=== PATIENT | female | born 1965 ===

== ENCOUNTER 2024-08-04 16:10 | Inpatient (IN) | payer OTHER, SELFPAY ==
[2024-08-04] VITALS (45 sets, daily range): BP systolic 79–205; BP diastolic 55–135
[2024-08-04] MEDS: ATIVAN 2 MG IV (13:48)
--- NOTE | 2024-08-04 13:56 | ED.GENMED ---
History of Present Illness
General
Chief Complaint: Change in Mental Status
Source: ambulance crew
Time Seen by Provider: 08/04/24 13:53
History of Present Illness
History of Present Illness:
59-year-old female presents to the emergency room for evaluation of altered mental status. Patient evidently works at [employer]. Coworkers noted she began speaking in a confused manner. 911 was called. Patient had a tonic-clonic seizure. When
medics arrived the patient was confused and combative. While the patient was en route to the hospital in the ambulance she had another tonic-clonic seizure. Prior to the seizure she was persistently confused. After the seizure which lasted about
a minute or so the patient was combative. We have no further history available at this time. Medics report a blood pressure 220 systolic en route as well.
Phy Exam
Physical Exam
Physical Exam:
General: Eyes open, confused, combative, high BMI
Vitals: Hypertensive
Head: Atraumatic
Eyes: Pupils equal, EOMI
Throat: Airway intact, no exudates
Neck: Trachea midline
Lungs: Clear and equal b/l
Heart: Tachycardic regular rate, no murmurs
Abd: Soft, Nontender, No pulsatile mass
Neuro: Moving all extremities equally. Patient is confused and combative and has great strength in all extremities
Skin: Warm, dry, no rash
Extremities: pulses equal b/l, no edema
Course
Orders/Labs/Results
Orders:
Orders
08/04/24 13:19
Etomidate [Amidate] 40 mg .ROUTE .STK-MED ONE
Etomidate [Amidate] 40 mg .ROUTE .STK-MED ONE
Rocuronium [place] [Rocuronium] 50 mg .ROUTE .STK-MED ONE
Rocuronium [place] [Rocuronium] 50 mg .ROUTE .STK-MED ONE
08/04/24 13:20
Lorazepam [Ativan] 2 mg IV NOW STA
08/04/24 13:44
Fentanyl Citrate/Pf [Sublimaze] 100 mcg .ROUTE .STK-MED ONE
Propofol 1,000,000 Mcg/100 ml [Diprivan] 1,000,000 mcg in 100 ml .ROUTE .STK-MED
08/04/24 13:46
Electrocardiogram (*1) Urgent
Reason for Study: Other
Other Reason for Exam: Possible Stroke
Head wo Contrast CT [CT Head W/o Iv Contrast] Stat
Comment:
Reason For Exam: change mental status seizure
Cardiac Monitoring- Treatment ONCE
EKG- Treatment ONCE
IV Insert/Care/Rem.- Treatment PRN
Vital Signs As Directed
Frequency: Other
Weight As Directed
Frequency: Once
Comment: ZERO STRETCHER SCALE FOR ACCURATE WEIGHT
O2 Therapy [RESP] Urgent
Titrate/Wean O2 to maintain O2 sat greater than (%): 93
Special Instructions: MAINTAIN CONTINUOUS O2 SATS > OR = 93%
08/04/24 13:48
Alcohol Urgent
B-Hydroxybutyrate Urgent
Comment: ADD ON
Complete Blood Count/With Diff Urgent
Comprehensive Metabolic Panel Urgent
Magnesium Urgent
Comment: ADD ON
PTT Urgent
Prothrombin Time Urgent
Triglycerides Urgent
Comment: ADD ON
Troponin I Urgent
08/04/24 13:59
Fentanyl Citrate/Pf [Sublimaze] 100 mcg IV NOW STA
08/04/24 14:10
CR Chest Portable - 1 View Urgent
Comment:
Reason For Exam: post intubation
Reason Study Needs to be Portable: Patient Unstable
08/04/24 14:11
Levetiracetam Injectable [Keppra] 4,000 mg IV NOW STA
Propofol 1,000,000 Mcg/100 ml [Diprivan] 1,000,000 mcg in 100 ml IV NOW
Indication:: Light Sedation
Begin Infusion:: Now
Goal:: RASS 0 to -2
Maximum dose in mcg/kg/min:: 50
Initial dose based on RASS:: Yes
If RASS is:: +1 or pt hemodynamically unstable (SBP < 90mmHg), initiate at 10 mcg/kg/min
If RASS is:: +2, initiate at 20 mcg/kg/min
If RASS is:: greater than or equal to +3, initiate at 30 mcg/kg/min
Titration Instructions:: Titrate by 5-10 mcg/kg/min every 5 minutes until RASS 0 to -2 achieved.
Taper Instructions:: If RASS is at or below goal for 4 consecutive hours decrease infusion by
Taper Instructions:: 5-10 mcg/kg/min every 2 hours to off.
Over-sedation Instructions:: If CPOT 0-2 (at goal) AND RASS -3 to -5 (below goal) decrease sedative by
Over-sedation Instructions:: 50% first. If pain score remains at goal and RASS remains below goal in
Over-sedation Instructions:: 1 hour, decrease opioid infusion by 50%.
Notify provider:: immediately if patient exhibits signs/symptoms of propofol-related
Notify provider:: infusion syndrome.
Additional Instructions:: Patient MUST be mechanically ventilated and MUST receive analgesia.
08/04/24 14:19
Add On- LAB Urgent
Tests Added?: beta-hydroxybuterate
ABG [Arterial Blood Gas] Urgent
%Oxygen/Room Air: 50
08/04/24 Dinner
NPO
Allow oral meds: Yes
Allow clear liquids: No
08/04/24 15:03
Urine Drug Abuse Screen Urgent
Date Specimen was Collected: 08/04/24
Time Specimen was Collected: 14:55
08/04/24 15:32
Urinalysis Reflex To Culture Urgent
08/04/24 15:39
Venous Blood Gas Urgent
%Oxygen/Room Air: 60
08/04/24 16:03
Admit/Transfer Patient As Directed
Co-Sign Provider:
Level of Care: Inpatient admission
Assign to:: ICU
Physician / Group: chuy
Diagnosis: seizure
Reason for Hospitalization: seizure
Expected length of stay greater than two midnights?: Yes
ELOS- Estimated Length of Stay in days: 2
I certify the patient meets the requirements for IP care: Yes
PRN Pain Medication Management As Directed
May give lesser potent ordered pain med per pt: Yes
preference::
Protocol:: Medication orders for pain may be administered in a
manner that supports deferring to patient preference
when the pt is:
- Requesting an ordered lesser potent pain medication.
Least to most potent pain medications are defined
as: acetaminophen < NSAID < tramadol < opioids
(morphine, oxycodone, hydromorphone).
- Requesting a lesser dose of the same medication IF
ORDERED.
- Requesting a less intrusive route of administration
if both routes are prescribed by the provider (PO <
IV).
08/04/24 16:04
Add On- LAB Urgent
Tests Added?: alcohol
Code Status As Directed
Resuscitation Status: Full Code
08/04/24 16:08
Potassium Chloride [KCl] 40 meq 0.9% Sodium Chloride 250 ml [Nss] 250 ml IV NOW
08/04/24 16:24
Activity As Directed
Activity Level: As Tolerated
Vital Signs As Directed
Frequency: Per unit guidelines
DX Deep Vein Thrombosis Video Routine
08/04/24 20:00
Heparin 5,000 units SC Q12
Levetiracetam Injectable [Keppra] 1,000 mg IV Q12
08/05/24 06:00
Complete Blood Count/With Diff IN AM
Comprehensive Metabolic Panel IN AM
Abnormal Lab Results
08/04/24 08/04/24
13:48 15:39
Plt Count 85 L 10^3/uL
(130-400)
MPV 10.9 H fL
(7.4-10.4)
Absolute Monos (auto) 1.2 H 10^3/uL
(0.1-0.6)
Monocytes % 14.4 H %
(1.7-9.3)
PT 17.3 H Sec
(11.4-14.6)
VBG pO2 80 H mmHg
(30-50)
Potassium 3.4 L mmol/L
(3.5-5.1)
Chloride 97 L mmol/L
(98-107)
Carbon Dioxide 21 L mmol/L
(22-30)
BUN 21 H mg/dl
(7-17)
Glucose 431 H mg/dl
(70-99)
Magnesium 1.4 L mg/dl
(1.6-2.3)
Total Bilirubin 3.2 H mg/dl
(0.2-1.3)
AST 48 H U/L
(14-36)
Total Protein 8.9 H g/dl
(6.3-8.2)
Albumin 5.2 H g/dl
(3.5-5.0)
Triglycerides 262 H mg/dl
(10-149)
B-Hydroxybutyrate 0.48 H mmol/L
(0.02-0.27)
08/04/24 13:48
08/04/24 13:48
Vital Signs
Initial and Last Documented VS:
Initial Vital Signs
Pulse Pulse Ox
154 96
08/04/24 13:25 08/04/24 13:25
Last Documented Vital Signs
Temp Pulse Resp BP Pulse Ox
98.3 F 98 17 118/74 100
08/04/24 16:52 08/04/24 16:45 08/04/24 16:45 08/04/24 16:45 08/04/24 16:56
MDM/Problems Addressed
Differential Diagnosis Includes:
Status epilepticus, alcohol withdrawal seizure, hypertensive emergency, intracranial hemorrhage, CVA, adverse reaction to medication or drug.
MDM/Problems Addressed:
59-year-old female who collapsed at work after becoming confused and then having generalized tonic-clonic seizure activity. Patient arrived to the emergency room combative. Initially treated 2 mg of lorazepam. This was used in case the patient
was having continued partial complex seizure activity. Her altered mental status did not improve and she did not become more calm. She was noted to be moving all extremities with good strength. Patient required emergent imaging of her brain to
exclude a bleed or other acute abnormality and the decision was made to perform rapid sequence intubation to facilitate an adequate workup. Patient was intubated with some difficulty. However were able to place a 7-1/[address] did not show
any acute bleed or infarct. Patient was loaded with 60 mg/kg of Keppra up to a maximum of 4000 mg. Propofol drip was initiated. In the immediate post intubation phase the patient remained quite hypertensive and tachycardic however as the propofol
was titrated up her heart rate and blood pressure did improve and essentially normalized. Patient's family arrived and was able to tell us that the patient has a history of cirrhosis and alcohol abuse. They believe she has been free of alcohol for
about 10 months. She also has a history of diabetes and hypertension. Neurology consultation was obtained. Dr. Anton came to the emergency room and evaluated the patient. Patient be admitted to the hospitalist service and I discussed the
patient's admission with Dr. Bonilla
Chronic conditions affecting care: HTN and Other (Alcohol use disorder)
*Radiology
Radiology exam reviewed: preliminary read by ED provider (Chest x-ray shows ET tube in good position and no acute infiltrates on my review) and radiology read reviewed
*Pulse Oximetry
Patient hypoxic: no
*EKG
Interpreted by ED Provider?: Yes
Rate: tachycardiac
Rhythm: sinus tachycardia
[place]: normal axis
QRS Pattern: left vent hypertrophy
Ischemia: non-specific ST changes
*Javascript Front End Developer Interpretation
Rate: tachycardiac
Interpretation: abnormal
Heart Rate: 145
Rhythm: sinus tachycardia
*Critical Care Note
Total Time (30-74mins, 75-104mins- exclusive of procedures): 40 min
comment:
Critical care statement: A total of 40 minutes of critical care time was provided for this patient. This includes management of unstable vital signs, evaluation of the patient at bedside, reviewing the patient's pertinent medical records, discussion
with consultants, review of old EKGs and review of pertinent medical records. This time with separate from time utilized to perform the aforementioned documented procedures
Patient Management
Social determinants of health affecting care: Living situation and Substance abuse
Discussion with other providers: Hospitalist
ED Attending Note
-
Portions of this chart may have been created with voice recognition software.� Occasional wrong word or��sound alike� substitutions may have occurred due to the inherent limitations of voice recognition software.
Discharge Plan
Departure
Patient Disposition: Admit
Date of Disposition: 08/04/24
Time of Disposition: 15:22
Admit to: ICU
Presentation/result/management discussed w/ accepting MD/DO: Hospitalist
Condition: Critical
Discharge Problem:
Status epilepticus
Interventions
Interventions:
*Risk Screen - Suicide Last Done: 08/04/24 13:56
*General Assessment Last Done: 08/04/24 13:56
*Neglect/Abuse Screening Last Done: 08/04/24 13:56
*ED COVID-19 Vaccine History Last Done: 08/04/24 13:56
*Nursing Disposition Last Done: 08/04/24 16:49
ED- Pulmonary Assessment Last Done: 08/04/24 14:54
ED-Psychological Assessment Last Done: 08/04/24 16:49
ED- Neurological Assessment Last Done: 08/04/24 13:56
ED- Cardiac Assessment Last Done: 08/04/24 13:56
ED Swallowing Screen Last Done: 08/04/24 14:53
Discharge Date and Time
Discharge Date/Time: 08/04/24 16:52
[2024-08-04] MEDS: SUBLIMAZE 100 MCG IV (14:00)
[2024-08-04 14:06] LABS: % Basophils 0.7 % (0-2); % Eosinophils 2.4 % (0-6); % Immature Granulocytes 0.4 % (0-0.5); % Lymphocytes 23.6 % (20.5-51.1); % Monocytes 14.4 % (1.7-9.3); % Neutrophils 58.5 % (42.2-75.2); Absolute Basophils 0.1 10^3/uL (0-0.2); Absolute Eosinophils 0.2 10^3/uL (0-0.7); Absolute Lymphocytes 1.9 10^3/uL (1.2-3.4); Absolute Monocytes 1.2 10^3/uL (0.1-0.6); Absolute Neutrophils 4.7 10^3/uL (1.4-6.5); Hematocrit 38.3 % (37.0-47.0); Hemoglobin 13.3 g/dL (12.0-16.0); Mean Corp Hgb Conc. 34.7 g/dL (33.0-37.0); Mean Corpuscular Hgb 30.9 pg (27.0-31.0); Mean Corpuscular Volume 89.1 fL (81.0-99.0); Nucleated Red Blood Cells % 0 %; Red Cell Dist. Width 14.1 % (11.5-14.5); White Blood Cell Count 8.1 10^3/uL (4.8-10.8)
[2024-08-04 14:07] LABS: ALT (SGPT) 30 U/L (0-35); AST (SGOT) 48 U/L (14-36); Albumin 5.2 g/dl (3.5-5.0); Alkaline Phosphatase 121 U/L (38-126); Blood Urea Nitrogen 21 mg/dl (7-17); Carbon Dioxide 21 mmol/L (22-30); Chloride 97 mmol/L (98-107); Glucose 431 mg/dl (70-99); Potassium 3.4 mmol/L (3.5-5.1); Sodium 140 mmol/L (135-145); Total Bilirubin 3.2 mg/dl (0.2-1.3); Total Protein 8.9 g/dl (6.3-8.2); eGFR > 60.00
[2024-08-04 14:11] LABS: APTT 29.1 Sec (23.4-35.0); INR 1.43; PT 17.3 Sec (11.4-14.6)
[2024-08-04 14:15] LABS: Mean Platelet Volume 10.9 fL (7.4-10.4); Platelet Count 85 10^3/uL (130-400)
[2024-08-04 14:18] LABS: Troponin I < 0.012 ng/ml
--- NOTE | 2024-08-04 14:29 | CON.INTV ---
Consultation
Consultation Request
Date/Time Consultation Requested: 08/04/2024-3:30 PM
Date/Time Consultation Performed: 08/04/2024-4 PM
Requesting Provider: Hospitalist
Performing Provider: Dr. Carrillo
Reason for Consultation: Ventilator/critical care management
Medical History
-
Chief Complaint: Mental status changes/shortness of breath
History of Present Illness:
59-year-old female with unknown past medical history who works at [employer] became confused, and had a tonic-clonic seizure subsequently confused and combative requiring intubation with another tonic-clonic seizure-supervisor real estate office consulted for
hypertension/ventilator/seizures/critical care management 08/04/2024. Patient is on a ventilator and review of systems was unobtainable. There is literally no history on her and sister recently arrived to the emergency room and reportedly she had
hypertension, diabetes, alcoholic reportedly not drinking for many months, however additional history was unavailable.
Past Medical History
Past Medical History: None ( Unknown. Obesity. According to sister who just arrived to the emergency room-has Hypertension. Diabetes. Cirrhosis/alcoholic-not drinking for months.)
Social History
Tobacco: Other (Unknown)
Alcohol: Former (Reportedly not drinking for some months)
Drug: Other (Unknown)
Occupational Exposures: Unknown if she had tuberculosis exposure
Environmental Exposures: Unknown if she has asbestos exposure
Family History
Family History: Unable to Obtain
Allergies / Home Medications
Allergies
Allergy/AdvReac Type Severity Reaction Status Date / Time
No Known Allergies Allergy Unverified 08/04/24 13:40
Home Medications
�Medication �Instructions �Recorded �Confirmed �Last Taken �Type
Unobtainable 08/04/24 08/04/24 Unknown History
Review of Systems
-
Unable to Obtain full review of systems at this time due to: Patient Intubation
Vitals / Labs / Diagnostic Testing
Vital Signs
Pulse Resp BP Pulse Ox
177 14 180/135 92
08/04/24 14:00 08/04/24 14:00 08/04/24 14:00 08/04/24 14:00
Lab Data
08/04/24 13:48
08/04/24 13:48
Laboratory Results
08/04/24
13:48
PT 17.3 H
INR 1.43
APTT 29.1
Diagnostic Testing:
Physical Exam
-
Exam:
Well-nourished and well-developed in no apparent distress
HEENT-atraumatic, normocephalic, oral tracheal intubation
Neck-supple, no JVD, no bruit
Heart-regular rate and rhythm-no murmurs, rubs or gallops
Chest-clear to auscultation, no wheezes, crackles
Abdomen-soft, nontender, nondistended, no hepatosplenomegaly
Extremities-no cyanosis, clubbing, edema and good peripheral pulses
Integument-intact, no rashes, lesions or ecchymosis
Neurology-not alert, not oriented not moving extremities sedated on the ventilator
Assessment
-
59-year-old female with unknown past medical history who works at [employer] became confused, and had a tonic-clonic seizure subsequently confused and combative requiring intubation with another tonic-clonic seizure-supervisor real estate office consulted for
hypertension/ventilator/seizures/critical care management 08/04/2024.
Tonic-clonic seizures
Respiratory failure requiring intubation
Intubated 08/04/2024
Extubated
Hypertensive urgency
Obesity
Mild thrombocytopenia-platelet 85
Hypokalemia
Metabolic acidosis
Hyperglycemia-blood sugar 431
Mildly elevated LFTs-total bilirubin 3.2, AST 48
Left sphenoid sinusitis
Conditions present prior to admission:
Unknown-sister showed up to ED-reportedly hypertension, diabetes, and recovering alcoholic-reportedly has not drank in months
Obesity
Plan
Patient critically ill status post tonic-clonic seizures now intubated
Admit to medical intensive care unit
Ventilator settings reviewed
Follow ABG
Wean FiO2
Adjust ventilator
Spontaneous breathing trial once neurologic and hemodynamic status improved
VAP prevention protocol
Nebulizers if needed-currently not bronchospastic
Neurology evaluation
CT head
Antiepileptics per neurology-Keppra loaded, also on propofol
Antihypertensives
Nicardipine if needed
Monitor blood sugar
Insulin supplementation as needed
Follow-up LFTs
History unclear-reportedly alcoholic with cirrhosis though has not been drinking for months
MSAS
Alcohol withdrawal treatment protocol may need to be initiated
Check alcohol level
Check ammonia
If ammonia elevated consider lactulose
Follow thrombocytopenia
DVT prophylaxis recommended
GI prophylaxis while on the ventilator
Early nutrition
Early mobilization/bedside range of motion
Reviewed with ED nursing as well as hospitalist
Eventual screen for obstructive sleep apnea-recommend outpatient sleep evaluation
Critical care statement: A total of 55 minutes of critical care time was provided for this patient today. This includes management of unstable vital signs, evaluation of the patient at bedside, reviewing the patient's pertinent medical records
including radiographs, microbiology, laboratory evaluations, ventilator management, seizure management, and discussion with primary team, consultants, pharmacy, nutrition, physical therapy, case management, charge nurse, critical care nursing, and
respiratory therapy.
Diagnostic data:
Chest x-ray 08/04/2024-ET tube 4.5 cm above neo, no airspace disease, pneumothorax, pleural effusion or other abnormalities
CT head 08/04/2024-no acute intracranial abnormalities, left sphenoid sinusitis
Data Reviewed
-
EKG: Report reviewed by me
Radiology: Image personally visualized and interpreted and Report reviewed by me
CT Scan: Image personally visualized and interpreted and Report reviewed by me
Labs: Labs reviewed by me
Old Records: Reviewed
Critical Care Time (in minutes): 55
[2024-08-04] MEDS: KEPPRA 4000 MG IV (14:40)
[2024-08-04] MEDS: DIPRIVAN 100 IV ×3 (14:41→23:00)
--- NOTE | 2024-08-04 15:18 | CON.NEURO4 ---
Consultation - Neurology 4
-
CONSULTING PHYSICIAN: Carlos Anton MD(Neurology)
REFERRING PHYSICIAN: Hospitalist
DICTATED BY: Carlos Anton MD
DATE/TIME OF REQUEST: 08/04/2024
DATE/TIME OF CONSULTATION: 08/04/2024
Reason for Consultation: Seizures
History of Present Illness:
This is a 59 year old right) handed female) who has presented to the hospital with (chief complaint) of prolonged seizure. She gives ah/o HTN, DM, alcohol use, cirrhosis secondary to alcohol who was in her [employer] working at the [employer] who became confused and incoherent. She was easily redirected. EMS arrived to evaluate and she walked into the ambulance and laid down onto the stretcher. During transfer to the ER pat lost consciousness and started seizing. She was given
Ativan IV . She was intubated in the ER as she continued to seize. She was given Fentanyl. She was then placed on Propofol IV. Initial BP was 220/110. She was loaded with IV Keppra 4000mg. Pat stopped seizing on Propofol and BP decreased from 220 to
140
At the time of my exam pat was intubated sedated and medically paralyzed
Past Medical History: HTN
Surgical History: NC
Family History: NC
Social History: H/o alcohol use
Allergies: NKA
Home Medications: NA
Review of Symptom: Per the HPI. I am unable to obtain a complete review of systems�because of patient's inability to provide history.'
Vital Signs:
The patient has
Temp Pulse Resp BP Pulse Ox
37.9 C 116 16 132/89 95
Intubated on ventilator
Physical Exam:
The patient is afebrile, heart sounds S1 and S2 are regular , and chest is clear to auscultation bilaterally.
- If not clear, describe.
Neurologic Examination:
The patient is sedated and intubated. She is unable to follow commands. Speech cannot be assessed due to sedation and intubation.
On cranial nerve assessment, pupils are 3 mm bilateral, round and reactive to light. Visual hurst cannot be assessed.
Extraocular movements are impaired. Facial sensations cannot be assessed. There is no facial asymmetry. Hearing cannot be assessed.
Tongue palate and uvula are midline. Sternocleidomastoid strengths cannot be assessed. Motor strengths cannot be assessed as patient is paralyzed.
There is no drift or involuntary movement noted. Deep tendon reflexes are 2+ bilateral upper and lower extremities and Babinski is absent bilaterally.
Sensations of pain, touch, temperature and vibration cannot be assessed. Coordination Rombergs Gait cannot be assessed
Lab Results: See addendum
Neuro Imaging: CT head: Atrophy small vessel disease. Normal ventricles
Impression:
Ms.JANET GENE ZACARIAS is a 59 year old F who has presented to the hospital with (symptoms/chief complaint) of uncontrolled HTN who suffered a prolonged seizure requiring intubation and ventilator support.
Differentials for the patient's presentation include:
1. Hypertensive-encephalopathy
Recommendations:
1. IV Propofol
2. IV Keppra 1000mg q 12
3. EEG
4. MRI/MRA head
5. ICU management
6. Thiamin
7. B12
8. BP management keep systolic 140-160/ 80-95
9. NPO
Discussed patient care with: Hospitalist
Allergies
-
Allergies
Allergy/AdvReac Type Severity Reaction Status Date / Time
No Known Allergies Allergy Unverified 08/04/24 13:40
Vital Signs and Labs
-
Vital Signs and Labs:
Vital Signs
Temp Pulse Resp BP Pulse Ox
37.9 C 116 16 132/89 95
08/04/24 14:32 08/04/24 15:00 08/04/24 15:00 08/04/24 15:00 08/04/24 15:00
Lab Results
08/04/24 13:48
08/04/24 13:48
PT 17.3 Sec (11.4-14.6) H 08/04/24 13:48
INR 1.43 08/04/24 13:48
APTT 29.1 Sec (23.4-35.0) 08/04/24 13:48
Sodium 140 mmol/L (135-145) 08/04/24 13:48
Potassium 3.4 mmol/L (3.5-5.1) L 08/04/24 13:48
BUN 21 mg/dl (7-17) H 08/04/24 13:48
Glucose 431 mg/dl (70-99) H 08/04/24 13:48
Calcium 10.0 mg/dl (8.4-10.2) 08/04/24 13:48
Medications
-
Home Medications
�Medication �Instructions �Recorded
Unobtainable 08/04/24
[2024-08-04 15:41] LABS: Amphetamines Negative (Negative); Barbiturates Negative (Negative); Benzodiazepines Negative (Negative); Buprenorphine Negative (Negative); Cocaine Negative (Negative); Marijuana Negative (Negative); Methadone Negative (Negative); Methamphetamines Negative (Negative); Opiates Negative (Negative); Phencyclidine Negative (Negative); Tricyclic Antidepressants Negative (Negative)
[2024-08-04 15:45] LABS: Venous Blood Gas B.E. -3.4 mmol/L (-4 to +4); Venous Blood Gas HCO3 22.7 mmol/L (22-27); Venous Blood Gas O2 Sat % 96.3 %; Venous Blood Gas pCO2 44 mmHg (35-48); Venous Blood Gas pH 7.32 (7.32-7.43); Venous Blood Gas pO2 80 mmHg (30-50)
[2024-08-04 15:54] LABS: B-Hydroxybutyrate 0.48 mmol/L (0.02-0.27)
--- NOTE | 2024-08-04 16:13 | HPS.HSE ---
Addendum entered and electronically signed by Jermaine Barajas MD 08/04/24 16:17:
Check ammonia level, If elevated and may need to start lactulose.
Original Note:
Family Physician
-
Family Physician: Bob Kirby
Chief Complaint
-
seizure
History of Present Illness
59-year-old female past medical history of alcoholic cirrhosis, obesity, diabetes, hypertension, presenting with altered mental status. Patient works at [employer] and coworkers noted she began speaking in a confused manner. 911 was called. Patient
had tonic-clonic seizure. Medics arrived she was confused and combative. While the patient was en route to the hospital she had another tonic-clonic seizure lasting a minute. Patient was combative after the seizure. As per medics her blood
pressure was 220 systolic en route. She was intubated due to prolonged confusion and agitation.
As per patient's sister patient was/drinking alcohol in September. To her knowledge she has not been drinking any alcohol within the past month. Denies any smoking or drug use.
ER spoke with [employer] and patiently reportedly lives by herself and does not have family.
Her father had a history of brain cancer with seizures.
Medical History
Past Medical History
Past Medical History: Reports Other (alcoholic cirrhosis, obesity, diabetes, hypertension)
Past Surgical History: Reports None
Social History
Tobacco: Non-smoker
Alcohol: Former
Drug: None
Family History
Family History: Not pertinent
Allergies / Home Medications
Allergies reflects when Allergies were last updated in [facility].
Home Medications with original date entered in [facility]
Allergy/Medication List:
Allergies
Allergy/AdvReac Type Severity Reaction Status Date / Time
No Known Allergies Allergy Unverified 08/04/24 13:40
Home Medications
Unobtainable 08/04/24
Review of Systems
-
History Source: Patient
A 12 point ROS was completed and negative except as noted: Yes
Constitutional: Reports No Symptoms
EENT: Reports No Symptoms
Respiratory: Reports No Symptoms
Cardiac: Reports No Symptoms
Abdomen/GI: Reports No Symptoms
: Reports No Symptoms
Musculoskeletal: Reports No Symptoms
Skin: Reports No Symptoms
Neurological: Reports See HPI
Endocrine: Reports No Symptoms
Hematologic/Lymphatic: Reports No Symptoms
Psych: Reports No Symptoms
Physical Exam
Vital Signs
Vital Signs
Temp Pulse Resp BP Pulse Ox
100.3 F 112 19 140/93 98
08/04/24 14:32 08/04/24 15:45 08/04/24 15:45 08/04/24 15:45 08/04/24 15:45
Physical Exam
General: Well Developed, Well Nourished and No Apparent Distress
HEENT: NormoCephalic, Moist mucous membranes and Atraumatic
Respiratory: Clear
Cardiac: S1/S2 and Regular Rhythm; No Murmur or Rub
GI: Soft, Non Tender, Non Distended and Normal Bowel Sounds; No Organomegaly
Rectal: Deferred by Provider
Musculoskeletal: No Clubbing, No Cyanosis and No Edema
Skin: No Rash
Neuro: Nonfocal/grossly intact
Laboratory Results
-
08/04/24 13:48
08/04/24 13:48
Laboratory Results
PT 17.3 Sec (11.4-14.6) H 08/04/24 13:48
INR 1.43 08/04/24 13:48
APTT 29.1 Sec (23.4-35.0) 08/04/24 13:48
Total Bilirubin 3.2 mg/dl (0.2-1.3) H 08/04/24 13:48
AST 48 U/L (14-36) H 08/04/24 13:48
ALT 30 U/L (0-35) 08/04/24 13:48
Alkaline Phosphatase 121 U/L (38-126) 08/04/24 13:48
Troponin I < 0.012 ng/ml 08/04/24 13:48
Data Reviewed
-
Lab Data: Labs Reviewed by me
Old Records: Reviewed
Impression/Plan
-
IMPRESSION:
PLAN:
# New onset tonic-clonic seizures possibly alcohol withdrawal seizure
-Patient intubated
-On propofol drip
-CT head shows no acute abnormality
-Check alcohol level, UDS
-Keppra loaded 4 g
-Continue 1 g every 12
-Neurology consulted
-Check MRI brain, EEG
# Thrombocytopenia likely secondary to cirrhosis
-Platelets 85, unknown chronicity
# Hypokalemia
-Replete potassium
-Check magnesium
# Hyperglycemia
#Type 2 diabetes
-Blood sugar 400s
-Check A1c
-Start Lantus 10 units daily
-Insulin sliding scale
-reportedly on Wgovy
History of alcoholic cirrhosis
History of alcohol use disorder
-As per sister patient has not had alcohol since September
Essential hypertension
Obesity
Full code
DVT prophylaxis�heparin
N.p.o.
[2024-08-04 16:15] LABS: Triglycerides 262 mg/dl (10-149)
[2024-08-04 16:27] LABS: Alcohol None Detected; Magnesium 1.4 mg/dl (1.6-2.3)
[2024-08-04 16:50] LABS: Glucose - Point of Care 446 mg/dl (70-99)
[2024-08-04] MEDS: KCL 270 MEQ IV (17:10)
[2024-08-04 17:37] LABS: Ammonia 28 umol/L (9-30)
[2024-08-04] MEDS: SUBLIMAZE 25 MCG IV (17:37)
[2024-08-04] MEDS: MAGNESIUM SULFATE 100 IV (17:38)
[2024-08-04 17:46] LABS: Glucose 452 mg/dl (70-99); Triglycerides 264 mg/dl (10-149)
[2024-08-04] MEDS: LANTUS 0.1 UNITS SC (17:50)
[2024-08-04] MEDS: NOVOLOG FLEXPEN-LOW RESISTANCE 6 UNITS SC (17:58)
[2024-08-04 18:06] LABS: Urine Albumin 3+ (Neg - Trace); Urine Bilirubin Negative (Negative); Urine Character Clear (Clear); Urine Color Yellow; Urine Glucose 3+ (Negative); Urine Ketone Trace (Negative); Urine Leukocyte Negative (Negative); Urine Nitrite Negative (Negative); Urine Occult Blood 2+ (Negative); Urine Urobilinogen Negative (Neg - 1+)
--- NOTE | 2024-08-04 18:30 | PTCARENOTE ---
Rec'd patient from ED @ 1630. Patient intubated and sedated on Propofol. Propofol gtt infusing @ 50. Patient trashing and attempting to pull out ett. Attending notified. Order for prn fentanyl pushes and b/l wrist restraints obtained. Pupils +1mm
bilaterally. +Corneal/gag reflexes. Does not follow commands. Unable to score MSAS. NSR on tele monitor. Rate in the 90's. Trace edema in b/l LE. Palpable pulses. #7.5 ett. Positioned @ 23 cm on the left. A/C 16/500/5/60%. Lung sounds diminished
throughout. Oral suctioning provided for a small amount of blood. Tip of tongue appears to have been bitten. +BS. Mcdaniel placed for critical I/O. 380 cc's drained upon insertion. K and Mag repleted. Blood glucose level >400. Lab draw sent. Results
relayed to Attending. 10 Lantus and sliding scale coverage. treasury specialist RN notified to recheck at 1999.
[2024-08-04 18:35] LABS: Urine Squamous Cell 26-30 /LPF (Few)
[2024-08-04 18:36] LABS: Urine Bacteria Few (Negative); Urine Granular Cast 0-2 /LPF (0); Urine Hyaline Cast 0-2 /LPF (0-2); Urine Urothelial Cell 0-2 /LPF (FEW); Urine White Cell 0-2 /HPF (0-5)
[2024-08-04] MEDS: SUBLIMAZE 100 IV (19:45)
--- NOTE | 2024-08-04 20:00 | PTCARENOTE ---
Received pt via handoff. Pt sedated but arouse to verbal, tactile and pain, agitated. Pupils +2 sluggish. NSR w/ trace edema in bilateral lower extremities. Lung sounds are diminished. 7.5 ETT 23@lip, AC 16/500/5/60%. Hypoactive bowel sounds. Temp
sensing Mcdaniel draining minimal amount of clear yellow urine. Right hand has slight rash. Gtts running see flowsheet. Will continue to monitor.
[2024-08-04] MEDS: SUBLIMAZE 50 MCG IV (20:05)
[2024-08-04] MEDS: HEPARIN 5000 UNITS SC (20:18)
[2024-08-04] MEDS: KEPPRA 1000 MG IV (20:19)
[2024-08-04] MEDS: NSS 1000 IV ×2 (20:46→22:01)
[2024-08-04 20:53] LABS: Glucose - Point of Care 373 mg/dl (70-99)
[2024-08-04] MEDS: THIAMINE INJECTION 200 MG IV (21:20)
[2024-08-04] MEDS: NOVOLIN R 0.1 UNITS SC (22:59)
[2024-08-05] VITALS (40 sets, daily range): BP systolic 75–127; BP diastolic 44–78; BMI 35.4
--- NOTE | 2024-08-05 00:03 | PTCARENOTE ---
All systems reassessed. Respiratory lowered FIO2 from 60% to 50%. Fentanyl gtt started. Fluid bolus administered per PHTHALIC ACID PURIFIER Porter due to low urine output. Pt hygiene performed, will continue to monitor.
[2024-08-05] MEDS: ATIVAN 2 MG IV ×5 (00:22→20:42)
[2024-08-05] MEDS: NOVOLOG FLEXPEN-MODERATE RESISTANCE 5 UNITS SC ×2 (00:46→12:55)
[2024-08-05 00:57] LABS: Glucose - Point of Care 291 mg/dl (70-99)
[2024-08-05] MEDS: LEVOPHED 250 IV (02:06)
[2024-08-05] MEDS: NSS 1000 IV ×2 (03:58→05:32)
--- NOTE | 2024-08-05 04:00 | PTCARENOTE ---
All systems reassessed. Pt continues to have low urine output. ELEVATOR CONSTRUCTOR HYDRAULIC Porter made aware, given 2L of fluid bolus's along with continues fluid. Labs drawn and hygiene performed. Levo gtt started see flowsheet. Will continue to monitor.
[2024-08-05 04:26] LABS: % Basophils 0.5 % (0-2); % Eosinophils 2.2 % (0-6); % Immature Granulocytes 0.6 % (0-0.5); % Lymphocytes 8.3 % (20.5-51.1); % Monocytes 11.5 % (1.7-9.3); % Neutrophils 76.9 % (42.2-75.2); Absolute Basophils 0.1 10^3/uL (0-0.2); Absolute Eosinophils 0.2 10^3/uL (0-0.7); Absolute Immature Granulocytes 0.1 10^3/uL (0-0.05); Absolute Lymphocytes 0.8 10^3/uL (1.2-3.4); Absolute Monocytes 1.1 10^3/uL (0.1-0.6); Absolute Neutrophils 7.5 10^3/uL (1.4-6.5); Hematocrit 32.5 % (37.0-47.0); Hemoglobin 11.8 g/dL (12.0-16.0); Mean Corp Hgb Conc. 36.3 g/dL (33.0-37.0); Mean Corpuscular Hgb 32.7 pg (27.0-31.0); Mean Platelet Volume 11.5 fL (7.4-10.4); Nucleated Red Blood Cells % 0 %; Platelet Count 108 10^3/uL (130-400); Red Blood Cell Count 3.61 10^6/uL (4.20-5.40); Red Cell Dist. Width 14.1 % (11.5-14.5); White Blood Cell Count 9.7 10^3/uL (4.8-10.8)
[2024-08-05 04:38] LABS: ALT (SGPT) 25 U/L (0-35); AST (SGOT) 40 U/L (14-36); Albumin 3.9 g/dl (3.5-5.0); Alkaline Phosphatase 88 U/L (38-126); Blood Urea Nitrogen 27 mg/dl (7-17); Calcium 8.8 mg/dl (8.4-10.2); Carbon Dioxide 17 mmol/L (22-30); Chloride 101 mmol/L (98-107); Glucose 220 mg/dl (70-99); Potassium 3.2 mmol/L (3.5-5.1); Sodium 137 mmol/L (135-145); Total Bilirubin 1.8 mg/dl (0.2-1.3); eGFR 57.52
[2024-08-05 05:24] LABS: Vitamin B12 668 pg/ml (239-931)
[2024-08-05] MEDS: NOVOLOG FLEXPEN-MODERATE RESISTANCE 3 UNITS SC (05:32)
[2024-08-05 05:42] LABS: Glucose - Point of Care 211 mg/dl (70-99)
--- NOTE | 2024-08-05 08:12 | W.PN.INTV ---
Today's Communication / Plan
Recommendations
Continue mechanical ventilation with daily SAT/SBT
Wean off all sedation if possible
MSAS and start phenobarbital protocol
Thiamine/folate
Start antibiotics for suspected RLL aspiration pneumonia + suspected UTI
Check sputum culture + blood culture
Trend ammonia level
Check abdominal ultrasound and if ascites present then perform paracentesis to rule out SBP
AEDs as per neurology
Check MRI brain
Assessment
-
59-year-old female with unknown past medical history who works at [employer] became confused, and had a tonic-clonic seizure subsequently confused and combative requiring intubation with another tonic-clonic seizure-ceramics test engineer consulted for
hypertension/ventilator/seizures/critical care management 08/04/2024.
Impression:
Tonic-clonic seizures suspected to be due to acute EtOH withdrawal; less likely primary epilepsy
Acute respiratory failure with hypoxia requiring intubation
- Intubated 08/04/2024
Hypertensive urgency - now resolved
Obesity
Mild thrombocytopenia - could be related to her reported Hx of cirrhosis
Hx of alcohol abuse with reported Hx of cirrhosis
Hypokalemia
ROXANNA
Metabolic acidosis likely related to starvation ketoacidosis
RLL CAP, suspected to be aspiration during seizure event
DM type II c/b hyperglycemia
Mildly elevated LFTs with hyperbilirubinemia likely due to acute alcoholic hepatitis
Left sphenoid sinusitis
Pyuria (purulent urine seen in kay catheter tubing)
Conditions present prior to admission:
Unknown-sister showed up to ED-reportedly hypertension, diabetes, and recovering alcoholic-reportedly has not drank in months
Obesity
Plan
Patient critically ill status post tonic-clonic seizures now intubated on sedation
Continue with mechanical ventilation with daily SAT/SBT if clinically appropriate
Titrate FiO2 + PEEP to keep SpO2 >90-94%
Adjust ventilator daily depending on blood gas
Check CXR daily to assess ETT position
If patient is unable to be extubated today, then insert Dobbhoff tube and start tube feeds
VAP prevention protocol
Nebulizers if needed-currently not bronchospastic
She is a former drinker, quit last September but has relapsed recently. Her home was found to be disheveled by her sister. EEG obtained on 08/05/2021 shows diffuse cortical dysfunction with no seizures recorded.
- Wean off of all sedation if possible with plans for SAT/SBT
- If unable to wean off sedation successfully then use the lowest required dose of propofol + fentanyl drips to keep RASS score -1 to -2 and then we will attempt tomorrow after MRI brain
Neurology consulted with recs appreciated
CT head performed on 08/04/2024 shows no acute intracranial abnormality in addition to left sphenoid sinusitis
Check MRI brain
Antiepileptics per neurology-Keppra loaded, also on propofol --> remains on keppra 1g q12hr
Keep MAP>65
Replete K>4, Mg>2
Monitor blood sugar with goal BG 140-180
Insulin supplementation with basal-bolus dosing
If serum HCO3 continues to drop then she may need insulin gtt +/- bicarb infusion
Despite her urinalysis being negative on 08/04/2024, she has purulent urine in the Kay catheter tubing. I will start her on ceftriaxone and plan for at least 5-7 days assuming she remains afebrile for 48 hours prior and continues to clinically
improve
- She also has a opacification seen in the medial right lower lobe with concern for aspiration pneumonia; start doxycyline as well to cover for CAP
- Check sputum culture + blood Cx
Trend LFTs
Check abd US to assess liver morphology and assess for ascites
- If ascites is present then perform paracentesis to r/o SBP
- Trend ammonia level (28 on 08/04/2024)
History unclear-reportedly alcoholic with cirrhosis though has not been drinking for months
MSAS
Start phenobarbital protocol
Thiamine/folate
Alcohol level is not detected
Beta-hydroxybutyrate was slightly elevated on 08/04/2024 likely due to starvation ketoacidosis vs early DKA
If ammonia increases then consider lactulose
Consider GI consult
Follow thrombocytopenia and transfuse if needed to keep >20k
Transfuse PRBC if needed to keep Hb>7g/dL
DVT prophylaxis: LMWH (monitor bloody subglottic catheter drainage)
GI prophylaxi: N/A
Early nutrition
Early mobilization/bedside range of motion
Eventual screen for obstructive sleep apnea-recommend outpatient sleep evaluation
Critical care statement: A total of 48 minutes of critical care time was provided for this patient today. This includes management of unstable vital signs, evaluation of the patient at bedside, reviewing the patient's pertinent medical records
including radiographs, microbiology, laboratory evaluations, ventilator management, seizure management, and discussion with primary team, consultants, pharmacy, nutrition, physical therapy, case management, charge nurse, critical care nursing, and
respiratory therapy.
Diagnostic data:
Chest x-ray 08/04/2024-ET tube 4.5 cm above neo, no airspace disease, pneumothorax, pleural effusion or other abnormalities
CT head 08/04/2024-no acute intracranial abnormalities, left sphenoid sinusitis
Subjective Dataa
Subjective Data
Date of Service:
Date of Service: August 05, 2024
Chief Complaint: Luster Applicator Follow Up
Subjective:
Patient was seen and evaluated today at bedside. Currently on propofol at 25mcg/kg/min and fentanyl gtt at 50mcg/hr. Off pressors. Has blood seen in the ETT subglottic tubing. No bethany hemoptysis seen or blood seen in the oral cavity even with
oral suctioning. She remains intubated on AC/VC at 16/500/50%/5, with PIP: 30 cmH2O, breathing at 16 breaths per minute and VTe 445 mL. Heart rate 91, saturating 99%, BP 119/69.
Review of Systems
General: Unobtainable - Sedation
Objective Data
Data Reviewed
Vital Signs / I&O / Oxygen:
Vital Signs
Temp Pulse Resp BP Pulse Ox
102.9 F H 110 17 117/65 94
08/05/24 19:56 08/05/24 18:15 08/05/24 18:15 08/05/24 18:00 08/05/24 18:33
Intake and Output
08/04/24 08/05/24 08/06/24
06:59 06:59 06:59
Intake Total 3682.5 / 3802.5 1335.0 / 1335.0
Output Total 477 / 492 385 / 385
Balance 3205.5 / 3310.5 950.0 / 950.0
SaO2 [A/C] 87
SaO2 94
Physical Exam
General: Respiratory Distress (negative), Comfortable, Chills (negative), Sweats and Other (Intubated/sedated)
HEENT: Normocephalic, Anicteric and Other (ETT in place)
Cardiovascular: S1-S2, Murmur (negative) and Peripheral Edema (Trace lower extremity edema bilaterally)
Respiratory: Wheeze (negative), Crackles (negative), Rhonchi (Bilaterally), Non-Labored Respirations and ET Tube (Mechanical breath sounds heard bilaterally)
GI: Soft, Distended, Non Tender and Normal Bowel Sounds
Neurology: Tremors (negative) and Other (Not awakening to verbal/tactile stimuli)
Skin: Warm, Dry, Cyanosis (negative) and Jaundice (negative)
Labs/Micro/Reports
Lab Data
08/05/24 03:57
08/05/24 03:57
Microbiology
08/05/24 13:12 Endotracheal Gram Stain - Preliminary
[2024-08-05] MEDS: KEPPRA 1000 MG IV ×2 (09:26→20:41)
[2024-08-05] MEDS: HEPARIN 5000 UNITS SC (09:26)
[2024-08-05] MEDS: THIAMINE INJECTION 200 MG IV (09:26)
[2024-08-05] MEDS: MIRALAX TUBE (09:27)
--- NOTE | 2024-08-05 09:57 | PTCARENOTE ---
Update with sister in law via phone. Patient family going to her home to update environment, attempting to follow up with AA to update any social issues ongoing. Neurology team at bedside, hemodialysis technician at bedside for ongoing test. Updated assessment,
vital signs ongoing and as documented. Await update in grand rounds with Bottom Saw Operator team. Will continue hourly rounds, skin cares, oral cares and frequent patient safety checks as per unit based protocols.
[2024-08-05 10:06] LABS: Glycohemoglobin (HgbA1c) 8.3 % (4.0-5.6)
--- NOTE | 2024-08-05 10:58 | W.PN.NEURO.1 ---
Today's Communication / Plan
-
Continue Levetiracetam 1000 mg twice a day, loaded with 4000 mg IV at time of admission
Continue Thiamine for now
Eventual MRI of brain
EEG, brief review failed to demonstrate status epilepticus, consider continuous EEG if recurrent events
Neuro Assessment/Plan
Assessment
Neuro Imaging: CT head: Atrophy small vessel disease. Normal ventricles
Impression:
Ms.JANET GENE ZACARIAS is a 59 year old F who has presented to the hospital with a prolonged seizure requiring intubation and ventilator support.
Differentials for the patient's presentation include:
Possible alcohol withdrawal seizure
Differential would include generalized tonic-clonic seizure of idiopathic etiology
Plan
Continue Levetiracetam 1000 mg twice a day, loaded with 4000 mg IV at time of admission
Continue Thiamine for now
Eventual MRI of brain
EEG, brief review failed to demonstrate status epilepticus, consider continuous EEG if recurrent events
We will follow
Subjective/Objective
Subjective Data
Date of Service: August 05, 2024
Patient unable provide her own medical history
Objective Data
Vital Signs
Temp Pulse Resp BP Pulse Ox
37.2 C 90 16 118/70 99
08/05/24 07:56 08/05/24 10:00 08/05/24 10:00 08/05/24 10:00 08/05/24 10:00
Lab Results
08/05/24 03:57
08/05/24 03:57
PT 17.3 Sec (11.4-14.6) H 08/04/24 13:48
INR 1.43 08/04/24 13:48
APTT 29.1 Sec (23.4-35.0) 08/04/24 13:48
Sodium 137 mmol/L (135-145) 08/05/24 03:57
Potassium 3.2 mmol/L (3.5-5.1) L 08/05/24 03:57
BUN 27 mg/dl (7-17) H 08/05/24 03:57
Glucose 220 mg/dl (70-99) H 08/05/24 03:57
Calcium 8.8 mg/dl (8.4-10.2) 08/05/24 03:57
Vitamin B12 668 pg/ml (239-931) 08/05/24 03:57
Ur Buprenorphine Cancelled 08/04/24 17:53
Patient Allergies
No Known Allergies Allergy (Unverified 08/04/24 13:40)
Review of Systems
-
Unable to obtain full review of systems at this time due to: Patient Intubation and Lethargy
History Source: Patient
All other systems: Reviewed and negative
Physical Exam
-
General: No Apparent Distress, Intubated and Appears Stated Age
Eyes: Round OU, [place] Conjunctivae and No Ptosis
HEENT: Anicteric and Moist Mucous Membranes
Neck: Full Range of Motion
Respiratory: No Dyspnea
Cardiac: No JVD
GI: Non-distended
Skin: Unremarkable
Extremities: No Clubbing, No Cyanosis and No Edema
Psych: Unable to Assess
Extended Neurological Exam
Mood & Affect: Unable to Assess
Attention Span & Concentration: Unresponsive to Verbal Stimuli; Negative Unresponsive to Physical Stimuli
Memory: Unable to Assess
Tremor: Hand Tremor Absent and Head Tremor Absent
Involuntary Movement: None
Speech: Unable to Assess
Cranial Nerve II: Left Eye: Pupillary Reactivity Unremarkable, Pupillary Size Unremarkable and Unable to Assess
Cranial Nerve II: Right Eye: Pupillary Reactivity Unremarkable, Pupillary Size Unremarkable and Unable to Assess
Cranial Nerves III, IV, : Extraocular Movement: Absent Doll's Eyes
Cranial Nerve V: Facial Sensation: Unable to Assess
Cranial Nerve VII: Facial Symmetry: Normal Facial Symmetry
Cranial Nerve VIII: Hearing: Unable to Assess
Cranial Nerves IX, X: Palate Movement: Unable to Assess
Cranial Nerve XI: Shoulder Shrug: Unable to Assess
Cranial Nerve XII: Tongue Protusion: Unable to Assess
Muscle Strength, Overall: Other (Patient did have attempted move away from a painful stimulus in lower extremities as well as right upper extremity, minimally)
Muscle Bulk & Tone: Tone Unremarkable
Pronator Drift: Unable to Assess
Cold Sensation: Unable to Assess
Vibration Sensation: Unable to Assess
Coordination: Unable to Assess
Babinski Sign: Absent Bilaterally
Gait & Station: Unable to Assess
Data Reviewed
-
CT Head: Report Reviewed
EEG: Pending
Labs: Report Reviewed
Reviewed with: Physician, Nurse and Nurse Practioner
Old Records: Summarized
[2024-08-05] MEDS: DIPRIVAN 100 IV ×2 (12:17→18:23)
[2024-08-05 12:49] LABS: Glucose - Point of Care 261 mg/dl (70-99)
--- NOTE | 2024-08-05 12:52 | W.PN.HOSP.TC ---
Today's Communication/Plan
-
replete KCL
Keppra
MRI brain when stable
phenobarb regimen
Assessment / Plan
Assessment / Plan
General: Well Developed, Well Nourished and No Apparent Distress
HEENT: NormoCephalic, Moist mucous membranes and Atraumatic
Respiratory: Clear anterior, ETT noted
Cardiac: S1/S2 and Regular Rhythm; No Murmur or Rub
GI: Soft, Non Tender, Non Distended and Normal Bowel Sounds; No Organomegaly
Rectal: Deferred by Provider
Musculoskeletal: No Clubbing, No Cyanosis and No Edema
Skin: No Rash
: kay with dark yellow urine
Neuro: Nonfocal/grossly intact
# Acute respiratory failure status post intubation and mechanical ventilation
-Currently on propofol and fentanyl infusion
-Wean sedation as tolerated.
-FiO2 50% earlier this morning. Vent weaning per marriage and family teacher.
# New onset tonic-clonic seizures possibly alcohol withdrawal seizure
-CT head shows no acute abnormality
-UDS was found to be negative. Alcohol level not detected. Beta hydroxy was mildly elevated.
-Keppra loaded 4 g on admission
-Continue 1 g every 12
-Started on phenobarbital regimen
-Neurology consulted
-Check MRI brain, EEG
# Acute kidney injury
-Creatinine uptrending to 1.1.
-s/p IVF bolus overnight
-Monitor UOP
-Renal/bladder US
# Thrombocytopenia likely secondary to ?cirrhosis
-Platelets improved.
# Hypokalemia
-Replete potassium
-Check magnesium
# Hyperglycemia
#Type 2 diabetes
-Blood sugar 400s on admisison
-Check A1c at 8.3
-Start Lantus 10 units daily
-Insulin sliding scale
-reportedly on Wgovy
History of alcoholic cirrhosis
History of alcohol use disorder
No prior liver imaging.
Check abd US.
Obesity
Full code
DVT prophylaxis�heparin
N.p.o.
Discussed with neurology and marriage and family teacher
Total Critical Care Time_ 40 minutes. I was immediately available to the patient and staff. I personally examined, reviewed labs, diagnostic images/reports, interpretations, treatment plans, discussed patient care with other providers and family
or caregivers (if patient is unable to make decisions), entered orders as appropriate and documented the medical record.
Anticipated Discharge: > 48 hours
Subjective/Interval History
-
Date of Service: August 05, 2024
Remains intubated and sedated
Objective Data
-
Labs:
Laboratory Results
08/05/24
03:57
WBC 9.7
Hgb 11.8 L
Hct 32.5 L
Plt Count 108 L D
Sodium 137
Potassium 3.2 L
Chloride 101
Carbon Dioxide 17 L
BUN 27 H
Creatinine 1.1 H
Glucose 220 H
Calcium 8.8
Total Bilirubin 1.8 H D
AST 40 H
ALT 25
Alkaline Phosphatase 88
Vital Signs:
Vital Signs
Temp Pulse Resp BP Pulse Ox
100.1 F 94 16 122/71 96
08/05/24 11:39 08/05/24 11:39 08/05/24 11:39 08/05/24 11:39 08/05/24 11:47
I&O
08/04/24 08/05/24 08/06/24
06:59 06:59 06:59
Intake Total 3682.5 / 3802.5 600 / 600
Output Total 477 / 492 75 / 75
Balance 3205.5 / 3310.5 525 / 525
[2024-08-05 13:03] LABS: Magnesium 1.7 mg/dl (1.6-2.3); Phosphorus 3.4 mg/dl (2.5-4.5)
[2024-08-05] MEDS: PHENOBARBITAL 97.5 MG IV ×2 (13:28→22:32)
[2024-08-05] MEDS: ROCEPHIN 2000 MG IV (13:29)
--- NOTE | 2024-08-05 13:31 | EEG.RPT ---
Electroencephalogram Report
Recording
Date of EE08/05/24
Type of EEG: Routine
Length of EEG recordin minutes
Done with Video Recording: Yes
Patient Status: Inpatient
Recording Conditions: Drowsy and Asleep
Hyperventilation Performed: No
Photic Stimulation Performed: Yes
Report
LESS THAN 1 HOUR EEG REPORT
LESS THAN 1 HOUR EEG INTERPRETATION:
Moderately abnormal EEG for age due to diffuse bihemispheric slowing
CLINICAL CORRELATION:
This study was suggestive of diffuse cortical dysfunction without focal abnormality. Study may actually represent sleep only as at times regular sleep structures were demonstrated. No seizures were recorded.
Clinical correlation is advised.
METHODS:
A 21 channel digitized electroencephalogram (EEG) was performed at the bedside in the intensive care unit. The 10/20 international system of electrode placement was used with ECG and lateral/vertical eye movements recorded. Persyst QEEG monitoring
was performed.
QUALITY OF STUDY:
Good
ELECTROENCEPHALOGRAPHER IMPRESSION(S):
Background
There was a low to medium amplitude fairly well organized at times anterior-posterior voltage gradient of theta frequency
There were no significant asymmetries of background activity noted.
Sleep
Drowsiness present
Stage I sleep demonstrated
Stage II sleep demonstrated
Photic Stimulation
Failed to activate the record.
ECG
Normal sinus rhythm
[2024-08-05] MEDS: KCL 270 MEQ IV ×2 (14:10→17:24)
[2024-08-05] MEDS: MAGNESIUM SULFATE 50 IV (15:06)
--- NOTE | 2024-08-05 15:16 | PTCARENOTE ---
Update at bedside with Crisis Nurse team. Sedation weaned off, continue to stimulate patient toward weaning. Follow MSAS when awake. Replace lytes as ordered and reviewed with pharmacy. Continue with lab and assessment trends. Dependent on weaning
status, may need Dobhoff tube later today.
--- NOTE | 2024-08-05 15:30 | CM ---
CM following re: discharge planning.
Discussed in Rounds, reviewed pt's chart, met with pt and spoke to pt's sister Parisa over the phone.
Pt is a 59 year old female, admitted with primary dx of Seizure. Per Rounds meeting, pt is intubated and sedated, continue supportive care.
Per sister Parisa, pt lives alone in an apartment 2nd floor, 2 FF of steps to enter, has no children. Pt's sister described the pt as independent in all areas [employer]. Pt's sister stated that per her knowledge pt has not been drinking for the past year but
when she went to her apartment she found half of bottle of vodka. Pt's sister stated that vodka was/is pt's favorite drink. At this point pt's sister stated she cannot support or oppose pt's drinking habit recently.
Pt's sister stated she found on pt's mail information from pt's new insurance: [employer], policy number [id number]. CM updated admissions department.
PCP: Bob Kirby
Pharmacy: [facility].
D/C plan: uncertain at this time and will depend on pt's progress.
CM will follow with discharge plan updates as hospitalization progresses
[2024-08-05] MEDS: SUBLIMAZE 100 IV (16:02)
[2024-08-05] MEDS: SUBLIMAZE 50 MCG IV (16:12)
--- NOTE | 2024-08-05 16:15 | PTCARENOTE ---
attempts made to progress toward sbt and progressive weaning. Patient now severely agitated, restless, bitting et tube, bucking ventilator thrashing about bed. Respiratory cares team at bedside. Automobile Radio Repairer called to bedside. Attempts to work with
patient refocus behaviors, follow commands, calm agitation not working, Patient continues to increase in agitation, increased heart rate, desaturates support o2 continue ongoing comfort measures, return to sedation as per md request. Continued
follow up pulmonary toilet needs. Monitor vital signs critical care nursing at bedside. Follow up medications with pharmacy and via [place]. Supportive cares ongoing.
[2024-08-05 17:50] LABS: Glucose - Point of Care 196 mg/dl (70-99)
[2024-08-05] MEDS: LOVENOX 40 MG SC (18:19)
[2024-08-05] MEDS: NOVOLOG FLEXPEN-MODERATE RESISTANCE 1 UNITS SC (18:20)
--- NOTE | 2024-08-05 20:00 | PTCARENOTE ---
Received pt via handoff. Pt sedated but arouse to verbal, tactile and pain, agitated. Pupils +2 sluggish. NSR w/ trace edema in bilateral lower extremities. Lung sounds are diminished. 7.5 ETT 23@lip on the right, AC 16/500/5/50%. DHT @[address]
Hypoactive bowel sounds. Temp sensing Mcdaniel draining blood tinged urine with sediment. Right hand has slight rash. Gtts running see flowsheet. Will continue to monitor.
[2024-08-05] MEDS: TYLENOL ORAL SOLUTION 650 MG PO (20:41)
[2024-08-05] MEDS: LANTUS 0.1 UNITS SC (22:22)
[2024-08-05] MEDS: VIBRAMYCIN 100 MG TUBE (22:32)
[2024-08-06] VITALS (33 sets, daily range): BP systolic 68–124; BP diastolic 37–67
--- NOTE | 2024-08-06 | PTCARENOTE ---
All systems reassessed. Levo gtt restarted for low MAP see flowsheet. Hygiene performed. Will continue to monitor.
[2024-08-06] MEDS: DIPRIVAN 100 IV ×3 (00:18→12:48)
[2024-08-06] MEDS: NOVOLOG FLEXPEN-MODERATE RESISTANCE 3 UNITS SC ×2 (00:18→05:50)
[2024-08-06 00:28] LABS: Glucose - Point of Care 220 mg/dl (70-99)
[2024-08-06] MEDS: ATIVAN 2 MG IV ×2 (03:54→18:13)
[2024-08-06 04:25] LABS: Venous Blood Gas HCO3 17.7 mmol/L (22-27); Venous Blood Gas O2 Sat % 99.7 %; Venous Blood Gas pCO2 32 mmHg (35-48); Venous Blood Gas pH 7.35 (7.32-7.43); Venous Blood Gas pO2 217 mmHg (30-50)
[2024-08-06] MEDS: TYLENOL ORAL SOLUTION 650 MG PO ×2 (04:27→21:07)
--- NOTE | 2024-08-06 04:30 | PTCARENOTE ---
All systems reassessed, pt hygiene performed. Levo being titrated see flowsheet. Tylenol given for fever. Will continue to monitor.
[2024-08-06 04:35] LABS: Hematocrit 32.1 % (37.0-47.0); Hemoglobin 11.2 g/dL (12.0-16.0); Mean Corp Hgb Conc. 34.9 g/dL (33.0-37.0); Mean Corpuscular Hgb 32.7 pg (27.0-31.0); Mean Corpuscular Volume 93.9 fL (81.0-99.0); Mean Platelet Volume 11.4 fL (7.4-10.4); Platelet Count 94 10^3/uL (130-400); Red Blood Cell Count 3.42 10^6/uL (4.20-5.40); Red Cell Dist. Width 14.7 % (11.5-14.5); White Blood Cell Count 12.7 10^3/uL (4.8-10.8)
[2024-08-06 04:59] LABS: ALT (SGPT) 19 U/L (0-35); AST (SGOT) 32 U/L (14-36); Albumin 3.3 g/dl (3.5-5.0); Alkaline Phosphatase 84 U/L (38-126); Blood Urea Nitrogen 28 mg/dl (7-17); Calcium 8.5 mg/dl (8.4-10.2); Carbon Dioxide 15 mmol/L (22-30); Chloride 108 mmol/L (98-107); Glucose 228 mg/dl (70-99); Magnesium 1.8 mg/dl (1.6-2.3); Phosphorus 3.4 mg/dl (2.5-4.5); Potassium 3.7 mmol/L (3.5-5.1); Sodium 138 mmol/L (135-145); Total Bilirubin 1.6 mg/dl (0.2-1.3); Total Protein 6.3 g/dl (6.3-8.2); eGFR > 60.00
[2024-08-06 05:07] LABS: NT-proBNP 2890 pg/ml
[2024-08-06] MEDS: MAGNESIUM SULFATE 100 IV (05:23)
[2024-08-06] MEDS: KCL 260 MEQ IV (05:24)
[2024-08-06 06:01] LABS: Glucose - Point of Care 214 mg/dl (70-99)
--- NOTE | 2024-08-06 08:00 | PTCARENOTE ---
pt on vent sedated with fentanyl and propofol , she had a 10 minute sedation vacation , she became restless and agitated , non directable , she was placed back on sedation and pain meds as previous, pt seen by Dr Edwards and to have an EEG , she is
also scheduled for MRI and will have that when more stable , NSR on monitor, BP on Levophed gtt to keep map > 65 , she was off of Levophed for 10 minutes and map dropped to 50 , she is currently on 6mcg , pt noted to have positive blood culture and
reported to Dr Fraga , urine from Mcdaniel cath remains blood tinged , pt sister was updated on condition and plan of care via phone
--- NOTE | 2024-08-06 08:18 | W.PN.INTV ---
Addendum entered and electronically signed by Sanjay Justice MD 08/07/24 00:03:
Of note, patient was seen and evaluated on 08/06/2024.
Original Note:
Today's Communication / Plan
Recommendations
Continue mechanical ventilation with daily SAT/SBT
Wean off all sedation if possible
MSAS and start phenobarbital protocol
Thiamine/folate
Continue antibiotics for GPC in chains bacteremia, suspected RLL aspiration pneumonia + suspected UTI
Trend ammonia level
AEDs as per neurology
Check MRI brain (tomorrow - 08/07)
Cardiology consult due to HFmrEF and apical akinesis - may need eventual ischemic eval
Assessment
-
59-year-old female with unknown past medical history who works at [employer] became confused, and had a tonic-clonic seizure subsequently confused and combative requiring intubation with another tonic-clonic seizure-director of enterprise architecture consulted for
hypertension/ventilator/seizures/critical care management 08/04/2024.
Impression:
Tonic-clonic seizures suspected to be due to acute EtOH withdrawal; less likely primary epilepsy
Acute respiratory failure with hypoxia requiring intubation
- Intubated 08/04/2024
Hypertensive urgency - now resolved
Obesity
Apical akinesis with HFmrEF (per TTE from 08/06/2024)
Mild thrombocytopenia - could be related to her reported Hx of cirrhosis
Hx of alcohol abuse with reported Hx of cirrhosis
Hypokalemia - improved
ROXANNA - improving
Metabolic acidosis with increased AG likely related to starvation ketoacidosis
RLL CAP, suspected to be aspiration during seizure event - Staph aureus ordered and sputum culture
DM type II c/b hyperglycemia
Mildly elevated LFTs with hyperbilirubinemia likely due to acute alcoholic hepatitis
Left sphenoid sinusitis
Pyuria (purulent urine seen in kay catheter tubing)
Conditions present prior to admission:
Unknown-sister showed up to ED-reportedly hypertension, diabetes, and recovering alcoholic-reportedly has not drank in months
Obesity
Plan
Patient critically ill status post tonic-clonic seizures now intubated on sedation
EEG performed today shows diffuse cortical dysfunction without focal abnormality, no seizures recorded.
Continue with mechanical ventilation with daily SAT/SBT if clinically appropriate
Titrate FiO2 + PEEP to keep SpO2 >90-94%
Adjust ventilator daily depending on blood gas
Check CXR daily to assess ETT position
Dobbhoff tube inserted on 08/05, and tube feeds to be started
VAP prevention protocol
Nebulizers if needed-currently not bronchospastic
She is a former drinker, quit last September but has relapsed recently. Her home was found to be disheveled by her sister. EEG obtained on 08/05/2021 shows diffuse cortical dysfunction with no seizures recorded.
- Daily SAT/SBT as tolerated -so far she is not able to tolerate sedation vacation due to severe agitation
- If unable to wean off sedation successfully then use the lowest required dose of propofol + fentanyl drips to keep RASS score -1 to -2; awaiting brain MRI (will obtain tomorrow, 08/07)
Neurology consulted with recs appreciated
CT head performed on 08/04/2024 shows no acute intracranial abnormality in addition to left sphenoid sinusitis
Check MRI brain
Antiepileptics per neurology-Keppra loaded, also on propofol --> remains on keppra 1g q12hr
Keep MAP>65
Replete K>4, Mg>2
Monitor blood sugar with goal BG 140-180
Currently on insulin supplementation with basal-bolus dosing
Start insulin gtt given blood glucose levels are now >180 and A1C>8 and she remains critically ill
Despite her urinalysis being negative on 08/04/2024, she has purulent urine in the Kay catheter tubing. I started ceftriaxone and plan for at least 5-7 days assuming she remains afebrile for 48 hours prior and continues to clinically improve
- She also has a opacification seen in the medial right lower lobe with concern for aspiration pneumonia; initially started doxycycline however she has GPC in chains in her blood culture, with differential including strep versus Enterococcus.
Change doxycycline to IV vancomycin until blood culture speciates.
- Sputum culture growing S aureus --> follow up sensitivities and species
- Follow up blood Cx (collected 08/05) species and sensitivities
- Check echo given positive blood Cx with GPC in chains
-Echo does not show evidence of vegetation however there is apical akinesis with a mildly reduced LVEF of 40-45% and mild MR. Cardiology consulted for further recommendations
- Pt has no cuff leak, hence not ready for extubation regardless. Start steroids if cuff leak persists by tomorrow
- Given her subglottic bloody output, I will also consider bronchoscopy prior to extubation to assure that there are no lesions in her airway
Trend LFTs
Abd US performed on 08/06/2024 shows no concern for ascites, and cirrhotic appearing liver
- Trend ammonia level (28 on 08/04/2024)
History unclear-reportedly alcoholic with cirrhosis though has not been drinking for months
MSAS
Continue phenobarbital protocol
Thiamine/folate
Alcohol level is not detected
Beta-hydroxybutyrate was slightly elevated on 08/04/2024 likely due to starvation ketoacidosis vs early DKA --> rechecked again today and it is downtrending
If ammonia increases then consider lactulose
Consider GI consult
Follow thrombocytopenia and transfuse if needed to keep >20k
Transfuse PRBC if needed to keep Hb>7g/dL
DVT prophylaxis: LMWH (monitor bloody subglottic catheter drainage)
GI prophylaxi: N/A
Early nutrition
Early mobilization/bedside range of motion
IV access: Insert PICC line
Eventual screen for obstructive sleep apnea-recommend outpatient sleep evaluation
Critical care statement: A total of 41 minutes of critical care time was provided for this patient today. This includes management of unstable vital signs, evaluation of the patient at bedside, reviewing the patient's pertinent medical records
including radiographs, microbiology, laboratory evaluations, ventilator management, seizure management, and discussion with primary team, consultants, pharmacy, nutrition, physical therapy, case management, charge nurse, critical care nursing, and
respiratory therapy.
Diagnostic data:
Chest x-ray 08/04/2024-ET tube 4.5 cm above neo, no airspace disease, pneumothorax, pleural effusion or other abnormalities
CT head 08/04/2024-no acute intracranial abnormalities, left sphenoid sinusitis
Subjective Dataa
Subjective Data
Date of Service:
Date of Service: August 06, 2024
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
Subjective:
Patient seen and evaluated this morning. Currently intubated on AC/VC on: 16/500/40%/5, with PIP 23 cmH2O, breathing at 16 breaths/minute and VTe 481 cc. Saturating 97%, heart rate 74 and BP 114/51. She is not following commands, becoming very
agitated when sedation is lowered. Currently on levo at 6mcg/min, prop at 25mcg/kg/min and fent gtt at 50mcg/min.
Review of Systems
General: Unobtainable - Pat Unresp
Objective Data
Data Reviewed
Vital Signs / I&O / Oxygen:
Vital Signs
Temp Pulse Resp BP Pulse Ox
100.1 F 89 16 90/47 95
08/06/24 08:27 08/06/24 06:00 08/06/24 06:00 08/06/24 06:00 08/06/24 07:28
Intake and Output
08/05/24 08/06/24 08/07/24
06:59 06:59 06:59
Intake Total 3682.5 / 3802.5 2182.5 / 2182.5
Output Total 477 / 492 905 / 905
Balance 3205.5 / 3310.5 1277.5 / 1277.5
SaO2 [A/C] 97
SaO2 95
Physical Exam
General: Respiratory Distress (negative), Comfortable, Chills (negative), Sweats and Other (Intubated/sedated)
HEENT: Normocephalic and Other (ETT in place)
Cardiovascular: S1-S2, Murmur (negative) and Peripheral Edema (Trace lower extremity edema bilaterally)
Respiratory: Clear, Wheeze (negative), Crackles (negative), Rhonchi (negative), Non-Labored Respirations and ET Tube (Mechanical breath sounds heard bilaterally)
GI: Soft, Distended, Non Tender and Normal Bowel Sounds
Neurology: Tremors (negative) and Other (Not awakening to verbal/tactile stimuli; pupils 2 mm bilaterally and sluggish)
Skin: Warm, Dry, Cyanosis (negative) and Jaundice (Icterus seen bilaterally)
Labs/Micro/Reports
Lab Data
08/06/24 04:09
08/06/24 04:09
Microbiology
08/05/24 13:12 Endotracheal Respiratory Culture - Preliminary
Staphylococcus aureus
08/05/24 13:12 Endotracheal Gram Stain - Preliminary
08/04/24 20:38 Nose MRSA Screen - Final
No Methicillin Resistant Staphylococcus aureus isolated.
08/05/24 13:12 Blood/Venous Blood Culture - Preliminary
Positive culture in progress
08/05/24 13:12 Blood/Venous Gram Stain - Preliminary
[2024-08-06] MEDS: MIRALAX 17 GRAMS TUBE (09:04)
[2024-08-06] MEDS: PHENOBARBITAL 97.5 MG IV ×3 (09:05→21:07)
[2024-08-06] MEDS: KEPPRA 1000 MG IV ×2 (09:05→21:06)
[2024-08-06] MEDS: THIAMINE INJECTION 200 MG IV (09:05)
[2024-08-06] MEDS: VIBRAMYCIN 100 MG TUBE (09:07)
--- NOTE | 2024-08-06 09:24 | W.PN.NEURO.1 ---
Today's Communication / Plan
-
Continue Levetiracetam 1000 mg twice a day
Continue Thiamine for now
Eventual MRI of brain
Repeat EEG as the patient remains intubated and sedated with lack of clarity regarding continuation or discontinuance of seizure activity
Neuro Assessment/Plan
Assessment
Neuro Imaging: CT head: Atrophy small vessel disease. Normal ventricles
Impression:
Ms.JANET GENE ZACARIAS is a 59 year old F who has presented to the hospital with a prolonged seizure requiring intubation and ventilator support.
Differentials for the patient's presentation include:
Possible alcohol withdrawal seizure
Differential would include generalized tonic-clonic seizure of idiopathic etiology
Initial EEG failed to demonstrate status epilepticus on August 05, 2024
Plan
Continue Levetiracetam 1000 mg twice a day
Continue Thiamine for now
Eventual MRI of brain
Repeat EEG as the patient remains intubated and sedated with lack of clarity regarding continuation or discontinuance of seizure activity
We will follow
Subjective/Objective
Subjective Data
Date of Service: August 06, 2024
Patient unable to provide own medical history
Objective Data
Vital Signs
Temp Pulse Resp BP Pulse Ox
37.8 C 89 16 90/47 95
08/06/24 08:27 08/06/24 06:00 08/06/24 06:00 08/06/24 06:00 08/06/24 07:28
Lab Results
08/06/24 04:09
08/06/24 04:09
PT 17.3 Sec (11.4-14.6) H 08/04/24 13:48
INR 1.43 08/04/24 13:48
APTT 29.1 Sec (23.4-35.0) 08/04/24 13:48
Sodium 138 mmol/L (135-145) 08/06/24 04:09
Potassium 3.7 mmol/L (3.5-5.1) 08/06/24 04:09
BUN 28 mg/dl (7-17) H 08/06/24 04:09
Glucose 228 mg/dl (70-99) H 08/06/24 04:09
Calcium 8.5 mg/dl (8.4-10.2) 08/06/24 04:09
Phosphorus 3.4 mg/dl (2.5-4.5) 08/06/24 04:09
Knt-K-Ywejgyubffi Pept 2890 pg/ml 08/06/24 04:09
Vitamin B12 668 pg/ml (239-931) 08/05/24 03:57
Ur Buprenorphine Cancelled 08/04/24 17:53
Patient Allergies
No Known Allergies Allergy (Unverified 08/04/24 13:40)
Review of Systems
-
Unable to obtain full review of systems at this time due to: Patient Intubation and Lethargy
History Source: Patient
All other systems: Reviewed and negative
Physical Exam
-
General: No Apparent Distress, Intubated and Appears Stated Age
Eyes: Round OU, [place] Conjunctivae and No Ptosis
HEENT: Anicteric and Moist Mucous Membranes
Neck: Other (some resistance to movement laterally)
Respiratory: No Dyspnea
Cardiac: No JVD
GI: Non-distended
Skin: Rash (in bilateral hands)
Extremities: No Clubbing, No Cyanosis and No Edema
Psych: Unable to Assess
Extended Neurological Exam
Mood & Affect: Unable to Assess
Attention Span & Concentration: Unresponsive to Verbal Stimuli; Negative Awake, Alert, Interactive or Unresponsive to Physical Stimuli
Memory: Unable to Assess
Tremor: Hand Tremor Absent and Head Tremor Absent
Involuntary Movement: None
Speech: Unable to Assess
Cranial Nerve II: Left Eye: Pupillary Reactivity Unremarkable, Pupillary Size Unremarkable and Unable to Assess
Cranial Nerve II: Right Eye: Pupillary Reactivity Unremarkable, Pupillary Size Unremarkable and Unable to Assess
Cranial Nerves III, IV, : Extraocular Movement: Absent Doll's Eyes
Cranial Nerve V: Facial Sensation: Unable to Assess
Cranial Nerve VII: Facial Symmetry: Normal Facial Symmetry
Cranial Nerve VIII: Hearing: Unable to Assess
Cranial Nerves IX, X: Palate Movement: Unable to Assess
Cranial Nerve XI: Shoulder Shrug: Unable to Assess
Cranial Nerve XII: Tongue Protusion: Unable to Assess
Muscle Strength, Overall: Other (Patient did have attempted move away from a painful stimulus in lower extremities as well as right upper extremity, minimally)
Muscle Bulk & Tone: Tone Unremarkable
Pronator Drift: Unable to Assess
Cold Sensation: Unable to Assess
Vibration Sensation: Unable to Assess
Coordination: Unable to Assess
Babinski Sign: Absent Bilaterally
Gait & Station: Unable to Assess
Data Reviewed
-
CT Head: Report Reviewed
EEG: Ordered and Report Reviewed
Reviewed with: Physician and Patient
Old Records: Summarized
Past History
Past History
ED Past Medical History: Hypothyroidism
Family History
Family History: Other (reviewed and non-contributory)
Medications
-
Medications:
Generic Name Dose Route Start Last Admin
Trade Name Freq PRN Reason Stop Dose Admin
Acetaminophen 650 mg 08/05/24 19:54 08/06/24 04:27
Acetaminophen (Oral Solution) 650 Mg/20.3 Ml Cup PO 09/02/24 19:53 650 mg
Q4HPRN PRN Administration
TEMP > 100.4 and mild pain
Ceftriaxone Sodium 2,000 mg 08/05/24 14:00 08/05/24 13:29
Ceftriaxone 2,000 Mg/20 Ml Vial IV 2,000 mg
Q24H AASHISH Administration
Dextrose 12.5 grams 08/04/24 16:24
Dextrose 50% (0.5 Grams/Ml) 50 Ml Syringe IV 09/01/24 16:23
[id number] PRN
hypoglycemia
Protocol
Doxycycline Monohydrate 100 mg 08/05/24 21:00 08/06/24 09:07
Doxycycline Susp 5 Mg/Ml In Oral Syringe TUBE 08/12/24 08:01 100 mg
Q12 AASHISH Administration
Enoxaparin Sodium 40 mg 08/05/24 18:00 08/05/24 18:19
Enoxaparin Sodium 40 Mg/0.4 Ml Syringe SC 09/02/24 17:59 40 mg
QPM AASHISH Administration
Fentanyl Citrate 50 mcg 08/04/24 19:22 08/05/24 16:12
Fentanyl (50 Mcg/Ml) 100 Mcg/2 Ml Ampul IV 08/18/24 19:21 50 mcg
[id number] PRN Administration
see protocol
Protocol
Glucagon 1 mg 08/04/24 16:24
Glucagon 1 Mg Vial IM 09/01/24 16:23
PRN PRN
hypoglycemia
Protocol
Insulin Glargine 10 units/ 0.1 mls @ 0 mls/hr 08/04/24 16:24 08/05/24 22:22
Device SC 09/01/24 16:23 0.1 mls
HS AASHISH Administration
As Directed
Fentanyl Citrate 1,000 mcg in 100 mls @ 0 mls/hr 08/04/24 19:30 08/05/24 16:02
Sublimaze IV 100 mls
PER PROTOCOL AASHISH Administration
Protocol
Per Protocol
Propofol 1,000,000 mcg in 100 mls @ 0 mls/hr 08/04/24 19:41 08/06/24 07:57
Diprivan IV 100 mls
PER PROTOCOL AASHISH Administration
Protocol
Per Protocol
Norepinephrine Bitartrate 4 mg in 250 mls @ 0 mls/hr 08/04/24 21:15 08/05/24 02:06
Levophed IV 250 mls
PER PROTOCOL AASHISH Administration
Protocol
Per Protocol
Insulin Aspart 0 units 08/05/24 00:00 08/06/24 05:50
Insulin Aspart Moderate Resistance 300 Units/3 Ml Pen.Injctr SC 09/02/24 00:00 3 units
Q6 AASHISH Administration
Protocol
Levetiracetam 1,000 mg 08/04/24 20:00 08/06/24 09:05
Levetiracetam (100 Mg/Ml) 500 Mg/5 Ml Vial IV 09/01/24 19:59 1,000 mg
Q12 AASHISH Administration
Lorazepam 2 mg 08/04/24 19:23 08/06/24 03:54
Lorazepam 2 Mg/Ml Vial IV 09/01/24 19:22 2 mg
Q2HPRN PRN Administration
anxiety/sedation/seizure
Phenobarbital Sodium 97.5 mg 08/05/24 14:00 08/06/24 09:05
Phenobarbital (65 Mg/Ml) 1 Ml Vial IV 08/07/24 08:01 97.5 mg
TID AASHISH Administration
Phenobarbital Sodium 64.8 mg 08/07/24 16:00
Phenobarbital 32.4 Mg Tablet PO 08/09/24 08:01
TID AASHISH
Phenobarbital Sodium 32.4 mg 08/09/24 16:00
Phenobarbital 32.4 Mg Tablet PO 08/11/24 08:01
TID AASHISH
Polyethylene Glycol 17 grams 08/05/24 08:00 08/06/24 09:04
Polyethylene Glycol Powder 17 Grams Packet TUBE 09/02/24 07:59 17 grams
DAILY AASHISH Administration
Sodium Chloride 0 flush 08/04/24 17:00
Sodium Chloride 0.9% (Flush) Syringe IV 09/01/24 16:59
PER PROTOCOL AASHISH
Sodium Chloride 1 ml 08/04/24 19:29
Nss (Pf) 10 Ml Vial For Ativan 2 Mg Dose IV 09/01/24 19:28
Q2HPRN PRN
IV LORAZEPAM DILUTION
Thiamine HCl 200 mg 08/04/24 20:15 08/06/24 09:05
Thiamine (100 Mg/Ml) 2 Ml Vial IV 08/09/24 20:14 200 mg
DAILY AASHISH Administration
[2024-08-06 11:59] LABS: Glucose - Point of Care 278 mg/dl (70-99)
--- NOTE | 2024-08-06 12:08 | EEG.RPT ---
Electroencephalogram Report
Recording
Date of EE08/06/24
Type of EEG: Routine
Length of EEG recordin minutes
Done with Video Recording: Yes
Patient Status: Inpatient
Recording Conditions: Drowsy
Hyperventilation Performed: No
Photic Stimulation Performed: Yes
Report
LESS THAN 1 HOUR EEG REPORT
LESS THAN 1 HOUR EEG INTERPRETATION:
Moderately abnormal EEG for age due to diffuse bihemispheric slowing
CLINICAL CORRELATION:
This study was suggestive of diffuse cortical dysfunction without focal abnormality. No seizures were recorded. In comparison with the prior day's study, there was no change.
Clinical correlation is advised.
METHODS:
A 21 channel digitized electroencephalogram (EEG) was performed at the bedside. The 10/20 international system of electrode placement was used with ECG and lateral/vertical eye movements recorded. Persyst QEEG monitoring was performed.
QUALITY OF STUDY:
Fair�poor
ELECTROENCEPHALOGRAPHER IMPRESSION(S):
Background
There was a low amplitude unorganized anterior-posterior voltage gradient of delta frequency
There were no significant asymmetries of background activity noted.
Sleep
Drowsiness present
Photic Stimulation
Failed to activate the record.
ECG
Normal sinus rhythm
--- NOTE | 2024-08-06 12:28 | PHA.VAN.IN ---
Assessment
- Assessment
Renal Function: Unknown baseline (SCR likely close to baseline; unclear if BUN elevated)
Concomitant Antimicrobials: ceftriaxone, doxycycline
AUC Dosing Plan
- Dosing Variables
Dosing Weight (kg): 102
Dosing CrCl (ml/min): 85
Vd coefficient (L/kg): 0.6-0.7
- Empiric Dosing
Initial / Loading Dose: 2000mg - 08/06 13:46
Maintenance Regimen: Vanc 1250mg Q12H starting 08/06 06
Estimated AUC (mcg*h/mL): 493 - 576
Estimated Peak (mcg*h/mL): 29.5 - 34.4
Estimated Trough (mcg/ml): 13.4 - 15.7
Estimated Half Life (H): 9.2
- Monitoring
No levels ordered at this time: consider levels in next few days
Pharmacokinetics Vancomycin I
- -
Patient Age: 59
Patient Sex: Female
Vancomycin Day #: 1
Indication: Pulmonary/Respiratory
Requesting Provider: Dr. Justice
Pertinent Antimicrobial Allergies:
NKDA
Height / Weight:
Actual Weight 101.9 kg
Pertinent Past Medical History: DM II
- Vital Signs / Lab Results
Temp Pulse Resp BP Pulse Ox
99.7 F 89 16 90/47 95
08/06/24 12:09 08/06/24 06:00 08/06/24 06:00 08/06/24 06:00 08/06/24 07:28
Lab Results - Hematology
08/04/24 08/05/24 08/06/24
13:48 03:57 04:09
WBC 8.1 9.7 12.7 H
Lab Results - Chemistry
08/04/24 08/05/24 08/06/24
13:48 03:57 04:09
BUN 21 H 27 H 28 H
Creatinine 0.8 1.1 H 0.8
Albumin 5.2 H 3.9 3.3 L
Lab Results - Urine
08/04/24 08/04/24
15:03 17:53
Urine Nitrite (Reflex) Cancelled Negative
Leukocyte Esterase Rfl Cancelled Negative
Urine WBC (Reflex) 0-2
Ur Squamous Epith Cells 26-30
Urine Bacteria (Reflex) Few A
Microbiology Results
08/05/24 13:12 Respiratory Culture - Preliminary
Endotracheal Staphylococcus aureus
Gram Stain - Preliminary
08/04/24 20:38 MRSA Screen - Final
Nose No Methicillin Resistant Staphylococcus aureus isolated.
08/05/24 13:12 Blood Culture - Preliminary
Blood/Venous Positive culture in progress
Gram Stain - Preliminary
--- NOTE | 2024-08-06 12:41 | CM ---
CM following re: discharge planning.
Reviewed pt's chart, met with pt. Per Rounds meeting, pt remains intubated, continue supportive care.
D/C plan: uncertain at this time and will depend on pt's progress.
CM will follow with discharge plan updates as hospitalization progresses
[2024-08-06] MEDS: NOVOLOG FLEXPEN-MODERATE RESISTANCE 5 UNITS SC (12:49)
--- NOTE | 2024-08-06 12:49 | W.PN.HOSP.TC ---
Today's Communication/Plan
-
ID eval
SBT/Vent weaning
ECHO pending
IV AEDs
Assessment / Plan
Assessment / Plan
General: Well Developed, Well Nourished and No Apparent Distress
HEENT: NormoCephalic, Moist mucous membranes and Atraumatic
Respiratory: Clear anterior, ETT noted
Cardiac: S1/S2 and Regular Rhythm; No Murmur or Rub
GI: Soft, Non Tender, Non Distended and Normal Bowel Sounds; No Organomegaly
Rectal: Deferred by Provider
Musculoskeletal: No Clubbing, No Cyanosis and No Edema
Skin: No Rash
: kay with dark yellow urine
Neuro: Nonfocal/grossly intact
# Acute respiratory failure status post intubation and mechanical ventilation
-Currently on propofol and fentanyl infusion
-Wean sedation as tolerated.
- Vent weaning per rn navigator. If prolonged intubation will need to consider starting tube feeding.
# New onset tonic-clonic seizures possibly alcohol withdrawal seizure
-CT head shows no acute abnormality
-UDS was found to be negative. Alcohol level not detected. Beta hydroxy was mildly elevated.
-Keppra loaded 4 g on admission
-Continue 1 g every 12
-Started on phenobarbital regimen
-Neurology consulted
-Check MRI brain, EEG
# Acute kidney injury
-Creatinine uptrended to 1.1 and now at 0.8.
-s/p IVF bolus overnight
-Monitor UOP
-Renal/bladder US
#Gram positive bacteremia and pneumonia
-IV rocephin was started 2g daily. Doxy and vancomycin added.
-ECHO ordered
-sputum sample noted
-ID consulted
# Thrombocytopenia likely secondary to ?cirrhosis
-trend platelet. no acute need for transfusion.
# Hypokalemia
-Replete/monitor
# Hyperglycemia
#Type 2 diabetes
-Blood sugar 400s on admisison
-Check A1c at 8.3
-Start Lantus 10 units daily
-Insulin sliding scale
-reportedly on Wgovy
History of alcoholic cirrhosis
History of alcohol use disorder
No prior liver imaging.
Check abd US- pending
Obesity
Full code
DVT prophylaxis�heparin
N.p.o.
Discussed with rn navigator
Total Critical Care Time_ 41 minutes. I was immediately available to the patient and staff. I personally examined, reviewed labs, diagnostic images/reports, interpretations, treatment plans, discussed patient care with other providers and family
or caregivers (if patient is unable to make decisions), entered orders as appropriate and documented the medical record.
Anticipated Discharge: > 48 hours
Subjective/Interval History
-
Date of Service: August 06, 2024
on EEG
remains intubated and sedated
found to have Gram positive bacteremia
Objective Data
-
Labs:
Laboratory Results
08/06/24
04:09
WBC 12.7 H
Hgb 11.2 L
Hct 32.1 L
Plt Count 94 L
Sodium 138
Potassium 3.7
Chloride 108 H
Carbon Dioxide 15 L
BUN 28 H
Creatinine 0.8
Glucose 228 H
Calcium 8.5
Total Bilirubin 1.6 H
AST 32
ALT 19
Alkaline Phosphatase 84
Vital Signs:
Vital Signs
Temp Pulse Resp BP Pulse Ox
99.7 F 89 16 90/47 95
08/06/24 12:09 08/06/24 06:00 08/06/24 06:00 08/06/24 06:00 08/06/24 07:28
I&O
08/05/24 08/06/24 08/07/24
06:59 06:59 06:59
Intake Total 3682.5 / 3802.5 2182.5 / 2182.5
Output Total 477 / 492 905 / 905
Balance 3205.5 / 3310.5 1277.5 / 1277.5
[2024-08-06] MEDS: VANCOCIN 540 MG IV (13:46)
[2024-08-06 14:05] LABS: Lactic Acid 1.2 mmol/L (0.7-2.0)
--- NOTE | 2024-08-06 14:40 | PN.DE.MGMTRT ---
Insulin Management
- -
08/06/2024 Diabetes Management Consult
Patient admitted 08/04 with altered mental status. seizures. PMH Alcoholic cirrhosis, obesity, diabetes, HTN. Unknown if any diabetes medications were taken prior to admission. A1C 8.3%, cr .8, eGFR > 60.
Patient is unable to interview, she is critically ill, on ventilator, sedated.
08/05 Patient glucose range 196 to 261
08/06 fasting glucose 214, 12noon, 278. Patient to start glycemic protocol.
I spoke with patients nurse. Will follow for readiness and appropriateness to transition.
Diabetes History
- -
Type of Diabetes: 2
Pre-Admission Diabetes Regimen
08/06/24
04:09
Creatinine 0.8
Lab Results
Hemoglobin A1c 8.3 % (4.0-5.6) H 08/05/24 03:57
Insulin Pump Settings
IP Diabetes Regimen
08/05/24 08/06/24 08/06/24
17:39 00:17 04:09
Glucose 228 H
POC Glucose 196 H 220 H
08/06/24 08/06/24
05:49 11:48
Glucose
POC Glucose 214 H 278 H
Meal type: Lunch
Patient Education
--- NOTE | 2024-08-06 14:55 | CARDSERVLU ---
Echocardiogram with Lumason completed after protocol screening completed. Allergies verified.
Patent IV site: _Rt FA____
IV site flushed with 0.9% NaCl pre and post administration.
Diluted bolus method utilized to enhance visualization of ventricular wilkins.
Total volume given: _3.0___ mL
Patient tolerated all procedures well without complications.
[2024-08-06 15:21] LABS: B-Hydroxybutyrate 0.31 mmol/L (0.02-0.27)
[2024-08-06] MEDS: ROCEPHIN 2000 MG IV (15:24)
[2024-08-06] MEDS: STERILE WATER FOR INJECTION 20 ML IV (15:25)
--- NOTE | 2024-08-06 15:26 | VATNOTE ---
Right PICC coiled in the subclavian ,retracted 15cm and reinserted using sterile technique. Tip now in the SVC
--- NOTE | 2024-08-06 15:40 | CON.CAR ---
Addendum entered and electronically signed by Vince Newby MD 08/06/24 16:35:
I saw and examined the patient.
The CAFETERIA COUNTER ATTENDANT or PA's note was reviewed and I agree with the note.
Comment: Unresponsive on the ventilator
Neck: Supple, no JVD, HJR, carotids +2 B/L, no bruits bilaterally.
Heart: Non displaced PMI, RRR, no murmurs, No S3, S4, no rubs.
Lungs: Scattered rhonchi
Abdomen: Normal bowel sounds, soft, non-tender, non-distended.
Extremities: No clubbing, cyanosis or edema bilaterally.
Neuro: Unresponsive on ventilator
Myra has history of hypertension, diabetes, ethanol abuse with alcoholic cirrhosis, obesity. She is brought in with seizure activity. She was at work and noted to have altered speech. She was intubated which was traumatic. Echocardiogram
revealed ejection fraction 40 to 45% with apical akinesis and cardiology consulted.
Present time she is on pressors and unable to give beta-inocente for cardiomyopathy. This could be apical ballooning syndrome or Takotsubo's. . Repeat echocardiogram may be warranted during hospitalization. Will track troponins as well. She is
not hypoxic at present but could require diuresis. Discussed with nursing at bedside.
Original Note:
Consultation
Consultation Request
Date/Time Consultation Performed: 08/06/24
Requesting Provider: Dr. Justice
Performing Provider: Tran Lima PA-C for Dr. Newby
Reason for Consultation: abnormal echo
Medical History
-
Chief Complaint: seizure
History of Present Illness:
Patient is a 59 yo F with PMH of HTN, type 2 diabetes, history of ETOH use disorder/alcoholic cirrhosis, obesity who was brought in due to seizure activity. She was working at [employer] and coworkers noted altered speech. 911 was called and she was
then noted to have evidence of tonic-clonic seizure. She was combative and confused upon EMS arrival. She reportedly had another seizure en route to the hospital and was noted to be hypertensive. By report patient has history of alcohol use disorder
and had cut back as of 09/2023 however sister reportedly found receipts at patient's house (she lives alone) suggesting she was going to liquor store ~every other day. She is being treated for bacteremia, sputum grew staph aureus. She remains
intubated, and reportedly intubation was traumatic due to seizure activity. History obtained from chart and nursing as patient intubated and no family present at bedside. Her PCP was previously Dr. Bob Kirby, however upon calling their office
she has not been seen there since 04/2023. Echo completed today showed EF 40-45% and apical akinesis resulting in cardiology consultation. Trop on arrival was negative, however was not trended. EKG was sinus tachycardia with prolonged QT and possible
lateral ST elevation. UDS and ETOH on arrival were negative. No known prior history of seizures.
PMH:
HTN
Type 2 diabetes
Obesity
History of ETOH use disorder
Past Medical History
Past Medical History: Other (in HPI)
Social History
Tobacco: Non-Smoker
Alcohol: Daily (suspected)
Living: Alone
Employment: Employed
Family History
Family History: Unable to Obtain
Allergies / Home Medications
Allergy/AdvReac Type Severity Reaction Status Date / Time
No Known Allergies Allergy Unverified 08/04/24 13:40
�Medication �Instructions �Recorded �Confirmed �Type
apixaban 5 mg tablet (Eliquis) 5 mg PO BID 08/05/24 08/05/24 History
buspirone 10 mg tablet 10 mg PO BID 08/05/24 History
diltiazem HCl 300 mg capsule,24 300 mg PO DAILY 08/05/24 History
hr,extended release
furosemide 20 mg PO DAILY 08/05/24 History
levothyroxine 50 mcg tablet 50 mcg PO DAILY 08/05/24 History
lisinopril 5 mg tablet 5 mg PO DAILY 08/05/24 History
potassium chloride 20 mEq meq PO 08/05/24 History
tablet,extended
release(part/cryst) (Klor-Con M)
Review of Systems
-
Unable to obtain full review of systems at this time due to: Patient Intubation
Physical Exam
Vital Signs
Temp Pulse Resp BP Pulse Ox
99.7 F 89 16 90/47 95
08/06/24 12:09 08/06/24 06:00 08/06/24 06:00 08/06/24 06:00 08/06/24 07:28
Lab Results
08/06/24 04:09
08/06/24 04:09
Troponin I < 0.012 ng/ml 08/04/24 13:48
Vrs-T-Qqtlrpcprsv Pept 2890 pg/ml 08/06/24 04:09
Physical Exam
General: No Apparent Distress, Intubated and Other (obese)
HEENT: Normocephalic and Moist Mucous Membranes
Respiratory: Clear and Non Labored Respirations
Cardiac: S1/S2 and Regular Rhythm
GI: Soft, Non Tender, Non Distended and Normal Bowel Sounds
Genito-urinary: Other (pink output from kay catheter)
Musculoskeletal: No Clubbing, No Cyanosis and No Edema
Skin: Warm and Dry
Neuro: Sedated
Impression / Plan
-
Primary Nursing Instructor: unknown
PCP: previously Dr. Bob Kirby, however not seen there since 04/2023
Assessment:
Presentation with seizure activity, tonic clonic seizures, possibly from ETOH withdrawal
Traumatic intubation
Bacteremia with leukocytosis, concern for PNA
Abnormal urine
Hypotensive, requiring pressor support
Cardiomyopathy, EF 40-45%
Thrombocytopenia
Type 2 diabetes, uncontrolled
HTN
Obesity
History of ETOH use disorder
History of possible ETOH cirrhosis
ECHO 08/06/24: EF 40 to 45%, mild concentric LVH, apical akinesis, MAC, mild MR, mildly dilated aortic root measuring 3.7 cm at sinus of Valsalva, ascending aorta 3.8 cm
Plan:
-Patient presented with tonic-clonic seizures, felt to possibly be from alcohol withdrawal. Head CT was negative for acute abnormality. She had traumatic intubation. Reportedly with weaning sedation she is combative. She was found to have
positive blood culture and positive sputum culture with concern for pneumonia and is being treated with broad-spectrum antibiotics. Of note urine from her Kay is also pink in color. Cardiology consulted due to abnormal echo.
-records requested from prior PCP, Dr. Kirby for review
-consider for eventual ischemic evaluation pending clinical progress
-EKG abnormal, ordered repeat. trop was negative on arrival, will repeat.
-no BB at this time given hypotension requiring pressors
-consider for asa, however given traumatic intubation and concern for blood from kay, may hold off
-check CVE
-hgbA1c 8.3%
-08/06 CXR with evidence of possible small pleural effusion and proBNP was 2890. follow volume status, weight trending up from admission. may require diuresis.
-d/w nursing
Data Reviewed
-
EKG: Tracing Personally Visualized and interpreted
Radiology: Report Reviewed by me
CT Scan: Report Reviewed by me
Medical Tests (Nuc Med, Echo etc): Report Reviewed by me
Labs: Labs Reviewed by me
Old Records: Reviewed
[2024-08-06] MEDS: SUBLIMAZE 100 IV (15:55)
[2024-08-06] MEDS: NOVOLIN R 4 UNITS IV (16:19)
[2024-08-06] MEDS: NOVOLIN R INSULIN INFUSION 100 IV (16:20)
[2024-08-06 16:27] LABS: Glucose - Point of Care 235 mg/dl (70-99)
--- NOTE | 2024-08-06 16:29 | W.PN.UPDATE ---
Update Note
Progress Note Update
obtained and reviewed records from Dr. Kirby's office including EKG 02/20/23, cardiology consult 10/16/22, echo 10/16/22, hematology note 09/21/23, multiple PCP office notes. Also with history of HLD, hypothyroidism, anxiety, heavy menses and STEFFEN s/p
hysterectomy. She was diagnosed with paroxysmal atrial fibrillation 10/2022 and underwent cardioversion. She was on anticoagulation with Eliquis. She does have history of congestive heart failure in the setting of rapid A-fib and reportedly is
maintained on po lasix 20mg daily. Last echocardiogram 10/16/2022 with EF 55 to 60%, moderate to severe left atrial dilation, dilated IVC which does not collapse, mild MR, aortic sclerosis. Noted by chest CTA 10/16/22 to have 2.6 cm thyroid nodule,
enlarged spleen, and evidence of cirrhosis. She reportedly underwent colonoscopy 10/2022 and had large polyp status post excision at [facility] with benign pathology. Between October and February 2023 she had routine labs for cardiology visit and found to
have a hemoglobin of 5.7. She was admitted and underwent 2 units of packed red blood cells with improvement, endoscopy was reportedly normal without varices noted. She was then hospitalized at [facility] 02/2023 with acute anemia
and transfused. Her CBC was monitored weekly and she occasionally required transfusions. Apparently she was on and off eliquis 2.5mg BID for several months in setting of intermittent acute on chronic anemia. MRI of the abdomen 05/11/2023 consistent
with cirrhosis with lesion of right hepatic lobe suspicious for possible HCC.
Jewelry Casting Model Maker Apprentice: Dr. Ellis
GI: Dr. Martinez
will request records from Dr. Ellis in AM for further review of cardiac status.
[2024-08-06] MEDS: LEVOPHED 250 IV (17:11)
[2024-08-06] MEDS: LOVENOX 40 MG SC (17:34)
[2024-08-06 17:48] LABS: Glucose - Point of Care 163 mg/dl (70-99)
[2024-08-06 18:29] LABS: HDL Cholesterol 20 mg/dl; LDL Cholesterol, Calculated 113 mg/dl; Total Cholesterol 171 mg/dl (50-199); Triglyceride 191 mg/dl (10-149); Very Low Density Lipoprotein 38 mg/dl (0-30)
--- NOTE | 2024-08-06 18:30 | PTCARENOTE ---
no change in assessments, pt was placed on a insulin gtt at 1530 , pt had R dual lumen picc line inserted, pt had abdominal ultra sound , tube feedings to be started on patient repeat b-hydroxybutyrate done , oliguric urine output
[2024-08-06 18:43] LABS: Troponin I 0.857 ng/ml
[2024-08-06 18:52] LABS: Glucose - Point of Care 144 mg/dl (70-99)
[2024-08-06 20:24] LABS: Glucose - Point of Care 151 mg/dl (70-99)
[2024-08-06 21:20] LABS: Glucose - Point of Care 177 mg/dl (70-99)
--- NOTE | 2024-08-06 22:21 | PTCARENOTE ---
Received patient intubated and sedated, PEERLA, 2 mm, positive corneals. Normal sinus, 70s-80s. Levo gtt titrating to maintain MAP>65. Core temp 100.6, tylenol given via DHT. ETT 7.5, 23 at the lip, repositioned to the center. Vent settings
16/500/5, 40%. Lung sounds coarse throughout, mouth care done. Left nare DHT at 68 cm. Osmolite 1.2 started at 20 ml/hr with 25 ml/hr flush. Thermistor kay in place draining blood tinged urine, oliguric. Skin rash on b/l hands. Right PICC line
patent, WNL, left hand IV patent, WNL. Insulin gtt ongoing per glycemic protocol. Prop and fent gtt ongoing per order. Repositioned, kay care done. Hourly rounding and patient safety checks ongoing.
[2024-08-06 23:30] LABS: Glucose - Point of Care 214 mg/dl (70-99)
[2024-08-07] VITALS (63 sets, daily range): BP systolic 82–124; BP diastolic 42–104; BMI 40.5
[2024-08-07 00:17] LABS: Glucose - Point of Care 167 mg/dl (70-99)
--- NOTE | 2024-08-07 00:23 | PTCARENOTE ---
Patient assessment unchanged from previous. Mouth care done, repositioned. Hourly rounding and patient safety checks ongoing.
[2024-08-07 00:28] LABS: Glucose - Point of Care 170 mg/dl (70-99)
[2024-08-07] MEDS: DIPRIVAN 100 IV ×4 (00:41→22:18)
[2024-08-07 02:25] LABS: Glucose - Point of Care 142 mg/dl (70-99)
[2024-08-07 03:09] LABS: Glucose - Point of Care 165 mg/dl (70-99)
[2024-08-07 04:12] LABS: Glucose - Point of Care 146 mg/dl (70-99)
--- NOTE | 2024-08-07 04:23 | PTCARENOTE ---
Mouth care done, repositioned, labs sent. Otherwise patient assessment unchanged from previous.
[2024-08-07 04:24] LABS: Venous Blood Gas B.E. -6.9 mmol/L (-4 to +4); Venous Blood Gas HCO3 17.5 mmol/L (22-27); Venous Blood Gas O2 Sat % 99.6 %; Venous Blood Gas pCO2 31 mmHg (35-48); Venous Blood Gas pH 7.36 (7.32-7.43); Venous Blood Gas pO2 127 mmHg (30-50)
[2024-08-07 04:34] LABS: Hematocrit 31.2 % (37.0-47.0); Hemoglobin 10.7 g/dL (12.0-16.0); Mean Corp Hgb Conc. 34.3 g/dL (33.0-37.0); Mean Corpuscular Volume 90.4 fL (81.0-99.0); Platelet Count 118 10^3/uL (130-400); Red Blood Cell Count 3.45 10^6/uL (4.20-5.40); Red Cell Dist. Width 15.1 % (11.5-14.5); White Blood Cell Count 13.6 10^3/uL (4.8-10.8)
[2024-08-07 04:51] LABS: Ammonia 36 umol/L (9-30)
[2024-08-07 04:54] LABS: ALT (SGPT) 18 U/L (0-35); AST (SGOT) 26 U/L (14-36); Albumin 3.3 g/dl (3.5-5.0); Alkaline Phosphatase 84 U/L (38-126); Blood Urea Nitrogen 32 mg/dl (7-17); Calcium 8.8 mg/dl (8.4-10.2); Carbon Dioxide 16 mmol/L (22-30); Chloride 109 mmol/L (98-107); Estimated Creatinine Clearance 76 ml/min; Glucose 144 mg/dl (70-99); Magnesium 1.9 mg/dl (1.6-2.3); Phosphorus 3.7 mg/dl (2.5-4.5); Potassium 3.5 mmol/L (3.5-5.1); Sodium 141 mmol/L (135-145); Total Bilirubin 1.7 mg/dl (0.2-1.3); Total Protein 6.4 g/dl (6.3-8.2); Triglycerides 186 mg/dl (10-149); eGFR > 60.00
--- NOTE | 2024-08-07 05:00 | PTCARENOTE ---
Urine output steadily decreasing, albumin given. Repeat trop sent. CHG bath done.
[2024-08-07 05:11] LABS: Glucose - Point of Care 146 mg/dl (70-99)
[2024-08-07] MEDS: KCL ELIXIR 40 MEQ TUBE (05:42)
[2024-08-07] MEDS: FLEXBUMIN 50 IV (05:42)
[2024-08-07] MEDS: LEVOPHED 250 IV (05:43)
[2024-08-07 06:12] LABS: Glucose - Point of Care 143 mg/dl (70-99)
[2024-08-07] MEDS: VANCOCIN 275 MG IV ×2 (06:38→17:13)
[2024-08-07 06:41] LABS: Troponin I 0.502 ng/ml
[2024-08-07 08:14] LABS: Glucose - Point of Care 234 mg/dl (70-99)
--- NOTE | 2024-08-07 08:19 | W.PN.INTV ---
Today's Communication / Plan
Recommendations
Continue mechanical ventilation with daily SAT/SBT
Wean off all sedation if possible
MSAS and continue phenobarbital protocol
Thiamine/folate
Abx
Trend ammonia level
AEDs as per neurology
Check MRI brain
Cardiology consult due to HFmrEF and apical akinesis - will eventually need ischemic eval
Assessment
-
59-year-old female with unknown past medical history who works at [employer] became confused, and had a tonic-clonic seizure subsequently confused and combative requiring intubation with another tonic-clonic seizure-order builder loader consulted for
hypertension/ventilator/seizures/critical care management 08/04/2024.
Impression:
Tonic-clonic seizures suspected to be due to acute EtOH withdrawal; less likely primary epilepsy
Acute respiratory failure with hypoxia requiring intubation
- Intubated 08/04/2024
Hypertensive urgency - now resolved
Obesity
Apical akinesis with HFmrEF (per TTE from 08/06/2024)
Mild thrombocytopenia - could be related to her reported Hx of cirrhosis
Hx of alcohol abuse with reported Hx of cirrhosis
Hypokalemia - improved
ROXANNA - improving
Metabolic acidosis with increased AG likely related to starvation ketoacidosis
RLL CAP, suspected to be aspiration during seizure event - Staph aureus ordered and sputum culture
DM type II c/b hyperglycemia
Mildly elevated LFTs with hyperbilirubinemia likely due to acute alcoholic hepatitis
Left sphenoid sinusitis
Pyuria (purulent urine seen in kay catheter tubing)
Conditions present prior to admission:
Unknown-sister showed up to ED-reportedly hypertension, diabetes, and recovering alcoholic-reportedly has not drank in months
Obesity
Plan
Patient critically ill status post tonic-clonic seizures now intubated on sedation
EEG performed on 08/06/2024 shows diffuse cortical dysfunction without focal abnormality, no seizures recorded.
Continue with mechanical ventilation with daily SAT/SBT if clinically appropriate
Titrate FiO2 + PEEP to keep SpO2 >90-94%
Adjust ventilator daily depending on blood gas
Check CXR daily to assess ETT position
Dobbhoff tube inserted on 08/05, and tube feeds to be started
VAP prevention protocol
Nebulizers if needed-currently not bronchospastic
She is a former drinker, quit last September but has relapsed recently. Her home was found to be disheveled by her sister. EEG obtained on 08/05/2021 shows diffuse cortical dysfunction with no seizures recorded.
- Continue phenobarbital
- Daily SAT/SBT as tolerated -so far she is not able to tolerate sedation vacation due to severe agitation
- If unable to wean off sedation successfully then use the lowest required dose of propofol + fentanyl drips to keep RASS score -1 to -2; awaiting brain MRI
Neurology consulted with recs appreciated
CT head performed on 08/04/2024 shows no acute intracranial abnormality in addition to left sphenoid sinusitis
Check MRI brain
Antiepileptics per neurology-Keppra loaded, also on propofol --> remains on keppra 1g q12hr
Keep MAP>65
Replete K>4, Mg>2
Monitor blood sugar with goal BG 140-180
Currently on insulin supplementation with basal-bolus dosing
Continue insulin gtt (glycemic protocol) given blood glucose levels were >180 on 08/06 and A1C>8 and she remains critically ill
Despite her urinalysis being negative on 08/04/2024, she had purulent urine in the Kay catheter tubing. I started ceftriaxone on 08/05 and plan for at least 5-7 days assuming she remains afebrile for 48 hours prior and continues to clinically
improve
- She also has a opacification seen in the medial right lower lobe with concern for aspiration pneumonia; initially started doxycycline on 08/05 however she has GPC in chains in her blood culture, with differential including strep versus
Enterococcus. Change doxycycline to IV vancomycin on 08/06 until blood culture speciates.
- Sputum culture growing S aureus --> follow up sensitivities and species
- Follow up blood Cx (collected 08/05) species and sensitivities
- Check echo given positive blood Cx with GPC in chains
-Echo does not show evidence of vegetation however there is apical akinesis with a mildly reduced LVEF of 40-45% and mild MR. Cardiology consulted for further recommendations; eventual LHC
- Pt has no cuff leak, hence not ready for extubation regardless. Start steroids today given her cuff leak is persisting
- Given her subglottic bloody output, I will also consider bronchoscopy prior to extubation to assure that there are no lesions in her airway
Trend LFTs
Abd US performed on 08/06/2024 shows no concern for ascites, and cirrhotic appearing liver
- Trend ammonia level (28 on 08/04/2024)
- Start lactulose
History unclear-reportedly alcoholic with cirrhosis though has not been drinking for months
MSAS
Continue phenobarbital protocol
Thiamine/folate
Alcohol level is not detected
Beta-hydroxybutyrate was slightly elevated on 08/04/2024 likely due to starvation ketoacidosis vs early DKA --> rechecked again on 08/06 and it is downtrending
Consider GI consult
Follow thrombocytopenia and transfuse if needed to keep >20k
Transfuse PRBC if needed to keep Hb>7g/dL
DVT prophylaxis: LMWH (monitor bloody subglottic catheter drainage)
GI prophylaxi: Start PPI
Early nutrition
Early mobilization/bedside range of motion
IV access: PICC line
Eventual screen for obstructive sleep apnea-recommend outpatient sleep evaluation
Critical care statement: A total of 46 minutes of critical care time was provided for this patient today. This includes management of unstable vital signs, evaluation of the patient at bedside, reviewing the patient's pertinent medical records
including radiographs, microbiology, laboratory evaluations, ventilator management, seizure management, and discussion with primary team, consultants, pharmacy, nutrition, physical therapy, case management, charge nurse, critical care nursing, and
respiratory therapy.
Diagnostic data:
Chest x-ray 08/04/2024-ET tube 4.5 cm above neo, no airspace disease, pneumothorax, pleural effusion or other abnormalities
CT head 08/04/2024-no acute intracranial abnormalities, left sphenoid sinusitis
Subjective Dataa
Subjective Data
Date of Service:
Date of Service: August 07, 2024
Chief Complaint: Plant Associate Follow Up
Subjective:
Patient was seen and evaluated today at bedside. Remains sedated on propofol at 15mcg/kg/min + fentanyl drip at 50mcg//hr. Currently on Levophed at 2mcg/min and also on insulin drip at 10 units/hr. When sedation is lowered she is agitated
although following some commands. She has minimal blood seen in the subglottic catheter. Remains intubated on AC/VC at 16/500/40%/5, with PIP: 23 cmH2O, breathing at 14 breaths/min and VTe 504 mL. Heart rate 81, BP 104/57 and saturating 99%.
Review of Systems
General: Unobtainable - Pat Unresp
Objective Data
Data Reviewed
Vital Signs / I&O / Oxygen:
Vital Signs
Temp Pulse Resp BP Pulse Ox
99.5 F 92 25 115/57 100
08/07/24 07:00 08/07/24 06:00 08/07/24 06:00 08/07/24 06:00 08/07/24 08:08
Intake and Output
08/06/24 08/07/24 08/08/24
06:59 06:59 06:59
Intake Total 2182.5 / 2225.0 1876.0 / 1876.0
Output Total 905 / 925 346 / 346
Balance 1277.5 / 1300.0 1530.0 / 1530.0
SaO2 [A/C] 98
SaO2 100
Physical Exam
General: Respiratory Distress (negative), Comfortable, Chills (negative), Sweats and Other (Intubated/sedated)
HEENT: Normocephalic and Other (ETT in place)
Cardiovascular: S1-S2, Murmur (negative) and Peripheral Edema (Trace lower extremity edema bilaterally)
Respiratory: Wheeze (negative), Crackles (negative), Rhonchi (bilateral), Non-Labored Respirations and ET Tube (Mechanical breath sounds heard bilaterally)
GI: Soft, Distended, Non Tender and Normal Bowel Sounds
Neurology: Tremors (negative) and Other (Awakening to verbal/tactile stimuli but becomes agitated; pupils 2 mm bilaterally and sluggish)
Skin: Warm, Dry, Cyanosis (negative) and Jaundice (Icterus seen bilaterally)
Labs/Micro/Reports
Lab Data
08/07/24 04:17
08/07/24 04:17
Microbiology
08/05/24 13:12 Blood/Venous Blood Culture - Preliminary
Positive culture in progress
08/05/24 13:12 Blood/Venous Gram Stain - Preliminary
08/05/24 13:12 Endotracheal Respiratory Culture - Preliminary
Staphylococcus aureus
08/05/24 13:12 Endotracheal Gram Stain - Preliminary
08/04/24 20:38 Nose MRSA Screen - Final
No Methicillin Resistant Staphylococcus aureus isolated.
[2024-08-07] MEDS: PHENOBARBITAL 97.5 MG IV (08:23)
[2024-08-07] MEDS: MIRALAX 17 GRAMS TUBE (08:26)
[2024-08-07] MEDS: THIAMINE INJECTION 200 MG IV (08:26)
[2024-08-07] MEDS: KEPPRA 1000 MG IV ×2 (08:30→19:51)
[2024-08-07] MEDS: NOVOLIN R INSULIN INFUSION 100 IV ×2 (09:14→19:51)
[2024-08-07] MEDS: SUBLIMAZE 100 IV (09:15)
[2024-08-07 09:22] LABS: Glucose - Point of Care 198 mg/dl (70-99)
[2024-08-07 10:15] LABS: Glucose - Point of Care 216 mg/dl (70-99)
--- NOTE | 2024-08-07 10:23 | W.PN.CARDCBS ---
Today's Communication / Plan
-
Intubated and sedated on the ventilator
Cardiac fairly stable
History of atrial fibrillation atrial tachycardia continue to follow.
Continue workup of alcohol and seizure
Continue treatment of infection
Eventual cardiac catheterization given decreased ejection fraction and apical hypokinesis.
Impression / Plan
-
Primary Hypo Dipper: unknown
PCP: previously Dr. Bob Kirby, however not seen there since 04/2023
Assessment:
Presentation with seizure activity, tonic clonic seizures, possibly from ETOH withdrawal
Traumatic intubation
Bacteremia with leukocytosis, concern for PNA
Abnormal urine
Hypotensive, requiring pressor support
Cardiomyopathy, EF 40-45%
Thrombocytopenia
Type 2 diabetes, uncontrolled
HTN
Obesity
History of ETOH use disorder
History of possible ETOH cirrhosis
Atrial tachycardia
ECHO 08/06/24: EF 40 to 45%, mild concentric LVH, apical akinesis, MAC, mild MR, mildly dilated aortic root measuring 3.7 cm at sinus of Valsalva, ascending aorta 3.8 cm
Plan:
-Patient presented with tonic-clonic seizures, felt to possibly be from alcohol withdrawal. Head CT was negative for acute abnormality. She had traumatic intubation. Reportedly with weaning sedation she is combative. She was found to have
positive blood culture and positive sputum culture with concern for pneumonia and is being treated with broad-spectrum antibiotics. Of note urine from her Kay is also pink in color.
Currently undergoing EEG.
-Cardiology consulted due to abnormal echo. Once patient stabilized would consider left heart catheterization but unstable to proceed at this time.
-We did receive prior cardiology records from Dr. Kirby. She has a history of rapid atrial fibrillation (during this hospital stay atrial tachycardia noted) and heart failure related to that. Will continue to follow.
-EKG abnormal troponin 0.857 likely non-WV/ischemia troponin elevation
-no BB at this time given hypotension requiring pressors
-consider for asa, however given traumatic intubation and concern for blood from kay, may hold off
-LDL cholesterol mildly elevated start statin when able.
-hgbA1c 8.3%
-08/06 CXR with evidence of possible small pleural effusion and proBNP was 2890. follow volume status, weight trending up from admission. may require diuresis. Continue to follow.
As per up-to-date prior records obtained she does have history of congestive heart failure in the setting of rapid A-fib and reportedly is maintained on po lasix 20mg daily. Last echocardiogram 10/16/2022 with EF 55 to 60%, moderate to severe left
atrial dilation, dilated IVC which does not collapse, mild MR, aortic sclerosis. Noted by chest CTA 10/16/22 to have 2.6 cm thyroid nodule, enlarged spleen, and evidence of cirrhosis. She reportedly underwent colonoscopy 10/2022 and had large polyp
status post excision at [facility] with benign pathology. Between October and February 2023 she had routine labs for cardiology visit and found to have a hemoglobin of 5.7. She was admitted and underwent 2 units of packed red blood cells with
improvement, endoscopy was reportedly normal without varices noted. She was then hospitalized at [facility] 02/2023 with acute anemia and transfused. Her CBC was monitored weekly and she occasionally required transfusions.
Apparently she was on and off eliquis 2.5mg BID for several months in setting of intermittent acute on chronic anemia. MRI of the abdomen 05/11/2023 consistent with cirrhosis with lesion of right hepatic lobe suspicious for possible HCC.
Progress Note - Hypo Dipper
Subjective
Date of Service: August 07, 2024
Intubated and sedated on ventilator
Objective
Labs:
08/07/24 04:17
08/07/24 04:17
Labs
Hgb 10.7 g/dL (12.0-16.0) L 08/07/24 04:17
Hct 31.2 % (37.0-47.0) L 08/07/24 04:17
Plt Count 118 10^3/uL (130-400) L D 08/07/24 04:17
PT 17.3 Sec (11.4-14.6) H 08/04/24 13:48
INR 1.43 08/04/24 13:48
APTT 29.1 Sec (23.4-35.0) 08/04/24 13:48
Sodium 141 mmol/L (135-145) 08/07/24 04:17
Potassium 3.5 mmol/L (3.5-5.1) 08/07/24 04:17
BUN 32 mg/dl (7-17) H 08/07/24 04:17
Creatinine 0.9 mg/dL (0.6-1.0) 08/07/24 04:17
Glucose 144 mg/dl (70-99) H 08/07/24 04:17
Troponins
08/04/24 08/06/24 08/07/24
13:48 17:44 06:01
Troponin I < 0.012 0.857 H* 0.502 H*
Vital Signs and I&O:
Vital Signs
Temp Pulse Resp BP Pulse Ox
99.5 F 92 25 115/57 100
08/07/24 07:00 08/07/24 06:00 08/07/24 06:00 08/07/24 06:00 08/07/24 08:08
Vital Signs
Temp Pulse Resp BP Pulse Ox
99.5 F 92 25 115/57 100
08/07/24 07:00 08/07/24 06:00 08/07/24 06:00 08/07/24 06:00 08/07/24 08:08
Intake & Output
08/05/24 08/06/24 08/07/24 08/08/24
06:59 06:59 06:59 06:59
Intake Total 3682.5 / 3802.5 2182.5 / 2225.0 1876.0 / 1876.0
Output Total 477 / 492 905 / 925 346 / 346
Balance 3205.5 / 3310.5 1277.5 / 1300.0 1530.0 / 1530.0
Physical Exam
Physical Exam
General: Intubated and sedated on the ventilator
Heart: Distant heart sounds
Lungs: Intubated and coarse breath sounds
Abdomen: Distended
Extremities: +1 edema
Neuro: Sedated
--- NOTE | 2024-08-07 10:37 | CON.ID ---
Consultation
-
Date/Time Consultation Requested: 08/06/2024 1248
Date/Time Consultation Performed: 08/07/2024 0945
Requesting Provider: Dr. Puentes
Performing Provider: Dr. May
Reason for Consultation: Bacteremia, suspected aspiration pneumonia
Chief Complaint / Past History
History of Present Illness
Myra Malik is a 59-year-old female being evaluated at the request of Dr. Puentes in regards to bacteremia. History is obtained from chart review alone as the patient is currently intubated and sedated.
The patient presented to [facility] ER on 08/06 secondary to seizure activity and change in mental status. According to ER notes, the patient was working at a local [employer] when she became confused and developed a seizure. EMS arrived on
scene and she had a another seizure en route to the ER. Once in the ER she was started on antiseizure medication. She was intubated for airway protection, and remains so through the present. Blood cultures obtained on 08/05 are now positive for
gram-positive cocci in chains. I respiratory culture is revealed the presence of Staph aureus. Infectious Diseases is asked to comment on further antimicrobial management.
Past History
Additional Past Medical History:
HTN
DM
Hx EtOH cirrhosis
Obesity
Additional Past Surgical History:
- Unavailable
Allergy History:
No Known Allergies Allergy (Unverified 08/04/24 13:40)
Medications Reviewed: Yes
Current Antibiotics:
Vancomycin
Ceftriaxone 2 g IV every 24 hours
Social History
Tobacco: Other (Unknown)
Alcohol: Former (reported)
Drug: Other (unknown)
Personal: Other
Employment: Employed
Family History
Family History: Unable to Obtain
Review of Systems
Vital Signs
Temp Pulse Resp BP Pulse Ox
99.5 F 92 25 115/57 100
08/07/24 07:00 08/07/24 06:00 08/07/24 06:00 08/07/24 06:00 08/07/24 08:08
Physical Exam
Physical Exam
Constitutional: Acutely Ill, Non-toxic and Obese
Head: Normocephalic
Eyes: Pupils Equal, Pupils Round, No Conjunctival Hemorrhage and Sclera Anicteric
Oral: Other (ET tube in place)
Cardiovascular: Regular Rate and S1/S2; Negative S3/S4
Pulmonary: Clear; Negative Wheezes, Rales or Rhonchi
Gastrointestinal: Soft, Non Distended, Normal Bowel Sounds, No Rebound and No Guarding
Extremities: Edema; Negative Cyanosis, Erythema, Splinter Hemorrhage, Venous Insufficiency or Janeway Lesions
Musculoskeletal: Negative Joint Swelling
Skin: Warm and Dry; Negative Rash or Jaundice
Neurological: Meningeal Signs (Neck supple. No nuchal rigidity) and Other (Sedated on vent)
Psychological: Calm
.
Lab / Diagnostic Study Results
08/07/24 04:17
08/07/24 04:17
Abs Immat Gran (auto) 0.1 10^3/uL (0-0.05) H 08/05/24 03:57
Absolute Neuts (auto) 7.5 10^3/uL (1.4-6.5) H 08/05/24 03:57
Absolute Lymphs (auto) 0.8 10^3/uL (1.2-3.4) L 08/05/24 03:57
Absolute Monos (auto) 1.1 10^3/uL (0.1-0.6) H 08/05/24 03:57
Absolute Basos (auto) 0.1 10^3/uL (0-0.2) 08/05/24 03:57
Immature Gran % 0.6 % (0-0.5) H 08/05/24 03:57
Neutrophils % 76.9 % (42.2-75.2) H 08/05/24 03:57
Lymphocytes % 8.3 % (20.5-51.1) L 08/05/24 03:57
Monocytes % 11.5 % (1.7-9.3) H 08/05/24 03:57
Eosinophils % 2.2 % (0-6) 08/05/24 03:57
Basophils % 0.5 % (0-2) 08/05/24 03:57
PT 17.3 Sec (11.4-14.6) H 08/04/24 13:48
INR 1.43 08/04/24 13:48
Lactic Acid 1.2 mmol/L (0.7-2.0) 08/06/24 13:38
Ur Squamous Epith Cells 26-30 /LPF (Few) 08/04/24 17:53
Microbiology Results
Micro:
08/05/24 13:12 Respiratory Culture - Preliminary
Endotracheal Staphylococcus aureus
Gram Stain - Preliminary
08/05/24 13:12 Blood Culture - Preliminary
Blood/Venous Positive culture in progress
Gram Stain - Preliminary
08/06/24 13:38 Blood Culture - Pending
Blood/Venous
08/04/24 20:38 MRSA Screen - Final
Nose No Methicillin Resistant Staphylococcus aureus isolated.
Imaging:
08/07/2024 CXR (portable): No active cardiopulmonary disease noted. ET tube is 5 cm above the neo. Tip of nasogastric tube is below the esophageal gastric junction. Right-sided PICC is at the cavoatrial junction. The cardiac silhouette and
pulmonary vasculature are radiographically within normal limits. Please see full dictation for additional detail.
08/04/2024 CT head without contrast: No acute intracranial hemorrhage. No extra-axial collection noted. No significant abnormal parenchymal attenuation appreciated. No evidence of mass effect or midline shift seen.
Assessment / Plan
New onset seizures
VDRF
Leukocytosis
Fever
Bacteremia with gram-positive cocci in chains; source unclear
Suspected aspiration pneumonia/pneumonitis secondary to seizure
HTN
DM
Hx EtOH cirrhosis
Obesity
Recommendations:
Continue current empiric antibiotics (ceftriaxone; vancomycin). Follow vancomycin levels closely.
Await identification and susceptibilities of blood culture isolate.
Await susceptibilities of recovered Staph aureus.
Monitor white count and temperature curve. Rising leukocytosis noted
Continue with supportive measures. Await brain MRI.
Patient currently critically ill in intensive care unit
[2024-08-07] MEDS: SUBLIMAZE 50 MCG IV ×2 (10:44→13:55)
--- NOTE | 2024-08-07 10:56 | W.PN.NEURO.1 ---
Today's Communication / Plan
-
continue Keppra
cEEG
LP
MRI brain when able
Neuro Assessment/Plan
Assessment
Neuro Imaging: CT head: Atrophy small vessel disease. Normal ventricles
Impression:
Ms.JANET GENE ZACARIAS is a 59 year old F who has presented to the hospital with a prolonged seizure requiring intubation and ventilator support. She has been agitated and combative with attempt to wean sedation; she is currently sedated with fentanyl
and propofol. She now has bacteremia with leukocytosis and concern for possible aspiration PNA; aspiration likely occurred with seizure activity.
Differentials for the patient's presentation include:
Possible alcohol withdrawal seizure
Differential would include generalized tonic-clonic seizure of idiopathic etiology
Results:
Initial EEG failed to demonstrate status epilepticus on August 05, 2024
HCT 08/04: No acute intracranial abnormality noted. Left sphenoid sinusitis.
Plan
Continue Levetiracetam 1000 mg twice a day
She has also been started on phenobarbital.
Continuous EEG monitoring given lack of improvement in mental status
ok with LP per ID
Continue thiamine
MRI of brain when able
ETOH w/d protocol
Critical care time 40 mins
We will follow
Subjective/Objective
Subjective Data
Date of Service: August 07, 2024
remains confused, sedated, no overt clinical seizure activity
became agitated yesterday when wean of sedation attempted
Objective Data
Vital Signs
Temp Pulse Resp BP Pulse Ox
99.5 F 87 16 123/58 100
08/07/24 07:00 08/07/24 10:30 08/07/24 10:30 08/07/24 10:30 08/07/24 10:30
Lab Results
08/07/24 04:17
08/07/24 04:17
PT 17.3 Sec (11.4-14.6) H 08/04/24 13:48
INR 1.43 08/04/24 13:48
APTT 29.1 Sec (23.4-35.0) 08/04/24 13:48
Sodium 141 mmol/L (135-145) 08/07/24 04:17
Potassium 3.5 mmol/L (3.5-5.1) 08/07/24 04:17
BUN 32 mg/dl (7-17) H 08/07/24 04:17
Glucose 144 mg/dl (70-99) H 08/07/24 04:17
Calcium 8.8 mg/dl (8.4-10.2) 08/07/24 04:17
Phosphorus 3.7 mg/dl (2.5-4.5) 08/07/24 04:17
Stq-R-Tlhgsobeald Pept 2890 pg/ml 08/06/24 04:09
LDL Cholesterol, Calc 113 mg/dl 08/06/24 17:44
Vitamin B12 668 pg/ml (239-931) 08/05/24 03:57
Ur Buprenorphine Cancelled 08/04/24 17:53
Patient Allergies
No Known Allergies Allergy (Unverified 08/04/24 13:40)
Physical Exam
-
HEENT: Other (ETT in place)
Extended Neurological Exam
Mood & Affect: Other (sedated on vent)
Attention Span & Concentration: Other (unresponsive)
Memory: Unable to Assess
Involuntary Movement: None
Speech: Mute (intubated)
Cranial Nerve II: Left Eye: Unable to Assess Visual Green and Other
Cranial Nerve II: Right Eye: Unable to Assess Visual Green and Other
Cranial Nerves III, IV, : Extraocular Movement: Unable to Assess
Cranial Nerve V: Facial Sensation: Unable to Assess
Cranial Nerve VII: Facial Symmetry: Unable to Assess
Cranial Nerve VIII: Hearing: Unable to Assess
Deep Tendon Reflexes: Trace Throughout
Touch Sensation: Negative Withdrawal to Pain
Coordination: Unable to Assess
Babinski Sign: Other (mute bilaterally)
[2024-08-07 11:08] LABS: Glucose - Point of Care 190 mg/dl (70-99)
--- NOTE | 2024-08-07 11:24 | PN.DE.MGMTRT ---
Insulin Management
- -
08/07/2024 Diabetes Management Consult Follow up
Patient admitted 08/04 with altered mental status. seizures. PMH Alcoholic cirrhosis, obesity, diabetes, HTN, HLD, hypothyroid, anxiety, CAD afib. Unknown if any diabetes medications were taken prior to admission. A1C 8.3%, cr .8, eGFR > 60.
Patient is unable to interview, she is critically ill, on ventilator, sedated.
08/05 Patient glucose range 196 to 261
08/06 fasting glucose 214, 12noon, 278. Patient to start glycemic protocol.
08/07 Patient remains on glycemic protocol insulin infusion requiring up to 14 units of insulin per hour. Tube feeds are at goal, 45 per hour.
I spoke with patients nurse, will continue glycemic protocol and add 6 units novolog Q 6 hours. Will follow for readiness and appropriateness to transition.
Diabetes History
- -
Type of Diabetes: 2
Pre-Admission Diabetes Regimen
08/07/24
04:17
Creatinine 0.9
Lab Results
Hemoglobin A1c 8.3 % (4.0-5.6) H 08/05/24 03:57
Insulin Pump Settings
IP Diabetes Regimen
08/06/24 08/06/24 08/06/24
11:48 16:16 17:37
Glucose
POC Glucose 278 H 235 H 163 H
08/06/24 08/06/24 08/06/24
18:41 20:14 21:09
Glucose
POC Glucose 144 H 151 H 177 H
08/06/24 08/07/24 08/07/24
23:19 00:06 00:17
Glucose
POC Glucose 214 H 167 H 170 H
08/07/24 08/07/24 08/07/24
02:13 02:57 04:01
Glucose
POC Glucose 142 H 165 H 146 H
08/07/24 08/07/24 08/07/24
04:17 05:00 06:00
Glucose 144 H
POC Glucose 146 H 143 H
08/07/24 08/07/24 08/07/24
08:03 09:11 10:03
Glucose
POC Glucose 234 H 198 H 216 H
08/07/24
10:57
Glucose
POC Glucose 190 H
Patient Education
--- NOTE | 2024-08-07 11:30 | W.PN.UPDATE ---
Addendum entered and electronically signed by Maricel Johnson, DO 08/07/24 21:12:
cEEG unchanged through 9pm; no seizures noted.
Addendum entered and electronically signed by Maricel Johnson, DO 08/07/24 15:34:
cEEG unchanged through 3:30pm. Will c/t follow.
Original Note:
Update Note
Progress Note Update
Continuous EEG Update Note:
Reviewed study through 11:30am, showed low amp diffuse slowing, muscle artifact, no clear seizure; will c/t follow.
--- NOTE | 2024-08-07 11:32 | PTCARENOTE ---
Pt was off propofol from 910 until about 1045 when she became agitated restless and was bucking vent. Pt was cassidy, did follow to squeeze both hands, but continued to be agitated. Propofol resumed at lower dose and pt given fentanyl bolus as
charted. Pt was hooked to eeg at time of episode and tech reported no seizures noted prior to resuming sedation as charted.
[2024-08-07 12:07] LABS: Glucose - Point of Care 138 mg/dl (70-99)
[2024-08-07] MEDS: NOVOLOG FLEXPEN 6 UNITS SC ×3 (12:20→23:32)
[2024-08-07 13:16] LABS: Glucose - Point of Care 129 mg/dl (70-99)
[2024-08-07] MEDS: LASIX 40 MG IV (13:23)
[2024-08-07] MEDS: SOLU-MEDROL PF 20 MG IV (13:25)
[2024-08-07] MEDS: DUPHALAC/CHRONULAC 20 GRAMS PO ×2 (13:25→19:51)
[2024-08-07] MEDS: ROCEPHIN 2000 MG IV (13:25)
[2024-08-07] MEDS: STERILE WATER FOR INJECTION 20 ML IV (13:26)
--- NOTE | 2024-08-07 13:41 | W.PN.HOSP.TC ---
Today's Communication/Plan
-
[facility]Rad for lumbar puncture
Continue with antibiotic
Vent weaning
Continue with Keppra
Continue with phenobarbital
Monitor urinary output
Assessment / Plan
Assessment / Plan
General: Well Developed, Well Nourished and morbidly obese
HEENT: NormoCephalic, Moist mucous membranes and Atraumatic
Respiratory: Clear anterior, ETT noted
Cardiac: S1/S2 and Regular Rhythm; No Murmur or Rub
GI: Soft, Non Tender, Non Distended and Normal Bowel Sounds; No Organomegaly
Rectal: Deferred by Provider
Musculoskeletal: No Clubbing, No Cyanosis and No Edema
Skin: No Rash
: kay with dark yellow urine
Neuro: Nonfocal/grossly intact
# Acute respiratory failure status post intubation and mechanical ventilation
-Currently on propofol and fentanyl infusion
-Wean sedation as tolerated.
-Vent weaning per bevel gear generator operator.
-Continue with tube feeding
# New onset tonic-clonic seizures
#Suspected alcohol withdrawal seizure
-CT head shows no acute abnormality
-UDS was found to be negative. Alcohol level not detected. Beta hydroxy was mildly elevated.
-Keppra loaded 4 g on admission
-Continue Keppra 1 g every 12
-Started on phenobarbital regimen
-CT head on admission with no acute intercranial abnormality noted
-Check MRI brain
-Continue thiamine folic acid
-Plan for lumbar puncture. [facility] consulted. Infectious panel ordered (gram stain /culture, Lyme PCR, VDRL, Meningitis panel. cryptococcus, cell count, glucose and protein)
-cEEG ongoing as lack of improvement in mental status.
# Acute kidney injury
-Creatinine uptrended to 1.1 and slowly improving
-Monitor UOP
-Renal/bladder US -negative for hydronephrosis
# Streptococcus bacteremia and Staph aureus pneumonia
-IV rocephin was started 2g daily. vancomycin added.
-ECHO ordered
-sputum sample noted
-ID consulted
# Atrial fibrillation unknown chronicity
# Atrial tachycardia
-Unclear if patient was compliant with Eliquis as outpatient
-Start beta-inocente once blood pressure stabilizes
# Cardiomyopathy
-Echo with EF of 40 to 45% normal diastolic function. Mild concentric LVH. There is apical akinesis.
-Cardiology consulted
#Thrombocytopenia likely secondary to liver cirrhosis
#Acute on chronic decompensated Liver cirrhosis likely 2/2 alcohol abuse
#History of alcoholic cirrhosis
#History of alcohol use disorder
#Abdominal ultrasound noted with liver cirrhosis
-trend platelet. no acute need for transfusion.
-Ammonia level elevated. Continue with lactulose.
-can stop trending ammonia level
-Plt slowly improving.
# Hypokalemia
-Replete/monitor
# Hyperglycemia
#Type 2 diabetes
-Blood sugar 400s on admission
-Check A1c at 8.3
-Start Lantus 10 units daily
-Insulin sliding scale
-reportedly on Wgovy
History of alcoholic cirrhosis
History of alcohol use disorder
Abdominal ultrasound noted with liver cirrhosis
Obesity
Full code
DVT prophylaxis�Lovenox
Discussed with bevel gear generator operator
update sister over the phone in details
Total Critical Care Time_ 49 minutes. I was immediately available to the patient and staff. I personally examined, reviewed labs, diagnostic images/reports, interpretations, treatment plans, discussed patient care with other providers and
family or caregivers (if patient is unable to make decisions), entered orders as appropriate and documented the medical record.
Anticipated Discharge: > 48 hours
Subjective/Interval History
-
Date of Service: August 07, 2024
Remains intubated and sedated
strain technician at bedside placed leads for cEEG
was agitated earlier
Objective Data
-
Labs:
Laboratory Results
08/07/24
04:17
WBC 13.6 H
Hgb 10.7 L
Hct 31.2 L
Plt Count 118 L D
Sodium 141
Potassium 3.5
Chloride 109 H
Carbon Dioxide 16 L
BUN 32 H
Creatinine 0.9
Glucose 144 H
Calcium 8.8
Total Bilirubin 1.7 H
AST 26
ALT 18
Alkaline Phosphatase 84
Vital Signs:
Vital Signs
Temp Pulse Resp BP Pulse Ox
98.8 F 87 16 123/58 99
08/07/24 11:00 08/07/24 10:30 08/07/24 10:30 08/07/24 10:30 08/07/24 11:29
I&O
08/06/24 08/07/24 08/08/24
06:59 06:59 06:59
Intake Total 2182.5 / 2225.0 1876.0 / 1992.3 662.9 / 662.9
Output Total 905 / 925 346 / 366 110 / 110
Balance 1277.5 / 1300.0 1530.0 / 1626.3 552.9 / 552.9
[2024-08-07 14:14] LABS: Glucose - Point of Care 109 mg/dl (70-99)
--- NOTE | 2024-08-07 14:30 | PTCARENOTE ---
pt switched to sport bed after premedicating with fentanyl, tolerated tx well and percussion also tolerated. pt with intermittent periods of mild restlessness, but has settled on her own. no other changes in assessment.
[2024-08-07 15:14] LABS: Glucose - Point of Care 119 mg/dl (70-99)
--- NOTE | 2024-08-07 15:16 | PN.CDI ---
CDI
- -
CDI:
Physician Documentation Request
Admit Date: 08/04/24 16:10
Dear Doctor Deloris,
Please review the following and provide your response in the progress notes.
Clinical Indicators:
Pt admitted with seizures possibly alcohol withdrawal seizure.
Laboratory Tests
08/04/24 08/06/24 08/07/24
13:48 17:44 06:01
Troponin I < 0.012 0.857 H* 0.502 H*
08/07 cardiology Note: '-EKG abnormal troponin 0.857 likely non-WV/ischemia troponin elevation.'
Based on the above abnormal lab results, could you clarify in the progress notes, the appropriate diagnosis, if significant, that supports the above abnormalities and additional evaluation, monitoring and/or treatment rendered:
Non-ischemic myocardial injury
Insignificant abnormal lab result
Other
Use of terms such as suspected, likely, concern for, or probable (associated with a specific diagnosis that is being evaluated, monitored, or treated as if it exists) are acceptable and can be coded in the inpatient setting, when documented at the
time of discharge.
Thank you,
Lisha Hartman RN, BSN
CDI Specialist
Available via [employer] [employer]
Please use your independent medical judgment in providing your response.
--- NOTE | 2024-08-07 15:22 | PHA.VAN.FU ---
Vancomycin Assessment / Plan
- Assessment
Renal Function: Stable (SCR stable, BUN slightly increased)
WBC's are: Trending Up
Concomitant Antimicrobials: ceftriaxone
- Dosing Plan
Continue: Vanc 1250mg Q12H
- Monitoring Plan
Trough Level: 08/08 05:30 (pre-steady state to ensure appr clearing with increased BUN)
- Follow Up
Pharmacy will continue to follow.
Vancomycin Follow UP
- -
Patient Age: 59
Patient Sex: Female
Vancomycin Day #: 2
Indication: Pulmonary/Respiratory
Requesting Provider: Dr. Justice / Yadira
Pertinent Antimicrobial Allergies:
NKDA
Height / Weight:
Height 5 ft 3 in
Actual Weight 103.7 kg
Pertinent Past Medical History: DM II
- Vital Signs / Lab Results
Temp Pulse Resp BP Pulse Ox
98.8 F 87 16 123/58 92
08/07/24 11:00 08/07/24 10:30 08/07/24 10:30 08/07/24 10:30 08/07/24 14:59
Lab Results - Hematology
08/05/24 08/06/24 08/07/24
03:57 04:09 04:17
WBC 9.7 12.7 H 13.6 H
Lab Results - Chemistry
08/05/24 08/06/24 08/07/24
03:57 04:09 04:17
BUN 27 H 28 H 32 H
Creatinine 1.1 H 0.8 0.9
Estimated Creat Clear 76
Albumin 3.9 3.3 L 3.3 L
08/06/24
13:38
Lactic Acid 1.2
Microbiology Results
08/06/24 13:38 Blood Culture - Preliminary
Blood/Venous No Growth in 24 hours- Final report to follow
08/05/24 13:12 Blood Culture - Preliminary
Blood/Venous Streptococcus species
Gram Stain - Preliminary
08/05/24 13:12 Respiratory Culture - Preliminary
Endotracheal Staphylococcus aureus
Gram Stain - Preliminary
08/04/24 20:38 MRSA Screen - Final
Nose No Methicillin Resistant Staphylococcus aureus isolated.
[2024-08-07] MEDS: LUMINAL 64.8 MG PO ×2 (16:35→21:09)
[2024-08-07 17:10] LABS: Glucose - Point of Care 152 mg/dl (70-99)
--- NOTE | 2024-08-07 17:10 | PTCARENOTE ---
systems reviewed. pt has diuresed nicely after lasix. continues on drips as charted. still without bm, but +flatus. Otherwise no changes.
[2024-08-07] MEDS: LOVENOX 40 MG SC (17:12)
[2024-08-07 18:55] LABS: Glucose - Point of Care 187 mg/dl (70-99)
--- NOTE | 2024-08-07 20:00 | PTCARENOTE ---
Received patient intubated, sedated, and restrained. Continuous EEG ongoing. Normal sinus, 60s-70s, levo gtt ongoing to maintain MAP>65, normothermic. +2 generalized anasarca. Palpable radial and pedal pulses b/l. 7.5 ETT, 23 at the lip, moved to
the center. Vent settings 16/500/5/40%. Lung sounds coarse throughout, saturating 95-99%. Percussion via sport bed TID. Left nare DHT at 65 cm, TF at goal. No BM yet, lactulose given. Thermistor kay in place, draining yellow urine. Insulin gtt
ongoing per glycemic protocol, prop and fent gtt ongoing. Mouth care done, repositioned.
[2024-08-07 20:10] LABS: Glucose - Point of Care 199 mg/dl (70-99)
[2024-08-07] MEDS: VIBRAMYCIN 100 MG TUBE (21:10)
[2024-08-07 21:37] LABS: Glucose - Point of Care 176 mg/dl (70-99)
[2024-08-07 22:07] LABS: Glucose - Point of Care 184 mg/dl (70-99)
[2024-08-07 23:02] LABS: Glucose - Point of Care 163 mg/dl (70-99)
[2024-08-08] VITALS (45 sets, daily range): BP systolic 94–156; BP diastolic 50–88; BMI 40.7
[2024-08-08 00:07] LABS: Glucose - Point of Care 157 mg/dl (70-99)
[2024-08-08 01:19] LABS: Glucose - Point of Care 195 mg/dl (70-99)
[2024-08-08] MEDS: SUBLIMAZE 50 MCG IV ×5 (01:35→22:23)
--- NOTE | 2024-08-08 01:42 | PTCARENOTE ---
Patient had a small liquid brown BM, cleaned, fent bolus given for agitation. CHG bath done, repositioned. Otherwise patient assessment unchanged from previous.
[2024-08-08 02:20] LABS: Glucose - Point of Care 159 mg/dl (70-99)
--- NOTE | 2024-08-08 04:10 | PTCARENOTE ---
Patient assessment unchanged from previous, labs sent.
[2024-08-08 04:12] LABS: Glucose - Point of Care 134 mg/dl (70-99)
[2024-08-08 04:26] LABS: % Basophils 0.4 % (0-2); % Eosinophils 1.9 % (0-6); % Immature Granulocytes 0.6 % (0-0.5); % Lymphocytes 10.8 % (20.5-51.1); % Monocytes 13.9 % (1.7-9.3); % Neutrophils 72.4 % (42.2-75.2); Absolute Eosinophils 0.1 10^3/uL (0-0.7); Absolute Lymphocytes 0.6 10^3/uL (1.2-3.4); Absolute Monocytes 0.7 10^3/uL (0.1-0.6); Absolute Neutrophils 3.7 10^3/uL (1.4-6.5); Hematocrit 27.3 % (37.0-47.0); Hemoglobin 9.4 g/dL (12.0-16.0); Mean Corp Hgb Conc. 34.4 g/dL (33.0-37.0); Mean Corpuscular Hgb 32.6 pg (27.0-31.0); Mean Corpuscular Volume 94.8 fL (81.0-99.0); Mean Platelet Volume 11.1 fL (7.4-10.4); Nucleated Red Blood Cells % 0 %; Platelet Count 73 10^3/uL (130-400); Red Blood Cell Count 2.88 10^6/uL (4.20-5.40); Red Cell Dist. Width 14.1 % (11.5-14.5); White Blood Cell Count 5.2 10^3/uL (4.8-10.8)
[2024-08-08 04:30] LABS: INR 1.42; PT 17.4 Sec (11.4-14.6)
[2024-08-08 04:44] LABS: Ammonia 35 umol/L (9-30)
[2024-08-08 04:48] LABS: ALT (SGPT) 22 U/L (0-35); AST (SGOT) 35 U/L (14-36); Albumin 3.1 g/dl (3.5-5.0); Alkaline Phosphatase 86 U/L (38-126); Blood Urea Nitrogen 32 mg/dl (7-17); Calcium 8.6 mg/dl (8.4-10.2); Carbon Dioxide 14 mmol/L (22-30); Chloride 109 mmol/L (98-107); Estimated Creatinine Clearance 99 ml/min; Glucose 138 mg/dl (70-99); Magnesium 1.5 mg/dl (1.6-2.3); Phosphorus 4.6 mg/dl (2.5-4.5); Potassium 4.1 mmol/L (3.5-5.1); Sodium 139 mmol/L (135-145); Total Bilirubin 1.3 mg/dl (0.2-1.3); Total Protein 6.1 g/dl (6.3-8.2); eGFR > 60.00
[2024-08-08 04:49] LABS: NT-proBNP 923 pg/ml
[2024-08-08] MEDS: NOVOLOG FLEXPEN 6 UNITS SC (05:31)
[2024-08-08] MEDS: MAGNESIUM SULFATE 50 IV (05:31)
[2024-08-08] MEDS: SODIUM BICARBONATE 50 MEQ IV (05:31)
[2024-08-08] MEDS: SYNTHROID 50 MCG TUBE (05:32)
[2024-08-08 05:41] LABS: Glucose - Point of Care 146 mg/dl (70-99)
[2024-08-08] MEDS: SUBLIMAZE 100 IV (06:06)
[2024-08-08] MEDS: MIRALAX 17 GRAMS TUBE (07:51)
[2024-08-08] MEDS: LUMINAL 64.8 MG PO ×3 (07:51→22:00)
[2024-08-08] MEDS: VIBRAMYCIN 100 MG TUBE (07:51)
[2024-08-08] MEDS: DUPHALAC/CHRONULAC 20 GRAMS PO ×2 (07:51→20:43)
[2024-08-08 08:17] LABS: Glucose - Point of Care 156 mg/dl (70-99)
--- NOTE | 2024-08-08 08:17 | W.PN.INTV ---
Today's Communication / Plan
Recommendations
Continue mechanical ventilation with daily SAT/SBT
Wean off all sedation if possible
MSAS and continue phenobarbital protocol
Thiamine/folate
Abx
Trend ammonia level
Check CT neck
LP today
AEDs as per neurology
Check MRI brain
Cardiology consult due to HFmrEF and apical akinesis - will eventually need ischemic eval
Assessment
-
59-year-old female with unknown past medical history who works at [employer] became confused, and had a tonic-clonic seizure subsequently confused and combative requiring intubation with another tonic-clonic seizure-boiler room operator consulted for
hypertension/ventilator/seizures/critical care management 08/04/2024.
Impression:
Tonic-clonic seizures suspected to be due to acute EtOH withdrawal; less likely primary epilepsy
Acute respiratory failure with hypoxia requiring intubation
- Intubated 08/04/2024
Hypertensive urgency - now resolved
Obesity
Apical akinesis with HFmrEF (per TTE from 08/06/2024)
Mild thrombocytopenia - could be related to her reported Hx of cirrhosis
Hx of alcohol abuse with reported Hx of cirrhosis
Hypokalemia - improved
ROXANNA - improving
Metabolic acidosis with increased AG likely related to starvation ketoacidosis
RUL/RLL CAP, suspected to be aspiration during seizure event - MSSA seen on sputum Cx
Strep pneumonia bacteremia likely due to PNA
DM type II c/b hyperglycemia now on insulin drip
Mildly elevated LFTs with hyperbilirubinemia likely due to acute alcoholic hepatitis - LFTs now normalized
Left sphenoid sinusitis
Pyuria (purulent urine seen in kay catheter tubing)
Conditions present prior to admission:
Unknown-sister showed up to ED-reportedly hypertension, diabetes, and recovering alcoholic-reportedly has not drank in months
Obesity
Plan
Patient critically ill status post tonic-clonic seizures now intubated on sedation
EEG performed on 08/06/2024 shows diffuse cortical dysfunction without focal abnormality, no seizures recorded.
Continue with mechanical ventilation with daily SAT/SBT if clinically appropriate
Titrate FiO2 + PEEP to keep SpO2 >90-94%
Adjust ventilator daily depending on blood gas
Check CXR daily to assess ETT position
Dobbhoff tube inserted on 08/05, and tube feeds to be started
VAP prevention protocol
Nebulizers if needed-currently not bronchospastic
She is a former drinker, quit last September but has relapsed recently. Her home was found to be disheveled by her sister. EEG obtained on 08/05/2021 shows diffuse cortical dysfunction with no seizures recorded.
- Continue phenobarbital
- Daily SAT/SBT as tolerated -so far she is not able to tolerate sedation vacation due to severe agitation
- If unable to wean off sedation successfully then use the lowest required dose of propofol + fentanyl drips to keep RASS score -1 to -2; awaiting brain MRI
Neurology consulted with recs appreciated
CT head performed on 08/04/2024 shows no acute intracranial abnormality in addition to left sphenoid sinusitis
Check MRI brain
Antiepileptics per neurology-Keppra loaded, also on propofol --> remains on keppra 1g q12hr
Keep MAP>65
Replete K>4, Mg>2
Monitor blood sugar with goal BG 140-180
Currently on insulin supplementation with basal-bolus dosing
Continue insulin gtt (glycemic protocol) given blood glucose levels were >180 on 08/06 and A1C>8 and she remains critically ill --> bridge off insulin gtt with lantus and start basal--bolus dosing
Despite her urinalysis being negative on 08/04/2024, she had purulent urine in the Kay catheter tubing. I started ceftriaxone on 08/05 and plan for at least 5-7 days assuming she remains afebrile for 48 hours prior and continues to clinically
improve
- She also has a opacification seen in the medial right lower lobe with concern for aspiration pneumonia; initially started doxycycline on 08/05 however she has strep PNA seen on blood Cx from 08/05/2024 -> ID now changed Abx to rocephin only.
Doxy DC'd s/p IV vancomycin on 08/06 - 08/07
- Sputum culture grew MSSA
- Blood Cx grew Strep PNA (collected 08/05/2024)
- Check echo given positive blood Cx with GPC in chains
- Echo does not show evidence of vegetation however there is apical akinesis with a mildly reduced LVEF of 40-45% and mild MR. Cardiology consulted for further recommendations; eventual LHC
- For LP today --> follow up cultures
- Pt has no cuff leak, hence not ready for extubation regardless. Start steroids on 08/07 given her cuff leak is persisting
- Given her subglottic bloody output, I will also consider bronchoscopy prior to extubation to assure that there are no lesions in her airway
- Check CT neck to eval for pharyngeal abscess
Trend LFTs
Abd US performed on 08/06/2024 shows no concern for ascites, and cirrhotic appearing liver
- Trend ammonia level (28 on 08/04/2024) and 35 today
- Started lactulose on 08/07
History unclear-reportedly alcoholic with cirrhosis though has not been drinking for months
MSAS
Continue phenobarbital protocol
Thiamine/folate
Alcohol level is not detected
Beta-hydroxybutyrate was slightly elevated on 08/04/2024 likely due to starvation ketoacidosis vs early DKA --> rechecked again on 08/06 and it is downtrending
Consider GI consult
Follow thrombocytopenia and transfuse if needed to keep >20k
Transfuse PRBC if needed to keep Hb>7g/dL
DVT prophylaxis: LMWH (monitor bloody subglottic catheter drainage)
GI prophylaxi: PPI
Early nutrition
Early mobilization/bedside range of motion
IV access: PICC line
Eventual screen for obstructive sleep apnea-recommend outpatient sleep evaluation
Critical care statement: A total of 43 minutes of critical care time was provided for this patient today. This includes management of unstable vital signs, evaluation of the patient at bedside, reviewing the patient's pertinent medical records
including radiographs, microbiology, laboratory evaluations, ventilator management, seizure management, and discussion with primary team, consultants, pharmacy, nutrition, physical therapy, case management, charge nurse, critical care nursing, and
respiratory therapy.
Diagnostic data:
Chest x-ray 08/04/2024-ET tube 4.5 cm above neo, no airspace disease, pneumothorax, pleural effusion or other abnormalities
CT head 08/04/2024-no acute intracranial abnormalities, left sphenoid sinusitis
CT Neck with IV contrast 08/08/2024:
No CT evidence of abscess. No subcutaneous emphysema.
No cervical adenopathy. Mild sinusitis.
There are 2 left thyroid lobe nodules, as described. This may be further evaluation with follow-up nonemergent ultrasound.
Small right pleural effusion.
Partially visualized parenchymal opacity in the right infrahilar region. Atelectasis versus pneumonia.
Subjective Dataa
Subjective Data
Date of Service:
Date of Service: August 08, 2024
Chief Complaint: Manager Switch Follow Up
Subjective:
Patient seen and evaluated this morning. She does open eyes and tracks but does not follow commands. Currently heart rate 91, BP 156/85 and saturating 96%. Currently intubated on AC/VC 16/500/40%/5. Currently on insulin, propofol at 15mcg/kg/min
+ fentanyl at 50mcg/hr. She is going down for LP today.
Review of Systems
General: Unobtainable - Pat Unresp
Objective Data
Data Reviewed
Vital Signs / I&O / Oxygen:
Vital Signs
Temp Pulse Resp BP Pulse Ox
99.1 F 102 21 135/68 94
08/08/24 08:29 08/08/24 06:00 08/08/24 06:00 08/08/24 06:00 08/08/24 06:00
Intake and Output
08/07/24 08/08/2424
06:59 06:59 06:59
Intake Total 2306.0 / 2422.3 2943.9 / 3032.4 292.5 / 292.5
Output Total 346 / 366 1560 / 1580 60 / 60
Balance 1960.0 / 2056.3 1383.9 / 1452.4 232.5 / 232.5
SaO2 [A/C] 99
SaO2 94
Physical Exam
General: Respiratory Distress (negative), Comfortable, Chills (negative), Sweats and Other (Intubated/sedated)
HEENT: Normocephalic and Other (ETT in place)
Cardiovascular: S1-S2, Murmur (negative) and Peripheral Edema (Trace lower extremity edema bilaterally)
Respiratory: Wheeze (negative), Crackles (negative), Rhonchi (bilateral), Non-Labored Respirations and ET Tube (Mechanical breath sounds heard bilaterally)
GI: Soft, Distended, Non Tender and Normal Bowel Sounds
Neurology: Tremors (negative) and Other (Awakening to verbal/tactile stimuli but becomes agitated; pupils 2 mm bilaterally and sluggish)
Skin: Warm, Dry, Cyanosis (negative) and Jaundice (Icterus seen bilaterally)
Labs/Micro/Reports
Lab Data
08/08/24 04:04
Laboratory Results
08/08/24
04:04
PT 17.4 H
INR 1.42
Microbiology
08/05/24 13:12 Blood/Venous Blood Culture - Preliminary
Streptococcus pneumoniae
08/05/24 13:12 Blood/Venous Gram Stain - Preliminary
08/05/24 13:12 Endotracheal Respiratory Culture - Final
S aureus-Methicillin Sensitive
08/05/24 13:12 Endotracheal Gram Stain - Final
08/06/24 13:38 Blood/Venous Blood Culture - Preliminary
No Growth in 24 hours- Final report to follow
08/04/24 20:38 Nose MRSA Screen - Final
No Methicillin Resistant Staphylococcus aureus isolated.
[2024-08-08] MEDS: KEPPRA 1000 MG IV ×2 (08:42→20:43)
[2024-08-08] MEDS: THIAMINE INJECTION 200 MG IV (08:43)
[2024-08-08] MEDS: SOLU-MEDROL PF 20 MG IV (08:43)
[2024-08-08] MEDS: PROTONIX IV 40 MG IV (08:43)
[2024-08-08] MEDS: NSS (PRESERVATIVE FREE) 10 ML IV (08:43)
--- NOTE | 2024-08-08 08:56 | W.PN.CARDCBS ---
Today's Communication / Plan
-
Cont supportive care
Currently undergoing EEG. Neuro following.
Cardiology consulted due to abnormal echo, CM.
-EF 40-45%, once improved could consider ischemic eval at that time.
-Received prior cardiology records from Dr. Kirby. She has a history of rapid atrial fibrillation (during this hospital stay atrial tachycardia noted) and heart failure related to that.
-Pt unable to receive beta inocente with hypotension/pressors
Cont medical therapy of peak trop of 0.8, likely nonMI trop elevation.
Consider ASA next 24 hrs if no bleeding
LDL mildly elevated, consider statin when improved.
Monitor Is and Os and daily wts. pBNP 2890. May require eventual diuresis.
Impression / Plan
-
.
Primary Hedge Fund Principal: unknown
PCP: previously Dr. Bob Kirby, however not seen there since 04/2023
Impression:
Presentation with seizure activity, tonic clonic seizures, possibly from ETOH withdrawal
Traumatic intubation
Bacteremia with leukocytosis, concern for PNA
Abnormal urine
Hypotensive, requiring pressor support
Cardiomyopathy, EF 40-45%
Thrombocytopenia
Type 2 diabetes, uncontrolled
HTN
Obesity
History of ETOH use disorder
History of possible ETOH cirrhosis
Atrial tachycardia
ECHO 08/06/24: EF 40 to 45%, mild concentric LVH, apical akinesis, MAC, mild MR, mildly dilated aortic root measuring 3.7 cm at sinus of Valsalva, ascending aorta 3.8 cm
Plan:
-Patient presented with tonic-clonic seizures, felt to possibly be from alcohol withdrawal. Head CT was negative for acute abnormality. She had traumatic intubation. Reportedly with weaning sedation she was combative. She was found to have
positive blood culture and positive sputum culture with concern for pneumonia and is being treated with broad-spectrum antibiotics. Of note urine from her Mcdaniel is also pink in color.
Cont supportive care
Currently undergoing EEG. Neuro following.
Cardiology consulted due to abnormal echo, CM.
-EF 40-45%, once improved could consider ischemic eval at that time.
-Received prior cardiology records from Dr. Kirby. She has a history of rapid atrial fibrillation (during this hospital stay atrial tachycardia noted) and heart failure related to that.
-Pt unable to receive beta inocente with hypotension/pressors
Cont medical therapy of peak trop of 0.8, likely nonMI trop elevation.
Consider ASA next 24 hrs if no bleeding
LDL mildly elevated, consider statin when improved.
Monitor Is and Os and daily wts. pBNP 2890. May require eventual diuresis.
Discussed with nursing.
As per up-to-date prior records obtained she does have history of congestive heart failure in the setting of rapid A-fib and reportedly is maintained on po lasix 20mg daily. Last echocardiogram 10/16/2022 with EF 55 to 60%, moderate to severe left
atrial dilation, dilated IVC which does not collapse, mild MR, aortic sclerosis. Noted by chest CTA 10/16/22 to have 2.6 cm thyroid nodule, enlarged spleen, and evidence of cirrhosis. She reportedly underwent colonoscopy 10/2022 and had large polyp
status post excision at [facility] with benign pathology. Between October and February 2023 she had routine labs for cardiology visit and found to have a hemoglobin of 5.7. She was admitted and underwent 2 units of packed red blood cells with
improvement, endoscopy was reportedly normal without varices noted. She was then hospitalized at [facility] 02/2023 with acute anemia and transfused. Her CBC was monitored weekly and she occasionally required transfusions.
Apparently she was on and off eliquis 2.5mg BID for several months in setting of intermittent acute on chronic anemia. MRI of the abdomen 05/11/2023 consistent with cirrhosis with lesion of right hepatic lobe suspicious for possible HCC.
Progress Note - Hedge Fund Principal
Subjective
Date of Service: August 08, 2024
Pt seen and examined. Sedated on vent
Objective
Labs:
08/08/24 04:04
Labs
Hgb 9.4 g/dL (12.0-16.0) L 08/08/24 04:04
Hct 27.3 % (37.0-47.0) L 08/08/24 04:04
Plt Count 73 10^3/uL (130-400) L D 08/08/24 04:04
PT 17.4 Sec (11.4-14.6) H 08/08/24 04:04
INR 1.42 08/08/24 04:04
APTT 29.1 Sec (23.4-35.0) 08/04/24 13:48
Sodium 139 mmol/L (135-145) 08/08/24 04:04
Potassium 4.1 mmol/L (3.5-5.1) 08/08/24 04:04
BUN 32 mg/dl (7-17) H 08/08/24 04:04
Creatinine 0.7 mg/dL (0.6-1.0) 08/08/24 04:04
Glucose 138 mg/dl (70-99) H 08/08/24 04:04
Troponins
08/06/24 08/07/24
17:44 06:01
Troponin I 0.857 H* 0.502 H*
Vital Signs and I&O:
Vital Signs
Temp Pulse Resp BP Pulse Ox
99.1 F 102 21 135/68 94
08/08/24 08:29 08/08/24 06:00 08/08/24 06:00 08/08/24 06:00 08/08/24 06:00
Vital Signs
Temp Pulse Resp BP Pulse Ox
99.1 F 102 21 135/68 94
08/08/24 08:29 08/08/24 06:00 08/08/24 06:00 08/08/24 06:00 08/08/24 06:00
Intake & Output
08/06/24 08/07/24 08/08/24 08/09/24
06:59 06:59 06:59 06:59
Intake Total 2182.5 / 2225.0 2306.0 / 2422.3 2943.9 / 2943.9
Output Total 905 / 925 346 / 366 1560 / 1560
Balance 1277.5 / 1300.0 1960.0 / 2056.3 1383.9 / 1383.9
Physical Exam
Physical Exam
General: Sedated on vent
Neck: Negative JVD
Heart: Regular, Negative S3 positive S1/S2, Negative S4, No murmur
Lungs: CTA b/l, negative wheezes/rales/rhonchi
Abd: Positive BS, NT/ND, neg rebound/rigidity/guarding
Ext: Negative cyanosis/clubbing/edema
Neuro: nonfocal
[2024-08-08 09:18] LABS: Glucose - Point of Care 149 mg/dl (70-99)
--- NOTE | 2024-08-08 09:18 | PTCARENOTE ---
Pt received in bed @ 0700; intubated and sedated. Propofol @ 15 mcg/kg/min. Fentanyl gtt @ 50 mcg/hr. Pt opens eyes to verbal stimuli and appears to track. Unable to follow commands. PRN Fentanyl 50mcg IV given to help with period of restlessness.
ETT # 7.5 @ 23cm to left lip. AC (15/500/40%/5+). Suctioned for thick green/doe sputum. Lungs coarse with rhonchi. Sinus rhythm/Sinus tach on manager er. Levophed gtt remains off. +1 pitting LE edema and trace anasarca. Abdomen round and
obese. (+) bowel sounds. Incontinent of large liquid brown stool. Left nare dobhoff tube with TF @ goal. Mcdaniel catheter draining alayna urine. Insulin gtt following glycemic protocol. Magnesium 2 gram IV X1 now completed. Gtt's infusing through (R)
DL PICC.
[2024-08-08 10:22] LABS: Glucose - Point of Care 127 mg/dl (70-99)
--- NOTE | 2024-08-08 10:33 | W.PN.HOSP.TC ---
Addendum entered and electronically signed by Arias Puentes MD 08/08/24 14:39:
Updated patient sister and brother over the phone in a conference call for prolonged period of time and all questions answered.
Addendum entered and electronically signed by Arias Puentes MD 08/08/24 14:01:
Non-ischemic myocardial injury
Original Note:
Today's Communication/Plan
-
LP/MRI pending
IV keppra
IV antibiotics
Await repeat labs pending
Assessment / Plan
Assessment / Plan
General: Well Developed, Well Nourished and morbidly obese
HEENT: NormoCephalic, Moist mucous membranes and Atraumatic
Respiratory: Clear anterior, ETT noted
Cardiac: S1/S2 and Regular Rhythm; No Murmur or Rub
GI: Soft, Non Tender, Non Distended and Normal Bowel Sounds; No Organomegaly
Rectal: Deferred by Provider
Musculoskeletal: No Clubbing, No Cyanosis and No Edema
Skin: No Rash
: kay with dark yellow urine
Neuro: Nonfocal/grossly intact
# Acute respiratory failure status post intubation and mechanical ventilation
-Currently on propofol and fentanyl infusion
-Wean sedation as tolerated.
-Vent weaning per histology technician.
-Continue with tube feeding
# New onset tonic-clonic seizures
#Suspected alcohol withdrawal seizure
-CT head shows no acute abnormality
-UDS was found to be negative. Alcohol level not detected. Beta hydroxy was mildly elevated.
-Keppra loaded 4 g on admission
-Continue Keppra 1 g every 12
-Started on phenobarbital regimen
-CT head on admission with no acute intercranial abnormality noted
-Check MRI brain pending
-Continue thiamine folic acid
-Plan for lumbar puncture. [facility] consulted. Infectious panel ordered (gram stain /culture, Lyme PCR, VDRL, Meningitis panel. cryptococcus, cell count, glucose and protein)
-cEEG ongoing as lack of improvement in mental status.
# Acute kidney injury
#Metabolic acidosis
-received bicarb push earlier
-repeat labs pending
-if acidosis persist will need bicarb infusion
-Creatinine uptrended to 1.1 and slowly improving
-Monitor UOP
-Renal/bladder US -negative for hydronephrosis
# Streptococcus bacteremia and Staph aureus pneumonia
-IV rocephin was started 2g daily. vancomycin added.
-ECHO noted
-sputum sample noted
-ID consulted
# Atrial fibrillation unknown chronicity
# Atrial tachycardia
-Unclear if patient was compliant with Eliquis as outpatient
-Start beta-inocente once blood pressure stabilizes
# Cardiomyopathy
-Echo with EF of 40 to 45% normal diastolic function. Mild concentric LVH. There is apical akinesis.
-Cardiology consulted
#Thrombocytopenia likely secondary to liver cirrhosis
#Acute on chronic decompensated Liver cirrhosis likely 2/2 alcohol abuse
#History of alcoholic cirrhosis
#History of alcohol use disorder
#Abdominal ultrasound noted with liver cirrhosis
-trend platelet. no acute need for transfusion.
-Ammonia level elevated. Continue with lactulose.
-can stop trending ammonia level
-trend cbc closely and transfuse as needed
# Hypokalemia/Hypomagnesemia
-Replete/monitor
# Hyperglycemia
#Type 2 diabetes
-Blood sugar 400s on admission
-Check A1c at 8.3
-Start Lantus 10 units daily
-Insulin sliding scale
-reportedly on Wgovy
History of alcoholic cirrhosis
History of alcohol use disorder
Abdominal ultrasound noted with liver cirrhosis
Obesity
Full code
DVT prophylaxis�Lovenox
Discussed with histology technician
update sister over the phone in details on 08/07/24
Total Critical Care Time_ 45 minutes. I was immediately available to the patient and staff. I personally examined, reviewed labs, diagnostic images/reports, interpretations, treatment plans, discussed patient care with other providers and
family or caregivers (if patient is unable to make decisions), entered orders as appropriate and documented the medical record.
Anticipated Discharge: > 48 hours
Subjective/Interval History
-
Date of Service: August 08, 2024
remains intubated and sedated
on cEEG
Objective Data
-
Labs:
Laboratory Results
08/08/24 08/08/24
04:04 10:00
WBC 5.2
Hgb 9.4 L
Hct 27.3 L
Plt Count 73 L D
PT 17.4 H
INR 1.42
Sodium 139 Pending
Potassium 4.1 Pending
Chloride 109 H Pending
Carbon Dioxide 14 L* Pending
BUN 32 H Pending
Creatinine 0.7 Pending
Glucose 138 H Pending
Calcium 8.6 Pending
Total Bilirubin 1.3
AST 35
ALT 22
Alkaline Phosphatase 86
Vital Signs:
Vital Signs
Temp Pulse Resp BP Pulse Ox
99.1 F 102 21 135/68 94
08/08/24 08:29 08/08/24 06:00 08/08/24 06:00 08/08/24 06:00 08/08/24 06:00
I&O
08/07/24 08/08/24 08/09/24
06:59 06:59 06:59
Intake Total 2306.0 / 2422.3 2943.9 / 3032.4 292.5 / 292.5
Output Total 346 / 366 1560 / 1580 60 / 60
Balance 1960.0 / 2056.3 1383.9 / 1452.4 232.5 / 232.5
[2024-08-08 11:11] LABS: Glucose - Point of Care 132 mg/dl (70-99)
--- NOTE | 2024-08-08 11:25 | W.PN.ID1 ---
Date of Service
Date of Service: August 08, 2024
Today's Communication
Continue antibiotics. See below�
Assessment / Plan
New onset seizures
VDRF
Leukocytosis
Fever
Bacteremia with Streptococcus pneumoniae
Suspected aspiration pneumonia/pneumonitis secondary to seizure (vs. PNA secondary to strep pneumo)
HTN
DM
Hx EtOH cirrhosis
Obesity
Recommendations:
Continue ceftriaxone. Discontinue further doxycycline.
Await susceptibilities of recovered Staph aureus.
Monitor white count and temperature curve. Rising leukocytosis noted
Continue with supportive measures. Await brain MRI. Await lumbar puncture. Orders placed.
Patient remains critically ill and vent dependent in intensive care unit
Chief Complaint
-: Leukocytosis and Bacteremia
Subjective / Review of Systems
Patient seen and examined. Remains on vent at this time.
Vital Signs / Physical Exam
Vital Signs
Vital Signs
Temp Pulse Resp BP Pulse Ox
99.1 F 102 21 135/68 100
08/08/24 08:29 08/08/24 06:00 08/08/24 06:00 08/08/24 06:00 08/08/24 11:24
Physical Exam
Constitutional: Acutely Ill, Non-toxic and Obese
Eyes: Pupils Equal, Pupils Round, No Conjunctival Hemorrhage and Sclera Anicteric
Oropharyngeal: Other (ET tube in place.)
Cardiovascular: S1/S2; Negative S3/S4
Pulmonary: Coarse and Other (ET tube to vent.)
Gastrointestinal: Soft, Non Tender and Non Distended
Skin: Warm and Dry; Negative Rash or Jaundice
Neurological: Negative Meningeal Signs (Neck supple. No appreciable nuchal rigidity.)
Objective Data
Lab Data
Lab Results
08/08/24 04:04
PT 17.4 Sec (11.4-14.6) H 08/08/24 04:04
INR 1.42 08/08/24 04:04
APTT 29.1 Sec (23.4-35.0) 08/04/24 13:48
Estimated Creat Clear 99 ml/min 08/08/24 04:04
Lactic Acid 1.2 mmol/L (0.7-2.0) 08/06/24 13:38
Total Bilirubin 1.3 mg/dl (0.2-1.3) 08/08/24 04:04
AST 35 U/L (14-36) 08/08/24 04:04
ALT 22 U/L (0-35) 08/08/24 04:04
Alkaline Phosphatase 86 U/L (38-126) 08/08/24 04:04
Most recent labs reviewed.
Micro Results:
08/05/24 13:12 Blood Culture - Preliminary
Blood/Venous Streptococcus pneumoniae
Gram Stain - Preliminary
08/05/24 13:12 Respiratory Culture - Final
Endotracheal S aureus-Methicillin Sensitive
Gram Stain - Final
08/06/24 13:38 Blood Culture - Preliminary
Blood/Venous No Growth in 24 hours- Final report to follow
08/04/24 20:38 MRSA Screen - Final
Nose No Methicillin Resistant Staphylococcus aureus isolated.
Imaging:
08/07/2024 CXR (portable): No active cardiopulmonary disease noted. ET tube is 5 cm above the neo. Tip of nasogastric tube is below the esophageal gastric junction. Right-sided PICC is at the cavoatrial junction. The cardiac silhouette and
pulmonary vasculature are radiographically within normal limits. Please see full dictation for additional detail.
08/04/2024 CT head without contrast: No acute intracranial hemorrhage. No extra-axial collection noted. No significant abnormal parenchymal attenuation appreciated. No evidence of mass effect or midline shift seen.
--- NOTE | 2024-08-08 11:31 | PTCARENOTE ---
Pt reassessed. Large liquid bowel movement x3 this morning. Fecal management system placed. Pt with orders for MRI of brain, lumbar puncture, and CT scan of neck. Propofol and Fentanyl gtt continues. Plan to bridge Insulin gtt to Lantus 50 units SQ
and Novolog 20 units Q6H. Shut off Insulin gtt 2 hours after initiation. of Insulin gtt. Glycemic protocol followed.
[2024-08-08 11:45] LABS: Blood Urea Nitrogen 30 mg/dl (7-17); Carbon Dioxide 18 mmol/L (22-30); Chloride 108 mmol/L (98-107); Estimated Creatinine Clearance 115 ml/min; Glucose 160 mg/dl (70-99); Potassium 3.9 mmol/L (3.5-5.1); Sodium 138 mmol/L (135-145); eGFR > 60.00
--- NOTE | 2024-08-08 11:49 | PN.DE.MGMTRT ---
Insulin Management
- -
08/08/2024 Diabetes Management Consult Follow up
Patient admitted 08/04 with altered mental status. seizures. PMH Alcoholic cirrhosis, obesity, diabetes, HTN, HLD, hypothyroid, anxiety, CAD afib. Unknown if any diabetes medications were taken prior to admission. A1C 8.3%, cr .8, eGFR > 60.
Patient is unable to interview, she is critically ill, on ventilator, sedated.
08/06 fasting glucose 214, 12noon, 278. Patient to start glycemic protocol.
08/07 Patient remains on glycemic protocol insulin infusion requiring up to 14 units of insulin per hour. Tube feeds are at goal, 45 per hour.
08/08 6 units novolog Q 6 hours started @ 12 noon yesterday. Glucose range 163 to 187 with insulin infusion rate ranging from 6 to 14 units per hour. Will increase Q 6 hour novolog to 8 units and continue glycemic protocol. If tube feeds stopped
please HOLD the standing Q 6 hour novolog.
I discussed with patients nurse.
Will follow for readiness and appropriateness to transition.
Diabetes History
- -
Type of Diabetes: 2
Pre-Admission Diabetes Regimen
08/08/24 08/08/24
04:04 11:23
Creatinine 0.7 0.6
Lab Results
Hemoglobin A1c 8.3 % (4.0-5.6) H 08/05/24 03:57
Insulin Pump Settings
IP Diabetes Regimen
08/07/24 08/07/24 08/07/24
11:56 13:04 14:03
Glucose
POC Glucose 138 H 129 H 109 H
08/07/24 08/07/24 08/07/24
15:03 16:59 18:44
Glucose
POC Glucose 119 H 152 H 187 H
08/07/24 08/07/24 08/07/24
19:58 21:26 21:56
Glucose
POC Glucose 199 H 176 H 184 H
08/07/24 08/07/24 08/08/24
22:51 23:56 01:07
Glucose
POC Glucose 163 H 157 H 195 H
08/08/24 08/08/24 08/08/24
02:08 04:02 04:04
Glucose 138 H
POC Glucose 159 H 134 H
08/08/24 08/08/24 08/08/24
05:29 08:06 09:07
Glucose
POC Glucose 146 H 156 H 149 H
08/08/24 08/08/24 08/08/24
10:11 11:00 11:23
Glucose 160 H
POC Glucose 127 H 132 H
Patient Education
--- NOTE | 2024-08-08 11:54 | W.PN.NEURO.1 ---
Today's Communication / Plan
-
LP
MRI brain when able
continue Keppra
Neuro Assessment/Plan
Assessment
Neuro Imaging: CT head: Atrophy small vessel disease. Normal ventricles
Impression:
Ms.JANET GENE ZACARIAS is a 59 year old F who has presented to the hospital with a prolonged seizure requiring intubation and ventilator support. She has been agitated and combative with attempt to wean sedation; she is currently sedated but today
wakes up to voice, makes eye contact, followed one simple command for me. She has bacteremia with leukocytosis and concern for possible aspiration PNA; aspiration likely occurred with seizure activity.
Differentials for the patient's presentation include:
Possible alcohol withdrawal seizure
Differential would include generalized tonic-clonic seizure of idiopathic etiology
Results:
Initial EEG failed to demonstrate status epilepticus on August 05, 2024
HCT 08/04: No acute intracranial abnormality noted. Left sphenoid sinusitis.
Continuous EEG, 08/07-08/08: diffuse slowing, no seizure/epileptiform activity; being discontinued
Plan
Continue Levetiracetam 1000 mg twice a day
She has also been started on phenobarbital.
Continuous EEG showed no seizure/epileptiform abnormalities; being discontinued
LP, ID following
Continue thiamine
MRI of brain when able
ETOH w/d protocol
limit sedation as possible
Critical care time 30 mins
We will follow
Subjective/Objective
Subjective Data
Date of Service: August 08, 2024
more awake today, followed one command for me
Objective Data
Vital Signs
Temp Pulse Resp BP Pulse Ox
99.1 F 102 21 135/68 100
08/08/24 08:29 08/08/24 06:00 08/08/24 06:00 08/08/24 06:00 08/08/24 11:24
Lab Results
08/08/24 04:04
08/08/24 11:23
PT 17.4 Sec (11.4-14.6) H 08/08/24 04:04
INR 1.42 08/08/24 04:04
APTT 29.1 Sec (23.4-35.0) 08/04/24 13:48
Sodium 138 mmol/L (135-145) 08/08/24 11:23
Potassium 3.9 mmol/L (3.5-5.1) 08/08/24 11:23
BUN 30 mg/dl (7-17) H 08/08/24 11:23
Glucose 160 mg/dl (70-99) H 08/08/24 11:23
Calcium 9.0 mg/dl (8.4-10.2) 08/08/24 11:23
Phosphorus 4.6 mg/dl (2.5-4.5) H 08/08/24 04:04
Srd-K-Bpthmxqrwgp Pept 923 pg/ml 08/08/24 04:04
LDL Cholesterol, Calc 113 mg/dl 08/06/24 17:44
Vitamin B12 668 pg/ml (239-931) 08/05/24 03:57
Ur Buprenorphine Cancelled 08/04/24 17:53
Patient Allergies
No Known Allergies Allergy (Unverified 08/04/24 13:40)
Physical Exam
-
HEENT: Other (ETT in place)
Extended Neurological Exam
Mood & Affect: Other (sedated on vent)
Attention Span & Concentration:opens eyes to voice, makes meaningful eye contact, followed one command (squeezing my hand); followed no other commands
Memory: Unable to Assess
Involuntary Movement: None
Speech: Mute (intubated, does not attempt to speak)
Cranial Nerve II: Left Eye: did not follow command for detailed testing but appeared to attend to both sides
Cranial Nerve II: Right Eye: did not follow command for detailed testing but appeared to attend to both sides
Cranial Nerves III, IV, : Extraocular Movement: did not follow command for detailed testing
Cranial Nerve V: Facial Sensation: Unable to Assess
Cranial Nerve VII: Facial Symmetry: Unable to Assess
Cranial Nerve VIII: Hearing: Unable to Assess
Deep Tendon Reflexes: Trace Throughout
Coordination: Unable to Assess
Babinski Sign: Other (mute bilaterally)
[2024-08-08 12:10] LABS: Glucose - Point of Care 145 mg/dl (70-99)
[2024-08-08] MEDS: NOVOLIN R INSULIN INFUSION 100 IV (12:11)
[2024-08-08 13:05] LABS: Glucose - Point of Care 210 mg/dl (70-99)
[2024-08-08] MEDS: LANTUS 0.5 UNITS SC ×2 (14:21→22:00)
[2024-08-08] MEDS: NOVOLOG FLEXPEN 20 UNITS SC ×3 (14:22→23:33)
[2024-08-08 14:27] LABS: Glucose - Point of Care 189 mg/dl (70-99)
[2024-08-08 14:34] LABS: CSF Color Colorless; CSF Tube # 4; CSF Tube # Clarity Clear
[2024-08-08 14:37] LABS: Red Cell Count/CSF 2 mm^3; Spinal Fluid Glucose 90 mg/dl (40-70); Spinal Fluid Protein 52 mg/dl (12-60); White Blood Cell Count/CSF 1 mm^3 (0-5)
[2024-08-08] MEDS: ROCEPHIN 2000 MG IV (15:06)
[2024-08-08] MEDS: STERILE WATER FOR INJECTION 20 ML IV (15:06)
[2024-08-08 15:14] LABS: Glucose - Point of Care 170 mg/dl (70-99)
[2024-08-08 15:54] LABS: Blood Urea Nitrogen 28 mg/dl (7-17); Calcium 8.9 mg/dl (8.4-10.2); Carbon Dioxide 18 mmol/L (22-30); Chloride 108 mmol/L (98-107); Estimated Creatinine Clearance 115 ml/min; Glucose 202 mg/dl (70-99); Potassium 4.3 mmol/L (3.5-5.1); Sodium 138 mmol/L (135-145); eGFR > 60.00
[2024-08-08 16:10] LABS: Glucose - Point of Care 196 mg/dl (70-99)
[2024-08-08 17:09] LABS: Glucose - Point of Care 165 mg/dl (70-99)
[2024-08-08] MEDS: DIPRIVAN 100 IV (17:32)
[2024-08-08] MEDS: LOVENOX 40 MG SC (18:13)
[2024-08-08 18:18] LABS: Glucose - Point of Care 159 mg/dl (70-99)
--- NOTE | 2024-08-08 18:39 | PTCARENOTE ---
Pt reassessed. Lumbar puncture performed in IR. CT scan of neck obtained. MRI unable to provide time today. Insulin gtt d/c'd two hours after Lantus administration; stopped at 16:30. Propofol and Fentanyl gtt's continue through (R) DL PICC. Fecal
management system draining liquid brown stool. Mcdaniel catheter draining tea colored urine.
[2024-08-08 20:47] LABS: Glucose - Point of Care 123 mg/dl (70-99)
--- NOTE | 2024-08-08 21:26 | PTCARENOTE ---
Received patient intubated, sedated, and restrained. Opens eyes when touched, does not follow commands, does not track. PERRLA 3mm, blinks spontaneously. Normal sinus, 70s-80s, BP stable, 110s-140s/60s-80s, normothermic. +2 generalized anasarca,
palpable radial and pedal pulses b/l. 7.5 ETT, 23 at the lip in the center. Vent settings 16/500/5, 40%, saturating 100%. Lung sounds coarse, scattered rhonchi and crackles throughout. Thick, doe secretions inline and orally. Mouth care done. Left
nare DHT at 65 cm, osmolite 1.2 at goal. FMS in place draining brown stool. Thermistor kay putting out alayna/tea colored urine. Skin intact, hands red and dry b/l. Propofol and fentanyl gtt ongoing per order. Hourly rounding and patient safety
checks ongoing.
--- NOTE | 2024-08-08 22:05 | EEGC.RPT ---
Continuous EEG Report
Recording
Start Date of Data Reviewed: 08/07/24
Start Time of Data Reviewed: 10:29
End Date of Data Reviewed: 08/08/24
End Time of Data Reviewed: 10:42
Type of EEG: Continuous
Done with Video Recording: Yes
Study Sequence: Initiation of Study
Report
METHODS
A 21 channel digitized electroencephalogram was performed at [facility]. The 10/20 international system of electrode placement was used. In addition to EEG, the patient was monitored for EKG. The duration of the recording was 1 day and 12
minutes.
BACKGROUND
With eyes closed, the background consisted of relatively low amplitude diffuse slowing to 2-3Hz with occasional superimposed muscle artifact that obscured the background.
PHOTIC STIMULATION
Photic stimulation using a step-nguyen increase in photic frequency varying from 1-31 Hertz resulted in no driving responses but no appearance of any change in the previously established background.
CLINICAL EVENTS
None
INTERPRETATION AND CLINICAL CORRELATION
The background consisted of relatively low amplitude diffuse slowing to delta range frequencies with occasional superimposed muscle artifact that obscured the background. The study is consistent with moderate to severe diffuse cerebral dysfunction,
nonspecific in etiology. No clear seizures were noted.
[2024-08-08 22:11] LABS: Glucose - Point of Care 175 mg/dl (70-99)
[2024-08-08 23:34] LABS: Glucose - Point of Care 173 mg/dl (70-99)
[2024-08-09] VITALS (45 sets, daily range): BP systolic 103–182; BP diastolic 54–108; BMI 42.1
--- NOTE | 2024-08-09 00:25 | PTCARENOTE ---
Bolus given for pain, mouth care and kay care done. Repositioned, otherwise patient assessment unchanged from previous.
[2024-08-09] MEDS: DIPRIVAN 100 IV (02:17)
[2024-08-09] MEDS: SUBLIMAZE 50 MCG IV ×2 (02:26→05:32)
--- NOTE | 2024-08-09 04:00 | PTCARENOTE ---
Patient assessment unchanged from previous, hourly rounding and patient safety checks ongoing. Mouth care done, repositioned.
[2024-08-09 04:43] LABS: B.E. -5.9 mmol/L; HCO3 18.3 mmol/L (21-28); O2 Saturation % 99.6 % (94-98); PCO2 31 mmHg (32-35); PO2 95 mmHg (83-108); pH 7.38 (7.35-7.45)
[2024-08-09] MEDS: SYNTHROID 50 MCG TUBE (05:32)
[2024-08-09] MEDS: SUBLIMAZE 100 IV (05:59)
[2024-08-09] MEDS: NOVOLOG FLEXPEN 20 UNITS SC ×3 (06:34→18:28)
[2024-08-09] MEDS: TYLENOL ORAL SOLUTION 650 MG PO (06:37)
[2024-08-09 06:42] LABS: Glucose - Point of Care 152 mg/dl (70-99)
[2024-08-09 06:48] LABS: % Basophils 1.2 % (0-2); % Eosinophils 3.8 % (0-6); % Immature Granulocytes 0.6 % (0-0.5); % Lymphocytes 11.7 % (20.5-51.1); % Monocytes 19.4 % (1.7-9.3); % Neutrophils 63.3 % (42.2-75.2); Absolute Basophils 0.1 10^3/uL (0-0.2); Absolute Eosinophils 0.2 10^3/uL (0-0.7); Absolute Lymphocytes 0.6 10^3/uL (1.2-3.4); Absolute Neutrophils 3.1 10^3/uL (1.4-6.5); Hematocrit 29.7 % (37.0-47.0); Hemoglobin 9.9 g/dL (12.0-16.0); Mean Corp Hgb Conc. 33.3 g/dL (33.0-37.0); Mean Corpuscular Hgb 30.6 pg (27.0-31.0); Mean Corpuscular Volume 91.7 fL (81.0-99.0); Mean Platelet Volume 11.3 fL (7.4-10.4); Nucleated Red Blood Cells % 0 %; Platelet Count 91 10^3/uL (130-400); Red Blood Cell Count 3.24 10^6/uL (4.20-5.40); Red Cell Dist. Width 13.8 % (11.5-14.5)
[2024-08-09 06:55] LABS: PT 16.3 Sec (11.4-14.6)
[2024-08-09 07:16] LABS: ALT (SGPT) 26 U/L (0-35); AST (SGOT) 37 U/L (14-36); Albumin 3.4 g/dl (3.5-5.0); Alkaline Phosphatase 110 U/L (38-126); Blood Urea Nitrogen 27 mg/dl (7-17); Calcium 9.1 mg/dl (8.4-10.2); Carbon Dioxide 19 mmol/L (22-30); Chloride 108 mmol/L (98-107); Estimated Creatinine Clearance 117 ml/min; Glucose 160 mg/dl (70-99); Magnesium 1.5 mg/dl (1.6-2.3); Phosphorus 3.9 mg/dl (2.5-4.5); Potassium 4.1 mmol/L (3.5-5.1); Sodium 140 mmol/L (135-145); Total Bilirubin 1.1 mg/dl (0.2-1.3); Total Protein 6.5 g/dl (6.3-8.2); eGFR > 60.00
--- NOTE | 2024-08-09 07:32 | PN.DE.MGMTRT ---
Insulin Management
- -
08/09/2024: Diabetes Management F/U:
Patient admitted 08/04 with altered mental status. seizures. PMH: Alcoholic cirrhosis, obesity, diabetes, HTN, HLD, hypothyroid, anxiety, CAD afib. Unknown if any diabetes medications were taken prior to admission. A1C 8.3%, cr .8, eGFR > 60.
08/06 started on tube feeds, contributing to Hyperglycemia, glycemic protocol initiated.
Patient is unable to interview, she is critically ill, on ventilator, eyes open but not following commands.
NovoLog 6 units Q 6 hours was started @ 12 noon on 08/07 in additional to Glycemic protocol due to persistent Hyperglycemia.
08/08, pt was transitioned off insulin drip to SQ insulin by Dr. Justice to accommodate MRI
Patient remains on steroids and Tube feeds at goal 65cc/ hour. FBG 160 (V)
Glucose range 123 to 209 since transitioning off drip.
Will make no changes to current regimen: Cont Lantus 50 units @ HS and Q 6 hour NovoLog 20 units
If tube feeds stopped please HOLD the standing Q 6 hour NovoLog.
Discussed with patients nurse and ICU team, plan to resume insulin infusion if glucose remains >200 while on tube feeds and steroids.
Diabetes History
- -
Type of Diabetes: 2 requiring insulin
Pre-Admission Diabetes Regimen
08/08/24 08/08/24 08/09/24
11:23 15:22 06:31
Creatinine 0.6 0.6 0.6
Lab Results
Hemoglobin A1c 8.3 % (4.0-5.6) H 08/05/24 03:57
Insulin Pump Settings
IP Diabetes Regimen
08/08/24 08/08/24 08/08/24
08:06 09:07 10:11
Glucose
POC Glucose 156 H 149 H 127 H
08/08/24 08/08/24 08/08/24
11:00 11:23 11:58
Glucose 160 H
POC Glucose 132 H 145 H
08/08/24 08/08/24 08/08/24
12:53 14:16 15:03
Glucose
POC Glucose 210 H 189 H 170 H
08/08/24 08/08/24 08/08/24
15:22 15:59 16:57
Glucose 202 H
POC Glucose 196 H 165 H
08/08/24 08/08/24 08/08/24
18:04 20:36 21:59
Glucose
POC Glucose 159 H 123 H 175 H
08/08/24 08/09/24 08/09/24
23:23 06:30 06:31
Glucose 160 H
POC Glucose 173 H 152 H
Patient Education
--- NOTE | 2024-08-09 08:18 | W.PN.INTV ---
Today's Communication / Plan
Recommendations
Extubated today to nasal cannula
Precedex drip
MSAS and continue phenobarbital protocol
Thiamine/folate
Abx
Trend ammonia level
LP done on 08/08 � follow-up cultures (NGTD)
AEDs as per neurology
Check MRI brain
Cardiology consult due to HFmrEF and apical akinesis - will eventually need ischemic eval
Assessment
-
59-year-old female with unknown past medical history who works at [employer] became confused, and had a tonic-clonic seizure subsequently confused and combative requiring intubation with another tonic-clonic seizure-insulation blower consulted for
hypertension/ventilator/seizures/critical care management 08/04/2024.
Impression:
Tonic-clonic seizures suspected to be due to acute EtOH withdrawal; less likely primary epilepsy
Acute respiratory failure with hypoxia requiring intubation
- Intubated 08/04/2024
- Extubated 08/09/2024
Hypertensive urgency - now resolved
Obesity
Apical akinesis with HFmrEF (per TTE from 08/06/2024)
Mild thrombocytopenia - could be related to her reported Hx of cirrhosis
Hx of alcohol abuse with reported Hx of cirrhosis
Hypokalemia - resolved
ROXANNA - improving
Metabolic acidosis with increased AG likely related to starvation ketoacidosis - resolved
RUL/RLL CAP, suspected to be aspiration during seizure event - MSSA seen on sputum Cx
Strep pneumonia bacteremia likely due to PNA
DM type II c/b hyperglycemia now on insulin drip
Mildly elevated LFTs with hyperbilirubinemia likely due to acute alcoholic hepatitis - LFTs now normalized
Left sphenoid sinusitis
Pyuria (purulent urine seen in kay catheter tubing)
Conditions present prior to admission:
Unknown-sister showed up to ED-reportedly hypertension, diabetes, and recovering alcoholic-reportedly has not drank in months
Obesity
Plan
Patient critically ill status post tonic-clonic seizures, however she is now following commands and was extubated this AM
EEG performed on 08/06/2024 shows diffuse cortical dysfunction without focal abnormality, no seizures recorded.
Extubated this morning, now on nasal cannula
Titrate supplemental O2 flow rate to keep SpO2 >90-94%
Dobbhoff tube inserted on 08/05, and tube feeds started
Continue with aspiration precautions
Nebulizers if needed-currently not bronchospastic
She is a former drinker, quit last September but has relapsed recently. Her home was found to be disheveled by her sister. EEG obtained on 08/05/2021 shows diffuse cortical dysfunction with no seizures recorded.
- Continue phenobarbital
- Precedex started for agitation s/p extubation
- Daily SAT/SBT as tolerated -so far she is not able to tolerate sedation vacation due to severe agitation
- Awaiting brain MRI
Neurology consulted with recs appreciated
CT head performed on 08/04/2024 shows no acute intracranial abnormality in addition to left sphenoid sinusitis
Check MRI brain
Antiepileptics per neurology-Keppra loaded, now off keppra as of 08/09/2024
Keep MAP>65
Replete K>4, Mg>2
Monitor blood sugar with goal BG 140-180
Currently on insulin supplementation with basal-bolus dosing
Bridged off insulin gtt on 08/08 --> continue basal--bolus dosing
Despite her urinalysis being negative on 08/04/2024, she had purulent urine in the Kay catheter tubing. I started ceftriaxone on 08/05 and plan for at least 5-7 days assuming she remains afebrile for 48 hours prior and continues to clinically
improve
- She also has a opacification seen in the medial right lower lobe with concern for aspiration pneumonia; initially started doxycycline on 08/05 however she has strep PNA seen on blood Cx from 08/05/2024 -> ID now changed Abx to rocephin only.
Doxy DC'd s/p IV vancomycin on 08/06 - 08/07
- Sputum culture grew MSSA
- Blood Cx grew Strep PNA (collected 08/05/2024)
- Check echo given positive blood Cx with GPC in chains
- Echo does not show evidence of vegetation however there is apical akinesis with a mildly reduced LVEF of 40-45% and mild MR. Cardiology consulted for further recommendations; eventual LHC
- For LP today --> follow up cultures (NGTD)
- Pt has no cuff leak, hence not ready for extubation regardless. Started steroids on 08/07 given her cuff leak is persisting
- On 08/09, she did have a cuff leak --> can stop steroids. Also no subglottic bleeding seen. No need to perform bronchoscopy prior to extubation
- CT neck performed on 08/08 showed no retropharyngeal abscess
Trend LFTs
Abd US performed on 08/06/2024 shows no concern for ascites, and cirrhotic appearing liver
- Trend ammonia level (28 on 08/04/2024) and 35 on 08/08 --> continue to trend
- Started lactulose on 08/07
History unclear-reportedly alcoholic with cirrhosis though has not been drinking for months
MSAS
Continue phenobarbital protocol
Thiamine/folate
Alcohol level was not detected
Beta-hydroxybutyrate was slightly elevated on 08/04/2024 likely due to starvation ketoacidosis vs early DKA --> rechecked again on 08/06 and it is downtrending
Consider GI consult
Follow thrombocytopenia and transfuse if needed to keep >20k
Transfuse PRBC if needed to keep Hb>7g/dL
DVT prophylaxis: LMWH
GI prophylaxi: no longer indicated --> will DC
Early nutrition --> continue TF
Early mobilization/bedside range of motion
IV access: PICC line
Eventual screen for obstructive sleep apnea-recommend outpatient sleep evaluation
Critical care statement: A total of 41 minutes of critical care time was provided for this patient today. This includes management of unstable vital signs, evaluation of the patient at bedside, reviewing the patient's pertinent medical records
including radiographs, microbiology, laboratory evaluations, ventilator management, seizure management, and discussion with primary team, consultants, pharmacy, nutrition, physical therapy, case management, charge nurse, critical care nursing, and
respiratory therapy.
Diagnostic data:
Chest x-ray 08/04/2024-ET tube 4.5 cm above neo, no airspace disease, pneumothorax, pleural effusion or other abnormalities
CT head 08/04/2024-no acute intracranial abnormalities, left sphenoid sinusitis
CT Neck with IV contrast 08/08/2024:
No CT evidence of abscess. No subcutaneous emphysema.
No cervical adenopathy. Mild sinusitis.
There are 2 left thyroid lobe nodules, as described. This may be further evaluation with follow-up nonemergent ultrasound.
Small right pleural effusion.
Partially visualized parenchymal opacity in the right infrahilar region. Atelectasis versus pneumonia.
Subjective Dataa
Subjective Data
Date of Service:
Date of Service: August 09, 2024
Chief Complaint: Skate Boarder Follow Up
Subjective:
Patient seen and evaluated today at bedside. She is awake, following commands and nodding head so she wants the tube out of her throat. No acute events reported from overnight. Afebrile overnight.
Review of Systems
General: Other (Unable to obtain as patient is intubated)
Objective Data
Data Reviewed
Vital Signs / I&O / Oxygen:
Vital Signs
Temp Pulse Resp BP Pulse Ox
99.5 F 113 24 148/79 98
08/08/24 23:28 08/09/24 08:47 08/09/24 08:47 08/09/24 06:30 08/09/24 08:47
Intake and Output
08/08/24 08/09/24 08/10/24
06:59 06:59 06:59
Intake Total 2943.9 / 3032.4 2229.5 / 2313.5 252 / 252
Output Total 1560 / 1580 820 / 860 120 / 120
Balance 1383.9 / 1452.4 1409.5 / 1453.5 132 / 132
SaO2 [CPAP] 99
SaO2 [A/C] 99
SaO2 98
Physical Exam
General: Respiratory Distress (negative), Comfortable, Chills (negative), Sweats and Other (Intubated/sedated)
HEENT: Normocephalic and Other (ETT in place)
Cardiovascular: S1-S2, Murmur (negative) and Peripheral Edema (Trace lower extremity edema bilaterally)
Respiratory: Wheeze (negative), Crackles (negative), Rhonchi (bilateral), Non-Labored Respirations and ET Tube (Mechanical breath sounds heard bilaterally)
GI: Soft, Distended, Non Tender and Normal Bowel Sounds
Neurology: Awake, Alert, Tremors (negative) and Other (Pupils 2 mm bilaterally and sluggish; following commands)
Skin: Warm, Dry, Cyanosis (negative) and Jaundice (Icterus seen bilaterally)
Labs/Micro/Reports
Lab Data
08/09/24 06:31
08/09/24 06:31
Laboratory Results
08/09/24 08/09/24 08/09/24
04:33 06:31 08:57
PT 16.3 H
INR 1.30
pH 7.38 7.41
pCO2 31 L 32
pO2 95 107
HCO3 18.3 L 20.3 L
O2 Delivery Level
Microbiology
08/08/24 13:30 Csf CSF Culture - Preliminary
No Growth After 18-24 Hours
08/08/24 13:30 Csf Gram Stain - Preliminary
08/06/24 13:38 Blood/Venous Blood Culture - Preliminary
No Growth in 48 hours- Final report to follow
08/05/24 13:12 Blood/Venous Blood Culture - Preliminary
Streptococcus pneumoniae
08/05/24 13:12 Blood/Venous Gram Stain - Preliminary
08/08/24 13:30 Csf Meningitis/Encephalitis Panel (PCR) - Final
08/05/24 13:12 Endotracheal Respiratory Culture - Final
S aureus-Methicillin Sensitive
08/05/24 13:12 Endotracheal Gram Stain - Final
08/04/24 20:38 Nose MRSA Screen - Final
No Methicillin Resistant Staphylococcus aureus isolated.
--- NOTE | 2024-08-09 08:34 | PTCARENOTE ---
Pt received in bed @ 0700. Intubated and sedated. ETT #7.5 @ 23cm to left lip. AC (16/500/40%/5+). Suctioned for small green yellow blood tingued sputum. Percussion performed. Received with Propofol @ 15 mcg/kg/min and Fentanyl @ 50 mcg/hr. RASS -1.
Weaned down per protocol. Pt opening eyes. Able to follow directions. Nodding appropriately to questions. Weaning on ventilator. Adjusted to spontaneous 40% with PEEP of 5. Tolerating wean. Sinus tach on bus monitor. +2 generalized anasarca.
DHT @ 65 cm. TF @ goal. FMS draining liquid brown stool. Mcdaniel catheter with alayna urine. (R) DL PICC flushed with (+) blood return.
[2024-08-09] MEDS: LUMINAL 64.8 MG PO (08:37)
[2024-08-09] MEDS: FOLVITE 1 MG TUBE (08:37)
[2024-08-09] MEDS: LANTUS 0.5 UNITS SC ×2 (08:38→21:46)
[2024-08-09] MEDS: PROTONIX IV 40 MG IV (08:39)
[2024-08-09] MEDS: MIRALAX TUBE (08:39)
[2024-08-09] MEDS: NSS (PRESERVATIVE FREE) 10 ML IV (08:39)
[2024-08-09] MEDS: THIAMINE INJECTION 200 MG IV (08:40)
[2024-08-09] MEDS: SOLU-MEDROL PF 20 MG IV (08:40)
[2024-08-09 08:47] LABS: Glucose - Point of Care 209 mg/dl (70-99)
[2024-08-09] MEDS: MAGNESIUM SULFATE 50 IV (09:01)
[2024-08-09] MEDS: KEPPRA IV (09:01)
[2024-08-09 09:12] LABS: B.E. -3.7 mmol/L; HCO3 20.3 mmol/L (21-28); O2 Saturation % 99.2 % (94-98); PCO2 32 mmHg (32-35); PO2 107 mmHg (83-108); pH 7.41 (7.35-7.45)
[2024-08-09] MEDS: CARDIZEM 5 MG IV (10:14)
--- NOTE | 2024-08-09 10:52 | W.PN.NEURO.1 ---
Today's Communication / Plan
-
Discontinue levetiracetam 1000 mg twice a day
Continue phenobarbital as per EtOH withdrawal protocol
LP, ID following
Continue thiamine
MRI of brain when able
limit sedation as possible
Neuro Assessment/Plan
Assessment
Neuro Imaging: CT head: Atrophy small vessel disease. Normal ventricles
Impression:
Ms.JANET GENE ZACARIAS is a 59 year old F who has presented to the hospital with a prolonged seizure requiring intubation and ventilator support. She has been agitated and combative with attempt to wean sedation
She has bacteremia with leukocytosis and concern for possible aspiration PNA; aspiration likely occurred with seizure activity.
Differentials for the patient's presentation include:
Possible alcohol withdrawal seizure
Differential would include generalized tonic-clonic seizure of idiopathic etiology
Results:
Initial EEG failed to demonstrate status epilepticus on August 05, 2024
HCT 08/04/2024: No acute intracranial abnormality noted. Left sphenoid sinusitis.
Continuous EEG, 08/07-08/08: diffuse slowing, no seizure/epileptiform activity; being discontinued
Lumbar puncture failed to demonstrate a significant encephalitic or meningitic cause for prior symptoms
Plan
Discontinue levetiracetam 1000 mg twice a day
Continue phenobarbital as per EtOH withdrawal protocol
LP, ID following
Continue thiamine
MRI of brain when able
limit sedation as possible
We will follow peripherally
Subjective/Objective
Subjective Data
Date of Service: August 09, 2024
Patient unable to provide her own medical history due to intubation.
Objective Data
Vital Signs
Temp Pulse Resp BP Pulse Ox
37.5 C 113 24 148/79 94
08/08/24 23:28 08/09/24 08:47 08/09/24 08:47 08/09/24 06:30 08/09/24 10:41
Lab Results
08/09/24 06:31
08/09/24 06:31
PT 16.3 Sec (11.4-14.6) H 08/09/24 06:31
INR 1.30 08/09/24 06:31
APTT 29.1 Sec (23.4-35.0) 08/04/24 13:48
Sodium 140 mmol/L (135-145) 08/09/24 06:31
Potassium 4.1 mmol/L (3.5-5.1) 08/09/24 06:31
BUN 27 mg/dl (7-17) H 08/09/24 06:31
Glucose 160 mg/dl (70-99) H 08/09/24 06:31
Calcium 9.1 mg/dl (8.4-10.2) 08/09/24 06:31
Phosphorus 3.9 mg/dl (2.5-4.5) 08/09/24 06:31
Zpd-O-Uvgvbuxkuiu Pept 923 pg/ml 08/08/24 04:04
LDL Cholesterol, Calc 113 mg/dl 08/06/24 17:44
Vitamin B12 668 pg/ml (239-931) 08/05/24 03:57
Ur Buprenorphine Cancelled 08/04/24 17:53
Patient Allergies
dronedarone [From Multaq] Allergy (Verified 08/09/24 10:44)
Rash
Sulfa (Sulfonamide Antibiotics) Allergy (Verified 08/09/24 10:44)
Rash
Review of Systems
-
Unable to obtain full review of systems at this time due to: Patient Intubation
History Source: Patient
All other systems: Reviewed and negative
Physical Exam
-
General: No Apparent Distress, Intubated and Appears Stated Age
Eyes: Round OU, [place] Conjunctivae and No Ptosis
HEENT: Anicteric and Moist Mucous Membranes
Neck: Full Range of Motion
Respiratory: No Dyspnea
Cardiac: No JVD
GI: Non-distended
Skin: Unremarkable
Extremities: No Clubbing, No Cyanosis and No Edema
Psych: Unable to Assess
Extended Neurological Exam
Mood & Affect: Anxious
Attention Span & Concentration: Awake, Alert, Interactive and Other (No difficulty with single step request)
Memory: Unable to Assess
Tremor: Hand Tremor Absent and Head Tremor Absent
Speech: Unable to Assess
Cranial Nerve II: Left Eye: Pupillary Size Unremarkable and Visual Green Grossly Intact
Cranial Nerve II: Right Eye: Pupillary Size Unremarkable and Visual Green Grossly Intact
Cranial Nerves III, IV, : Extraocular Movement: Grossly Intact
Cranial Nerve VII: Facial Symmetry: Normal Facial Symmetry
Cranial Nerve VIII: Hearing: Unremarkable Hearing to Normal Conversational Volume
Cranial Nerve XI: Shoulder Shrug: Unremarkable
Muscle Strength, Overall: Spontaneously Moves (All extremities)
Muscle Bulk & Tone: Bulk Unremarkable and Tone Unremarkable
Pronator Drift: Unable to Assess
Touch Sensation: Unremarkable
Coordination: Unable to Assess
Gait & Station: Unable to Assess
Past History
Past History
ED Past Medical History: Cancer and Hypothyroidism
Family History
Family History: Other (reviewed and non-contributory)
Medications
-
Medications:
Generic Name Dose Route Start Last Admin
Trade Name Freq PRN Reason Stop Dose Admin
Acetaminophen 650 mg 08/05/24 19:54 08/09/24 06:37
Acetaminophen (Oral Solution) 650 Mg/20.3 Ml Cup PO 09/02/24 19:53 650 mg
Q4HPRN PRN Administration
TEMP > 100.4 and mild pain
Ceftriaxone Sodium 2,000 mg 08/05/24 14:00 08/08/24 15:06
Ceftriaxone 2,000 Mg/20 Ml Vial IV 2,000 mg
Q24H AASHISH Administration
Dextrose 12.5 grams 08/04/24 16:24
Dextrose 50% (0.5 Grams/Ml) 50 Ml Syringe IV 09/01/24 16:23
[id number] PRN
hypoglycemia
Protocol
Dextrose 12.5 grams 08/06/24 13:27
Dextrose 50% (0.5 Grams/Ml) 50 Ml Syringe IV 09/03/24 13:26
[id number] PRN
BLOOD GLUCOSE < 70
Diltiazem HCl 30 mg 08/09/24 13:00
Diltiazem 30 Mg Regular Release Tablet PO 09/06/24 12:59
QID AASHISH
Enoxaparin Sodium 40 mg 08/05/24 18:00 08/08/24 18:13
Enoxaparin Sodium 40 Mg/0.4 Ml Syringe SC 09/02/24 17:59 40 mg
QPM AASHISH Administration
Fentanyl Citrate 50 mcg 08/04/24 19:22 08/09/24 05:32
Fentanyl (50 Mcg/Ml) 100 Mcg/2 Ml Ampul IV 08/18/24 19:21 50 mcg
[id number] PRN Administration
see protocol
Protocol
Folic Acid 1 mg 08/09/24 08:00 08/09/24 08:37
Folic Acid 1 Mg Tablet TUBE 09/06/24 07:59 1 mg
DAILY AASHISH Administration
Glucagon 1 mg 08/04/24 16:24
Glucagon 1 Mg Vial IM 09/01/24 16:23
PRN PRN
hypoglycemia
Protocol
Fentanyl Citrate 1,000 mcg in 100 mls @ 0 mls/hr 08/04/24 19:30 08/09/24 05:59
Sublimaze IV 100 mls
PER PROTOCOL AASHISH Administration
Protocol
Per Protocol
Propofol 1,000,000 mcg in 100 mls @ 0 mls/hr 08/04/24 19:41 08/09/24 02:17
Diprivan IV 100 mls
PER PROTOCOL AASHISH Administration
Protocol
Per Protocol
Insulin Glargine 50 units/ 0.5 mls @ 0 mls/hr 08/08/24 22:00 08/09/24 08:38
Device SC 09/05/24 21:59 0.5 mls
BID@0800,2200 AASHISH Administration
As Directed
Insulin Aspart 20 units 08/08/24 13:00 08/09/24 06:34
Insulin Aspart (100 Units/Ml) 3 Ml Flexpen SC 09/05/24 12:59 20 units
Q6 AASHISH Administration
Lactulose 20 grams 08/09/24 11:00
Lactulose Solution (20 Grams/30 Ml) 30 Ml Cup PO 09/06/24 10:59
BID AASHISH
Levothyroxine Sodium 50 mcg 08/08/24 06:00 08/09/24 05:32
Levothyroxine 50 Mcg Tablet TUBE 09/04/24 12:59 50 mcg
DAILY @ 0600 AASHISH Administration
Lorazepam 2 mg 08/04/24 19:23 08/06/24 18:13
Lorazepam 2 Mg/Ml Vial IV 09/01/24 19:22 2 mg
Q2HPRN PRN Administration
anxiety/sedation/seizure
Methylprednisolone Sodium Succinate 20 mg 08/07/24 13:00 08/09/24 08:40
Methylprednisolone Pf 40 Mg/Ml Vial IV 09/04/24 12:59 20 mg
DAILY AASHISH Administration
Pantoprazole Sodium 40 mg 08/08/24 08:00 08/09/24 08:39
Protonix 40 Mg Iv Push IV 09/05/24 07:59 40 mg
DAILY AASHISH Administration
Phenobarbital Sodium 32.4 mg 08/09/24 16:00
Phenobarbital 32.4 Mg Tablet PO 08/11/24 08:01
TID AASHISH
Polyethylene Glycol 17 grams 08/05/24 08:00 08/09/24 08:39
Polyethylene Glycol Powder 17 Grams Packet TUBE 09/02/24 07:59 Not Given
DAILY AASHISH
Sodium Chloride 0 flush 08/04/24 17:00
Sodium Chloride 0.9% (Flush) Syringe IV 09/01/24 16:59
PER PROTOCOL AASHISH
Sodium Chloride 1 ml 08/04/24 19:29
Nss (Pf) 10 Ml Vial For Ativan 2 Mg Dose IV 09/01/24 19:28
Q2HPRN PRN
IV LORAZEPAM DILUTION
Sodium Chloride 10 ml 08/08/24 08:00 08/09/24 08:39
Sodium Chloride 0.9% (Preservative Free) 10 Ml Vial IV 09/05/24 07:59 10 ml
DAILY AASHISH Administration
Sterile Water 20 ml 08/06/24 14:00 08/08/24 15:06
Sterile Water For Injection 20 Ml Vial IV 09/03/24 13:59 20 ml
Q24H AASHISH Administration
Thiamine HCl 200 mg 08/04/24 20:15 08/09/24 08:40
Thiamine (100 Mg/Ml) 2 Ml Vial IV 08/09/24 20:14 200 mg
DAILY AASHISH Administration
--- NOTE | 2024-08-09 11:27 | W.PN.ID1 ---
Date of Service
Date of Service: August 09, 2024
Today's Communication
Continue antibiotics.
Assessment / Plan
New onset seizures
VDRF
Leukocytosis
Fever
Bacteremia with Streptococcus pneumoniae
Suspected aspiration pneumonia/pneumonitis secondary to seizure (vs. PNA secondary to strep pneumo)
HTN
DM
Hx EtOH cirrhosis
Obesity
Recommendations:
Susceptibilities of strep pneumo and Staph aureus reviewed.
CSF analysis reviewed and not indicative of meningitis.
Continue ceftriaxone.
Monitor white count and temperature curve. Prior leukocytosis has improved.
Continue with supportive measures. Await brain MRI.
����������������������������������������������������������
Chief Complaint
-: Leukocytosis and Bacteremia
Subjective / Review of Systems
Patient seen and examined. S/p extubation earlier today.
Review of Systems: No Fever
Vital Signs / Physical Exam
Vital Signs
Vital Signs
Temp Pulse Resp BP Pulse Ox
99.5 F 113 24 148/79 94
08/08/24 23:28 08/09/24 08:47 08/09/24 08:47 08/09/24 06:30 08/09/24 10:41
Physical Exam
Constitutional: Comfortable, Non-toxic and Obese
Eyes: No Conjunctival Hemorrhage and Sclera Anicteric
Cardiovascular: S1/S2; Negative S3/S4 or Murmur
Pulmonary: Rhonchi (Few; scattered) and Coarse; Negative Wheezes or Rales
Gastrointestinal: Soft, Non Distended, Normal Bowel Sounds, No Rebound and No Guarding
Extremities: Edema; Negative Cyanosis or Erythema
Neurological: Awake
Psychological: Calm
Objective Data
Lab Data
Lab Results
08/09/24 06:31
08/09/24 06:31
PT 16.3 Sec (11.4-14.6) H 08/09/24 06:31
INR 1.30 08/09/24 06:31
APTT 29.1 Sec (23.4-35.0) 08/04/24 13:48
Estimated Creat Clear 117 ml/min 08/09/24 06:31
Lactic Acid 1.2 mmol/L (0.7-2.0) 08/06/24 13:38
Total Bilirubin 1.1 mg/dl (0.2-1.3) 08/09/24 06:31
AST 37 U/L (14-36) H 08/09/24 06:31
ALT 26 U/L (0-35) 08/09/24 06:31
Alkaline Phosphatase 110 U/L (38-126) 08/09/24 06:31
Most recent labs reviewed.
Micro Results:
08/08/24 13:30 CSF Culture - Preliminary
Csf No Growth After 18-24 Hours
Gram Stain - Preliminary
08/06/24 13:38 Blood Culture - Preliminary
Blood/Venous No Growth in 48 hours- Final report to follow
08/05/24 13:12 Blood Culture - Preliminary
Blood/Venous Streptococcus pneumoniae
Gram Stain - Preliminary
08/08/24 13:30 Meningitis/Encephalitis Panel (PCR) - Final
Csf
08/08/24 13:30 Acid Fast Bacilli Smear - Pending
Csf Acid Fast Bacilli Culture - Pending
08/05/24 13:12 Respiratory Culture - Final
Endotracheal S aureus-Methicillin Sensitive
Gram Stain - Final
08/04/24 20:38 MRSA Screen - Final
Nose No Methicillin Resistant Staphylococcus aureus isolated.
Imaging:
08/09/2024 CXR (portable): Hazy retrocardiac opacity with obscuration of the left hemidiaphragm noted.
08/07/2024 CXR (portable): No active cardiopulmonary disease noted. ET tube is 5 cm above the neo. Tip of nasogastric tube is below the esophageal gastric junction. Right-sided PICC is at the cavoatrial junction. The cardiac silhouette and
pulmonary vasculature are radiographically within normal limits. Please see full dictation for additional detail.
08/04/2024 CT head without contrast: No acute intracranial hemorrhage. No extra-axial collection noted. No significant abnormal parenchymal attenuation appreciated. No evidence of mass effect or midline shift seen.
Care Review
Plan reviewed with: Physician (Critical Care)
[2024-08-09] MEDS: BUSPAR 10 MG PO ×2 (11:30→19:46)
[2024-08-09] MEDS: CARDIZEM 30 MG PO (11:30)
[2024-08-09] MEDS: DUPHALAC/CHRONULAC 20 GRAMS PO ×2 (11:30→19:45)
[2024-08-09] MEDS: XOPENEX 1.25 MG INHALANT SOLUTION INH ×3 (11:40→20:51)
[2024-08-09] MEDS: ATROVENT NEBULES 0.5 MG INH ×2 (11:40→20:51)
--- NOTE | 2024-08-09 12:15 | W.PN.CARDCBS ---
Today's Communication / Plan
-
Will stop Cardizem and start carvedilol 3.125 mg p.o. twice daily.
Weight is up will start Lasix 40 mg IV daily.
Add aspirin.
Continue antibiotics for strep bacteremia. continue steroids.
Impression / Plan
-
.
Primary Mergers And Acquisitions Attorney: unknown
PCP: previously Dr. Bob Kirby, however not seen there since 04/2023
Impression:
Presentation with seizure activity, tonic clonic seizures, possibly from ETOH withdrawal
Traumatic intubation
Bacteremia with leukocytosis, concern for PNA
Abnormal urine
Hypotensive, requiring pressor support
Cardiomyopathy, EF 40-45%
Thrombocytopenia
Type 2 diabetes, uncontrolled
HTN
Obesity
History of ETOH use disorder
History of possible ETOH cirrhosis
Atrial tachycardia
ECHO 08/06/24: EF 40 to 45%, mild concentric LVH, apical akinesis, MAC, mild MR, mildly dilated aortic root measuring 3.7 cm at sinus of Valsalva, ascending aorta 3.8 cm
Plan:
-Continue antibiotics for strep pneumonia bacteremia.
Cont supportive care, antibiotics.
Cardiology consulted due to abnormal echo, CM.
-EF 40-45%, once improved could consider ischemic eval at that time.
-Received prior cardiology records from Dr. Kirby. She has a history of rapid atrial fibrillation (during this hospital stay atrial tachycardia noted) and heart failure related to that.
-Would stop diltiazem and start carvedilol 3.125 mg p.o. twice daily.
-Will hold off on full anticoagulation for now. Add aspirin.
Cont medical therapy of peak trop of 0.8, likely nonMI trop elevation.
Consider ASA next 24 hrs if no bleeding
LDL mildly elevated, consider statin when improved.
Monitor Is and Os and daily wts. pBNP 2890. Weight is up. Will start Lasix 40 mg IV daily.
Discussed with nursing.
As per up-to-date prior records obtained she does have history of congestive heart failure in the setting of rapid A-fib and reportedly is maintained on po lasix 20mg daily. Last echocardiogram 10/16/2022 with EF 55 to 60%, moderate to severe left
atrial dilation, dilated IVC which does not collapse, mild MR, aortic sclerosis. Noted by chest CTA 10/16/22 to have 2.6 cm thyroid nodule, enlarged spleen, and evidence of cirrhosis. She reportedly underwent colonoscopy 10/2022 and had large polyp
status post excision at [facility] with benign pathology. Between October and February 2023 she had routine labs for cardiology visit and found to have a hemoglobin of 5.7. She was admitted and underwent 2 units of packed red blood cells with
improvement, endoscopy was reportedly normal without varices noted. She was then hospitalized at [facility] 02/2023 with acute anemia and transfused. Her CBC was monitored weekly and she occasionally required transfusions.
Apparently she was on and off eliquis 2.5mg BID for several months in setting of intermittent acute on chronic anemia. MRI of the abdomen 05/11/2023 consistent with cirrhosis with lesion of right hepatic lobe suspicious for possible HCC.
Progress Note - Mergers And Acquisitions Attorney
Subjective
Date of Service: August 09, 2024
No new fevers. Receiving therapy. Denies chest pains.
Objective
Labs:
08/09/24 06:31
08/09/24 06:31
Labs
Hgb 9.9 g/dL (12.0-16.0) L 08/09/24 06:31
Hct 29.7 % (37.0-47.0) L 08/09/24 06:31
Plt Count 91 10^3/uL (130-400) L D 08/09/24 06:31
PT 16.3 Sec (11.4-14.6) H 08/09/24 06:31
INR 1.30 08/09/24 06:31
APTT 29.1 Sec (23.4-35.0) 08/04/24 13:48
Sodium 140 mmol/L (135-145) 08/09/24 06:31
Potassium 4.1 mmol/L (3.5-5.1) 08/09/24 06:31
BUN 27 mg/dl (7-17) H 08/09/24 06:31
Creatinine 0.6 mg/dL (0.6-1.0) 08/09/24 06:31
Glucose 160 mg/dl (70-99) H 08/09/24 06:31
Troponins
08/06/24 08/07/24
17:44 06:01
Troponin I 0.857 H* 0.502 H*
Vital Signs and I&O:
Vital Signs
Temp Pulse Resp BP Pulse Ox
99.5 F 113 24 148/79 94
08/08/24 23:28 08/09/24 08:47 08/09/24 08:47 08/09/24 06:30 08/09/24 10:41
Vital Signs
Temp Pulse Resp BP Pulse Ox
99.5 F 113 24 148/79 94
08/08/24 23:28 08/09/24 08:47 08/09/24 08:47 08/09/24 06:30 08/09/24 10:41
Intake & Output
08/07/24 08/08/24 08/09/24 08/10/24
06:59 06:59 06:59 06:59
Intake Total 2306.0 / 2422.3 2943.9 / 3032.4 2229.5 / 2313.5 336 / 336
Output Total 346 / 366 1560 / 1580 820 / 860 520 / 520
Balance 1960.0 / 2056.3 1383.9 / 1452.4 1409.5 / 1453.5 -184 / -184
Physical Exam
Physical Exam
GEN: No distress, awake
HEENT: supple, anicteric, mmm
LUNGS: scatt rhonchi
CV: Reg, S1/S2, 1/6 syst LSB, no murmur
ABD: soft, BS+, NT/ND
EXT: No edema
NEURO: Gross non-focal
SKIN: No rash
[2024-08-09 12:37] LABS: Glucose - Point of Care 272 mg/dl (70-99)
--- NOTE | 2024-08-09 12:53 | W.PN.HOSP.TC ---
Addendum entered and electronically signed by Arias Puentes MD 08/09/24 13:35:
non ischemic myocardial injury
Original Note:
Today's Communication/Plan
-
sp extubation
TF ongoing
BB/IV lasix
monitor Cr/acidosis
speech eval
MRI brain pending
replete IV mag
Assessment / Plan
Assessment / Plan
General: Well Developed, Well Nourished and morbidly obese
HEENT: NormoCephalic, Moist mucous membranes and Atraumatic
Respiratory: Clear anterior, ETT noted
Cardiac: S1/S2 and Regular Rhythm; No Murmur or Rub
GI: Soft, Non Tender, Non Distended and Normal Bowel Sounds; No Organomegaly
Rectal: Deferred by Provider
Musculoskeletal: No Clubbing, No Cyanosis and No Edema
Skin: No Rash
: kay with dark yellow urine
Neuro: Nonfocal/grossly intact
# Acute respiratory failure status post intubation and mechanical ventilation
-Currently on propofol and fentanyl infusion
-Wean sedation as tolerated.
-Vent weaning per instructor ballroom dancing. SBT was undergoing s/p extubation now. Started on precedex.
-Continue with tube feeding
# New onset tonic-clonic seizures
#Suspected alcohol withdrawal seizure
-CT head shows no acute abnormality
-UDS was found to be negative. Alcohol level not detected. Beta hydroxy was mildly elevated.
-Keppra loaded 4 g on admission
- Keppra 1 g every 12 was discontinued per neurology
-Started on phenobarbital taper regimen
-CT head on admission with no acute intracranial abnormality noted
-Check MRI brain pending
-Continue thiamine folic acid
-s/p LP and negative for meningitis
-cEEG ongoing as lack of improvement in mental status. and was discontinued further
# Acute kidney injury
#Metabolic acidosis improving
-received bicarb
-Creatinine uptrended to 1.1 and slowly downtrending
-Monitor UOP
-Renal/bladder US -negative for hydronephrosis
# Streptococcus bacteremia and Staph aureus pneumonia
-IV rocephin was started 2g daily. vancomycin added and now stopped.
-ECHO noted
-sputum sample noted
-ID consulted
# Atrial fibrillation unknown chronicity
# Atrial tachycardia
-Unclear if patient was compliant with Eliquis as outpatient
-Start beta-inocente coreg.
# Cardiomyopathy
-Echo with EF of 40 to 45% normal diastolic function. Mild concentric LVH. There is apical akinesis.
-with anasarca and now started on 40mg IV lasix
-Cardiology consulted
#Thrombocytopenia likely secondary to liver cirrhosis
#Acute on chronic decompensated Liver cirrhosis likely 2/2 alcohol abuse
#History of alcoholic cirrhosis
#History of alcohol use disorder
#Abdominal ultrasound noted with liver cirrhosis
-trend platelet. no acute need for transfusion.
-Ammonia level elevated. Continue with lactulose.
-can stop trending ammonia level
-trend cbc closely and transfuse as needed
# Hypokalemia/Hypomagnesemia
-Replete/monitor
# Hyperglycemia
#Type 2 diabetes
-Blood sugar 400s on admission
-Check A1c at 8.3
-Started Lantus 50 units BID and novolog 20u q6h
-s/p insulin gtt.
-Insulin sliding scale
-reportedly on Wgovy
-DM Alcohol Still Operator following
History of alcoholic cirrhosis
History of alcohol use disorder
Abdominal ultrasound noted with liver cirrhosis
Obesity
Full code
DVT prophylaxis�Lovenox
Discussed with instructor ballroom dancing
Anticipated Discharge: > 48 hours
Subjective/Interval History
-
Date of Service: August 09, 2024
intubated with plan to wean off sedation
ongoing SBT
Tachycardic
Objective Data
-
Labs:
Laboratory Results
08/09/24 08/09/24 08/09/24
04:33 06:31 08:57
WBC 5.0
Hgb 9.9 L
Hct 29.7 L
Plt Count 91 L D
PT 16.3 H
INR 1.30
HCO3 18.3 L 20.3 L
Sodium 140
Potassium 4.1
Chloride 108 H
Carbon Dioxide 19 L
BUN 27 H
Creatinine 0.6
Glucose 160 H
Calcium 9.1
Total Bilirubin 1.1
AST 37 H
ALT 26
Alkaline Phosphatase 110
Vital Signs:
Vital Signs
Temp Pulse Resp BP Pulse Ox
99.5 F 113 24 148/79 94
08/08/24 23:28 08/09/24 08:47 08/09/24 08:47 08/09/24 06:30 08/09/24 10:41
I&O
08/08/24 08/09/24 08/10/24
06:59 06:59 06:59
Intake Total 2943.9 / 3032.4 2229.5 / 2313.5 336 / 336
Output Total 1560 / 1580 820 / 860 520 / 520
Balance 1383.9 / 1452.4 1409.5 / 1453.5 -184 / -184
Data Reviewed
-
Total Time Spent with Patient (in minutes): 52
--- NOTE | 2024-08-09 12:54 | PTCARENOTE ---
Pt reassessed. Able to follow commands and tolerate ventilator wean. Extubated @ 10:15am and transferred to 5L/28% Aerosol mask. SaO2 95%. Percussion performed and pt instructed to cough. Hoarse voice. Pt nodding yes and no and mouthing words. Leak
around FMS; pt cleaned. TF remains through dobhoff tube.
[2024-08-09] MEDS: ATROVENT NEBULES INH (13:08)
[2024-08-09] MEDS: COREG 3.125 MG PO ×2 (13:09→19:46)
[2024-08-09] MEDS: PRECEDEX 100 IV ×3 (13:09→22:20)
[2024-08-09] MEDS: ASPIR LOW (ENTERIC COATED) 81 MG PO (13:09)
[2024-08-09] MEDS: STERILE WATER FOR INJECTION 20 ML IV (13:11)
[2024-08-09] MEDS: ROCEPHIN 2000 MG IV (13:11)
--- NOTE | 2024-08-09 13:19 | PTCARENOTE ---
PT with increased agitation. RASS to 3. Pt attempting to remove oxygen and grab dobhoff tube. b/L soft mitts ordered and applied. Pt no longer following commands or answering questions. When pt oriented to [facility], she repeated 'No I'm
not! No I'm not! No I'm not!. SaO2 94% on aerosol mask. HR to 130s with increase agitation. New order for Precedex gtt ordered and started @ 0.4 mcg/kg/hr.
[2024-08-09] MEDS: LASIX 40 MG IV (13:30)
--- NOTE | 2024-08-09 14:40 | PTCARENOTE ---
Pt repeatedly attempting to leave bed. Unable to verbalize needs. Pt swinging punches at intervening staff within reach. Precedex gtt titrated as ordered for RASS 3. B/L mitts in place. Pt able to remove Dobhoff tube. Speech eval placed.
--- NOTE | 2024-08-09 15:17 | CM ---
CM following re: discharge planning.
Reviewed pt's chart, met with pt.
Pt extubated at 10:15 a.m to 5 L aerosol mask, continue supportive care.
PT and OT will evaluate the pt to determine a level of care at discharge.
D/C plan: uncertain at this time and will depend on pt's progress. Will follow PT/OT evaluations and recommendations.
CM will follow with discharge plan updates as hospitalization progresses
[2024-08-09] MEDS: LUMINAL PO (16:35)
[2024-08-09] MEDS: PHENOBARBITAL 32.5 MG IV (16:50)
[2024-08-09 17:40] LABS: Glucose - Point of Care 213 mg/dl (70-99)
[2024-08-09] MEDS: LOVENOX 40 MG SC (18:27)
--- NOTE | 2024-08-09 18:45 | PTCARENOTE ---
Pt reassessed. RASS 2 to -1. Periods of restlessness where pt throws legs over bed. Not consistenty able to verbalize needs verbally. At times will answer 'yes' or 'no' appropriately. SaO2 96% on 5L/28% Aerosol mask. Pt not able to cooperate with
speech eval. New Dobhoff tube placed at 65cm to left nare. Awaiting Xray confirmation.
--- NOTE | 2024-08-09 18:58 | W.PN.UPDATE ---
Update Note
Progress Note Update
Nursing staff said that patient removed her NG tube. I replaced Dobbhoff tube and she was in no respiratory distress however follow-up CXR showed that NG tube/Dobbhoff tube was in the right lower lobe of her lung. Dobbhoff tube removed
immediately. I then replaced it with a repeat Dobbhoff tube and it was inserted with no resistance at all. Repeat CXR is pending. She is in no respiratory distress currently, saturating 98% on 5 L/min nasal cannula.
--- NOTE | 2024-08-09 19:30 | SUR.PHASEI ---
Received patient at 1900. Pt. in bed. Awake and restless. Oriented to self, otherwise confused. Showing no signs of pain/discomfort. Afebrile. Heart rhythm sinus. Blood pressure normotensive. Currently on aerosol mask. Lungs sound coarse. Dobhoff
tube placed by medical apparatus model maker, awaiting chest x-ray for confirmation of placement. FMS in place. Mcdaniel catheter in place per order, draining without issue. Skin as documented. Discussed plan of care with patient. Vital signs stable at this time.
[2024-08-09] MEDS: LUMINAL 32.4 MG PO (21:46)
[2024-08-09 21:48] LABS: Glucose - Point of Care 112 mg/dl (70-99)
[2024-08-09 23:50] LABS: Glucose - Point of Care 95 mg/dl (70-99)
[2024-08-10] VITALS (23 sets, daily range): BP systolic 99–146; BP diastolic 73–87; BMI 40.4
--- NOTE | 2024-08-10 | PTCARENOTE ---
Pt. assessment unchanged. Dobhoff tube verified. Tube feeds running at goal. Precedex gtt infusing. Vital signs stable at this time.
[2024-08-10] MEDS: NOVOLOG FLEXPEN 20 UNITS SC ×3 (00:40→17:56)
[2024-08-10 00:49] LABS: Glucose - Point of Care 116 mg/dl (70-99)
[2024-08-10] MEDS: PRECEDEX 100 IV ×5 (01:22→22:45)
[2024-08-10 03:18] LABS: Glucose - Point of Care 95 mg/dl (70-99)
[2024-08-10 03:27] LABS: Ammonia 24 umol/L (9-30)
--- NOTE | 2024-08-10 04:00 | PTCARENOTE ---
Pt. assessment remains unchanged. AM labs drawn. Vital signs stable at this time.
[2024-08-10 04:17] LABS: % Basophils 1.2 % (0-2); % Eosinophils 3.8 % (0-6); % Immature Granulocytes 0.9 % (0-0.5); % Lymphocytes 15.7 % (20.5-51.1); % Neutrophils 58.4 % (42.2-75.2); Absolute Eosinophils 0.1 10^3/uL (0-0.7); Absolute Lymphocytes 0.5 10^3/uL (1.2-3.4); Absolute Monocytes 0.7 10^3/uL (0.1-0.6); Hematocrit 28.6 % (37.0-47.0); Hemoglobin 9.8 g/dL (12.0-16.0); Mean Corp Hgb Conc. 34.3 g/dL (33.0-37.0); Mean Corpuscular Hgb 30.2 pg (27.0-31.0); Mean Corpuscular Volume 88.3 fL (81.0-99.0); Mean Platelet Volume 11.6 fL (7.4-10.4); Nucleated Red Blood Cells % 0 %; Platelet Count 104 10^3/uL (130-400); Red Blood Cell Count 3.24 10^6/uL (4.20-5.40); Red Cell Dist. Width 13.3 % (11.5-14.5); White Blood Cell Count 3.5 10^3/uL (4.8-10.8)
[2024-08-10 04:23] LABS: INR 1.37; PT 16.7 Sec (11.4-14.6)
[2024-08-10 04:37] LABS: ALT (SGPT) 26 U/L (0-35); AST (SGOT) 36 U/L (14-36); Albumin 3.5 g/dl (3.5-5.0); Alkaline Phosphatase 89 U/L (38-126); Blood Urea Nitrogen 21 mg/dl (7-17); Calcium 9.4 mg/dl (8.4-10.2); Carbon Dioxide 23 mmol/L (22-30); Chloride 106 mmol/L (98-107); Estimated Creatinine Clearance 117 ml/min; Glucose 102 mg/dl (70-99); Magnesium 1.2 mg/dl (1.6-2.3); Phosphorus 4.2 mg/dl (2.5-4.5); Potassium 3.4 mmol/L (3.5-5.1); Sodium 143 mmol/L (135-145); Total Bilirubin 1.3 mg/dl (0.2-1.3); Total Protein 6.7 g/dl (6.3-8.2); Triglycerides 179 mg/dl (10-149); eGFR > 60.00
[2024-08-10 05:44] LABS: Glucose - Point of Care 142 mg/dl (70-99)
[2024-08-10] MEDS: KCL 270 MEQ IV (05:49)
[2024-08-10] MEDS: SYNTHROID TUBE (05:50)
--- NOTE | 2024-08-10 05:50 | PTCARENOTE ---
Pt. more restless. Upon assessing patient, dobhoff tube is dislodged. Patient removed it while restrained. Increased precedex gtt. Vital signs stable at this time.
--- NOTE | 2024-08-10 07:00 | PTCARENOTE ---
report received from previous RN at change of shift. Pt drowsy, arouses to voice. orientedx1. able to state name. follows some commands. generalized weakness noted. SR on telemetry heart rate 70s. pulses palpable. +2 generalized edema. pt on aerosol
mask, sat 98%. lung sounds diminished. intermittent weak nonproductive cough. active bowel sounds. FMS intact. Mcdaniel draining clear yellow urine. pt took out eliecer overnight. see worklist for full nursing assessment and interventions.
[2024-08-10] MEDS: XOPENEX 1.25 MG INHALANT SOLUTION INH ×3 (07:54→19:59)
[2024-08-10] MEDS: ATROVENT NEBULES 0.5 MG INH ×3 (07:54→19:59)
--- NOTE | 2024-08-10 08:06 | W.PN.ID1 ---
Date of Service
Date of Service: August 10, 2024
Today's Communication
Continue ceftriaxone for today.
Assessment / Plan
New onset seizures
VDRF
Leukocytosis
Fever
Bacteremia with Streptococcus pneumoniae
Suspected aspiration pneumonia/pneumonitis secondary to seizure (vs. PNA secondary to strep pneumo)
HTN
DM
Hx EtOH cirrhosis
Obesity
Recommendations:
Susceptibilities of strep pneumo and Staph aureus reviewed.
CSF analysis reviewed and not indicative of meningitis.
Continue ceftriaxone (d#6)
Monitor white count and temperature curve. Prior leukocytosis has resolved (now mildly leukopenic)
Continue with supportive measures.
����������������������������������������������������������
Chief Complaint
-: Leukocytosis and Bacteremia
Subjective / Review of Systems
Patient seen and examined. No significant changes overnight.
Vital Signs / Physical Exam
Vital Signs
Vital Signs
Temp Pulse Resp BP Pulse Ox
98.8 F 73 13 113/74 99
08/09/24 20:00 08/10/24 06:00 08/10/24 06:00 08/10/24 04:00 08/10/24 06:00
Physical Exam
Constitutional: Comfortable, Non-toxic and Obese
Eyes: No Conjunctival Hemorrhage and Sclera Anicteric
Cardiovascular: S1/S2; Negative S3/S4 or Murmur
Pulmonary: Rhonchi (Few; scattered. Diminished from yesterday.) and Coarse; Negative Wheezes or Rales
Gastrointestinal: Soft, Non Distended, Normal Bowel Sounds, No Rebound and No Guarding
Extremities: Edema; Negative Cyanosis or Erythema
Skin: Negative Rash or Jaundice
Neurological: Awake and Alert
Psychological: Calm
Objective Data
Lab Data
Lab Results
08/10/24 03:03
08/10/24 03:03
PT 16.7 Sec (11.4-14.6) H 08/10/24 03:03
INR 1.37 08/10/24 03:03
APTT 29.1 Sec (23.4-35.0) 08/04/24 13:48
Estimated Creat Clear 117 ml/min 08/10/24 03:03
Lactic Acid 1.2 mmol/L (0.7-2.0) 08/06/24 13:38
Total Bilirubin 1.3 mg/dl (0.2-1.3) 08/10/24 03:03
AST 36 U/L (14-36) 08/10/24 03:03
ALT 26 U/L (0-35) 08/10/24 03:03
Alkaline Phosphatase 89 U/L (38-126) 08/10/24 03:03
Most recent labs reviewed.
Micro Results:
08/06/24 13:38 Blood Culture - Preliminary
Blood/Venous No Growth in 72 hours- Final report to follow
08/08/24 13:30 CSF Culture - Preliminary
Csf No Growth After 18-24 Hours
Gram Stain - Preliminary
08/05/24 13:12 Blood Culture - Preliminary
Blood/Venous Streptococcus pneumoniae
Gram Stain - Preliminary
08/08/24 13:30 Meningitis/Encephalitis Panel (PCR) - Final
Csf
08/08/24 13:30 Acid Fast Bacilli Smear - Pending
Csf Acid Fast Bacilli Culture - Pending
08/05/24 13:12 Respiratory Culture - Final
Endotracheal S aureus-Methicillin Sensitive
Gram Stain - Final
08/04/24 20:38 MRSA Screen - Final
Nose No Methicillin Resistant Staphylococcus aureus isolated.
Imaging:
08/09/2024 CXR (portable): Hazy retrocardiac opacity with obscuration of the left hemidiaphragm noted.
08/07/2024 CXR (portable): No active cardiopulmonary disease noted. ET tube is 5 cm above the neo. Tip of nasogastric tube is below the esophageal gastric junction. Right-sided PICC is at the cavoatrial junction. The cardiac silhouette and
pulmonary vasculature are radiographically within normal limits. Please see full dictation for additional detail.
08/04/2024 CT head without contrast: No acute intracranial hemorrhage. No extra-axial collection noted. No significant abnormal parenchymal attenuation appreciated. No evidence of mass effect or midline shift seen.
--- NOTE | 2024-08-10 08:19 | W.PN.INTV ---
Today's Communication / Plan
Recommendations
Precedex drip
Nasal cannula with goal SpO2 >90-94%
MSAS and continue phenobarbital protocol
Thiamine/folate
Abx
BG 140-180; continue tube feeds; lower scheduled aspart to 18 units q6hr to avoid hypoglycemia
Trend ammonia level
LP done on 08/08 � follow-up cultures (NGTD)
AEDs stopped
Cardiology consulted due to HFmrEF and apical akinesis - will eventually need ischemic eval
Heparin gtt started as had rapid a-fib earlier this hospital stay
Aspiration precautions
Diet as per FOUNDRY FINISHER - no lethargic for PO trials
Continue with ICU level care while on Precedex drip
Assessment
-
59-year-old female with unknown past medical history who works at [employer] became confused, and had a tonic-clonic seizure subsequently confused and combative requiring intubation with another tonic-clonic seizure-racking technician consulted for
hypertension/ventilator/seizures/critical care management 08/04/2024.
Impression:
Tonic-clonic seizures suspected to be due to acute EtOH withdrawal; less likely primary epilepsy
Acute respiratory failure with hypoxia requiring intubation
- Intubated 08/04/2024
- Extubated 08/09/2024
Hypertensive urgency - now resolved
Obesity
Apical akinesis with acute HFmrEF (per TTE from 08/06/2024)
History of rapid A-fib now in NSR
Mild thrombocytopenia - could be related to her reported Hx of cirrhosis
Hx of alcohol abuse with reported Hx of cirrhosis
Hypokalemia - resolved
ROXANNA - improving
Metabolic acidosis with increased AG likely related to starvation ketoacidosis - resolved
RUL/RLL CAP, suspected to be aspiration during seizure event - MSSA seen on sputum Cx
Strep pneumonia bacteremia likely due to PNA
DM type II c/b hyperglycemia requiring insulin drip --> now off
Mildly elevated LFTs with hyperbilirubinemia likely due to acute alcoholic hepatitis - LFTs now normalized
Left sphenoid sinusitis
Pyuria (purulent urine seen in kay catheter tubing)
Conditions present prior to admission:
Unknown-sister showed up to ED-reportedly hypertension, diabetes, and recovering alcoholic-reportedly has not drank in months
Obesity
Plan
Patient was extubated successfully on 08/09/2024, however she continues to have periods of severe agitation and is requiring Precedex drip
EEG performed on 08/06/2024 shows diffuse cortical dysfunction without focal abnormality, no seizures recorded.
Continue with nasal cannula, titrating supplemental O2 flow rate to keep SpO2 >90-94%
Dobbhoff tube inserted on 08/05, and tube feeds started
Continue with aspiration precautions
Nebulizers if needed-currently not bronchospastic
She is a former drinker, quit last September but has relapsed recently. Her home was found to be disheveled by her sister. EEG obtained on 08/05/2021 shows diffuse cortical dysfunction with no seizures recorded.
- Continue phenobarbital
- Continue Precedex for agitation s/p extubation
- Brain MRI performed today showing no focal or acute intracranial abnormalities with left sphenoid sinusitis
Neurology consulted with recs appreciated
CT head performed on 08/04/2024 shows no acute intracranial abnormality in addition to left sphenoid sinusitis
MRI brain performed today (see above)
Antiepileptics per neurology-Keppra loaded, now off keppra as of 08/09/2024
Keep MAP>65
Replete K>4, Mg>2
Monitor blood sugar with goal BG 140-180
Currently on insulin supplementation with basal-bolus dosing
Bridged off insulin gtt on 08/08
Despite her urinalysis being negative on 08/04/2024, she had purulent urine in the Kay catheter tubing. I started ceftriaxone on 08/05 and plan for at least 5-7 days assuming she remains afebrile for 48 hours prior and continues to clinically
improve
- She also has a opacification seen in the medial right lower lobe with concern for aspiration pneumonia; initially started doxycycline on 08/05 however she has strep PNA seen on blood Cx from 08/05/2024 -> ID now changed Abx to rocephin only.
Doxy DC'd s/p IV vancomycin on 08/06 - 08/07
- Sputum culture grew MSSA
- Blood Cx grew Strep PNA (collected 08/05/2024)
- Check echo given positive blood Cx with GPC in chains
- Echo does not show evidence of vegetation however there is apical akinesis with a mildly reduced LVEF of 40-45% and mild MR. Cardiology consulted for further recommendations; eventual LHC
- Underwent LP on 08/08 --> follow up cultures (NGTD)
- Pt has no cuff leak, hence not ready for extubation regardless. Started steroids on 08/07 given her cuff leak is persisting
- On 08/09, she did have a cuff leak --> can stop steroids. Also no subglottic bleeding seen. No need to perform bronchoscopy prior to extubation
- CT neck performed on 08/08 showed no retropharyngeal abscess
Abd US performed on 08/06/2024 shows no concern for ascites, and cirrhotic appearing liver
- Trend ammonia level (28 on 08/04/2024) and 35 on 08/08 --> continue to trend
- Started lactulose on 08/07
History unclear-reportedly alcoholic with cirrhosis though has not been drinking for months
MSAS
Continue phenobarbital protocol
Thiamine/folate
Alcohol level was not detected
Beta-hydroxybutyrate was slightly elevated on 08/04/2024 likely due to starvation ketoacidosis vs early DKA --> rechecked again on 08/06 and it is downtrending
Consider GI consult
Follow thrombocytopenia and transfuse if needed to keep >20k
Transfuse PRBC if needed to keep Hb>7g/dL
Due to her having rapid A-fib earlier this hospitalization, cardiology wants her to be on anticoagulation. Heparin drip started today; will need to transition to NOAC prior to discharge assuming that she is not bleeding and H&H is stable
Due to HFmrEF, defer GDMT to cardiology
DVT prophylaxis: heparin gtt given her Hx of AF/AT
GI prophylaxis: N/A
Early nutrition --> continue TF; FOUNDRY FINISHER once more awake; will likely need VFSS
Early mobilization/bedside range of motion
IV access: PICC line
Eventual screen for obstructive sleep apnea-recommend outpatient sleep evaluation
Critical care statement: A total of 38 minutes of critical care time was provided for this patient today. This includes management of unstable vital signs, evaluation of the patient at bedside, reviewing the patient's pertinent medical records
including radiographs, microbiology, laboratory evaluations, ventilator management, seizure management, and discussion with primary team, consultants, pharmacy, nutrition, physical therapy, case management, charge nurse, critical care nursing, and
respiratory therapy.
Diagnostic data:
Chest x-ray 08/04/2024-ET tube 4.5 cm above neo, no airspace disease, pneumothorax, pleural effusion or other abnormalities
CT head 08/04/2024-no acute intracranial abnormalities, left sphenoid sinusitis
Brain MRI 08/10/2024:
There are no focal or acute intracranial abnormalities.
There is mild diffuse cortical atrophy
There is left sphenoid sinusitis
CT Neck with IV contrast 08/08/2024:
No CT evidence of abscess. No subcutaneous emphysema.
No cervical adenopathy. Mild sinusitis.
There are 2 left thyroid lobe nodules, as described. This may be further evaluation with follow-up nonemergent ultrasound.
Small right pleural effusion.
Partially visualized parenchymal opacity in the right infrahilar region. Atelectasis versus pneumonia.
Subjective Dataa
Subjective Data
Date of Service:
Date of Service: August 10, 2024
Chief Complaint: Certified Ophthalmic Medical Technician Follow Up
Subjective:
Patient was seen and evaluated today. She remains lethargic, however she is much more interactive today compared to last week. She is currently on Precedex at 0.6mcg/kg/hr. heart rate 71, BP 132/82 and saturating 99% on 2 L/min. She pulled out
her NG tube this morning. She is awaiting brain MRI today. She denies shortness of breath, chest pain, fevers or chills.
Review of Systems
General: Other (Negative unless mentioned above)
Objective Data
Data Reviewed
Vital Signs / I&O / Oxygen:
Vital Signs
Temp Pulse Resp BP Pulse Ox
97.5 F 75 19 120/81 98
08/10/24 08:06 08/10/24 08:27 08/10/24 08:06 08/10/24 08:27 08/10/24 09:05
Intake and Output
08/09/24 08/10/24 08/11/24
06:59 06:59 06:59
Intake Total 2229.5 / 2313.5 1401.6 / 1401.6
Output Total 820 / 860 3975 / 3975
Balance 1409.5 / 1453.5 -2573.4 / -2573.4
SaO2 [CPAP] 99
SaO2 [A/C] 99
SaO2 98
Nasal Cannula flow liters per 4
minute
Physical Exam
General: Respiratory Distress (negative), Comfortable, Chills (negative), Sweats and Other (NAD/lethargic appearing, more interactive today)
HEENT: Normocephalic and Anicteric
Cardiovascular: S1-S2, Murmur (negative) and Peripheral Edema (negative)
Respiratory: Wheeze (negative), Crackles (Bilateral), Rhonchi (bilateral), Non-Labored Respirations and Accessory Resp Muscle Use (negative)
GI: Soft, Distended, Non Tender and Normal Bowel Sounds
Neurology: Tremors (negative), Lethargic and Other (Pupils 2 mm bilaterally and sluggish; following commands albeit she is lethargic, moves all 4 extremities spontaneously)
Skin: Warm, Dry, Cyanosis (negative) and Jaundice (negative)
Labs/Micro/Reports
Lab Data
08/10/24 03:03
08/10/24 03:03
Laboratory Results
08/10/24
03:03
PT 16.7 H
INR 1.37
Microbiology
08/06/24 13:38 Blood/Venous Blood Culture - Preliminary
No Growth in 72 hours- Final report to follow
08/08/24 13:30 Csf CSF Culture - Preliminary
No Growth After 18-24 Hours
08/08/24 13:30 Csf Gram Stain - Preliminary
08/05/24 13:12 Blood/Venous Blood Culture - Preliminary
Streptococcus pneumoniae
08/05/24 13:12 Blood/Venous Gram Stain - Preliminary
08/08/24 13:30 Csf Meningitis/Encephalitis Panel (PCR) - Final
08/05/24 13:12 Endotracheal Respiratory Culture - Final
S aureus-Methicillin Sensitive
08/05/24 13:12 Endotracheal Gram Stain - Final
[2024-08-10] MEDS: LANTUS 0.5 UNITS SC ×2 (08:27→22:44)
[2024-08-10] MEDS: LASIX 40 MG IV (08:27)
[2024-08-10] MEDS: MIRALAX TUBE (08:29)
[2024-08-10 08:37] LABS: Glucose - Point of Care 108 mg/dl (70-99)
--- NOTE | 2024-08-10 09:00 | W.PN.CARDCBS ---
Today's Communication / Plan
-
Maintain IV Lasix today
Impression / Plan
-
.
Primary Environmental Officer: unknown
PCP: previously Dr. Bob Kirby, however not seen there since 04/2023
Impression:
Presentation with seizure activity, tonic clonic seizures, possibly from ETOH withdrawal
Traumatic intubation
Bacteremia with leukocytosis, concern for PNA
Abnormal urine
Hypotensive, requiring pressor support
Cardiomyopathy, EF 40-45%
Thrombocytopenia
Type 2 diabetes, uncontrolled
HTN
Obesity
History of ETOH use disorder
History of possible ETOH cirrhosis
Atrial tachycardia
ECHO 08/06/24: EF 40 to 45%, mild concentric LVH, apical akinesis, MAC, mild MR, mildly dilated aortic root measuring 3.7 cm at sinus of Valsalva, ascending aorta 3.8 cm
Plan:
She remains critically ill
Cardiology consulted due to abnormal echo, CM.
-EF 40-45%, once overall clinically improved could consider ischemic eval at that time.
-Received prior cardiology records from Dr. Kirby. She has a history of rapid atrial fibrillation (during this hospital stay PAT noted) and heart failure related to that.
-Diltiazem stopped this adm in favor of carvedilol 3.125 mg p.o. twice daily.
-While not on OAC as outpatient, recommend anticoagulation given AF/AT if/when okay with primary service (h/o AF + CHADSVASc = 4)
Cont medical therapy of peak trop of 0.8, likely nonMI trop elevation.
Add asa 81 mg if / when OK with primary service (there is concern for possible neurologic event and she is currently headed for brain MRI today)
LDL mildly elevated, consider statin when improved.
Monitor Is and Os and daily wts. pBNP 2890. Weight was up.
08/09/24 was initiated on Lasix 40 mg IV daily which we recommend continuing for now.
Wt is down, fluid balance is negative and creatinine is stable
Continue antibiotics for strep pneumonia bacteremia.
Cont supportive care, antibiotics.
Critical care time 35 minutes
As per up-to-date prior records obtained she does have history of congestive heart failure in the setting of rapid A-fib and reportedly is maintained on po lasix 20mg daily. Last echocardiogram 10/16/2022 with EF 55 to 60%, moderate to severe left
atrial dilation, dilated IVC which does not collapse, mild MR, aortic sclerosis. Noted by chest CTA 10/16/22 to have 2.6 cm thyroid nodule, enlarged spleen, and evidence of cirrhosis. She reportedly underwent colonoscopy 10/2022 and had large polyp
status post excision at [facility] with benign pathology. Between October and February 2023 she had routine labs for cardiology visit and found to have a hemoglobin of 5.7. She was admitted and underwent 2 units of packed red blood cells with
improvement, endoscopy was reportedly normal without varices noted. She was then hospitalized at [facility] 02/2023 with acute anemia and transfused. Her CBC was monitored weekly and she occasionally required transfusions.
Apparently she was on and off eliquis 2.5mg BID for several months in setting of intermittent acute on chronic anemia. MRI of the abdomen 05/11/2023 consistent with cirrhosis with lesion of right hepatic lobe suspicious for possible HCC.
Progress Note - Environmental Officer
Subjective
Date of Service: August 10, 2024
Sedated and poorly responsive
Objective
Labs:
08/10/24 03:03
08/10/24 03:03
Labs
Hgb 9.8 g/dL (12.0-16.0) L 08/10/24 03:03
Hct 28.6 % (37.0-47.0) L 08/10/24 03:03
Plt Count 104 10^3/uL (130-400) L 08/10/24 03:03
PT 16.7 Sec (11.4-14.6) H 08/10/24 03:03
INR 1.37 08/10/24 03:03
APTT 29.1 Sec (23.4-35.0) 08/04/24 13:48
Sodium 143 mmol/L (135-145) 08/10/24 03:03
Potassium 3.4 mmol/L (3.5-5.1) L 08/10/24 03:03
BUN 21 mg/dl (7-17) H 08/10/24 03:03
Creatinine 0.5 mg/dL (0.6-1.0) L 08/10/24 03:03
Glucose 102 mg/dl (70-99) H 08/10/24 03:03
Vital Signs and I&O:
Vital Signs
Temp Pulse Resp BP Pulse Ox
97.5 F 75 19 120/81 100
08/10/24 08:06 08/10/24 08:27 08/10/24 08:06 08/10/24 08:27 08/10/24 08:06
Vital Signs
Temp Pulse Resp BP Pulse Ox
97.5 F 75 19 120/81 100
08/10/24 08:06 08/10/24 08:27 08/10/24 08:06 08/10/24 08:27 08/10/24 08:06
Intake & Output
08/08/24 08/09/24 08/10/24 08/11/24
06:59 06:59 06:59 06:59
Intake Total 2943.9 / 3032.4 2229.5 / 2313.5 1401.6 / 1401.6
Output Total 1560 / 1580 820 / 860 3975 / 3975
Balance 1383.9 / 1452.4 1409.5 / 1453.5 -2573.4 / -2573.4
Physical Exam
Physical Exam
She is sedated and poorly responsive
Appears comfortable
Regular rate and rhythm with normal S1 and S2, no S3 no S4 is a grade 1/6 apical holosystolic murmur no rubs.
Lungs are clear to auscultation bilaterally anteriorly
Abdomen soft nontender nondistended with normal bowel sounds
Extremities show +1 lower extremity edema bilaterally
[2024-08-10] MEDS: VERSED 1 MG IV ×2 (09:15→11:41)
[2024-08-10 09:29] LABS: Glucose - Point of Care 98 mg/dl (70-99)
--- NOTE | 2024-08-10 09:30 | PTCARENOTE ---
kay dced for MRI. respiratory placed pt on 4L nasal cannula, sat 98%. pt on precedex, restless at times. given one time orders versed and fentanyl for MRI, tolerated well.
[2024-08-10] MEDS: SUBLIMAZE 25 MCG IV (11:09)
[2024-08-10] MEDS: NOVOLOG FLEXPEN SC ×5 (11:54→22:51)
[2024-08-10 11:55] LABS: Glucose - Point of Care 104 mg/dl (70-99)
[2024-08-10] MEDS: MAGNESIUM SULFATE 100 IV (11:57)
--- NOTE | 2024-08-10 12:00 | PTCARENOTE ---
damari gonzáles reinserted by REFRIGERATION SYSTEMS INSTALLER, abdominal xray obtained.
--- NOTE | 2024-08-10 12:03 | W.PN.HOSP.TC ---
Addendum entered and electronically signed by Arias Puentes MD 08/10/24 13:41:
Cardiology correspondence noted. Recommending anticoagulation for history of A. tach/A-fib. Will start patient on heparin infusion. Lovenox discontinued. MRI negative for acute bleed.
Original Note:
Today's Communication/Plan
-
Continue with IV diuretic
Continue with antibiotic
Continue Precedex and continue with tube feeding
Speech evaluation
PT OT
Continue with phenobarbital regimen
Assessment / Plan
Assessment / Plan
General: Well Developed, Well Nourished and morbidly obese
HEENT: NormoCephalic, Moist mucous membranes and Atraumatic
Respiratory: Clear anterior, ETT noted
Cardiac: S1/S2 and Regular Rhythm; No Murmur or Rub
GI: Soft, Non Tender, Non Distended and Normal Bowel Sounds; No Organomegaly
Rectal: Deferred by Provider
Musculoskeletal: No Clubbing, No Cyanosis and No Edema
Skin: No Rash
: kay with dark yellow urine
Neuro: Nonfocal/grossly intact
# Acute respiratory failure status post intubation and mechanical ventilation
-Off propofol and fentanyl infusion
-Status post extubation on 08/09.
-Continue with tube feeding
-Speech eval once more awake and less agitated
# New onset tonic-clonic seizures
#Suspected alcohol withdrawal seizure
# Toxic metabolic encephalopathy likely multifactorial secondary to alcohol withdrawal versus delirium versus seizure related
-CT head shows no acute abnormality
-UDS was found to be negative. Alcohol level not detected. Beta hydroxy was mildly elevated.
-Keppra loaded 4 g on admission
-Keppra 1 g every 12 was discontinued per neurology
-Started on phenobarbital taper regimen
-CT head on admission with no acute intracranial abnormality noted
-MRI brain with no focal acute intracranial malady. Mild diffuse cortical atrophy. Left sphenoid sinusitis.
-Continue thiamine folic acid
-s/p LP and negative for meningitis
-cEEG ongoing as lack of improvement in mental status. and was discontinued further
-Remains on Precedex as with severe agitation.
# Acute kidney injury
#Metabolic acidosis improving
-received bicarb
-Creatinine uptrended to 1.1 and slowly downtrending
-Monitor UOP
-Renal/bladder US -negative for hydronephrosis
# Streptococcus bacteremia and Staph aureus pneumonia
-IV rocephin was started 2g daily. vancomycin added and now stopped.
-ECHO noted
-sputum sample noted
-ID consulted
# Atrial tachycardia
-Start beta-inocente coreg and asa.
# Cardiomyopathy
-Echo with EF of 40 to 45% normal diastolic function. Mild concentric LVH. There is apical akinesis.
-with anasarca and now started on 40mg IV lasix
-Cardiology consulted
#Thrombocytopenia likely secondary to liver cirrhosis
#Acute on chronic decompensated Liver cirrhosis likely 2/2 alcohol abuse
#History of alcoholic cirrhosis
#History of alcohol use disorder
#Abdominal ultrasound noted with liver cirrhosis
-trend platelet. no acute need for transfusion.
-Ammonia level elevated. Continue with lactulose.
-can stop trending ammonia level
-trend cbc closely and transfuse as needed
# Hypokalemia/Hypomagnesemia
-Replete/monitor
# Hyperglycemia
#Type 2 diabetes
-Blood sugar 400s on admission
-Check A1c at 8.3
-Started Lantus 50 units BID and novolog 20u q6h
-s/p insulin gtt.
-Insulin sliding scale
-reportedly on Wgovy
-DM Reporting Consultant following
History of alcoholic cirrhosis
History of alcohol use disorder
Abdominal ultrasound noted with liver cirrhosis
Obesity
Full code
DVT prophylaxis�Lovenox
d/w with Parisa at bedside in details
Anticipated Discharge: > 48 hours
Subjective/Interval History
-
Date of Service: August 10, 2024
Objective Data
-
Labs:
Laboratory Results
08/10/24
03:03
WBC 3.5 L
Hgb 9.8 L
Hct 28.6 L
Plt Count 104 L
PT 16.7 H
INR 1.37
Sodium 143
Potassium 3.4 L
Chloride 106
Carbon Dioxide 23
BUN 21 H
Creatinine 0.5 L
Glucose 102 H
Calcium 9.4
Total Bilirubin 1.3
AST 36
ALT 26
Alkaline Phosphatase 89
Vital Signs:
Vital Signs
Temp Pulse Resp BP Pulse Ox
97.6 F 73 16 134/83 99
08/10/24 11:32 08/10/24 11:30 08/10/24 11:30 08/10/24 11:00 08/10/24 11:30
I&O
08/09/24 08/10/24 08/11/24
06:59 06:59 06:59
Intake Total 2229.5 / 2313.5 1401.6 / 1428.6 135 / 135
Output Total 820 / 860 3975 / 4015 620 / 620
Balance 1409.5 / 1453.5 -2573.4 / -2586.4 -485 / -485
Data Reviewed
-
Total Time Spent with Patient (in minutes): 55
[2024-08-10] MEDS: FOLVITE 1 MG TUBE (12:32)
[2024-08-10] MEDS: BUSPAR 10 MG PO ×2 (12:32→20:18)
[2024-08-10] MEDS: LUMINAL 32.4 MG PO (12:32)
[2024-08-10] MEDS: ASPIR LOW (ENTERIC COATED) 81 MG PO (12:32)
[2024-08-10] MEDS: DUPHALAC/CHRONULAC 20 GRAMS PO ×2 (12:32→20:18)
[2024-08-10] MEDS: COREG 3.125 MG PO ×2 (12:32→20:18)
[2024-08-10] MEDS: ROCEPHIN 2000 MG IV (13:38)
[2024-08-10] MEDS: STERILE WATER FOR INJECTION 20 ML IV (13:38)
[2024-08-10] MEDS: HEPARIN 25000 UNITS/250 ML IV (14:44)
[2024-08-10 15:15] LABS: APTT 32.4 Sec (23.4-35.0)
--- NOTE | 2024-08-10 16:00 | PTCARENOTE ---
pt resting comfortably. arouses to voice, opens eyes, calm at this time. oriented to self. able to follow commands. precedex at 0.8 mcg/kg/hr. tolerated tube feeds. no further changes in assessment at this time
[2024-08-10] MEDS: LUMINAL 32.4 MG TUBE (17:56)
[2024-08-10 17:59] LABS: Glucose - Point of Care 154 mg/dl (70-99)
--- NOTE | 2024-08-10 19:30 | PTCARENOTE ---
Received patient at 1900. Pt. currently awake, alert, oriented to self. Denies pain/discomfort. Following simple commands. Afebrile. Heart rhythm sinus. Blood pressure normotensive. Heparin gtt infusing per order. Currently on nasal cannula. Lungs
sound coarse. Dobhoff tube in place, tube feeds running at goal. FMS in place. Patient incontinent of urine. Purewick drainage device in place. Skin as documented. Discussed plan of care with patient. Vital signs stable at this time.
[2024-08-10 22:46] LABS: C.neoformans Antigen Negative (Negative)
[2024-08-10 22:51] LABS: Glucose - Point of Care 74 mg/dl (70-99)
[2024-08-10 23:59] LABS: Glucose - Point of Care 69 mg/dl (70-99)
[2024-08-11] VITALS (24 sets, daily range): BP systolic 104–166; BP diastolic 62–119; PULSE 80; O2SAT 95–96; BMI 39.7
--- NOTE | 2024-08-11 00:05 | PTCARENOTE ---
Pt. blood glucose at 22:40 resulted 74. Spoke with CONFIGURATOR Debi, scheduled dose of Lantus administered based on patient's history of hyperglycemia. Patient's blood glucose checked again prior to midnight with a result of 69. Spoke with CONFIGURATOR
regarding result. Checked patient's blood sugar level again to confirm result. New result 75. Per CONFIGURATOR, hypoglycemia protocol not followed based on result of 75. Will hold midnight dose of Novolog per CONFIGURATOR. Will continue to monitor glucose levels
closely. Patient asymptomatic. Vital signs stable at this time.
[2024-08-11] MEDS: NOVOLOG FLEXPEN SC ×2 (00:10→06:41)
[2024-08-11] MEDS: LUMINAL 32.4 MG TUBE ×3 (00:11→16:13)
[2024-08-11 00:14] LABS: Glucose - Point of Care 75 mg/dl (70-99)
[2024-08-11] MEDS: DEXTROSE 50% SYRINGE 12.5 GRAMS IV (01:04)
--- NOTE | 2024-08-11 01:05 | PTCARENOTE ---
Patient blood sugar level taken again to follow up with earlier result. Glucometer reading 59. Hypoglycemia protocol initiated. 12.5g IV dextrose given. Will follow continue to check blood sugar per protocol. Patient asymptomatic. Vital signs stable
at this time.
[2024-08-11 01:12] LABS: Glucose - Point of Care 59 mg/dl (70-99)
--- NOTE | 2024-08-11 01:25 | PTCARENOTE ---
Pt. blood glucose checked 15 minutes after IV dextrose administration. New result 124. Will continue to check blood glucose per protocol.
[2024-08-11] MEDS: PRECEDEX 100 IV ×2 (01:29→04:13)
[2024-08-11 01:31] LABS: Glucose - Point of Care > 600 mg/dl (70-99)
[2024-08-11] MEDS: NOVOLOG FLEXPEN 18 UNITS SC (02:58)
[2024-08-11 03:06] LABS: Glucose - Point of Care 284 mg/dl (70-99)
[2024-08-11 03:47] LABS: % Basophils 1.2 % (0-2); % Immature Granulocytes 0.7 % (0-0.5); % Lymphocytes 11.6 % (20.5-51.1); % Monocytes 15.7 % (1.7-9.3); % Neutrophils 65.8 % (42.2-75.2); Absolute Basophils 0.1 10^3/uL (0-0.2); Absolute Eosinophils 0.2 10^3/uL (0-0.7); Absolute Lymphocytes 0.5 10^3/uL (1.2-3.4); Absolute Monocytes 0.7 10^3/uL (0.1-0.6); Absolute Neutrophils 2.8 10^3/uL (1.4-6.5); Hematocrit 29.3 % (37.0-47.0); Hemoglobin 10.1 g/dL (12.0-16.0); Mean Corp Hgb Conc. 34.5 g/dL (33.0-37.0); Mean Corpuscular Hgb 30.7 pg (27.0-31.0); Mean Corpuscular Volume 89.1 fL (81.0-99.0); Mean Platelet Volume 11.4 fL (7.4-10.4); Nucleated Red Blood Cells % 0 %; Platelet Count 115 10^3/uL (130-400); Red Blood Cell Count 3.29 10^6/uL (4.20-5.40); Red Cell Dist. Width 13.4 % (11.5-14.5); White Blood Cell Count 4.2 10^3/uL (4.8-10.8)
[2024-08-11 03:49] LABS: APTT 54.6 Sec (23.4-35.0)
--- NOTE | 2024-08-11 04:00 | PTCARENOTE ---
Pt. blood glucose remains labile. Continuing to check glucose levels per protocol. AM labs drawn. Vital signs stable at this time.
[2024-08-11 04:08] LABS: ALT (SGPT) 32 U/L (0-35); AST (SGOT) 45 U/L (14-36); Albumin 3.4 g/dl (3.5-5.0); Alkaline Phosphatase 110 U/L (38-126); Blood Urea Nitrogen 23 mg/dl (7-17); Calcium 9.2 mg/dl (8.4-10.2); Carbon Dioxide 21 mmol/L (22-30); Chloride 105 mmol/L (98-107); Estimated Creatinine Clearance 113 ml/min; Glucose 143 mg/dl (70-99); Magnesium 1.5 mg/dl (1.6-2.3); Phosphorus 5.1 mg/dl (2.5-4.5); Potassium 3.5 mmol/L (3.5-5.1); Sodium 140 mmol/L (135-145); Total Bilirubin 0.8 mg/dl (0.2-1.3); Total Protein 6.6 g/dl (6.3-8.2); eGFR > 60.00
[2024-08-11] MEDS: MAGNESIUM SULFATE 50 IV (04:30)
[2024-08-11] MEDS: KCL 100 IV (04:30)
[2024-08-11 05:04] LABS: Glucose - Point of Care 114 mg/dl (70-99)
[2024-08-11] MEDS: SYNTHROID 50 MCG TUBE (06:26)
[2024-08-11 06:44] LABS: Glucose - Point of Care 86 mg/dl (70-99)
[2024-08-11] MEDS: COREG 3.125 MG PO ×2 (07:46→20:06)
[2024-08-11] MEDS: ASPIR LOW (ENTERIC COATED) 81 MG PO (07:46)
[2024-08-11] MEDS: FOLVITE 1 MG TUBE (07:46)
[2024-08-11] MEDS: MIRALAX 17 GRAMS TUBE (07:47)
[2024-08-11] MEDS: BUSPAR 10 MG PO ×2 (07:47→20:06)
[2024-08-11] MEDS: LANTUS SC (07:47)
[2024-08-11] MEDS: DUPHALAC/CHRONULAC 20 GRAMS PO (07:47)
[2024-08-11] MEDS: LASIX 40 MG IV (07:48)
[2024-08-11] MEDS: ATROVENT NEBULES 0.5 MG INH ×3 (07:52→19:29)
[2024-08-11] MEDS: XOPENEX 1.25 MG INHALANT SOLUTION INH ×3 (07:52→19:29)
--- NOTE | 2024-08-11 08:51 | W.PN.INTV ---
Today's Communication / Plan
Recommendations
Precedex drip now off
Maintain goal SpO2 >90-94%
MSAS and s/p phenobarbital protocol
Thiamine/folate
Abx
BG 140-180 with basal-bolus insulin
Trend ammonia level
LP done on 08/08 � follow-up cultures (NGTD)
AEDs stopped
Cardiology consulted due to HFmrEF and apical akinesis - will eventually need ischemic eval
Heparin gtt started as had rapid a-fib earlier this hospital stay
Aspiration precautions
Diet as per SEPARATOR OPERATOR
Patient is stable for downgrade out of ICU to telemetry. No additional recommendations at this time. Nanny/Household Manager/Pulmonary service will now sign off. Please reconsult if there are any additional questions/concerns, or if patient's respiratory
status deteriorates.
Assessment
-
59-year-old female with unknown past medical history who works at [id number] became confused, and had a tonic-clonic seizure subsequently confused and combative requiring intubation with another tonic-clonic seizure-watch case polisher consulted for
hypertension/ventilator/seizures/critical care management 08/04/2024. She has now been extubated since 08/09/2024, is now much more interactive, working with physical therapy, passed SEPARATOR OPERATOR and is being downgraded to telemetry.
Impression:
Tonic-clonic seizures suspected to be due to acute EtOH withdrawal; less likely primary epilepsy
Acute respiratory failure with hypoxia requiring intubation
- Intubated 08/04/2024
- Extubated 08/09/2024
Hypertensive urgency - now resolved
Obesity
Apical akinesis with acute HFmrEF (per TTE from 08/06/2024)
History of rapid A-fib now in NSR
Mild thrombocytopenia - could be related to her reported Hx of cirrhosis
Hx of alcohol abuse with reported Hx of cirrhosis
Hypokalemia - resolved
ROXANNA - improving
Metabolic acidosis with increased AG likely related to starvation ketoacidosis - improved
RUL/RLL CAP, suspected to be aspiration during seizure event - MSSA seen on sputum Cx
Strep pneumonia bacteremia likely due to PNA
DM type II c/b hyperglycemia requiring insulin drip --> now off
Mildly elevated LFTs with hyperbilirubinemia likely due to acute alcoholic hepatitis - LFTs now markedly improved
Left sphenoid sinusitis
Pyuria (purulent urine seen in kay catheter tubing)
Conditions present prior to admission:
Unknown-sister showed up to ED-reportedly hypertension, diabetes, and recovering alcoholic-reportedly has not drank in months
Obesity
Plan
Patient was extubated successfully on 08/09/2024, and she is no longer agitated and is off precedex since earlier this AM
EEG performed on 08/06/2024 shows diffuse cortical dysfunction without focal abnormality, no seizures recorded.
Continue with nasal cannula, titrating supplemental O2 flow rate to keep SpO2 >90-94%
Dobbhoff tube inserted on 08/05, and tube feeds started --> she is now working with PT, and SEPARATOR OPERATOR passed her for a diet this AM. DHT removed
Continue with aspiration precautions
Nebulizers if needed-currently not bronchospastic
She is a former drinker, quit last September but has relapsed recently. Her home was found to be disheveled by her sister. EEG obtained on 08/05/2021 shows diffuse cortical dysfunction with no seizures recorded.
- s/p phenobarbital, now off
- also off Precedex and she is no longer agitated
- Brain MRI performed yesterday showing no focal or acute intracranial abnormalities with left sphenoid sinusitis
Neurology consulted with recs appreciated
CT head performed on 08/04/2024 shows no acute intracranial abnormality in addition to left sphenoid sinusitis
MRI brain performed yesterday (see above)
Antiepileptics per neurology-Keppra loaded, now off keppra as of 08/09/2024
Keep MAP>65
Replete K>4, Mg>2
Monitor blood sugar with goal BG 140-180
Bridged off insulin gtt on 08/08
Currently on insulin supplementation with basal-bolus dosing
Despite her urinalysis being negative on 08/04/2024, she had purulent urine in the Kay catheter tubing. I started ceftriaxone on 08/05 and plan for at least 5-7 days assuming she remains afebrile for 48 hours prior and continues to clinically
improve
- She also has a opacification seen in the medial right lower lobe with concern for aspiration pneumonia; initially started doxycycline on 08/05 however she has strep PNA seen on blood Cx from 08/05/2024 -> ID now changed Abx to rocephin only.
Doxy DC'd s/p IV vancomycin on 08/06 - 08/07
- Sputum culture grew MSSA
- Blood Cx grew Strep PNA (collected 08/05/2024)
- Checked echo given positive blood Cx with GPC in chains
- Echo done on 08/06/2024 did not show evidence of vegetation however there is apical akinesis with a mildly reduced LVEF of 40-45% and mild MR. Cardiology consulted for further recommendations; eventual LHC
- Underwent LP on 08/08 --> follow up cultures (NGTD)
- Pt had no cuff leak when she was still intubated, and steroids were started on 08/07
- On 08/09, she did have a cuff leak --> steroids stopped. She also had no subglottic bleeding seen. No need to perform bronchoscopy prior to extubation
- She was extubated on 08/09/2024 with no post-extubation stridor appreciated
- CT neck performed on 08/08 showed no retropharyngeal abscess
Abd US performed on 08/06/2024 shows no concern for ascites, and cirrhotic appearing liver
- Trend ammonia level (28 on 08/04/2024) and 35 on 08/08 --> continue to trend
- Started lactulose on 08/07
History unclear-reportedly alcoholic with cirrhosis though has not been drinking for months
MSAS
s/p phenobarbital protocol
Thiamine/folate
Alcohol level was not detected
Beta-hydroxybutyrate was slightly elevated on 08/04/2024 likely due to starvation ketoacidosis vs early DKA --> rechecked again on 08/06 and it is downtrending
Consider GI consult
Follow thrombocytopenia and transfuse if needed to keep >20k
Transfuse PRBC if needed to keep Hb>7g/dL
Due to her having rapid A-fib earlier this hospitalization, cardiology wants her to be on anticoagulation. Heparin drip started on 08/10; will need to transition to NOAC prior to discharge assuming that she is not bleeding and H&H is stable
Due to HFmrEF, defer GDMT to cardiology
DVT prophylaxis: heparin gtt given her Hx of AF/AT
GI prophylaxis: N/A
Early nutrition --> diet as per SEPARATOR OPERATOR
Up OOB as tolerated; PT/OT
IV access: PICC line
Eventual screen for obstructive sleep apnea-recommend outpatient sleep evaluation
Patient is stable for downgrade out of ICU to telemetry. No additional recommendations at this time. Nanny/Household Manager/Pulmonary service will now sign off. Thank you for allowing us to be involved in the care of this patient. Please reconsult if there
are any additional questions/concerns, or if patient's respiratory status deteriorates.
Diagnostic data:
Chest x-ray 08/04/2024-ET tube 4.5 cm above neo, no airspace disease, pneumothorax, pleural effusion or other abnormalities
CT head 08/04/2024-no acute intracranial abnormalities, left sphenoid sinusitis
Brain MRI 08/10/2024:
There are no focal or acute intracranial abnormalities.
There is mild diffuse cortical atrophy
There is left sphenoid sinusitis
CT Neck with IV contrast 08/08/2024:
No CT evidence of abscess. No subcutaneous emphysema.
No cervical adenopathy. Mild sinusitis.
There are 2 left thyroid lobe nodules, as described. This may be further evaluation with follow-up nonemergent ultrasound.
Small right pleural effusion.
Partially visualized parenchymal opacity in the right infrahilar region. Atelectasis versus pneumonia.
Total time spent today was 79 minutes for this encounter. Time includes reviewing laboratory test/imaging results, reviewing pertinent medical records, obtaining and reviewing medical history, performing an appropriate exam, ordering medications,
tests and procedures. Time also includes documentation of this encounter, coordinating patient care and communicating with other healthcare professionals. Total time does not include separately billed tests performed on this date of service.
Subjective Dataa
Subjective Data
Date of Service:
Date of Service: August 11, 2024
Chief Complaint: Nanny/Household Manager Follow Up
Subjective:
Pt seen and evaluated this AM. She was working with PT and in NAD. She is on room air breathing comfortably. She is much more interactive today, and is answering my questions appropriately. Saturating 94% on room air. BP 116/71 and HR 78. She
feels well, has occasional cough. Denies SOB, MAURICIO, abd pain, N/V/f/c.
Review of Systems
General: Other (Negative unless mentioned above)
Objective Data
Data Reviewed
Vital Signs / I&O / Oxygen:
Vital Signs
Temp Pulse Resp BP Pulse Ox
98.8 F 77 20 116/71 98
08/11/24 08:46 08/11/24 08:46 08/11/24 08:46 08/11/24 08:46 08/11/24 08:46
Intake and Output
08/10/24 08/11/24 08/12/24
06:59 06:59 06:59
Intake Total 1401.6 / 1428.6 1621.0 / 1721.2 268.2 / 268.2
Output Total 3975 / 4015 1920 / 1920
Balance -2573.4 / -2586.4 -299.0 / -198.8 268.2 / 268.2
SaO2 [CPAP] 99
SaO2 [A/C] 99
SaO2 98
Nasal Cannula flow liters per 2
minute
Physical Exam
General: Respiratory Distress (negative), Comfortable, Chills (negative), Sweats and Other (NAD)
HEENT: Normocephalic and Anicteric
Cardiovascular: S1-S2, Murmur (negative) and Peripheral Edema (negative)
Respiratory: Wheeze (negative), Crackles (bibasilar), Rhonchi (bilateral (L>R)), Non-Labored Respirations and Accessory Resp Muscle Use (negative)
GI: Soft, Distended, Non Tender and Normal Bowel Sounds
Neurology: Awake, Alert and Tremors (negative)
Skin: Warm, Dry, Cyanosis (negative) and Jaundice (negative)
Labs/Micro/Reports
Lab Data
08/11/24 03:21
08/11/24 03:21
Laboratory Results
08/10/24 08/10/24 08/11/24
14:43 21:47 03:21
APTT 32.4 43.0 H 54.6 H
Microbiology
08/08/24 13:30 Csf Acid Fast Bacilli Smear - Preliminary
08/08/24 13:30 Csf Acid Fast Bacilli Culture - Preliminary
08/06/24 13:38 Blood/Venous Blood Culture - Preliminary
No Growth in 4 days- Final report to follow
08/08/24 13:30 Csf CSF Culture - Preliminary
No Growth After 48 Hours
08/08/24 13:30 Csf Gram Stain - Preliminary
08/05/24 13:12 Blood/Venous Blood Culture - Preliminary
Streptococcus pneumoniae
08/05/24 13:12 Blood/Venous Gram Stain - Preliminary
08/08/24 13:30 Csf Meningitis/Encephalitis Panel (PCR) - Final
08/05/24 13:12 Endotracheal Respiratory Culture - Final
S aureus-Methicillin Sensitive
08/05/24 13:12 Endotracheal Gram Stain - Final
--- NOTE | 2024-08-11 09:59 | PTOTSP ---
Speech Pathology Evaluation
59F with admission for seizure and AMS p/w clinical s/s of a mildly impaired oropahryngeal swallow characterized by slow mastication of regular textures and slightly sluggish laryngeal elevation to palpation with swallow. Unable to r/o silent
aspiration at bedside this date. Aspiration risk is increased 2/2 recent intubation (>4 days) and increased lethargy/deconditioning.
Recommend:
1. Soft and bite sized (IDDSI 6), thin liquids (IDDSI 0)
2. Meds whole in puree
3. Safe swallowing strategies: small bites, single sips, slow rate, PARTIAL assistance/supervision
4. DRESSMAKING TEACHER service to f/u re: to assess for possible diet upgrade; r/o silent aspiration in light of recent prolonged intubation; and provide dysphagia tx as needed
--- NOTE | 2024-08-11 10:21 | W.PN.ID1 ---
Date of Service
Date of Service: August 11, 2024
Today's Communication
Continue antibiotics for today.
Assessment / Plan
New onset seizures
VDRF
Leukocytosis
Fever
Bacteremia with Streptococcus pneumoniae
Suspected aspiration pneumonia/pneumonitis secondary to seizure (vs. PNA secondary to strep pneumo)
HTN
DM
Hx EtOH cirrhosis
Obesity
Recommendations:
Susceptibilities of strep pneumo and Staph aureus reviewed.
CSF analysis reviewed and not indicative of meningitis.
Continue ceftriaxone (d#7)
Monitor white count and temperature curve. Prior leukocytosis has resolved (now mildly leukopenic, but improved from yesterday.)
Continue with supportive measures.
����������������������������������������������������������
Chief Complaint
-: Leukocytosis and Bacteremia
Subjective / Review of Systems
Review of Systems: No Fever, No Chills, Cough and No Sputum Production
Vital Signs / Physical Exam
Vital Signs
Vital Signs
Temp Pulse Resp BP Pulse Ox
98.8 F 77 20 116/71 98
08/11/24 08:46 08/11/24 08:46 08/11/24 08:46 08/11/24 08:46 08/11/24 08:46
Physical Exam
Constitutional: Comfortable, Non-toxic and Obese
Eyes: No Conjunctival Hemorrhage and Sclera Anicteric
Cardiovascular: S1/S2; Negative S3/S4 or Murmur
Pulmonary: Rhonchi (Few; scattered. Diminished from yesterday.) and Coarse; Negative Wheezes or Rales
Gastrointestinal: Soft, Non Distended, Normal Bowel Sounds, No Rebound and No Guarding
Extremities: Edema; Negative Cyanosis or Erythema
Skin: Negative Rash or Jaundice
Neurological: Awake and Alert
Psychological: Calm
Objective Data
Lab Data
Lab Results
08/11/24 03:21
08/11/24 03:21
PT 16.7 Sec (11.4-14.6) H 08/10/24 03:03
INR 1.37 08/10/24 03:03
APTT 54.6 Sec (23.4-35.0) H 08/11/24 03:21
Estimated Creat Clear 113 ml/min 08/11/24 03:21
Lactic Acid 1.2 mmol/L (0.7-2.0) 08/06/24 13:38
Total Bilirubin 0.8 mg/dl (0.2-1.3) 08/11/24 03:21
AST 45 U/L (14-36) H 08/11/24 03:21
ALT 32 U/L (0-35) 08/11/24 03:21
Alkaline Phosphatase 110 U/L (38-126) 08/11/24 03:21
Most recent labs reviewed.
Micro Results:
08/08/24 13:30 Acid Fast Bacilli Smear - Preliminary
Csf Acid Fast Bacilli Culture - Preliminary
08/06/24 13:38 Blood Culture - Preliminary
Blood/Venous No Growth in 4 days- Final report to follow
08/08/24 13:30 CSF Culture - Preliminary
Csf No Growth After 48 Hours
Gram Stain - Preliminary
08/05/24 13:12 Blood Culture - Preliminary
Blood/Venous Streptococcus pneumoniae
Gram Stain - Preliminary
08/08/24 13:30 Meningitis/Encephalitis Panel (PCR) - Final
Csf
08/05/24 13:12 Respiratory Culture - Final
Endotracheal S aureus-Methicillin Sensitive
Gram Stain - Final
08/04/24 20:38 MRSA Screen - Final
Nose No Methicillin Resistant Staphylococcus aureus isolated.
Imaging:
08/09/2024 CXR (portable): Hazy retrocardiac opacity with obscuration of the left hemidiaphragm noted.
08/07/2024 CXR (portable): No active cardiopulmonary disease noted. ET tube is 5 cm above the neo. Tip of nasogastric tube is below the esophageal gastric junction. Right-sided PICC is at the cavoatrial junction. The cardiac silhouette and
pulmonary vasculature are radiographically within normal limits. Please see full dictation for additional detail.
08/04/2024 CT head without contrast: No acute intracranial hemorrhage. No extra-axial collection noted. No significant abnormal parenchymal attenuation appreciated. No evidence of mass effect or midline shift seen.
--- NOTE | 2024-08-11 10:52 | W.PN.CARDCBS ---
Today's Communication / Plan
-
Agree with initiating heparin with eventual transition to direct oral anticoagulant if no major bleeding complications
Continue diuresis today and reassess tomorrow
Impression / Plan
-
.
Primary Manager Radiation: unknown
PCP: previously Dr. Bob Kirby, however not seen there since 04/2023
Impression:
Presentation with seizure activity, tonic clonic seizures, possibly from ETOH withdrawal
Traumatic intubation
Bacteremia with leukocytosis, concern for PNA
Abnormal urine
Hypotensive, requiring pressor support
Cardiomyopathy, EF 40-45%
Thrombocytopenia
Type 2 diabetes, uncontrolled
HTN
Obesity
History of ETOH use disorder
History of possible ETOH cirrhosis
Atrial tachycardia
ECHO 08/06/24: EF 40 to 45%, mild concentric LVH, apical akinesis, MAC, mild MR, mildly dilated aortic root measuring 3.7 cm at sinus of Valsalva, ascending aorta 3.8 cm
Plan:
She remains critically ill
Cardiology consulted due to abnormal echo, CM.
-EF 40-45%, once overall clinically improved could consider ischemic eval at that time.
-Received prior cardiology records from Dr. Kirby. She has a history of rapid atrial fibrillation (during this hospital stay PAT noted) and heart failure related to that.
-Diltiazem stopped this adm in favor of carvedilol 3.125 mg p.o. twice daily.
-While not on OAC on adm, she tells me she was on OAC briefly as an outpatient, stopped due to anemia of unclear etiology??, CHADSVASc = 4
MRI of the brain negative for acute bleed yesterday
Primary service has initiated heparin infusion, eventually can place on a DOAC with close f/u of anemia
Cont medical therapy of peak trop of 0.8, likely nonMI trop elevation.
LDL mildly elevated, consider statin when improved.
At some point there can be consideration for ischemic evaluation
Monitor Is and Os and daily wts. pBNP 2890. Weight down past two days and creat stable.
08/09/24 was initiated on Lasix 40 mg IV daily which we recommend continuing for for today and reassess tomorrow
Continue antibiotics for strep pneumonia bacteremia.
Seizure disorder, presumed alcohol withdrawal.
Cont supportive care, antibiotics.
total time 51 min
As per up-to-date prior records obtained she does have history of congestive heart failure in the setting of rapid A-fib and reportedly is maintained on po lasix 20mg daily. Last echocardiogram 10/16/2022 with EF 55 to 60%, moderate to severe left
atrial dilation, dilated IVC which does not collapse, mild MR, aortic sclerosis. Noted by chest CTA 10/16/22 to have 2.6 cm thyroid nodule, enlarged spleen, and evidence of cirrhosis. She reportedly underwent colonoscopy 10/2022 and had large polyp
status post excision at [facility] with benign pathology. Between October and February 2023 she had routine labs for cardiology visit and found to have a hemoglobin of 5.7. She was admitted and underwent 2 units of packed red blood cells with
improvement, endoscopy was reportedly normal without varices noted. She was then hospitalized at [facility] 02/2023 with acute anemia and transfused. Her CBC was monitored weekly and she occasionally required transfusions.
Apparently she was on and off eliquis 2.5mg BID for several months in setting of intermittent acute on chronic anemia. MRI of the abdomen 05/11/2023 consistent with cirrhosis with lesion of right hepatic lobe suspicious for possible HCC.
Progress Note - Manager Radiation
Subjective
Date of Service: August 11, 2024
She tells me she has no chest pain shortness of breath or palpitations.
Objective
Labs:
08/11/24 03:21
08/11/24 03:21
Labs
Hgb 10.1 g/dL (12.0-16.0) L 08/11/24 03:21
Hct 29.3 % (37.0-47.0) L 08/11/24 03:21
Plt Count 115 10^3/uL (130-400) L 08/11/24 03:21
PT 16.7 Sec (11.4-14.6) H 08/10/24 03:03
INR 1.37 08/10/24 03:03
APTT 54.6 Sec (23.4-35.0) H 08/11/24 03:21
Sodium 140 mmol/L (135-145) 08/11/24 03:21
Potassium 3.5 mmol/L (3.5-5.1) 08/11/24 03:21
BUN 23 mg/dl (7-17) H 08/11/24 03:21
Creatinine 0.5 mg/dL (0.6-1.0) L 08/11/24 03:21
Glucose 143 mg/dl (70-99) H 08/11/24 03:21
Vital Signs and I&O:
Vital Signs
Temp Pulse Resp BP Pulse Ox
98.8 F 77 20 116/71 98
08/11/24 08:46 08/11/24 08:46 08/11/24 08:46 08/11/24 08:46 08/11/24 08:46
Vital Signs
Temp Pulse Resp BP Pulse Ox
98.8 F 77 20 116/71 98
08/11/24 08:46 08/11/24 08:46 08/11/24 08:46 08/11/24 08:46 08/11/24 08:46
Intake & Output
08/09/24 08/10/24 08/11/24 08/12/24
06:59 06:59 06:59 06:59
Intake Total 2229.5 / 2313.5 1401.6 / 1428.6 1621.0 / 1721.2 268.2 / 268.2
Output Total 820 / 860 3975 / 4015 192 / 192
Balance 1409.5 / 1453.5 -2573.4 / -2586.4 -299.0 / -198.8 268.2 / 268.2
Physical Exam
Physical Exam
She is awake, sitting in chair
Regular rate and rhythm normal S1 and S2, no S3 no S4 is a grade 1 with 6 apical holosystolic murmur no rubs
Lungs are clear to auscultation except for reduced breath sounds at the bases, poor inspiratory effort.
Extremities show +1 pretibial edema bilaterally
--- NOTE | 2024-08-11 10:55 | PTCARENOTE ---
Update with critical care team. PT/OT speech all in to work with patient this am. Out of bed to chair, ambulate room with walker, return to chair. Continue with safety checks hourly rounds and call moseley use/instruction. Continue follow up with
hospitalist team, optical goods drill operator team and therapy teams. Follow up labs as ordered. Follow up plan of cares with patient and family. Plan for transfer to telemetry when bed available.
[2024-08-11 11:37] LABS: APTT 56.3 Sec (23.4-35.0)
--- NOTE | 2024-08-11 11:37 | W.PN.HOSP.TC ---
Today's Communication/Plan
-
Continue with IV Lasix for today
Continue with IV heparin
Continue with IV antibiotic
DC tube feeding and started on diet
Adjusted Lantus
PT/OT
Transfer out of ICU
Assessment / Plan
Assessment / Plan
General: Well Developed, Well Nourished and morbidly obese
HEENT: NormoCephalic, Moist mucous membranes and Atraumatic
Respiratory: Clear anterior, ETT noted
Cardiac: S1/S2 and Regular Rhythm; No Murmur or Rub
GI: Soft, Non Tender, Non Distended and Normal Bowel Sounds; No Organomegaly
Rectal: Deferred by Provider
Musculoskeletal: No Clubbing, No Cyanosis and No Edema
Skin: No Rash
: kay with dark yellow urine
Neuro: Nonfocal/grossly intact, awake alert
# Acute respiratory failure status post intubation and mechanical ventilation
-Off propofol and fentanyl infusion
-Status post extubation on 08/09.
-Continue with tube feeding
-Past swallow eval. Diet started.
# New onset tonic-clonic seizures likely secondary to alcohol withdrawal seizure
# Toxic metabolic encephalopathy likely multifactorial secondary to alcohol withdrawal versus delirium versus seizure related
-CT head shows no acute abnormality
-UDS was found to be negative. Alcohol level not detected. Beta hydroxy was mildly elevated.
-Keppra loaded 4 g on admission
-Keppra 1 g every 12 was discontinued per neurology
-Started on phenobarbital taper regimen
-CT head on admission with no acute intracranial abnormality noted
-MRI brain with no focal acute intracranial malady. Mild diffuse cortical atrophy. Left sphenoid sinusitis.
-Continue thiamine folic acid
-s/p LP and negative for meningitis
-cEEG ongoing as lack of improvement in mental status. and was discontinued further
-Remains on Precedex as with severe agitation.
# Acute kidney injury
#Metabolic acidosis improving
-received bicarb
-Creatinine uptrended to 1.1 and stable at 0.5
-Monitor UOP
-Renal/bladder US -negative for hydronephrosis
# Streptococcus bacteremia and Staph aureus pneumonia
-IV rocephin was started 2g daily. vancomycin added and now stopped.
-ECHO noted
-sputum sample noted
-ID following
# Atrial tachycardia
# Atrial fibrillation
-Start beta-inocente coreg and asa.
-Cardiology correspondence noted. Start patient on heparin infusion. Eventual transition to DOAC.
# Cardiomyopathy
-Echo with EF of 40 to 45% normal diastolic function. Mild concentric LVH. There is apical akinesis.
-with anasarca and now started on 40mg IV lasix
-Cardiology consulted
#Thrombocytopenia likely secondary to liver cirrhosis
#Acute on chronic decompensated Liver cirrhosis likely 2/2 alcohol abuse
#History of alcoholic cirrhosis
#History of alcohol use disorder
#Abdominal ultrasound noted with liver cirrhosis
-trend platelet. no acute need for transfusion.
-Ammonia level elevated. Continue with lactulose.
-can stop trending ammonia level
-trend cbc closely and transfuse as needed
# Hypokalemia/Hypomagnesemia
-Replete/monitor
# Hyperglycemia
#Type 2 diabetes
-Blood sugar 400s on admission
-Check A1c at 8.3
-Started on insulin regimen. Decrease Lantus 25 unit nightly and NovoLog 18 units
-s/p insulin gtt.
-Insulin sliding scale
-reportedly on Wgovy
-DM Bench Molder following
History of alcoholic cirrhosis
History of alcohol use disorder
Abdominal ultrasound noted with liver cirrhosis
Obesity
Full code
DVT prophylaxis�heparin drip
Anticipated Discharge: > 48 hours
Subjective/Interval History
-
Date of Service: August 11, 2024
Patient awake alert and oriented
Unable to recall events leading to hospitalization
states she increase increasing amount of alcohol on a daily basis drinks -vodka nightly.
Patient stated prior to the generalized seizure and hospitalization she stopped drinking alcohol completely.
Objective Data
-
Labs:
Laboratory Results
08/11/24 08/11/24
03:21 11:21
WBC 4.2 L
Hgb 10.1 L
Hct 29.3 L
Plt Count 115 L
APTT 54.6 H Pending
Sodium 140
Potassium 3.5
Chloride 105
Carbon Dioxide 21 L
BUN 23 H
Creatinine 0.5 L
Glucose 143 H
Calcium 9.2
Total Bilirubin 0.8
AST 45 H
ALT 32
Alkaline Phosphatase 110
Vital Signs:
Vital Signs
Temp Pulse Resp BP Pulse Ox
98.8 F 86 21 112/67 97
08/11/24 08:46 08/11/24 11:00 08/11/24 11:00 08/11/24 11:00 08/11/24 10:29
I&O
08/10/24 08/11/24 08/12/24
06:59 06:59 06:59
Intake Total 1401.6 / 1428.6 1621.0 / 1721.2 296.2 / 296.2
Output Total 3975 / 4015 1920 / 1920
Balance -2573.4 / -2586.4 -299.0 / -198.8 296.2 / 296.2
Data Reviewed
-
Total Time Spent with Patient (in minutes): 55
[2024-08-11 11:53] LABS: Glucose - Point of Care 143 mg/dl (70-99)
[2024-08-11] MEDS: HEPARIN 25000 UNITS/250 ML IV (12:12)
[2024-08-11] MEDS: ROCEPHIN 2000 MG IV (14:26)
[2024-08-11] MEDS: STERILE WATER FOR INJECTION 20 ML IV (14:27)
--- NOTE | 2024-08-11 15:28 | PTCARENOTE ---
Patient continues to work well in PT/OT room air sats 94% VS as documented. Follow up assessment trends. No new changes patient excited about working in therapy to get home. Friends at bedside. Patient in good spirits. Support ongoing.
--- NOTE | 2024-08-11 16:32 | PTCARENOTE ---
pt transferred from ICU. pt AAO*3, Vss. room air. pt with the hep gtt. family at the bedside updated. pt took pills whole with apple sauce. plan of care ongoing.
[2024-08-11 16:40] LABS: Glucose - Point of Care 127 mg/dl (70-99)
[2024-08-11] MEDS: NOVOLOG FLEXPEN-MODERATE RESISTANCE SC (16:47)
[2024-08-11 19:43] LABS: APTT 71.7 Sec (23.4-35.0)
[2024-08-11] MEDS: DUPHALAC/CHRONULAC PO (20:05)
[2024-08-11 21:27] LABS: Glucose - Point of Care 150 mg/dl (70-99)
[2024-08-11] MEDS: LANTUS 0.25 UNITS SC (22:10)
[2024-08-12] VITALS (7 sets, daily range): BP systolic 141–171; BP diastolic 67–98; PULSE 100–102; O2SAT 94
[2024-08-12 01:29] LABS: APTT 87.2 Sec (23.4-35.0)
[2024-08-12] MEDS: HEPARIN 25000 UNITS/250 ML IV ×2 (03:50→20:43)
[2024-08-12 04:59] LABS: CSF VDRL (T. pallidum) Non Reactive (Non Reactive)
[2024-08-12] MEDS: SYNTHROID 50 MCG TUBE (05:28)
[2024-08-12 05:30] LABS: Hematocrit 29.4 % (37.0-47.0); Hemoglobin 10.2 g/dL (12.0-16.0); Mean Corp Hgb Conc. 34.7 g/dL (33.0-37.0); Mean Corpuscular Hgb 30.9 pg (27.0-31.0); Mean Corpuscular Volume 89.1 fL (81.0-99.0); Mean Platelet Volume 11.2 fL (7.4-10.4); Platelet Count 143 10^3/uL (130-400); Red Cell Dist. Width 13.7 % (11.5-14.5); White Blood Cell Count 6.8 10^3/uL (4.8-10.8)
[2024-08-12 05:49] LABS: Ammonia 15 umol/L (9-30)
[2024-08-12 05:52] LABS: ALT (SGPT) 37 U/L (0-35); AST (SGOT) 42 U/L (14-36); Albumin 3.3 g/dl (3.5-5.0); Alkaline Phosphatase 131 U/L (38-126); Blood Urea Nitrogen 23 mg/dl (7-17); Carbon Dioxide 21 mmol/L (22-30); Chloride 106 mmol/L (98-107); Estimated Creatinine Clearance 113 ml/min; Glucose 102 mg/dl (70-99); Magnesium 1.6 mg/dl (1.6-2.3); Phosphorus 4.1 mg/dl (2.5-4.5); Potassium 3.8 mmol/L (3.5-5.1); Sodium 140 mmol/L (135-145); Total Protein 6.5 g/dl (6.3-8.2); eGFR > 60.00
[2024-08-12] MEDS: ATROVENT NEBULES 0.5 MG INH ×2 (07:19→20:00)
[2024-08-12] MEDS: XOPENEX 1.25 MG INHALANT SOLUTION INH ×3 (07:19→20:00)
[2024-08-12 08:10] LABS: Glucose - Point of Care 97 mg/dl (70-99)
[2024-08-12 08:11] LABS: APTT 90.3 Sec (23.4-35.0)
[2024-08-12] MEDS: NOVOLOG FLEXPEN-MODERATE RESISTANCE SC ×3 (08:12→16:45)
--- NOTE | 2024-08-12 08:28 | PN.DE.MGMTRT ---
Insulin Management
- -
08/12/2024: Diabetes Management F/U:
Patient admitted 08/04 with altered mental status. seizures. PMH: Alcoholic cirrhosis, obesity, diabetes, HTN, HLD, hypothyroid, anxiety, CAD, A-Fib. Unknown if any diabetes medications were taken prior to admission. A1C 8.3%, cr .8, eGFR > 60.
08/06 started on tube feeds, contributing to Hyperglycemia, glycemic protocol initiated.
08/08 transitioned off glycemic protocol. 08/09 pt extubated
08/10 off steroids and tube feeds.
Pt is awake, alert, oriented, sitting up in bed, able to discuss diabetes management
Reports she stopped checking her blood sugars a year ago. She thinks she was taking Metformin at some point but does not remember when she took it last.
States she was following up with an Endo in [place] who started her on Ozempic but it run out a while back and she never had it refilled.
08/11 started on diet, Lantus dose was reduced from 50 units to 25 units and AC NovoLog was placed on hold.
Glucose stable and in range, premeal 86 to 143, fasting 102 (V) this AM.
Will start Metformin 500mg BID and Januvia 100 mg daily- pt with Sulfa allergy.
Will reduce Lantus to 15 units. Cont low corrective insulin with meals
Discussed with patients nurse.
\\Provided insulin and meter instructions, please see diabetes education note.
Provided home pen needles to nurse so patient can self inject insulin with nursing supervision.
Diabetes History
- -
Type of Diabetes: 2 requiring insulin
Pre-Admission Diabetes Regimen
08/12/24
05:09
Creatinine 0.6
Lab Results
Hemoglobin A1c 8.3 % (4.0-5.6) H 08/05/24 03:57
Insulin Pump Settings
IP Diabetes Regimen
08/11/24 08/11/24 08/11/24
11:42 16:39 21:26
Glucose
POC Glucose 143 H 127 H 150 H
08/12/24 08/12/24
05:09 08:09
Glucose 102 H
POC Glucose 97
Meal type: Dinner
Meal type: Lunch
Meal type: Breakfast
Amount consumed: 65%
Amount consumed: 75%
Patient Education
[2024-08-12] MEDS: LASIX 40 MG IV (08:31)
[2024-08-12] MEDS: VITAMIN B1 100 MG PO (08:31)
[2024-08-12] MEDS: BUSPAR 10 MG PO ×2 (08:31→20:53)
[2024-08-12] MEDS: COREG 3.125 MG PO ×2 (08:31→20:53)
[2024-08-12] MEDS: ASPIR LOW (ENTERIC COATED) 81 MG PO (08:31)
[2024-08-12] MEDS: FOLVITE 1 MG TUBE (08:32)
[2024-08-12] MEDS: MIRALAX TUBE (08:32)
[2024-08-12] MEDS: DUPHALAC/CHRONULAC PO ×2 (08:34→20:54)
--- NOTE | 2024-08-12 09:40 | W.PN.CARDCBS ---
Addendum entered and electronically signed by Eric Rubio DO 08/12/24 12:29:
I saw and examined the patient.
The Director Of Maintenance's note was reviewed and I agree with the note.
Comment:
Plan:
Cont supportive care
Cont IV diuresis possible change to PO next 24-48 hrs
Consideration for eventual cath given new CM with apical akinesis, possibly later this week.
Add ACEI to beta inocente for CM and monitor bps.
Outpt cardiac follow up to be arranged.
Original Note:
Today's Communication / Plan
-
-restart Lisinopril 5 mg daily-ordered
-continue IV diuretics
-eventual cardiac cath given new LV dysfunction
Impression / Plan
-
.
Primary Security Rover: unknown
PCP: previously Dr. Bob Kirby, however not seen there since 04/2023
Impression:
Presentation with seizure activity, tonic clonic seizures, possibly from ETOH withdrawal
Traumatic intubation
Bacteremia with leukocytosis, concern for PNA
Abnormal urine
Hypotensive, requiring pressor support
Cardiomyopathy, EF 40-45%
Thrombocytopenia
Type 2 diabetes, uncontrolled
HTN
Obesity
History of ETOH use disorder
History of possible ETOH cirrhosis
Atrial tachycardia
ECHO 08/06/24: EF 40 to 45%, mild concentric LVH, apical akinesis, MAC, mild MR, mildly dilated aortic root measuring 3.7 cm at sinus of Valsalva, ascending aorta 3.8 cm
Plan:
Cardiology consulted due to abnormal echo, CM.
-EF 40-45%-new decline in EF noted on echo 08/06/24, rec: ischemic workup for cause of cardiomyopathy, possible LHC Monday or in future in outpt setting. No anginal symptoms.
-Received prior cardiology records from Dr. Kirby. She has a history of rapid atrial fibrillation (during this hospital stay PAT noted) and heart failure related to that.
-Diltiazem stopped this adm in favor of carvedilol 3.125 mg p.o. twice daily, can uptitrate, but will wait as starting Lisinopril today.
-telemetry personally reviewed: NSR HR 90s.
-While not on OAC on admission, she was on OAC briefly as an outpatient (Eliquis 2.5 mg bid), stopped due to anemia of unclear etiology??, CHADSVASc = 4
-MRI of the brain negative for acute bleed yesterday
-started on Heparin gtt, since planning for possible cath on Mon, continue Heparin for now then transition to DOAC.
- start Lisinopril 5 mg daily (was on this in outpatient setting)
Cont medical therapy of peak trop of 0.8, likely nonMI trop elevation.
LDL mildly elevated, consider statin when improved.
possible ischemic evaluation this admission vs as outpatient.
Monitor Is and Os and daily wts. pBNP 2890 on admit, repeat 08/08/24 923. Weight continues to trend down, 223 08/12, down 5 lbs overnight. Creatinine stable.
-continue IV Lasix for now
Continue antibiotics for strep pneumonia bacteremia.
Seizure disorder, presumed alcohol withdrawal.
Cont supportive care, antibiotics.
total time 45 min
As per up-to-date prior records obtained she does have history of congestive heart failure in the setting of rapid A-fib and reportedly is maintained on po lasix 20mg daily. Last echocardiogram 10/16/2022 with EF 55 to 60%, moderate to severe left
atrial dilation, dilated IVC which does not collapse, mild MR, aortic sclerosis. Noted by chest CTA 10/16/22 to have 2.6 cm thyroid nodule, enlarged spleen, and evidence of cirrhosis. She reportedly underwent colonoscopy 10/2022 and had large polyp
status post excision at [place] with benign pathology. Between October and February 2023 she had routine labs for cardiology visit and found to have a hemoglobin of 5.7. She was admitted and underwent 2 units of packed red blood cells with
improvement, endoscopy was reportedly normal without varices noted. She was then hospitalized at [facility] 02/2023 with acute anemia and transfused. Her CBC was monitored weekly and she occasionally required transfusions.
Apparently she was on and off eliquis 2.5mg BID for several months in setting of intermittent acute on chronic anemia. MRI of the abdomen 05/11/2023 consistent with cirrhosis with lesion of right hepatic lobe suspicious for possible HCC.
Progress Note - Security Rover
Subjective
Date of Service: August 12, 2024
-wt down 5 lbs overnight
-remains in NSR
-denies CP/SOB/palps/lightheadedness
Objective
Labs:
08/12/24 05:09
08/12/24 05:09
Labs
Hgb 10.2 g/dL (12.0-16.0) L 08/12/24 05:09
Hct 29.4 % (37.0-47.0) L 08/12/24 05:09
Plt Count 143 10^3/uL (130-400) D 08/12/24 05:09
PT 16.7 Sec (11.4-14.6) H 08/10/24 03:03
INR 1.37 08/10/24 03:03
APTT 90.3 Sec (23.4-35.0) H 08/12/24 07:44
Sodium 140 mmol/L (135-145) 08/12/24 05:09
Potassium 3.8 mmol/L (3.5-5.1) 08/12/24 05:09
BUN 23 mg/dl (7-17) H 08/12/24 05:09
Creatinine 0.6 mg/dL (0.6-1.0) 08/12/24 05:09
Glucose 102 mg/dl (70-99) H 08/12/24 05:09
Vital Signs and I&O:
Vital Signs
Temp Pulse Resp BP Pulse Ox
97.8 F 84 18 165/94 95
08/12/24 06:54 08/12/24 08:33 08/12/24 08:33 08/12/24 08:31 08/12/24 08:33
Vital Signs
Temp Pulse Resp BP Pulse Ox
97.8 F 84 18 165/94 95
08/12/24 06:54 08/12/24 08:33 08/12/24 08:33 08/12/24 08:31 08/12/24 08:33
Intake & Output
08/10/24 08/11/24 08/12/24 08/13/24
06:59 06:59 06:59 06:59
Intake Total 1401.6 / 1428.6 1621.0 / 1721.2 1791.2 / 1791.2
Output Total 3975 / 4015 1920 / 1920 350 / 350
Balance -2573.4 / -2586.4 -299.0 / -198.8 1441.2 / 1441.2
Physical Exam
Physical Exam
GEN: No distress, awake, Ox3
HEENT: supple, anicteric, mmm
LUNGS: CTA, no wheezes/rales
CV: Reg, S1/S2, no murmur
ABD: soft, BS+, NT/ND
EXT: No edema
NEURO: Gross non-focal
SKIN: No rash
--- NOTE | 2024-08-12 10:18 | W.PN.HOSP.TC ---
Today's Communication/Plan
-
see A/P
Assessment / Plan
Assessment / Plan
A/P:
# Acute hypoxic respiratory failure status post intubation and mechanical ventilation
Extubated on 08/09.
Passed swallow eval. Diet started, on soft and bite size
# New onset tonic-clonic seizures likely secondary to alcohol withdrawal seizure
# Acute Toxic metabolic encephalopathy likely multifactorial secondary to alcohol withdrawal versus delirium versus seizure related
CT head shows no acute abnormality
MRI brain with no focal acute intracranial malady. Mild diffuse cortical atrophy. Left sphenoid sinusitis.
UDS was found to be negative. Alcohol level not detected. Beta hydroxy was mildly elevated.
Keppra discontinued per neurology
s/p phenobarbital taper
Continue thiamine folic acid
s/p LP, negative for meningitis
s/p EEG
Off Precedex
# Acute kidney injury, resolved
# Metabolic acidosis, improving
s/p bicarb
Creatinine improved from 1.1 to 0.6 today
Renal/bladder US- negative for hydronephrosis
# Streptococcus bacteremia suspect 2/2 aspiration pneumonia from seizure
# MSSA pneumonia
Cont IV Rocephin 2g daily.
s/p vancomycin
ECHO: Normal left ventricular size. EF 40-45%. Normal diastolic function. Mitral valve opens normally. Thickened mitral valve leaflets. Mitral annular calcification. Mild mitral regurgitation. Mildly dilated aortic root.
ID following
# Atrial tachycardia
# Atrial fibrillation
Started Coreg 3.125 mg BID
Started heparin drip with plan for eventual transition to DOAC.
Cardiology on board
# Cardiomyopathy
Echo with EF of 40 to 45%, normal diastolic function. Mild concentric LVH. There is apical akinesis.
with anasarca, started IV Lasix 40mg IV daily
Cardiology on board
# Thrombocytopenia, resolved
# Acute on chronic decompensated Liver cirrhosis likely 2/2 alcohol abuse
# History of alcoholic cirrhosis
# History of alcohol use disorder
# Abdominal ultrasound noted with liver cirrhosis
Continue with lactulose.
# Hypokalemia/Hypomagnesemia
Replete/monitor
# Hyperglycemia
# Type 2 diabetes
Blood sugar 400s on admission
s/p insulin gtt.
A1c at 8.3 %
Started on insulin regimen. Cont Lantus 25 unit nightly
cover with Insulin sliding scale
reportedly on Wgovy
DM OVERSEAMER following
# Obesity
Full code
DVT prophylaxis�heparin drip
Dispo: PT OT recc acute , PMR consulted
DW RN
total time spent 51 min
Anticipated Discharge: > 48 hours
Subjective/Interval History
-
Date of Service: August 12, 2024
Objective Data
-
Labs:
Laboratory Results
08/12/24 08/12/24 08/12/24
01:00 05:09 07:44
WBC 6.8
Hgb 10.2 L
Hct 29.4 L
Plt Count 143 D
APTT 87.2 H 90.3 H
Sodium 140
Potassium 3.8
Chloride 106
Carbon Dioxide 21 L
BUN 23 H
Creatinine 0.6
Glucose 102 H
Calcium 9.0
Total Bilirubin 1.0
AST 42 H
ALT 37 H
Alkaline Phosphatase 131 H
Vital Signs:
Vital Signs
Temp Pulse Resp BP Pulse Ox
36.6 C 84 18 165/94 95
08/12/24 06:54 08/12/24 08:33 08/12/24 08:33 08/12/24 08:31 08/12/24 08:33
I&O
08/11/24 08/12/24 08/13/24
06:59 06:59 06:59
Intake Total 1621.0 / 1721.2 1791.2 / 1791.2
Output Total 1920 / 192 350 / 350
Balance -299.0 / -198.8 1441.2 / 1441.2
Review of Systems
-
All other systems: Reviewed and negative
Physical Exam
-
General: Well Developed, Well Nourished, No Apparent Distress, Comfortable and Conversant; Negative Respiratory Distress
HEENT: Normocephalic, Atraumatic, Nose Appears Normal and Ears Appear Normal; Negative Oxygen
Respiratory: Clear to Auscultation and Non Labored Respirations; Negative Accessory Resp Muscle Use
Cardiac: Regular Rhythm and S1/S2
GI: Soft, Nontender, Nondistended and Normal Bowel Sounds
Rectal: Other (rectal tube)
Skin: Warm and Dry
Neuro: Awake and Alert
Psych: Calm and Intact Judgement/Insight (somewhat)
Data Reviewed
-
Labs: Labs Reviewed by me
[2024-08-12] MEDS: DUPHALAC/CHRONULAC 20 GRAMS PO (10:52)
[2024-08-12] MEDS: MAGNESIUM SULFATE 100 IV (10:52)
--- NOTE | 2024-08-12 11:06 | PTCARENOTE ---
Retal tube off as per MD order. pt with PT/OT at this time.
[2024-08-12 11:21] LABS: Glucose - Point of Care 124 mg/dl (70-99)
[2024-08-12] MEDS: ZESTRIL 5 MG PO (11:42)
[2024-08-12] MEDS: JANUVIA 100 MG PO (11:42)
[2024-08-12] MEDS: GLUCOPHAGE 500 MG PO ×2 (11:42→16:45)
[2024-08-12] MEDS: NOVOLOG FLEXPEN-MODERATE RESISTANCE 3 UNITS SC (11:49)
[2024-08-12 11:50] LABS: Glucose - Point of Care 228 mg/dl (70-99)
[2024-08-12] MEDS: ATROVENT NEBULES INH (13:37)
[2024-08-12] MEDS: ROCEPHIN 2000 MG IV (13:39)
[2024-08-12] MEDS: STERILE WATER FOR INJECTION 20 ML IV (13:39)
--- NOTE | 2024-08-12 14:39 | PN.DE ---
Diabetes Education
- -
08/12/2024: Diabetes Education
This is a 59 year old female with hx of T2DM diagnosis, A1C of 8.3%
Met with pt at bedside for monitor and insulin instructions. He has been provided with Contour Next Ez glucometer. Reviewed proper testing technique for obtaining a blood glucose, new testing pattern given twice a day and expected results as noted
in take home education booklet. Discussed action of long acting insulin as well as symptoms and treatment of hypoglycemia. Aware to check blood glucose, fasting and at bedtime and inject Lantus in stomach or thigh, rotating sites before bedtime.
Aware to store insulin pens that are not in use in the refrigerator. Instructions with good return demonstration using the glucometer and insulin pen were noted and result of 186 mg/dl 20 minutes after lunch.
Discussed importance of checking blood sugars 2x/day to assess food/medication effect on her BS, reducing CHO intake, being active and losing weight. Provided information and handout on outpt education classes. Will need RX for test strips and
lancets for the Contour Next Ez glucometer, testing 2x/day, and Lantus as well as pen needles at discharge.
Will follow up wit pt tomorrow to reinforce education.
--- NOTE | 2024-08-12 15:30 | CM ---
Patient seen at bedside, 4 west extubated and on room air. Patient stated that she does not want to go to Acute Rehab, she wanted to ask about outpatient therapy and her roommate would take patient to outpatient appointments. Patient stated that her
roommate had a 'flexible job'. Therapy continue to recommend acute rehab. Patient with mod assistance for transfers and completed 4 sidesteps with RW mod A today. Patient with consult for PM&R assessment. CM will continue to follow for discharge
planning needs.
Plan; Acute Rehab vs SNF vs home with VN pending assessments
--- NOTE | 2024-08-12 16:02 | W.PN.ID1 ---
Date of Service
Date of Service: August 12, 2024
Today's Communication
Transition to cefdinir.
Assessment / Plan
New onset seizures
VDRF
Leukocytosis
Fever
Bacteremia with Streptococcus pneumoniae
Suspected aspiration pneumonia/pneumonitis secondary to seizure (vs. PNA secondary to strep pneumo)
HTN
DM
Hx EtOH cirrhosis
Obesity
Recommendations:
Susceptibilities of strep pneumo and Staph aureus reviewed.
CSF analysis reviewed and not indicative of meningitis.
On ceftriaxone (d#8)
Patient otherwise clinically stable. Will transition to oral cefdinir, to complete 4 more days of therapy.
Continue supportive measures.
Little more to offer from a Infectious Diseases standpoint.
Will see again at your request.
����������������������������������������������������������
Chief Complaint
-: Leukocytosis and Bacteremia
Subjective / Review of Systems
Patient seen and examined. Overall feels well. Reports small amount of sputum production. No shortness of breath. Minimal cough.
Vital Signs / Physical Exam
Vital Signs
Vital Signs
Temp Pulse Resp BP Pulse Ox
98.2 F 107 18 159/92 96
08/12/24 11:34 08/12/24 11:42 08/12/24 11:34 08/12/24 11:42 08/12/24 12:45
Physical Exam
Constitutional: Comfortable, Non-toxic and Obese
Eyes: No Conjunctival Hemorrhage and Sclera Anicteric
Cardiovascular: S1/S2; Negative S3/S4 or Murmur
Pulmonary: Rhonchi (Few; scattered. Diminished from yesterday.) and Coarse; Negative Wheezes or Rales
Gastrointestinal: Soft, Non Distended, Normal Bowel Sounds, No Rebound and No Guarding
Extremities: Edema; Negative Cyanosis or Erythema
Skin: Negative Rash or Jaundice
Neurological: Awake and Alert
Psychological: Calm
Objective Data
Lab Data
Lab Results
08/12/24 05:09
08/12/24 05:09
PT 16.7 Sec (11.4-14.6) H 08/10/24 03:03
INR 1.37 08/10/24 03:03
APTT 90.3 Sec (23.4-35.0) H 08/12/24 07:44
Estimated Creat Clear 113 ml/min 08/12/24 05:09
Lactic Acid 1.2 mmol/L (0.7-2.0) 08/06/24 13:38
Total Bilirubin 1.0 mg/dl (0.2-1.3) 08/12/24 05:09
AST 42 U/L (14-36) H 08/12/24 05:09
ALT 37 U/L (0-35) H 08/12/24 05:09
Alkaline Phosphatase 131 U/L (38-126) H 08/12/24 05:09
Most recent labs reviewed.
Micro Results:
08/05/24 13:12 Blood Culture - Final
Blood/Venous Streptococcus pneumoniae
Gram Stain - Final
08/08/24 13:30 CSF Culture - Preliminary
Csf No Growth After 4 Days
Gram Stain - Preliminary
08/06/24 13:38 Blood Culture - Final
Blood/Venous No Growth - Final Report
08/08/24 13:30 Acid Fast Bacilli Smear - Preliminary
Csf Acid Fast Bacilli Culture - Preliminary
08/08/24 13:30 Meningitis/Encephalitis Panel (PCR) - Final
Csf
08/05/24 13:12 Respiratory Culture - Final
Endotracheal S aureus-Methicillin Sensitive
Gram Stain - Final
08/04/24 20:38 MRSA Screen - Final
Nose No Methicillin Resistant Staphylococcus aureus isolated.
Imaging:
08/09/2024 CXR (portable): Hazy retrocardiac opacity with obscuration of the left hemidiaphragm noted.
08/07/2024 CXR (portable): No active cardiopulmonary disease noted. ET tube is 5 cm above the neo. Tip of nasogastric tube is below the esophageal gastric junction. Right-sided PICC is at the cavoatrial junction. The cardiac silhouette and
pulmonary vasculature are radiographically within normal limits. Please see full dictation for additional detail.
08/04/2024 CT head without contrast: No acute intracranial hemorrhage. No extra-axial collection noted. No significant abnormal parenchymal attenuation appreciated. No evidence of mass effect or midline shift seen.
[2024-08-12 16:42] LABS: Glucose - Point of Care 107 mg/dl (70-99)
[2024-08-12] MEDS: OMNICEF 300 MG PO (20:53)
[2024-08-12 21:45] LABS: Glucose - Point of Care 108 mg/dl (70-99)
[2024-08-12] MEDS: LANTUS 0.15 UNITS SC (22:00)
[2024-08-13] VITALS (8 sets, daily range): BP systolic 127–153; BP diastolic 62–87; PULSE 102; O2SAT 93; BMI 38.3
[2024-08-13 01:35] LABS: Lyme Disease DNA by PCR Not Detected; Lyme Source CSF
[2024-08-13 05:10] LABS: Hematocrit 30.2 % (37.0-47.0); Hemoglobin 10.4 g/dL (12.0-16.0); Mean Corp Hgb Conc. 34.4 g/dL (33.0-37.0); Mean Corpuscular Hgb 31.4 pg (27.0-31.0); Mean Corpuscular Volume 91.2 fL (81.0-99.0); Mean Platelet Volume 11.1 fL (7.4-10.4); Platelet Count 142 10^3/uL (130-400); Red Blood Cell Count 3.31 10^6/uL (4.20-5.40); Red Cell Dist. Width 13.6 % (11.5-14.5); White Blood Cell Count 6.2 10^3/uL (4.8-10.8)
[2024-08-13 05:15] LABS: APTT 102.6 Sec (23.4-35.0)
[2024-08-13] MEDS: SYNTHROID 50 MCG PO (05:20)
[2024-08-13 05:39] LABS: ALT (SGPT) 36 U/L (0-35); AST (SGOT) 38 U/L (14-36); Albumin 3.6 g/dl (3.5-5.0); Alkaline Phosphatase 128 U/L (38-126); Blood Urea Nitrogen 21 mg/dl (7-17); Carbon Dioxide 20 mmol/L (22-30); Chloride 105 mmol/L (98-107); Estimated Creatinine Clearance 111 ml/min; Glucose 119 mg/dl (70-99); Magnesium 1.7 mg/dl (1.6-2.3); Potassium 3.4 mmol/L (3.5-5.1); Sodium 140 mmol/L (135-145); Total Protein 6.6 g/dl (6.3-8.2); eGFR > 60.00
[2024-08-13] MEDS: XOPENEX 1.25 MG INHALANT SOLUTION INH ×3 (07:15→19:38)
[2024-08-13] MEDS: ATROVENT NEBULES 0.5 MG INH ×3 (07:15→19:38)
[2024-08-13 07:47] LABS: Glucose - Point of Care 134 mg/dl (70-99)
[2024-08-13] MEDS: NOVOLOG FLEXPEN-MODERATE RESISTANCE SC ×2 (08:02→12:13)
--- NOTE | 2024-08-13 08:12 | PN.DE.MGMTRT ---
Insulin Management
- -
08/13/2024: Diabetes Management Follow up:
Patient admitted 08/04 with altered mental status. seizures. PMH: Alcoholic cirrhosis, obesity, diabetes, HTN, HLD, hypothyroid, anxiety, CAD, A-Fib. Unknown if any diabetes medications were taken prior to admission. A1C 8.3%, cr .8, eGFR > 60.
08/06 started on tube feeds, contributing to Hyperglycemia, glycemic protocol initiated.
08/08 transitioned off glycemic protocol. 08/09 pt extubated
08/10 off steroids and tube feeds.
Pt is awake, alert, oriented, sitting out of bed in chair, able to discuss diabetes management
Reports she stopped checking her blood sugars a year ago. She thinks she was taking Metformin at some point but does not remember when she took it last.
States she was following up with an Endo in [place] who started her on Ozempic but it run out a while back and she never had it refilled.
08/11 started on diet, Lantus dose was reduced from 50 units to 25 units and AC NovoLog was placed on hold.
08/13 Metformin 500mg BID and Januvia 100 mg daily started 08/12, lantus reduced to 15 units @ HS. Glucose range premeal 97 to 228 yesterday, fasting 119 (V) this AM.
Will reinforce insulin and meter instruction today. She did well with return demonstration of glucose monitor. Nurse to reinforce self injection technique. Patient states she is comfortable with the injection because she took Ozempic in the past.
Discussed with patients nurse.
Diabetes History
- -
Type of Diabetes: 2
Pre-Admission Diabetes Regimen
08/13/24
04:21
Creatinine 0.6
Lab Results
Hemoglobin A1c 8.3 % (4.0-5.6) H 08/05/24 03:57
Insulin Pump Settings
IP Diabetes Regimen
08/11/24 08/12/24 08/12/24
01:24 11:48 16:41
Glucose
POC Glucose 124 H 228 H 107 H
08/12/24 08/13/24 08/13/24
21:36 04:21 07:45
Glucose 119 H
POC Glucose 108 H 134 H
Meal type: Dinner
Meal type: Lunch
Meal type: Breakfast
Amount consumed: 100%
Amount consumed: 100%
Amount consumed: 100%
Patient Education
[2024-08-13] MEDS: MAGNESIUM SULFATE 100 IV (08:38)
[2024-08-13] MEDS: ZESTRIL 5 MG PO (08:39)
[2024-08-13] MEDS: BUSPAR 10 MG PO ×2 (08:39→20:02)
[2024-08-13] MEDS: OMNICEF 300 MG PO ×2 (08:39→20:02)
[2024-08-13] MEDS: FOLVITE 1 MG TUBE (08:39)
[2024-08-13] MEDS: VITAMIN B1 100 MG PO (08:39)
[2024-08-13] MEDS: GLUCOPHAGE 500 MG PO (08:39)
[2024-08-13] MEDS: COREG 3.125 MG PO (08:39)
[2024-08-13] MEDS: JANUVIA 100 MG PO (08:39)
[2024-08-13] MEDS: ASPIR LOW (ENTERIC COATED) 81 MG PO (08:39)
[2024-08-13] MEDS: MIRALAX TUBE (08:40)
[2024-08-13] MEDS: DUPHALAC/CHRONULAC PO (08:40)
[2024-08-13] MEDS: LASIX 40 MG IV (08:40)
--- NOTE | 2024-08-13 09:02 | W.PN.HOSP.TC ---
Today's Communication/Plan
-
see A/P
Assessment / Plan
Assessment / Plan
A/P:
# Acute hypoxic respiratory failure status post intubation and mechanical ventilation
Extubated on 08/09.
Passed swallow eval. Diet started, on soft and bite size
# New onset tonic-clonic seizures likely secondary to alcohol withdrawal seizure
# Acute Toxic metabolic encephalopathy likely multifactorial secondary to alcohol withdrawal versus delirium versus seizure related
CT head shows no acute abnormality
MRI brain with no focal acute intracranial malady. Mild diffuse cortical atrophy. Left sphenoid sinusitis.
UDS was found to be negative. Alcohol level not detected. Beta hydroxy was mildly elevated.
Keppra discontinued per neurology
s/p phenobarbital taper
Continue thiamine folic acid
s/p LP, negative for meningitis
s/p EEG
Off Precedex
# Acute kidney injury, resolved
# Metabolic acidosis, improving
s/p bicarb
Creatinine improved from 1.1 to 0.6 today
Renal/bladder US- negative for hydronephrosis
# Streptococcus bacteremia suspect 2/2 aspiration pneumonia from seizure
# MSSA pneumonia
IV Rocephin 2g daily changed to cefdinir.
s/p vancomycin
ECHO: Normal left ventricular size. EF 40-45%. Normal diastolic function. Mitral valve opens normally. Thickened mitral valve leaflets. Mitral annular calcification. Mild mitral regurgitation. Mildly dilated aortic root.
ID following
# Atrial tachycardia
# Atrial fibrillation
Started Coreg 3.125 mg BID
Started heparin drip with plan for eventual transition to DOAC.
Cardiology on board
# Cardiomyopathy
Echo with EF of 40 to 45%, normal diastolic function. Mild concentric LVH. There is apical akinesis.
with anasarca, started IV Lasix 40mg IV daily
Added Coreg/lisinopril
Cardiology on board, plan for cath
# Thrombocytopenia, resolved
# Acute on chronic decompensated Liver cirrhosis likely 2/2 alcohol abuse
# History of alcoholic cirrhosis
# History of alcohol use disorder
# Abdominal ultrasound noted with liver cirrhosis
lactulose held due to profuse diarrhea
Monitor for Hepatic encephalopathy
# Hypokalemia/Hypomagnesemia due to diarrhea
Replete/monitor
# Hyperglycemia
# Type 2 diabetes
Blood sugar 400s on admission
s/p insulin gtt.
A1c at 8.3 %
Started on insulin regimen. Cont Lantus adjusted to 15 unit nightly
cover with Insulin sliding scale
reportedly on Wgovy
DM METAL FABRICATOR HELPER following
# Obesity
Full code
DVT prophylaxis�heparin drip
Dispo: PT OT recc acute , PMR consulted
DW RN
Anticipated Discharge: > 48 hours
Subjective/Interval History
-
Date of Service: August 13, 2024
Objective Data
-
Labs:
Laboratory Results
08/13/24 08/13/24
04:20 04:21
WBC 6.2
Hgb 10.4 L
Hct 30.2 L
Plt Count 142
APTT 102.6 H
Sodium 140
Potassium 3.4 L
Chloride 105
Carbon Dioxide 20 L
BUN 21 H
Creatinine 0.6
Glucose 119 H
Calcium 9.0
Total Bilirubin 1.0
AST 38 H
ALT 36 H
Alkaline Phosphatase 128 H
Vital Signs:
Vital Signs
Temp Pulse Resp BP Pulse Ox
36.8 C 91 18 149/85 93
08/13/24 06:49 08/13/24 07:15 08/13/24 07:15 08/13/24 06:49 08/13/24 07:15
I&O
08/12/24 08/13/24 08/14/24
06:59 06:59 06:59
Intake Total 1791.2 / 1791.2 1314 / 1314
Output Total 350 / 350
Balance 1441.2 / 1441.2 1314 / 1314
Review of Systems
-
All other systems: Reviewed and negative
Physical Exam
-
General: Well Developed, Well Nourished, No Apparent Distress, Comfortable and Conversant; Negative Respiratory Distress
HEENT: Normocephalic, Atraumatic, Nose Appears Normal and Ears Appear Normal; Negative Oxygen
Respiratory: Clear to Auscultation and Non Labored Respirations; Negative Accessory Resp Muscle Use
Cardiac: Regular Rhythm and S1/S2
GI: Soft, Nontender, Nondistended and Normal Bowel Sounds
Skin: Warm and Dry
Neuro: Awake and Alert
Psych: Calm and Intact Judgement/Insight (somewhat)
Data Reviewed
-
Labs: Labs Reviewed by me
[2024-08-13] MEDS: KCL 270 MEQ IV (10:17)
--- NOTE | 2024-08-13 11:08 | W.PN.CARDCBS ---
Addendum entered and electronically signed by Vince Newby MD 08/13/24 14:46:
Echocardiogram unchanged. Discussed with patient. For cardiac cath on 08/14
Addendum entered and electronically signed by Vince Newby MD 08/13/24 11:26:
I saw and examined the patient.
The FLATWORK CATCHER or PA's note was reviewed and I agree with the note.
Comment: General: Well developed, well nourished in NAD.
Neck: Supple, no JVD, HJR, carotids +2 B/L, no bruits bilaterally.
Heart: Non displaced PMI, RRR, no murmurs, No S3, S4, no rubs.
Lungs: Scattered rhonchi
Extremities: No clubbing, cyanosis or edema bilaterally.
Neuro: Grossly nonfocal, awake, alert and oriented x3.
Plan is to repeat echocardiogram and if remains abnormal we will do cardiac catheterization on 08/14. Will increase Coreg. Consider eventual Aldactone and Farxiga/Jardiance if ejection fraction remains reduced. She remains on IV heparin. Will
need to discuss whether Eliquis will be resumed as this was stopped due to anemia as an outpatient intermittently in the past
Original Note:
Today's Communication / Plan
-
repeat echo
potential for L/R cath in AM
increase coreg
consider addition of aldactone/SGLT2 inh as able
Impression / Plan
-
.
Primary Upkeep Mechanic: unknown
PCP: previously Dr. Bob Kirby, however not seen there since 04/2023
Impression:
Presentation with seizure activity, tonic clonic seizures, suspected ETOH withdrawal
Traumatic intubation
Bacteremia with leukocytosis, concern for PNA
Abnormal urine
Hypotensive, requiring pressor support
Cardiomyopathy, EF 40-45%
Elevated troponin, peak 0.857
Thrombocytopenia
Type 2 diabetes, uncontrolled
HTN
Obesity
History of ETOH use disorder
History of possible ETOH cirrhosis
Atrial tachycardia
ECHO 08/06/24: EF 40 to 45%, mild concentric LVH, apical akinesis, MAC, mild MR, mildly dilated aortic root measuring 3.7 cm at sinus of Valsalva, ascending aorta 3.8 cm
Plan:
-Patient presented with seizures. She is now able to relay that she had severe alcohol use disorder in past. She reports she had been sober for approximately 1 year, however then about a week prior to admission 'fell off the wagon' for about 4
days. She states she then stopped alcohol use and a day or 2 later came in with seizures. Likely alcohol withdrawal
-she is much improved from admission
-Cardiology consulted due to echocardiogram which showed EF 40 to 45%
-Uptitrated Coreg today. Also on lisinopril. Would consider addition of Aldactone and SGLT2 inhibitor (will have case management assess cost to patient)
-Remains in sinus rhythm on review of telemetry
-She is currently on IV heparin. Of note, she has history of GI bleeding of unclear source and was taken off anticoagulation due to this in the past. She reports she was being considered for watchman. hgb 10.4
-trop peaked at 0.857. no CP
-plan for follow up echo today to reassess EF
-remains on IV lasix 40mg daily. Cr stable. replete K. weight now back to admission weight.
-consider for L/R cath in AM if EF remains reduced.
-continue asa. consider statin if LFTs continue to downtrend. LDL 113.
-Continue antibiotics for strep pneumonia bacteremia.
-treatment of seizure disorder, presumed alcohol withdrawal per primary service. [facility] protocol
-d/w nursing
As per up-to-date prior records obtained she does have history of congestive heart failure in the setting of rapid A-fib and reportedly is maintained on po lasix 20mg daily. Last echocardiogram 10/16/2022 with EF 55 to 60%, moderate to severe left
atrial dilation, dilated IVC which does not collapse, mild MR, aortic sclerosis. Noted by chest CTA 10/16/22 to have 2.6 cm thyroid nodule, enlarged spleen, and evidence of cirrhosis. She reportedly underwent colonoscopy 10/2022 and had large polyp
status post excision at [place] with benign pathology. Between October and February 2023 she had routine labs for cardiology visit and found to have a hemoglobin of 5.7. She was admitted and underwent 2 units of packed red blood cells with
improvement, endoscopy was reportedly normal without varices noted. She was then hospitalized at [facility] 02/2023 with acute anemia and transfused. Her CBC was monitored weekly and she occasionally required transfusions.
Apparently she was on and off eliquis 2.5mg BID for several months in setting of intermittent acute on chronic anemia. MRI of the abdomen 05/11/2023 consistent with cirrhosis with lesion of right hepatic lobe suspicious for possible HCC.
Progress Note - Upkeep Mechanic
Subjective
Date of Service: August 13, 2024
no CP, SOB.
Objective
Labs:
08/13/24 04:20
08/13/24 04:21
Labs
Hgb 10.4 g/dL (12.0-16.0) L 08/13/24 04:20
Hct 30.2 % (37.0-47.0) L 08/13/24 04:20
Plt Count 142 10^3/uL (130-400) 08/13/24 04:20
PT 16.7 Sec (11.4-14.6) H 08/10/24 03:03
INR 1.37 08/10/24 03:03
APTT 102.6 Sec (23.4-35.0) H 08/13/24 04:21
Sodium 140 mmol/L (135-145) 08/13/24 04:21
Potassium 3.4 mmol/L (3.5-5.1) L 08/13/24 04:21
BUN 21 mg/dl (7-17) H 08/13/24 04:21
Creatinine 0.6 mg/dL (0.6-1.0) 08/13/24 04:21
Glucose 119 mg/dl (70-99) H 08/13/24 04:21
Vital Signs and I&O:
Vital Signs
Temp Pulse Resp BP Pulse Ox
98.2 F 91 18 149/85 93
08/13/24 06:49 08/13/24 07:15 08/13/24 07:15 08/13/24 06:49 08/13/24 07:15
Vital Signs
Temp Pulse Resp BP Pulse Ox
98.2 F 91 18 149/85 93
08/13/24 06:49 08/13/24 07:15 08/13/24 07:15 08/13/24 06:49 08/13/24 07:15
Intake & Output
08/11/24 08/12/24 08/13/24 08/14/24
07:59 07:59 07:59 07:59
Intake Total 1694.2 / 1778.2 1691 / 1691 1314 / 1314
Output Total 1880 / 1880 350 / 350
Balance -185.8 / -101.8 1341 / 1341 1314 / 1314
Physical Exam
Physical Exam
GEN: No distress, awake, alert, oriented x3. sitting in chair
HEENT: supple, anicteric, mmm, eomi
LUNGS: CTA B/L, no wheezes/rales
CV: Reg, S1/S2, no murmur
ABD: soft, BS+, NT/ND
EXT: No cyanosis, clubbing. trace edema of B/L LE. 1+ of RUE, trace of LUE
NEURO: Gross non-focal
SKIN: Warm, pink, dry. No rash
[2024-08-13] MEDS: HEPARIN 25000 UNITS/250 ML IV (11:41)
[2024-08-13 12:06] LABS: Glucose - Point of Care 131 mg/dl (70-99)
--- NOTE | 2024-08-13 16:59 | PTOTSP ---
ST Follow-Up
Pt presents with clinical signs of suspected mild pharyngeal dysphagia characterized by occasional intermittent throat clearing with PO intake. Pt also with reduced insight to safety precautions and current deficits.
Recommendations:
- UPGRADE to REGULAR SOLIDS and continue thin liquids; meds as tolerated.
- Aspiration precautions: HOB fully upright for PO intake; slow intake rate; small bites/sips.
- RETIREMENT PLAN SPECIALIST to f/u re: diet tolerance of diet upgrade and to determine if pt would benefit from an instrumental swallow study.
[2024-08-13 17:06] LABS: Glucose - Point of Care 154 mg/dl (70-99)
[2024-08-13] MEDS: NOVOLOG FLEXPEN-MODERATE RESISTANCE 1 UNITS SC (17:34)
--- NOTE | 2024-08-13 18:27 | PTCARENOTE ---
Patient AccuCheck at dinner was 154. Assisted with giving NovoLog injection to herself. Patient agreeable and followed instructions appropriately.
[2024-08-13] MEDS: COREG 6.25 MG PO (20:02)
[2024-08-13 21:27] LABS: Glucose - Point of Care 156 mg/dl (70-99)
[2024-08-13] MEDS: LANTUS 0.15 UNITS SC (21:28)
[2024-08-14] VITALS (11 sets, daily range): BP systolic 125–150; BP diastolic 59–83; BMI 38.1; BMI 38.0
[2024-08-14] MEDS: HEPARIN 25000 UNITS/250 ML IV (02:37)
[2024-08-14] MEDS: SYNTHROID 50 MCG PO (05:07)
[2024-08-14] MEDS: NOVOLOG FLEXPEN-MODERATE RESISTANCE SC ×2 (05:09→13:13)
[2024-08-14 05:10] LABS: Glucose - Point of Care 137 mg/dl (70-99)
[2024-08-14 05:48] LABS: APTT 99.8 Sec (23.4-35.0)
[2024-08-14 06:40] LABS: ALT (SGPT) 40 U/L (0-35); AST (SGOT) 44 U/L (14-36); Albumin 3.9 g/dl (3.5-5.0); Alkaline Phosphatase 137 U/L (38-126); Blood Urea Nitrogen 22 mg/dl (7-17); Calcium 9.4 mg/dl (8.4-10.2); Carbon Dioxide 21 mmol/L (22-30); Chloride 105 mmol/L (98-107); Estimated Creatinine Clearance 111 ml/min; Glucose 138 mg/dl (70-99); Magnesium 1.6 mg/dl (1.6-2.3); Potassium 3.8 mmol/L (3.5-5.1); Sodium 139 mmol/L (135-145); Total Bilirubin 1.1 mg/dl (0.2-1.3); eGFR > 60.00
[2024-08-14] MEDS: ATROVENT NEBULES 0.5 MG INH ×3 (07:21→19:21)
[2024-08-14] MEDS: XOPENEX 1.25 MG INHALANT SOLUTION INH ×3 (07:21→19:21)
--- NOTE | 2024-08-14 07:33 | PN.DE.MGMTRT ---
Insulin Management
- -
08/14/2024: Diabetes Management Follow up:
Patient admitted 08/04 with altered mental status. seizures. PMH: Alcoholic cirrhosis, obesity, diabetes, HTN, HLD, hypothyroid, anxiety, CAD, A-Fib. Unknown if any diabetes medications were taken prior to admission. A1C 8.3%, cr .8, eGFR > 60.
08/06 started on tube feeds, contributing to Hyperglycemia, glycemic protocol initiated.
08/08 transitioned off glycemic protocol. 08/09 pt extubated
08/10 off steroids and tube feeds.
Pt is awake, alert, oriented, sitting out of bed in chair, able to discuss diabetes management, for cardiac cath today.
Reports she stopped checking her blood sugars a year ago. She thinks she was taking Metformin at some point but does not remember when she took it last.
States she was following up with an Endo in [place] who started her on Ozempic but it ran out a while back and she never had it refilled.
08/11 started on diet, Lantus dose was reduced from 50 units to 25 units and AC NovoLog was placed on hold.
08/14 Glucose range premeal 119 to 156 yesterday, fasting 138 this AM. Will continue Metformin 500mg BID and Januvia 100 mg daily, lantus 15 units @ HS.
Meter use and insulin administration reinforced. She did well with return demonstration of glucose monitor. Nursing reports patient did excellent with self injection technique. Patient states she is comfortable with the injection because she took
Ozempic in the past.
Discussed with patients nurse.
Diabetes History
- -
Type of Diabetes: 2 requiring insulin
Pre-Admission Diabetes Regimen
08/14/24
05:21
Creatinine 0.6
Lab Results
Hemoglobin A1c 8.3 % (4.0-5.6) H 08/05/24 03:57
Insulin Pump Settings
IP Diabetes Regimen
08/13/24 08/13/24 08/13/24
07:45 12:05 17:04
Glucose
POC Glucose 134 H 131 H 154 H
08/13/24 08/14/24 08/14/24
21:26 05:08 05:21
Glucose 138 H
POC Glucose 156 H 137 H
Meal type: Lunch
Meal type: Breakfast
Amount consumed: 75%
Amount consumed: 100%
Patient Education
[2024-08-14 07:53] LABS: Glucose - Point of Care 137 mg/dl (70-99)
[2024-08-14] MEDS: FOLVITE 1 MG TUBE (08:10)
[2024-08-14] MEDS: COREG 6.25 MG PO ×2 (08:10→20:15)
[2024-08-14] MEDS: VITAMIN B1 100 MG PO (08:10)
[2024-08-14] MEDS: OMNICEF 300 MG PO ×2 (08:10→20:15)
[2024-08-14] MEDS: BUSPAR 10 MG PO ×2 (08:10→20:15)
[2024-08-14] MEDS: ASPIR LOW (ENTERIC COATED) 81 MG PO (08:10)
[2024-08-14] MEDS: ZESTRIL 5 MG PO (08:11)
[2024-08-14] MEDS: LASIX 40 MG IV (08:11)
[2024-08-14] MEDS: JANUVIA PO (08:12)
--- NOTE | 2024-08-14 10:06 | W.PN.HOSP.TC ---
Today's Communication/Plan
-
see A/P
Assessment / Plan
Assessment / Plan
A/P:
# Acute hypoxic respiratory failure status post intubation and mechanical ventilation
Extubated on 08/09.
Passed swallow eval. Diet started, can be advanced to solid thin liquids per SPL
# New onset tonic-clonic seizures likely secondary to alcohol withdrawal seizure
# Acute Toxic metabolic encephalopathy likely multifactorial secondary to alcohol withdrawal versus delirium versus seizure related
CT head shows no acute abnormality
MRI brain with no focal acute intracranial malady. Mild diffuse cortical atrophy. Left sphenoid sinusitis.
UDS was found to be negative. Alcohol level not detected. Beta hydroxy was mildly elevated.
Keppra discontinued per neurology
s/p phenobarbital taper
Continue thiamine folic acid
s/p LP, negative for meningitis
s/p EEG
Off Precedex
# Acute kidney injury, resolved
# Metabolic acidosis, improving
s/p bicarb
Creatinine improved from 1.1 to 0.6 today
Renal/bladder US- negative for hydronephrosis
# Streptococcus bacteremia suspect 2/2 aspiration pneumonia from seizure
# MSSA pneumonia
IV Rocephin 2g daily changed to cefdinir.
s/p vancomycin
ECHO: Normal left ventricular size. EF 40-45%. Normal diastolic function. Mitral valve opens normally. Thickened mitral valve leaflets. Mitral annular calcification. Mild mitral regurgitation. Mildly dilated aortic root.
ID following
# Atrial tachycardia
# Atrial fibrillation
Started Coreg
Started heparin drip with plan for eventual transition to DOAC.
Cardiology on board
# Cardiomyopathy
Echo with EF of 40 to 45%, normal diastolic function. Mild concentric LVH. There is apical akinesis.
with anasarca, started IV Lasix 40mg IV daily
Added Coreg/lisinopril
Cardiology on board, plan for cath 08/14
# Thrombocytopenia, resolved
# Alcoholic liver cirrhosis
# History of alcohol use disorder
lactulose held due to profuse diarrhea
Monitor for Hepatic encephalopathy
# Hypokalemia/Hypomagnesemia due to diarrhea
Replete/monitor
# Hyperglycemia
# Type 2 diabetes
Blood sugar 400s on admission
s/p insulin gtt.
A1c at 8.3 %
Started on insulin regimen. Cont Lantus adjusted to 15 unit nightly
cover with Insulin sliding scale
reportedly on Wgovy
DM COMPUTATIONAL SCIENCES PROFESSOR following
# Obesity
Full code
DVT prophylaxis�heparin drip
Dispo: PT OT recc acute, PMR consulted
Anticipated Discharge: 24 - 48 hours
Subjective/Interval History
-
Date of Service: August 14, 2024
Objective Data
-
Labs:
Laboratory Results
08/14/24
05:21
APTT 99.8 H
Sodium 139
Potassium 3.8
Chloride 105
Carbon Dioxide 21 L
BUN 22 H
Creatinine 0.6
Glucose 138 H
Calcium 9.4
Total Bilirubin 1.1
AST 44 H
ALT 40 H
Alkaline Phosphatase 137 H
Vital Signs:
Vital Signs
Temp Pulse Resp BP Pulse Ox
37.3 C 87 18 131/59 97
08/14/24 08:00 08/14/24 08:11 08/14/24 08:00 08/14/24 08:11 08/14/24 08:00
I&O
08/13/24 08/14/24 08/15/24
06:59 06:59 06:59
Intake Total 1314 / 1314 684 / 684
Balance 1314 / 1314 684 / 684
Review of Systems
-
All other systems: Reviewed and negative
Physical Exam
-
General: Well Developed, Well Nourished, No Apparent Distress, Comfortable and Conversant; Negative Respiratory Distress
HEENT: Normocephalic, Atraumatic, Nose Appears Normal and Ears Appear Normal; Negative Oxygen
Respiratory: Clear to Auscultation and Non Labored Respirations; Negative Accessory Resp Muscle Use
Cardiac: Regular Rhythm and S1/S2
GI: Soft, Nontender, Nondistended and Normal Bowel Sounds
Skin: Warm and Dry
Neuro: Awake and Alert
Psych: Calm and Intact Judgement/Insight (somewhat)
Data Reviewed
-
Labs: Labs Reviewed by me
--- NOTE | 2024-08-14 10:27 | PTCARENOTE ---
Report called to cardiovascular lab director. Heparin at 1700 units/hour. PTT this am - 99.8. Therapeutic range so no changes. Patient has been NPO since midnight except for medications. Patient verbalizes understanding of procedure. research laboratory specialist staff to bedside to
transport patient.
--- NOTE | 2024-08-14 10:55 | CM ---
requested med cost for Konstantin Rodrigues. Called [facility] they said no policy on file.
[facility] could not obtained [place] for patient.
Spoke with [facility] policy [phone] spoke with nieves no policy found.
[facility] with [facility] she had requested information from pts family at admission but no info received yet.As per [facility] she makes too much for Medicaid
[facility] will follow up with family today.
PLAN CM will continue to assess and assist with dc planning.
[2024-08-14 11:45] LABS: ACT-LR - POC 316 Seconds (116-155)
[2024-08-14 11:59] LABS: ACT-LR - POC 253 Seconds (116-155)
--- NOTE | 2024-08-14 12:22 | ITS.CL.ANGIO ---
Shoe Salesperson - Angioplasty
Angioplasty
Procedure Report:
CARDIAC CATHETERIZATION REPORT
Date of Procedure: 08/14/2024
Referring: Yakov Menendez M.D.
Indication: New cardiomyopathy, non-ST elevation myocardial infarction.
PROCEDURE:
1. Right heart catheterization.
2. Left heart catheterization.
3. Coronary angiography.
4. Successful IFR of the mid LAD.
5. Successful PCI of the mid LAD.
ACCESS:
6 Ivorian right radial artery.
5 Ivorian right common femoral vein using a modified Seldinger technique with a micropuncture kit under ultrasound guidance.
CATHETERS:
1. 5 Ivorian balloon wedge.
2. 5 Ivorian JL 3.5.
3. 5 Ivorian JR4.
4. 6 Ivorian EBU 3.75 guiding catheter.
HEMODYNAMIC DATA
Weight (kg): 97.3
AO (s/d/x mmHg): 137/77/103
LV (s/x mmHg): 137/20 (A wave to 33)
PCWP (a/v/x mmHg): 26/25/22
PA (s/d/x mmHg): 37//29
RV (s/x mmHg): 37/15
RA (a/v/x mmHg): 17/17/15
SVC SvO2 (%): 68.4
PA SvO2 (%): 68.5
SaO2 (%): 93.1
Hbg (g/dL): 9.8
CO (L/min): 6.16
CI (L/min/m2): 3.09
TPG (mmHg): 7
PVR (Patel Units): 1.14
SVR (dynes*seconds*cm^-5): 1143
AVO2 Diff (Volume %): 3.28
AV gradient (x, mmHg): None.
AV area (cm2): Normal.
LEFT VENTRICULOGRAPHY: Not performed.
CORONARY ANGIOGRAPHY
Dominance: Right.
Left Main: Large size, bifurcating vessel. There is no coronary artery disease.
LAD: Large size vessel giving rise to 2 significant diagonals before wrapping around the apex. There is a 70% lesion in the mid LAD.
Ramus: Congenitally absent.
Circumflex: Large size, nondominant vessel that is essentially a single large marginal. There are calcified luminal irregularities in the proximal vessel.
RCA: Large size, dominant vessel with a significant posterolateral arcade. There is no coronary artery disease.
INTERVENTIONS
1. Successful IFR of the 70% mid LAD lesion, demonstrating occlusive disease (IFR = 0.83).
2. Successful PCI of the occlusive 70% mid LAD lesion (Medtronic [place] 3.5 x 18 CATALINO, postdilated with a 3.5 x 15 NC balloon) with reduction in stenosis to 0%, maintaining CARLA-3 flow.
Narrative:
The decision was made to perform physiologic testing on the 70% mid LAD lesion. The diagnostic catheter was removed over a wire and exchanged for a(n) 6 Ivorian EBU 3.75 guiding catheter. The guiding catheter was advanced into the ascending aorta
and seated in the left main coronary artery. Additional heparin was given to obtain an ACT greater than 250 seconds. An iFR wire was zeroed outside of the body, then inserted into the guiding sheath. The wire was advanced and the transducer was
normalized just outside of the guiding catheter tip. The wire was advanced into the distal LAD. Three iFR measurements were taken. The lesion was determined to be occlusive (0.83).
The decision was made to proceed with percutaneous coronary intervention. The Omni wire was withdrawn and a Power Turn Flex wire was advanced into the distal LAD. The 70% mid LAD lesion was predilated with a 2.0 x 12 semi-compliant balloon to 12
carol. The semi-compliant balloon was removed and a Medtronic [place] 3.5 x 18 drug-eluting stent was advanced. The stent was deployed at 12 atmospheres. The stent balloon was removed. There was significant residual stent underexpansion in the
body of the stent, demonstrating previously underappreciated calcification. A 3.5 x 15 noncompliant balloon was advanced into the stent and the stent was postdilated to 22 atmospheres with release of the lesion and full stent expansion. Angiography
was performed in orthogonal views, confirming good stent expansion and an excellent angiographic result. The coronary wire was withdrawn and the guide was disengaged from the artery. The catheter was removed over a standard J-wire.
Closure Device: Vascular band for the right radial artery, manual pressure for the right antecubital vein.
Radiation dose (mGy): 579.17
DAP (cm2.Gy): 42.2584
Fluoroscopy time (minutes): 11.3
Sedation time (minutes): 30
CONCLUSIONS:
1. Right dominant circulation with calcified luminal irregularities in the circumflex and a calcified, occlusive, 70% mid LAD lesion (IFR = 0.83) status post successful PCI (Medtronic [place] 3.5 x 18 CATALINO, postdilated with a 3.5 NC balloon)
with reduction in stenosis to 0%, maintaining CARLA-3 flow.
2. Mixed ischemic/nonischemic cardiomyopathy, left ventricular ejection fraction 40-45% by echocardiogram.
3. Moderately elevated filling pressures (PCWP = 22 mmHg, LVEDP = 20 mmHg at 97.3 kg) with evidence of diastolic dysfunction (A wave to 33 mmHg).
4. Mild, postcapillary pulmonary hypertension (mean PA pressure = 29 mmHg, PCWP = 22 mmHg, PVR = 1.14 Patel units), WHO group 2.
5. Preserved cardiac function (cardiac output = 6.16 L/min, index = 3.09 L/min/m�).
RECOMMENDATIONS:
1. Expectant management after cardiac catheterization via right radial and right common femoral approach.
2. Limited weight bearing on the right wrist for one week.
3. Dual antiplatelet therapy with aspirin and ticagrelor for at least 12 months, followed by aspirin indefinitely.
4. Aggressive secondary prevention with high-dose, high potency statin and modification of risk factors.
5. Guideline directed medical therapy as hemodynamics will tolerate.
6. Complete alcohol abstinence.
7. Referral to cardiac rehab.
Copy to: Yakov Menendez M.D., Bob Kirby D.O.
Vince Landaverde DO, FACC, FACP
[2024-08-14 12:40] LABS: Glucose - Point of Care 123 mg/dl (70-99)
[2024-08-14] MEDS: MAGNESIUM SULFATE 100 IV (12:54)
--- NOTE | 2024-08-14 14:36 | W.PN.CARDCBS ---
Addendum entered and electronically signed by Yakov Lovell MD 08/14/24 15:38:
I saw and examined the patient.
The Excellence Coach's note was reviewed and I agree with the note.
Comment: Briefly, 59-year-old woman presenting with seizure and suspected alcohol withdrawal who is identified as having new cardiomyopathy with LVEF 40% and regional wall motion abnormalities as well as mildly elevated troponin
Underwent left heart catheterization today and was found to have mid LAD stenosis which was IFR positive and intervention was performed with drug-eluting stent
Currently resting comfortably out of bed to chair and is chest pain-free
Recommend aspirin/Plavix, high intensity statin and beta-inocente for treatment of coronary disease
Given her cardiomyopathy she is being maintained on lisinopril with tentative plan to add Aldactone
Unfortunately SGLT2 inhibitor is likely to be prohibitively expensive
Consider continue gentle diuresis for the next 24 to 48 hours given elevated pulmonary capillary wedge pressure
Rest per Tran Lima
Original Note:
Today's Communication / Plan
-
s/p LAD PCI
continue IV lasix
asa, plavix, coreg, lisinopril. consider aldactone in AM
consider statin pending LFT trends
cardiac rehab
OP cardiac follow up
Impression / Plan
-
.
Primary Flasher Adjuster: unknown
PCP: previously Dr. Bob Kirby, however not seen there since 04/2023
Impression:
Presentation with seizure activity, tonic clonic seizures, suspected ETOH withdrawal
Traumatic intubation
Bacteremia with leukocytosis, concern for PNA
Abnormal urine
Hypotensive, requiring pressor support
Cardiomyopathy, EF 40-45%
NSTEMI, peak trop 0.857 s/p LAD PCI 08/14/24
Thrombocytopenia
Type 2 diabetes, uncontrolled
HTN
Obesity
History of ETOH use disorder
History of possible ETOH cirrhosis
Atrial tachycardia
ECHO 08/06/24: EF 40 to 45%, mild concentric LVH, apical akinesis, MAC, mild MR, mildly dilated aortic root measuring 3.7 cm at sinus of Valsalva, ascending aorta 3.8 cm
ECHO 08/13/24: EF 40 to 45%, mild concentric LVH, apical akinesis, posterior MAC and adequate excursion of leaflets, no significant change compared to prior
Plan:
-Patient presented with seizures. She is now able to relay that she had severe alcohol use disorder in past. She reports she had been sober for approximately 1 year, however then about a week prior to admission 'fell off the wagon' for about 4
days. She states she then stopped alcohol use and a day or 2 later came in with seizures. Likely alcohol withdrawal
-Echo with EF 40 to 45%, new cardiomyopathy
-trop peaked at 0.857. Status post cardiac catheterization today resulting in LAD PCI
-TR band remains in place. she will not be able to afford brilinta. continue asa. transition to plavix in AM, d/w stores laborer ORTHODONTIC LABORATORY TECHNICIAN
-Of note, she has history of GI bleeding of unclear source and was taken off anticoagulation (for afib) due to this in the past. She reports she was being considered for watchman. repeat cbc in AM
-Continue Coreg, lisinopril. would add Aldactone in a.m. if creatinine stable. She will not be able to afford SGLT2 inhibitor
-Remains in sinus rhythm on review of telemetry
-PCWP during cath was 22. remains on IV lasix 40mg daily, consider transition to po in 24-48 hours. Cr stable.
-continue asa. consider statin if LFTs continue to downtrend. LDL 113.
-Continue antibiotics for strep pneumonia bacteremia.
-treatment of seizure disorder, presumed alcohol withdrawal per primary service. [facility] protocol
-d/w YANIRA, working on getting her MA
-will arrange OP cardiac follow up
-cardiac rehab
As per up-to-date prior records obtained she does have history of congestive heart failure in the setting of rapid A-fib and reportedly is maintained on po lasix 20mg daily. Last echocardiogram 10/16/2022 with EF 55 to 60%, moderate to severe left
atrial dilation, dilated IVC which does not collapse, mild MR, aortic sclerosis. Noted by chest CTA 10/16/22 to have 2.6 cm thyroid nodule, enlarged spleen, and evidence of cirrhosis. She reportedly underwent colonoscopy 10/2022 and had large polyp
status post excision at [place] with benign pathology. Between October and February 2023 she had routine labs for cardiology visit and found to have a hemoglobin of 5.7. She was admitted and underwent 2 units of packed red blood cells with
improvement, endoscopy was reportedly normal without varices noted. She was then hospitalized at [facility] 02/2023 with acute anemia and transfused. Her CBC was monitored weekly and she occasionally required transfusions.
Apparently she was on and off eliquis 2.5mg BID for several months in setting of intermittent acute on chronic anemia. MRI of the abdomen 05/11/2023 consistent with cirrhosis with lesion of right hepatic lobe suspicious for possible HCC.
Progress Note - Flasher Adjuster
Subjective
Date of Service: August 14, 2024
denies CP, SOB, palpitations
Objective
Labs:
08/13/24 04:20
08/14/24 05:21
Labs
Hgb 10.4 g/dL (12.0-16.0) L 08/13/24 04:20
Hct 30.2 % (37.0-47.0) L 08/13/24 04:20
Plt Count 142 10^3/uL (130-400) 08/13/24 04:20
PT 16.7 Sec (11.4-14.6) H 08/10/24 03:03
INR 1.37 08/10/24 03:03
APTT 99.8 Sec (23.4-35.0) H 08/14/24 05:21
Sodium 139 mmol/L (135-145) 08/14/24 05:21
Potassium 3.8 mmol/L (3.5-5.1) 08/14/24 05:21
BUN 22 mg/dl (7-17) H 08/14/24 05:21
Creatinine 0.6 mg/dL (0.6-1.0) 08/14/24 05:21
Glucose 138 mg/dl (70-99) H 08/14/24 05:21
Vital Signs and I&O:
Vital Signs
Temp Pulse Resp BP Pulse Ox
98.4 F 93 18 125/79 96
08/14/24 12:36 08/14/24 14:00 08/14/24 12:36 08/14/24 14:00 08/14/24 12:36
Vital Signs
Temp Pulse Resp BP Pulse Ox
98.4 F 93 18 125/79 96
08/14/24 12:36 08/14/24 14:00 08/14/24 12:36 08/14/24 14:00 08/14/24 12:36
Intake & Output
08/12/24 08/13/24 08/14/24 08/15/24
07:59 07:59 07:59 07:59
Intake Total 1691 / 1691 1314 / 1314 684 / 684
Output Total 350 / 350 400 / 400
Balance 1341 / 1341 1314 / 1314 684 / 684 -400 / -400
Physical Exam
Physical Exam
GEN: No distress, awake, alert, oriented x3.
HEENT: supple, anicteric, mmm, eomi
LUNGS: CTA B/L, no wheezes/rales
CV: Reg, S1/S2, no murmur
ABD: soft, BS+, NT/ND
EXT: No cyanosis, clubbing. trace edema of B/L LE. TR band R wrist
NEURO: Gross non-focal
SKIN: Warm, pink, dry. No rash
--- NOTE | 2024-08-14 16:15 | CM ---
spoke with Lelo in admission, pts listed 'insurance' plan is not medical insurance for hospitalization, MD appts or perscriptions. pt confirmed that she gets SSD check monthly and works parts department supervisor at [employer]. Yara from [facility] [[email or web address]] notified and was in to
see pt. pt gave her passport, drivers license and ss card. i placed a call with pt to [employer] and requested her oct checking and savings statement be emailed to her for [facility] [[email or web address]] documentation. cm to check with pt tomorrow and email statements
to [facility] [[email or web address]]. Form [id number] filled out, signed and faxed to [facility] [[email or web address]]. [facility] [[email or web address]] tells me she thinks MA will go thru within 45 days. PEBBLES Driscoll, Nanda Camp, ISABELLE, and Dr Moore all aware that meds need to be generic for dc.
CM will need to [place] generic meds and work with pt to make sure she can afford meds until MA is active. CM to follow up with pt in AM.
[2024-08-14 17:58] LABS: Glucose - Point of Care 191 mg/dl (70-99)
[2024-08-14] MEDS: NOVOLOG FLEXPEN-MODERATE RESISTANCE 1 UNITS SC (19:15)
--- NOTE | 2024-08-14 19:36 | PTCARENOTE ---
Pt received post cardiac cath done via right radial artery and right femoral vein. Radial band removed without problem, right femoral vein dressing dry and intact, no sign of bleeding or hematoma in either site. Pt OOB with supervision, voiding in
bathroom. Telemetry shows sinus rhythm. Pt slightly forgetful at times as reported from RN on 4th floor.
[2024-08-14 20:54] LABS: Glucose - Point of Care 144 mg/dl (70-99)
[2024-08-14] MEDS: LANTUS 0.15 UNITS SC (22:54)
[2024-08-15] VITALS (8 sets, daily range): BP systolic 113–152; BP diastolic 70–81; PULSE 91; BMI 38.0
--- NOTE | 2024-08-15 01:14 | PTCARENOTE ---
Pt received start of shift, HR SR. AAOx3. R radial and R femoral cath site dressings CDI. Sites soft, no hematoma. Pt ambulating w/ standby assist in room. Reinforced activity restrictions s/p cardiac cath w/ pt. Pt denies any CP or SOB. Informed to
notify RN if any changes, call moseley within reach.
[2024-08-15 03:36] LABS: Hematocrit 26.6 % (37.0-47.0); Hemoglobin 9.2 g/dL (12.0-16.0); Mean Corp Hgb Conc. 34.6 g/dL (33.0-37.0); Mean Corpuscular Hgb 31.6 pg (27.0-31.0); Mean Corpuscular Volume 91.4 fL (81.0-99.0); Platelet Count 116 10^3/uL (130-400); Red Blood Cell Count 2.91 10^6/uL (4.20-5.40); Red Cell Dist. Width 13.4 % (11.5-14.5); White Blood Cell Count 5.8 10^3/uL (4.8-10.8)
[2024-08-15 03:44] LABS: APTT 31.7 Sec (23.4-35.0)
[2024-08-15 03:59] LABS: ALT (SGPT) 41 U/L (0-35); AST (SGOT) 44 U/L (14-36); Albumin 3.5 g/dl (3.5-5.0); Alkaline Phosphatase 110 U/L (38-126); Blood Urea Nitrogen 25 mg/dl (7-17); Calcium 9.4 mg/dl (8.4-10.2); Carbon Dioxide 23 mmol/L (22-30); Chloride 101 mmol/L (98-107); Estimated Creatinine Clearance 111 ml/min; Glucose 146 mg/dl (70-99); Magnesium 1.9 mg/dl (1.6-2.3); Potassium 3.5 mmol/L (3.5-5.1); Sodium 136 mmol/L (135-145); Total Protein 6.4 g/dl (6.3-8.2); eGFR > 60.00
[2024-08-15] MEDS: SYNTHROID 50 MCG PO (07:24)
--- NOTE | 2024-08-15 07:29 | W.PN.CARDCBS ---
Addendum entered and electronically signed by Yakov Lovell MD 08/15/24 10:09:
I saw and examined the patient.
The Tumblers Supervisor's note was reviewed and I agree with the note.
Comment: Briefly, 59-year-old woman presenting with seizure and suspected alcohol withdrawal who was found to have new cardiomyopathy with mildly reduced left ventricular systolic function
No cardiac complaints this morning
Appears euvolemic on exam
Maintaining normal sinus rhythm telemetry
Underwent coronary angiography yesterday and found to have mid LAD stenosis which was treated with drug-eluting stent
Given history of atrial fibrillation would recommend discharge on Plavix/Eliquis
Reviewed compliance with antiplatelet medications with the patient -explained that she will need dual therapy for 1 year and aspirin lifelong
Resume statin
In regards to her cardiomyopathy, plan to discharge on Coreg, lisinopril and spironolactone as well as p.o. Lasix
Stable cardiac status
Outpatient follow-up has been arranged with plan for lab work prior
Original Note:
Today's Communication / Plan
-
Start Eliquis 5mg BID, continue Plavix.
Continue Coreg, lisinopril.
Start spironolactone
Continue lasix, transition to PO in AM
Follow up arranged
Follow up CBC, CMP as OP
OP watchman eval.
Impression / Plan
-
Primary Insurance Claims Analyst: unknown
PCP: previously Dr. Bob Kirby, however not seen there since 04/2023
Impression:
Presentation with seizure activity, tonic clonic seizures, suspected ETOH withdrawal
Traumatic intubation
Bacteremia with leukocytosis, concern for PNA
Abnormal urine
Hypotensive, requiring pressor support
Cardiomyopathy, EF 40-45%
NSTEMI, peak trop 0.857
CAD s/p LAD PCI 08/14/24
Thrombocytopenia
Type 2 diabetes, uncontrolled
HTN
Obesity
History of ETOH use disorder
History of possible ETOH cirrhosis
Atrial tachycardia
Paroxysmal atrial fibrillation
ECHO 08/06/24: EF 40 to 45%, mild concentric LVH, apical akinesis, MAC, mild MR, mildly dilated aortic root measuring 3.7 cm at sinus of Valsalva, ascending aorta 3.8 cm
ECHO 08/13/24: EF 40 to 45%, mild concentric LVH, apical akinesis, posterior MAC and adequate excursion of leaflets, no significant change compared to prior
Plan:
-Presented with seizures, likely related to alcohol withdrawal.
-Echo with new CM, EF 40-45%. Troponin peaking at 0.857.
-Cardiac catheterization 08/14 w/ LAD PCI. Hosea transitioned to Plavix this AM due to cost.
-She does have h/o atrial fibrillation, however has not been maintained on AC as OP due to h/o GIB. No afib noted on tele this admission, however has had runs of atrial tachycardia.
-Had been on IV heparin this admission, however now stopped after [facility]. Hgb this AM 9.2. Will resume Eliquis 5mg BID. Will discharge on Eliquis and Plavix. Follow CBC as OP.
-Continue medical therapy for new cardiomyopathy with coreg and lisinopril. Creat stable, will add spironolactone 12.5mg daily.
-SGLT2 inhibitor cost prohibitive.
-Continue diuresis with IV lasix 40mg daily. Weight stable at 214lbs. No SOB. Transition to PO lasix in AM.
-LFTs remain slightly elevated, but improving. LDL 113. Would start rosuvastatin 20mg daily at discharge. Recheck CMP as OP.
-Continue antibiotics for strep pneumonia bacteremia.
-treatment of seizure disorder, presumed alcohol withdrawal per primary service. [facility] protocol
-Cardiology follow up arranged.
As per up-to-date prior records obtained she does have history of congestive heart failure in the setting of rapid A-fib and reportedly is maintained on po lasix 20mg daily. Last echocardiogram 10/16/2022 with EF 55 to 60%, moderate to severe left
atrial dilation, dilated IVC which does not collapse, mild MR, aortic sclerosis. Noted by chest CTA 10/16/22 to have 2.6 cm thyroid nodule, enlarged spleen, and evidence of cirrhosis. She reportedly underwent colonoscopy 10/2022 and had large polyp
status post excision at [place] with benign pathology. Between October and February 2023 she had routine labs for cardiology visit and found to have a hemoglobin of 5.7. She was admitted and underwent 2 units of packed red blood cells with
improvement, endoscopy was reportedly normal without varices noted. She was then hospitalized at [facility] 02/2023 with acute anemia and transfused. Her CBC was monitored weekly and she occasionally required transfusions.
Apparently she was on and off eliquis 2.5mg BID for several months in setting of intermittent acute on chronic anemia. MRI of the abdomen 05/11/2023 consistent with cirrhosis with lesion of right hepatic lobe suspicious for possible HCC.
Progress Note - Insurance Claims Analyst
Subjective
Date of Service: August 15, 2024
No chest pain, no SOB. Feeling well.
Objective
Labs:
08/15/24 03:24
08/15/24 03:24
Labs
Hgb 9.2 g/dL (12.0-16.0) L 08/15/24 03:24
Hct 26.6 % (37.0-47.0) L 08/15/24 03:24
Plt Count 116 10^3/uL (130-400) L 08/15/24 03:24
PT 16.7 Sec (11.4-14.6) H 08/10/24 03:03
INR 1.37 08/10/24 03:03
APTT 31.7 Sec (23.4-35.0) 08/15/24 03:24
Sodium 136 mmol/L (135-145) 08/15/24 03:24
Potassium 3.5 mmol/L (3.5-5.1) 08/15/24 03:24
BUN 25 mg/dl (7-17) H 08/15/24 03:24
Creatinine 0.6 mg/dL (0.6-1.0) 08/15/24 03:24
Glucose 146 mg/dl (70-99) H 08/15/24 03:24
Vital Signs and I&O:
Vital Signs
Temp Pulse Resp BP Pulse Ox
98.2 F 83 18 137/73 97
08/15/24 03:17 08/15/24 03:17 08/15/24 03:17 08/15/24 03:17 08/15/24 03:17
Vital Signs
Temp Pulse Resp BP Pulse Ox
98.2 F 83 18 137/73 97
08/15/24 03:17 08/15/24 03:17 08/15/24 03:17 08/15/24 03:17 08/15/24 03:17
Intake & Output
08/13/24 08/14/24 08/15/24 08/16/24
06:59 06:59 06:59 06:59
Intake Total 1314 / 1314 684 / 684 480 / 480
Output Total 400 / 400
Balance 1314 / 1314 684 / 684 80 / 80
Physical Exam
Physical Exam
GEN: No distress, awake, alert, oriented x3.
HEENT: supple, anicteric, mmm, eomi
LUNGS: CTA B/L, no wheezes/rales
CV: Reg, S1/S2, no murmur
EXT: No cyanosis, clubbing, or edema
NEURO: Gross non-focal
SKIN: Warm, pink, dry. No rash
[2024-08-15] MEDS: XOPENEX 1.25 MG INHALANT SOLUTION INH (07:58)
[2024-08-15] MEDS: ATROVENT NEBULES 0.5 MG INH (07:58)
--- NOTE | 2024-08-15 07:58 | PN.DE.MGMTRT ---
Insulin Management
- -
08/15/2024: Diabetes Management Follow up:
Patient admitted 08/04 with altered mental status. seizures. PMH: Alcoholic cirrhosis, obesity, diabetes, HTN, HLD, hypothyroid, anxiety, CAD, A-Fib. Unknown if any diabetes medications were taken prior to admission. A1C 8.3%, cr .8, eGFR > 60.
08/06 started on tube feeds, contributing to Hyperglycemia, glycemic protocol initiated.
08/08 transitioned off glycemic protocol. 08/09 pt extubated
08/10 off steroids and tube feeds.
Pt is awake, alert, oriented, sitting out of bed in chair, able to discuss diabetes management.
Reports she stopped checking her blood sugars a year ago. She thinks she was taking Metformin at some point but does not remember when she took it last.
States she was following up with an Endo in [place] who started her on Ozempic but it ran out a while back and she never had it refilled.
08/14 Glucose range premeal 123 to 191 yesterday. Patient had cardiac cath, Metformin 500mg BID on HOLD, continue Januvia 100 mg daily, lantus 15 units @ HS.
08/15 Fasting glucose 146.
Patient has no insurance,discussed with her ability to pay for her medications, in particular Januvia and Lantus. Discussed with patient obtaining medications at [facility], Lantus vial ~ $75, and ReliOn meter and strips considerably less at $18.00.
She states she could afford them. states Januvia is $550.00 per month. Will dc januvia and resume metformin tomorrow, 08/16 with dinner at 1000 mg.
Meter use and insulin administration reinforced. She did well with return demonstration of glucose monitor. Nursing reports patient did excellent with self injection technique. Instructed patient on use of vial and syringe, she did well with return
demonstration. Provided step by step instructions for vial and syringe.
Discussed with patients nurse.
Diabetes History
- -
Type of Diabetes: 2 requiring insulin
Pre-Admission Diabetes Regimen
08/15/24
03:24
Creatinine 0.6
Lab Results
Hemoglobin A1c 8.3 % (4.0-5.6) H 08/05/24 03:57
Insulin Pump Settings
IP Diabetes Regimen
08/14/24 08/14/24 08/14/24
12:38 17:56 20:52
Glucose
POC Glucose 123 H 191 H 144 H
08/15/24
03:24
Glucose 146 H
POC Glucose
Meal type: Dinner
Meal type: Breakfast
Amount consumed: 100%
Patient Education
--- NOTE | 2024-08-15 07:59 | W.PN.HOSP.TC ---
Today's Communication/Plan
-
see A/P
Assessment / Plan
Assessment / Plan
A/P:
# Acute hypoxic respiratory failure status post intubation and mechanical ventilation
Extubated on 08/09.
Passed swallow eval. Diet started, can be advanced to solid and thin liquid per SPL
# New onset tonic-clonic seizures likely secondary to alcohol withdrawal seizure
# Acute Toxic metabolic encephalopathy likely multifactorial secondary to alcohol withdrawal versus delirium versus seizure related
CT head shows no acute abnormality
MRI brain with no focal acute intracranial malady. Mild diffuse cortical atrophy. Left sphenoid sinusitis.
UDS was found to be negative. Alcohol level not detected. Beta hydroxy was mildly elevated.
Keppra discontinued per neurology
s/p phenobarbital taper
Continue thiamine folic acid
s/p LP, negative for meningitis
s/p EEG
Off Precedex
# Acute kidney injury, resolved
# Metabolic acidosis, resolved
s/p bicarb
Creatinine improved from 1.1 to 0.6
Renal/bladder US- negative for hydronephrosis
# Streptococcus bacteremia suspect 2/2 aspiration pneumonia from seizure
# MSSA pneumonia
IV Rocephin 2g daily changed to cefdinir.
s/p vancomycin
ECHO: Normal left ventricular size. EF 40-45%. Normal diastolic function. Mitral valve opens normally. Thickened mitral valve leaflets. Mitral annular calcification. Mild mitral regurgitation. Mildly dilated aortic root.
ID following
# Atrial tachycardia
# Atrial fibrillation
Started Coreg
Started heparin drip with plan for eventual transition to DOAC.
Cardiology on board
# Cardiomyopathy
Echo with EF of 40 to 45%, normal diastolic function. Mild concentric LVH. There is apical akinesis.
with anasarca, started IV Lasix 40mg IV daily
Added Coreg/lisinopril
s/p cath 08/14: noted mid LAD stenosis s/p PCI. Cont aspirin/Plavix
# Thrombocytopenia, resolved
# Alcoholic liver cirrhosis
# History of alcohol use disorder
lactulose held due to profuse diarrhea
Monitor for Hepatic encephalopathy
# Hypokalemia/Hypomagnesemia due to diarrhea
Replete/monitor
# Hyperglycemia
# Type 2 diabetes
Blood sugar 400s on admission
s/p insulin gtt.
A1c at 8.3 %
Started on insulin regimen. Cont Lantus adjusted to 15 unit nightly
cover with Insulin sliding scale
reportedly on Wgovy
DM METER TECHNICIAN following
# Obesity
Full code
DVT prophylaxis�heparin drip on hold
Dispo: PT OT recc acute, PMR consulted
Anticipated Discharge: Within 24 hours
Subjective/Interval History
-
Date of Service: August 15, 2024
Objective Data
-
Labs:
Laboratory Results
08/15/24
03:24
WBC 5.8
Hgb 9.2 L
Hct 26.6 L
Plt Count 116 L
APTT 31.7
Sodium 136
Potassium 3.5
Chloride 101
Carbon Dioxide 23
BUN 25 H
Creatinine 0.6
Glucose 146 H
Calcium 9.4
Total Bilirubin 1.0
AST 44 H
ALT 41 H
Alkaline Phosphatase 110
Vital Signs:
Vital Signs
Temp Pulse Resp BP Pulse Ox
36.8 C 83 18 137/73 97
08/15/24 03:17 08/15/24 03:17 08/15/24 03:17 08/15/24 03:17 08/15/24 03:17
I&O
08/14/24 08/15/24 08/16/24
06:59 06:59 06:59
Intake Total 684 / 684 480 / 480
Output Total 400 / 400
Balance 684 / 684 80 / 80
Review of Systems
-
All other systems: Reviewed and negative
Physical Exam
-
General: Well Developed, Well Nourished, No Apparent Distress, Comfortable and Conversant; Negative Respiratory Distress
HEENT: Normocephalic, Atraumatic, Nose Appears Normal and Ears Appear Normal; Negative Oxygen
Respiratory: Clear to Auscultation and Non Labored Respirations; Negative Accessory Resp Muscle Use
Cardiac: Regular Rhythm and S1/S2
GI: Soft, Nontender, Nondistended and Normal Bowel Sounds
Skin: Warm and Dry
Neuro: Awake and Alert
Psych: Calm and Intact Judgement/Insight (somewhat)
Data Reviewed
-
Medical Tests (Nuc Med, Echo etc): Report Reviewed by me (cath report)
Labs: Labs Reviewed by me
[2024-08-15 08:17] LABS: Glucose - Point of Care 169 mg/dl (70-99)
[2024-08-15] MEDS: NOVOLOG FLEXPEN-MODERATE RESISTANCE 1 UNITS SC (08:32)
[2024-08-15] MEDS: VITAMIN B1 100 MG PO (08:34)
[2024-08-15] MEDS: FOLVITE 1 MG TUBE (08:34)
[2024-08-15] MEDS: OMNICEF 300 MG PO ×2 (08:34→21:36)
[2024-08-15] MEDS: KCL 40 MEQ PO (08:34)
[2024-08-15] MEDS: ASPIR LOW (ENTERIC COATED) 81 MG PO (08:34)
[2024-08-15] MEDS: ZESTRIL 5 MG PO (08:34)
[2024-08-15] MEDS: COREG 6.25 MG PO ×2 (08:34→21:37)
[2024-08-15] MEDS: LASIX 40 MG IV (08:35)
[2024-08-15] MEDS: BUSPAR 10 MG PO ×2 (08:35→21:36)
[2024-08-15] MEDS: PLAVIX 600 MG PO (08:37)
[2024-08-15] MEDS: ALDACTONE 12.5 MG PO (08:37)
--- NOTE | 2024-08-15 09:01 | W.CARD.POSTP ---
Post PCI Follow Up
Procedure
Procedure/Date: 08/14/24 Successful PCI of the occlusive 70% mid LAD lesion ([employer] [place] 3.5 x 18 CATALINO, postdilated with a 3.5 x 15 NC balloon) with reduction in stenosis to 0%, maintaining CARLA-3 flow.
Subjective: Denies cp, sob
Site
Site: Radial: Right and No ht/bleeding, distal pulses palpable
Tele / EKG
SR no sig ectopy
Labs
08/15/24 03:24
08/15/24 03:24
PT 16.7 Sec (11.4-14.6) H 08/10/24 03:03
INR 1.37 08/10/24 03:03
APTT 31.7 Sec (23.4-35.0) 08/15/24 03:24
Magnesium 1.9 mg/dl (1.6-2.3) 08/15/24 03:24
Triglycerides 179 mg/dl (10-149) H 08/10/24 03:03
LDL Cholesterol, Calc 113 mg/dl 08/06/24 17:44
VLDL Cholesterol, Calc 38 mg/dl (0-30) H 08/06/24 17:44
HDL Cholesterol 20 mg/dl 08/06/24 17:44
08/06/24 08/08/24
04:09 04:04
[id number] Pept [id number]
DAPT Medication
DAPT Medication: Aspirin 81mg daily and Clopidogrel 75 mg daily
Case Management checking newton: Yes (unable to afford Tricagrelor, switched to Plavix with load this am)
Plan
Post PCI LAD x 1
DAPT ASA/Plavix, high intensity statin
f/u Jeri 08/22 @340p
[2024-08-15 12:00] LABS: Glucose - Point of Care 200 mg/dl (70-99)
[2024-08-15] MEDS: NOVOLOG FLEXPEN-MODERATE RESISTANCE 3 UNITS SC ×2 (12:01→17:45)
--- NOTE | 2024-08-15 12:02 | CON.MD ---
Addendum entered and electronically signed by Jay Yanez MD 08/15/24 14:13:
A total of 60 minutes were spent with the patient preparing for the evaluation, obtaining history, performing examination and evaluation, counseling, data review, case management, care coordination, customer orders clerk, and EMR documentation.
Original Note:
Consultation - Medical
-
Referring Provider:�Dr. Graciela Moore
Chief Complaint:�Status epilepticus
�
History of Present Illness:�59-year-old female with PMH (as below) presented to [facility] on 08/04/2024 with altered mental status/confusion while working at [employer]. Noticed to have a tonic-clonic seizure. Had another 1 with EMS arrival.
She was intubated for prolonged confusion and agitation. Concern for possible alcohol withdrawal. Concern for right lower lobe aspiration pneumonia and suspected UTI treated with antibiotics. Also with hypertensive urgency which resolved with
treatment. Was treated with loading dose of levetiracetam, started on thiamine and put on alcohol withdrawal protocol. Also with Streptococcus pneumoniae bacteremia with antibiotics per ID. Echocardiogram with EF 40-45% with regional wall motion
abnormalities which is decreased from prior at 50-55%. Repeated EEGs with no seizure activity. She had a lumbar puncture on 08/07/2024 with negative cultures. Keppra was discontinued by neurology with no seizure activity noted. MRI of the brain
with no acute concerns noted. Repeat echocardiogram on 08/13 with EF 40-45%. Cardiac cath on 08/14/2024 noting 70% mid LAD lesion s/p PCI with drug-eluting stent requiring dual antiplatelet therapy for 1 year followed by lifelong aspirin.
Patient feeling much better now. Denies any difficulty doing any activities. She thinks this most recent episode was a result of alcohol withdrawal.
�
Past Medical History:�Alcoholic cirrhosis, obesity, diabetes type 2, hypertension, HLD, hypothyroidism, anxiety, heavy menses, STEFFEN after hysterectomy, paroxysmal atrial fibrillation on Eliquis, congestive heart failure
Procedure History:�Hysterectomy, cardioversion, colonoscopy with benign polyp
Family History:�Father had brain cancer with seizures
�
Social History:�
Functional Level Premorbidly:�Independent with all activities�
Functional Level Currently:�Mod I sit to stand, ambulating 300 feet with supervision to independent without device. Did 5 steps with both hands on right railing step to step and close supervision.
�
Tobacco:�Denies�
Alcohol:�So drinking alcohol again recently up until this recent episode which patient thinks is related to withdrawal of alcohol.
Drug use:�Denies�
�
Lives with:�Alone
24-hour assistance available:�No
Number of floors:�1
# steps to enter:�24
Driving:�Yes
Occupation:�Employed at [employer]
�
�
Allergies:�
Allergy/AdvReac Type Severity Reaction Status Date / Time
dronedarone [From Multaq] Allergy Rash Verified 08/09/24 10:44
Sulfa (Sulfonamide Allergy Rash Verified 08/09/24 10:44
Antibiotics)
�
Review of Systems:�
Constitutional: (x) abNormal _little bit tired but feeling better today
Eye: (x) Normal _
Ear/Nose/Throat: (x) Normal _
Respiratory: (x) Normal _
Cardiovascular: (x) Normal _
Gastrointestinal: (x) Normal _
Genitourinary: (x) Normal _
Musculoskeletal: (x) Normal _
Integumentary: (x) Normal _
Neurologic: (x) Normal _
Psychiatric: (x) Normal _
Endocrine: (x) Normal _
Hematologic/Lymphatic: (x) Normal _
Allergic/Immunologic: (x) Normal _
�
Medications:�
Active Current Visit Medication List
Category Date Time Status
0.9% Sodium Chloride [Nss (Preservative Free)] Med 08/09/24 13:02 Active
0.5 ml IV Q2HPRN PRN
Acetaminophen [Tylenol Oral Solution] Med 08/05/24 19:54 Active
650 mg PO Q4HPRN PRN
Aspirin Low Dose EC [Aspir Low (Enteric Coated)] Med 08/09/24 13:00 Active
81 mg PO DAILY
Buspirone [Buspar] Med 08/09/24 20:00 Active
10 mg PO BID
Carvedilol [Coreg] Med 08/13/24 20:00 Active
6.25 mg PO BID
Cefdinir [Omnicef] Med 08/12/24 20:00 Active
300 mg PO Q12
Clopidogrel Bisulfate [Plavix] Med 08/16/24 08:00 Active
75 mg PO DAILY
Dextrose 50%-Water [Dextrose 50% Syringe] Med 08/11/24 11:59 Active
12.5 grams IV [id number] PRN
FOLic ACID [Folvite] Med 08/09/24 08:00 Active
1 mg TUBE DAILY
Flush (0.9% Sodium Chloride) [Flush (Nss)] Med 08/04/24 17:00 Active
See Dose Instructions IV PER PROTOCOL
Furosemide [Lasix] Med 08/09/24 13:00 Active
40 mg IV DAILY
Glucagon [GlucaGen] Med 08/11/24 11:59 Active
1 mg IM PRN PRN
Heparin 60055 Units/250 ml Med 08/10/24 13:45 Hold
25,000 units in 250 ml IV PER PROTOCOL
Insulin Aspart Corrective Mod [Novolog Flexpen-Moderate Med 08/15/24 07:30 Active
Resistance]
See Protocol SC AC
Insulin Glargine Lantus [Lantus] 15 units Med 08/12/24 10:40 Active
Subcutaneous Insulin Syringe [Syringe-Insulin] 0 unit
SC HS
Ipratropium Nebs [Atrovent Nebules] Med 08/15/24 08:33 Active
0.5 mg INH R Q6HPRN PRN
Lactulose [Duphalac/Chronulac] Med 08/09/24 11:00 Hold
20 grams PO BID
Levalbuterol [Xopenex 1.25 mg Inhalant Solution] Med 08/15/24 08:32 Active
1.25 mg INH R Q6HPRN PRN
Levothyroxine [Synthroid] Med 08/12/24 10:43 Active
50 mcg PO DAILY @ 0600
Lisinopril [Zestril] Med 08/12/24 11:00 Active
5 mg PO DAILY
Lorazepam [Ativan] Med 08/09/24 12:53 Active
1 mg IV Q2HPRN PRN
METFORMIN HCl [Glucophage] Med 08/15/24 11:48 Hold
1,000 mg PO BID@0800,1700
Sitagliptin Phosphate [Januvia] Med 08/12/24 11:00 Hold
100 mg PO DAILY
Spironolactone [Aldactone] Med 08/15/24 09:00 Active
12.5 mg PO DAILY
Thiamine HCl [Vitamin B1] Med 08/12/24 08:00 Active
100 mg PO DAILY
�
Vitals:�
Temp Pulse Resp BP Pulse Ox
98.3 F 92 18 134/81 95
08/15/24 11:11 08/15/24 11:11 08/15/24 11:11 08/15/24 08:34 08/15/24 11:11
Height 5 ft 3 in
Actual Weight 97.2 kg
Body Mass Index (BMI) 38.0
�
Physical Exam:�
General Appearance/Observation: Well-developed, well-nourished female in no apparent distress.�
Pain/Comfort Assessment: Denies�
Mood/Affect: Appropriate�
�
Integumentary/Operative Site:�Has an IV but otherwise no skin concerns noted during course of exam.
�
Eyes: Conjunctiva/Lids: normal���� Pupils: pupils equal round and reactive to light and Accommodation�
Ears/Nose/Throat: oral mucosa moist,� throat clear.������������ Lips/Teeth/Gums: normal�
Neck: No muscle spasm or tenderness�
Cardiovascular: Heart: regular, no murmur�
Pulses: dorsalis pedis 2+ bilaterally�
Respiratory: Respiratory Effort/Chest Expansion: normal������� Auscultation: Clear to auscultation bilaterally�
Gastrointestinal: abdomen not tender, no distension, normal abdominal bowel sounds
Genitourinary: No Mcdaniel�
Rectal Exam: Deferred�
Extremities:�Edema: None�Cyanosis: None�Trophic�changes: None
�
Neurology Exam:
Orientation: Alert, Oriented to self, Time, Place�
Memory: Intact for recent medical concerns
Repetition: Intact
Two step command: Intact
Cranial Nerves:
�� CNII:�Pupillary light reflex: Intact����
�� CN III, IV, : Extraocular muscles: Intact�
�� CN VII:�Facial movement: Symmetric
�� CN VIII:�Hearing: Normal
�� CN IX/X:�Speech & swallow: Normal,�Position of Uvula: Midline
�� CN XI:�Shoulder shrug: Symmetric
�� CN XII:�Tongue protrusion: Midline
Sensory:
�� Light touch: Intact in bilateral upper and lower extremities
�
Reflexes:
�� Biceps: 2+ bilaterally
�� Brachioradialis: 2+ bilaterally
�� Triceps: 2+ bilaterally
�� Patellar: 2+ bilaterally
�� Achilles: 2+ bilaterally
�� Babinski: Down going bilaterally
�� Clonus: None
�� Sangita: Negative bilaterally�
Cerebellar: Dysmetria/Ataxia: None�
Musculoskeletal: Motor: (Manual muscle scale 0-5)�
Muscle SA EF WE EE FF FA HF KE DF EHL PF
Right� 5 5 5 5 5 4 4 5 5 5 5
Left 5 5 5 5 5 4 4 5 5 5 5
�
Tone: Normal in all extremities�
Range of Motion: Passively within normal limits in all extremities�
�
Lab Results
Laboratory Data
08/15/24 03:24
08/15/24 03:24
PT 16.7 Sec (11.4-14.6) H 08/10/24 03:03
INR 1.37 08/10/24 03:03
APTT 31.7 Sec (23.4-35.0) 08/15/24 03:24
Total Bilirubin 1.0 mg/dl (0.2-1.3) 08/15/24 03:24
AST 44 U/L (14-36) H 08/15/24 03:24
ALT 41 U/L (0-35) H 08/15/24 03:24
Alkaline Phosphatase 110 U/L (38-126) 08/15/24 03:24
Total Protein 6.4 g/dl (6.3-8.2) 08/15/24 03:24
Albumin 3.5 g/dl (3.5-5.0) 08/15/24 03:24
�
Diagnostic Results:�as per HPI�
�
Assessment
59-year-old female with PMH (Alcoholic cirrhosis, obesity, diabetes type 2, hypertension, HLD, hypothyroidism, anxiety, heavy menses, STEFFEN after hysterectomy, paroxysmal atrial fibrillation on Eliquis, congestive heart failure) with possible alcohol
withdrawal seizure 08/04/2024 concern for right lower lobe aspiration pneumonia and suspected UTI, Streptococcus pneumoniae bacteremia worsening heart failure with cardiac cath on 08/14/2024 noting 70% mid LAD lesion s/p PCI with drug-eluting stent
requiring dual antiplatelet therapy for 1 year followed by lifelong aspirin.
�
Plan�
PM&R�PT/OT to increase independence with ADLs, improve balance, coordination, endurance, strength, mobility, community reintegration, decreased burden of care on others and family education.�
�
Seizure: Thought secondary to alcohol withdrawal
Bacteremia, treated with concern of possible aspiration pneumonia or UTI
Worsening heart failure: Cardiac cath with LAD lesion status post drug-eluting stent dual antiplatelet therapy
A-fib: Eliquis and Coreg
HTN: continue medications, monitor closely�
HLD: Statin�
Coronary artery disease�: Aspirin, statin, beta-inocente�������������������������������������������
CHF: EF 40�45%, beta inocente, Lasix, lisinopril, spironolactone, Januvia monitor fluid status��
DM II: Accu-Cheks, insulin sliding scale, metformin, Januvia, Lantus.�
Hypothyroidism: levothyroxine�
Alcohol Abuse: Alcohol cessation education, offering of outpatient alcohol abuse program�she is not interested in AA but is interested in support. Reviewed importance of refraining from alcohol in the future and avoiding triggers.
DVT Prophylaxis: Mechanical and Eliquis.�
Pulmonary: Incentive spirometry�
Morbid obesity: Continue to benefits counselor patient about diet adjustments to control obesity. Body habitus and increased force to move body and extremities causes further difficulty with functional tasks.�
Safety: Continue to reinforce assistance with all transfers.�
Code Status:� Full code
Dispo�(date/plan/equipment needs): Home with family care.� Social history reviewed.�
�Functional and Medical Goals:�Modified Independent with ADL�s, ambulation, transfers�
Discharge Destination:�Home�with home health
Summary of recommendations:
-�Discharge Destination:�Home�with home health
Alcohol Abuse: Alcohol cessation education, offering of outpatient alcohol abuse program�she is not interested in AA but is interested in support
�
Thank you for allowing me to care for your patient. Please contact me with any questions or concerns.
--- NOTE | 2024-08-15 15:49 | VATNOTE ---
PICC now to stay in overnight for one night since pt. being d/c in am. This VAT RN TT dr. Moore for new order to leave in.
[2024-08-15 17:05] LABS: Glucose - Point of Care 208 mg/dl (70-99)
[2024-08-15] MEDS: CRESTOR 20 MG PO (17:45)
--- NOTE | 2024-08-15 19:18 | PTCARENOTE ---
Pt up walking around in halls. She denies any discomfort and is eager to go home. Telemetry shows sinus rhythm.
[2024-08-15 21:44] LABS: Glucose - Point of Care 179 mg/dl (70-99)
[2024-08-15] MEDS: LANTUS 0.15 UNITS SC (21:44)
--- NOTE | 2024-08-15 23:00 | PTCARENOTE ---
Pt received at change of shift sitting up in chair. SR on tele with HR 80s-90s. Cath sites to R radial and R fem C/D/I w/ no complications noted. Ambulating independently without difficulty. Plan of care discussed and pt verbalizes understanding
w/ no questions or concerns at this time. Can make needs known. Call moseley within reach.
[2024-08-16 03:59] VITALS: BP 144/71
[2024-08-16 04:02] VITALS: BMI 38.1
[2024-08-16] MEDS: SYNTHROID 50 MCG PO (04:08)
[2024-08-16 04:53] LABS: ALT (SGPT) 44 U/L (0-35); AST (SGOT) 43 U/L (14-36); Albumin 3.5 g/dl (3.5-5.0); Alkaline Phosphatase 110 U/L (38-126); Blood Urea Nitrogen 19 mg/dl (7-17); Calcium 9.2 mg/dl (8.4-10.2); Carbon Dioxide 21 mmol/L (22-30); Chloride 103 mmol/L (98-107); Estimated Creatinine Clearance 111 ml/min; Glucose 177 mg/dl (70-99); Magnesium 1.5 mg/dl (1.6-2.3); Potassium 3.8 mmol/L (3.5-5.1); Sodium 138 mmol/L (135-145); Total Protein 6.5 g/dl (6.3-8.2); eGFR > 60.00
[2024-08-16 07:00] VITALS: BP 129/65
[2024-08-16 07:05] LABS: Glucose - Point of Care 169 mg/dl (70-99)
--- NOTE | 2024-08-16 07:29 | PN.DE.MGMTRT ---
Insulin Management
- -
08/16/2024: Diabetes Management F/U:
Patient admitted 08/04 with altered mental status. seizures. PMH: Alcoholic cirrhosis, obesity, diabetes, HTN, HLD, hypothyroid, anxiety, CAD, A-Fib.
Pt states she stopped checking her blood sugars a year ago. She thinks she was taking Metformin at some point but does not remember when she took it last.
States she was following up with an Endo in [place] who started her on Ozempic but it ran out a while back and she never had it refilled. A1C 8.3%, Cr 0.8, eGFR > 60. 08/06 started on tube feeds, contributing to Hyperglycemia, glycemic protocol
initiated. 08/08 transitioned off glycemic protocol. 08/09 pt extubated
08/10 off steroids and tube feeds.
Pt is awake, alert, oriented, able to discuss diabetes management.
08/14 Patient had cardiac cath, Metformin 500mg BID on HOLD, continued Januvia 100 mg daily, Lantus 15 units @ HS.
08/15 premeal range 169 to 208, FBG 179 this AM. Will make no changes to current regimen. Resume metformin 1000mg BID with dinner today.
Patient has no insurance, discussed with her ability to pay for her medications, in particular Januvia and Lantus. Discussed with patient obtaining medications at [facility], Lantus vial ~ $75, and ReliOn meter and strips considerably less at $18.00.
She states she could afford them. states Januvia is $550.00 per month. Will dc Januvia and resume .
Meter use and insulin administration reinforced. She did well with return demonstration of glucose monitor. Nursing reports patient did excellent with self injection technique. Instructed patient on use of vial and syringe, she did well with return
demonstration. Provided step by step instructions for vial and syringe.
Discussed with patients nurse.
Diabetes History
- -
Type of Diabetes: 2 requiring insulin
Pre-Admission Diabetes Regimen
08/16/24
03:56
Creatinine 0.6
Lab Results
Hemoglobin A1c 8.3 % (4.0-5.6) H 08/05/24 03:57
Insulin Pump Settings
IP Diabetes Regimen
08/15/24 08/15/24 08/15/24
08:16 11:58 17:04
Glucose
POC Glucose 169 H 200 H 208 H
08/15/24 08/16/24 08/16/24
21:43 03:56 07:03
Glucose 177 H
POC Glucose 179 H 169 H
Meal type: Dinner
Meal type: Lunch
Meal type: Breakfast
Amount consumed: 100%
Amount consumed: 100%
Patient Education
[2024-08-16] MEDS: MAGNESIUM SULFATE 100 IV (08:15)
[2024-08-16] MEDS: NOVOLOG FLEXPEN-MODERATE RESISTANCE 1 UNITS SC ×2 (08:20→13:22)
[2024-08-16] MEDS: ZESTRIL 5 MG PO (08:22)
[2024-08-16] MEDS: VITAMIN B1 100 MG PO (08:22)
[2024-08-16] MEDS: LASIX 40 MG PO (08:22)
[2024-08-16] MEDS: PLAVIX 75 MG PO (08:22)
[2024-08-16] MEDS: FOLVITE 1 MG TUBE (08:22)
[2024-08-16] MEDS: OMNICEF 300 MG PO (08:22)
[2024-08-16] MEDS: BUSPAR 10 MG PO (08:22)
[2024-08-16] MEDS: ELIQUIS 5 MG PO (08:22)
[2024-08-16] MEDS: ALDACTONE 12.5 MG PO (08:22)
[2024-08-16] MEDS: COREG 6.25 MG PO (08:23)
--- NOTE | 2024-08-16 08:29 | W.PN.HOSP.TC ---
Addendum entered and electronically signed by Graciela Moore MD 08/16/24 13:18:
total DC time 39 min
Original Note:
Today's Communication/Plan
-
IV mag
DC with HH
Assessment / Plan
Assessment / Plan
A/P:
# Acute hypoxic respiratory failure status post intubation and mechanical ventilation
Extubated on 08/09.
Passed swallow eval. Diet started, can be advanced to solid and thin liquid per SPL
# New onset tonic-clonic seizures likely secondary to alcohol withdrawal seizure
# Acute Toxic metabolic encephalopathy likely multifactorial secondary to alcohol withdrawal versus delirium versus seizure related
CT head shows no acute abnormality
MRI brain with no focal acute intracranial malady. Mild diffuse cortical atrophy. Left sphenoid sinusitis.
UDS was found to be negative. Alcohol level not detected. Beta hydroxy was mildly elevated.
Keppra discontinued per neurology
s/p phenobarbital taper
Continue thiamine folic acid
s/p LP, negative for meningitis
s/p EEG
Off Precedex
# Acute kidney injury, resolved
# Metabolic acidosis, resolved
s/p bicarb
Creatinine improved from 1.1 to 0.6
Renal/bladder US- negative for hydronephrosis
# Streptococcus bacteremia suspect 2/2 aspiration pneumonia from seizure
# MSSA pneumonia
IV Rocephin 2g daily changed to cefdinir, last day 08/16
s/p vancomycin
ECHO: Normal left ventricular size. EF 40-45%. Normal diastolic function. Mitral valve opens normally. Thickened mitral valve leaflets. Mitral annular calcification. Mild mitral regurgitation. Mildly dilated aortic root.
ID following
# Atrial tachycardia
# Atrial fibrillation
Started Coreg
s/p heparin drip, started Eliquis 5 mg BID
Cardiology on board
# Cardiomyopathy
Echo with EF of 40 to 45%, normal diastolic function. Mild concentric LVH. There is apical akinesis.
IV Lasix 40mg daily to PO Lasix 40 mg daily
Added Coreg/lisinopril
s/p cath 08/14: noted mid LAD stenosis s/p PCI. Cont aspirin/Plavix
# Thrombocytopenia, resolved
# Alcoholic liver cirrhosis
# History of alcohol use disorder
lactulose held due to profuse diarrhea
Monitor for Hepatic encephalopathy
# Hypokalemia/Hypomagnesemia due to diarrhea
Replete/monitor
# Hyperglycemia
# Type 2 diabetes
Blood sugar 400s on admission
s/p insulin gtt.
A1c at 8.3 %
Started on insulin regimen. Cont Lantus adjusted to 15 unit nightly
cover with Insulin sliding scale
reportedly on Wgovy
DM ACCOUNT DEVELOPMENT MANAGER following
# Obesity
Full code
DVT prophylaxis�Eliquis
Dispo: PT OT recc acute, PMR consulted
DW RN
Anticipated Discharge: Today
Subjective/Interval History
-
Date of Service: August 16, 2024
Objective Data
-
Labs:
Laboratory Results
08/16/24
03:56
Sodium 138
Potassium 3.8
Chloride 103
Carbon Dioxide 21 L
BUN 19 H
Creatinine 0.6
Glucose 177 H
Calcium 9.2
Total Bilirubin 1.0
AST 43 H
ALT 44 H
Alkaline Phosphatase 110
Vital Signs:
Vital Signs
Temp Pulse Resp BP Pulse Ox
36.8 C 90 18 144/71 96
08/16/24 06:57 08/16/24 04:00 08/16/24 06:57 08/16/24 03:59 08/16/24 06:57
I&O
08/15/24 08/16/24 08/17/24
06:59 06:59 06:59
Intake Total 480 / 480 420 / 420
Output Total 400 / 400 225 / 225
Balance 80 / 80 195 / 195
Review of Systems
-
All other systems: Reviewed and negative
Physical Exam
-
General: Well Developed, Well Nourished, No Apparent Distress, Comfortable and Conversant; Negative Respiratory Distress
HEENT: Normocephalic, Atraumatic, Nose Appears Normal and Ears Appear Normal; Negative Oxygen
Respiratory: Clear to Auscultation and Non Labored Respirations; Negative Accessory Resp Muscle Use
Cardiac: Regular Rhythm and S1/S2
GI: Soft, Nontender, Nondistended and Normal Bowel Sounds
Skin: Warm and Dry
Neuro: Awake and Alert
Psych: Calm and Intact Judgement/Insight
Data Reviewed
-
Medical Tests (Nuc Med, Echo etc): Report Reviewed by me (cath report)
Labs: Labs Reviewed by me
--- NOTE | 2024-08-16 10:06 | W.PN.CARDCBS ---
Addendum entered and electronically signed by Jay Emanuel MD 08/16/24 11:29:
59-year-old woman admitted with seizure, possibly alcohol withdrawal with LAD distribution LV dysfunction and troponin of 0.9, strep pneumonia bacteremia/pneumonia, went to [facility] and got LAD drug-eluting stent. History of PAF, now on Plavix and
Eliquis.
PMH: EtOH use, diabetes, hypertension, hyperlipidemia, obesity, PAF, atrial tach, seizure disorder, possible cirrhosis
Allergies: Reviewed
Outpatient meds reviewed
Current medications: Folic acid, lactulose, BuSpar, thiamine, levothyroxine 50 mcg a day, insulin, sitagliptin, lisinopril 5 mg daily, Omnicef, carvedilol 6.25 twice daily, clopidogrel 75 mg daily, spironolactone 12.5 mg daily, metformin 1000 mg
twice daily, furosemide 40 mg a day, apixaban, rosuvastatin 20 mg a day
129/65, pulse 85, afebrile, sats 96%, Weight is 97.6 kg, no distress, head neck exam unremarkable lungs clear, regular rate and rhythm, abdomen benign extremities without clubbing cyanosis or edema
EKG anterolateral T wave inversions
Magnesium 1.5, AST 43, ALT 44, BUN/creatinine 19 and 0.6, potassium 3.8
Impression:
Seizure, suspected ETOH withdrawal
Traumatic intubation
Bacteremia with leukocytosis, concern for PNA, sepsis syndrome
Cardiomyopathy, EF 40-45%
NSTEMI, peak trop 0.857
CAD s/p LAD PCI 08/14/24
Thrombocytopenia
Type 2 diabetes, uncontrolled
HTN
Obesity
History of ETOH use disorder
History of possible ETOH cirrhosis
Atrial tachycardia
Paroxysmal atrial fibrillation
Plan:
From cardiac standpoint, she appears stable and can be discharged.
Defer to primary service, ID regarding management of other medical issues
We will arrange for cardiac follow-up.
Recommended cardiac medications at discharge:
Lisinopril 5 mg daily
Carvedilol 6.25 mg twice daily
Clopidogrel 75 mg daily
Spironolactone 12.5 mg daily
Furosemide 40 mg daily
Magnesium tablets 400 mg a day
Potassium 10 meqs daily
Please get BMP in 1 week
We will sign off, please call if questions
Original Note:
Today's Communication / Plan
-
-d/c on GDMT for HF: Coreg, Lisinopril, spironolactone, Lasix
-Eliquis restarted for h/o afib
-Plavix s/p CATALINO LAD
-check CBC and CMP in one week
Impression / Plan
-
Primary Route Delivery Clerk: unknown
PCP: previously Dr. Bob Kirby, however not seen there since 04/2023
Impression:
Presentation with seizure activity, tonic clonic seizures, suspected ETOH withdrawal
Traumatic intubation
Bacteremia with leukocytosis, concern for PNA
Abnormal urine
Hypotensive, requiring pressor support
Cardiomyopathy, EF 40-45%
NSTEMI, peak trop 0.857
CAD s/p LAD PCI 08/14/24
Thrombocytopenia
Type 2 diabetes, uncontrolled
HTN
Obesity
History of ETOH use disorder
History of possible ETOH cirrhosis
Atrial tachycardia
Paroxysmal atrial fibrillation
ECHO 08/06/24: EF 40 to 45%, mild concentric LVH, apical akinesis, MAC, mild MR, mildly dilated aortic root measuring 3.7 cm at sinus of Valsalva, ascending aorta 3.8 cm
ECHO 08/13/24: EF 40 to 45%, mild concentric LVH, apical akinesis, posterior MAC and adequate excursion of leaflets, no significant change compared to prior
Plan:
-Presented with seizures, likely related to alcohol withdrawal.
-Echo with new CM, EF 40-45%. Troponin peaking at 0.857.
-Cardiac catheterization 08/14 w/ LAD PCI. Rafaelailinta transitioned to Plavix this AM due to cost.
-She does have h/o atrial fibrillation, however has not been maintained on AC as OP due to h/o GIB. No afib noted on tele this admission.
-Telem personally reviewed: NSR HR 80s-90s. Haso had runs of atrial tachycardia this admission but no afib.
-Had been on IV heparin this admission, however now stopped after [facility]. Hgb this AM 9.2. Eliquis 5mg BID resumed. Will discharge on Eliquis and Plavix. Follow CBC as OP.
-Continue medical therapy for new cardiomyopathy with coreg and lisinopril. Creat stable, added spironolactone 12.5mg daily 08/15/2024.
-SGLT2 inhibitor cost prohibitive.
-Off IV diuretics, wt stable, Transitioned to PO lasix 40 mg daily
-LFTs remain slightly elevated, but improving. LDL 113. Rosuvastatin 20mg daily started 08/15/2024. Recheck CMP as OP.
-Continue antibiotics for strep pneumonia bacteremia.
-treatment of seizure disorder, presumed alcohol withdrawal per primary service. [facility] protocol
-Cardiology follow up arranged.
As per up-to-date prior records obtained she does have history of congestive heart failure in the setting of rapid A-fib and reportedly is maintained on po lasix 20mg daily. Last echocardiogram 10/16/2022 with EF 55 to 60%, moderate to severe left
atrial dilation, dilated IVC which does not collapse, mild MR, aortic sclerosis. Noted by chest CTA 10/16/22 to have 2.6 cm thyroid nodule, enlarged spleen, and evidence of cirrhosis. She reportedly underwent colonoscopy 10/2022 and had large polyp
status post excision at [place] with benign pathology. Between October and February 2023 she had routine labs for cardiology visit and found to have a hemoglobin of 5.7. She was admitted and underwent 2 units of packed red blood cells with
improvement, endoscopy was reportedly normal without varices noted. She was then hospitalized at [facility] 02/2023 with acute anemia and transfused. Her CBC was monitored weekly and she occasionally required transfusions.
Apparently she was on and off eliquis 2.5mg BID for several months in setting of intermittent acute on chronic anemia. MRI of the abdomen 05/11/2023 consistent with cirrhosis with lesion of right hepatic lobe suspicious for possible HCC.
Progress Note - Route Delivery Clerk
Subjective
Date of Service: August 16, 2024
feels great, excited to go home
no CP, SOB, palps
Objective
Labs:
08/15/24 03:24
08/16/24 03:56
Labs
Hgb 9.2 g/dL (12.0-16.0) L 08/15/24 03:24
Hct 26.6 % (37.0-47.0) L 08/15/24 03:24
Plt Count 116 10^3/uL (130-400) L 08/15/24 03:24
PT 16.7 Sec (11.4-14.6) H 08/10/24 03:03
INR 1.37 08/10/24 03:03
APTT 31.7 Sec (23.4-35.0) 08/15/24 03:24
Sodium 138 mmol/L (135-145) 08/16/24 03:56
Potassium 3.8 mmol/L (3.5-5.1) 08/16/24 03:56
BUN 19 mg/dl (7-17) H 08/16/24 03:56
Creatinine 0.6 mg/dL (0.6-1.0) 08/16/24 03:56
Glucose 177 mg/dl (70-99) H 08/16/24 03:56
Vital Signs and I&O:
Vital Signs
Temp Pulse Resp BP Pulse Ox
98.3 F 85 18 129/65 96
08/16/24 06:57 08/16/24 08:00 08/16/24 06:57 08/16/24 07:00 08/16/24 08:30
Vital Signs
Temp Pulse Resp BP Pulse Ox
98.3 F 85 18 129/65 96
08/16/24 06:57 08/16/24 08:00 08/16/24 06:57 08/16/24 07:00 08/16/24 08:30
Intake & Output
08/14/24 08/15/24 08/16/24 08/17/24
06:59 06:59 06:59 06:59
Intake Total 684 / 684 480 / 480 420 / 420
Output Total 400 / 400 225 / 225
Balance 684 / 684 80 / 80 195 / 195
Physical Exam
Physical Exam
GEN: No distress, awake, Ox3
HEENT: supple, anicteric, mmm
LUNGS: CTA, no wheezes/rales
CV: Reg, S1/S2, no murmur
ABD: soft, BS+, NT/ND
EXT: No edema
NEURO: Gross non-focal
SKIN: No rash
[2024-08-16 11:04] VITALS: BP 136/79
--- NOTE | 2024-08-16 11:24 | CM ---
spoke with pt in room, priced all her meds at [facility] in [place]- used good rx coupons ( printed) for meds that were not on their $4 list. total cost for all meds approx $95 for the month. she was given a free 30 day coupon for eliquis,
cardiology will follow up with her after that. pt is agreeable to this cost. her medical assist applic will be submitted when she gets her oct checking and saving statements- pt has the FAX # for [facility]. was told it will take up to 45 days. pt also
given the # for residency clinic and she said she will make appt by monday, she would like to switch to them for a PCP. spoke with KENNY/Shama- they will also f/u with pt for PCP orders thru the Residency clinic. checklist given to pt with above
information to help her complete all tasks. plan is for dc to home today with VN.
--- NOTE | 2024-08-16 11:58 | W.DCSUMMARY ---
Discharge Summary
Discharge Data
Date of Admission: 08/04/24
Date of Discharge: 08/16/24
-
Pending Results: No
Hospital Course
Principal Diagnosis:
New onset tonic-clonic seizures secondary to alcohol withdrawal seizure
Streptococcus bacteremia suspect secondary aspiration pneumonia from seizure
Acute kidney injury, resolved
Metabolic acidosis, resolved
Paroxysmal Atrial fibrillation
New onset cardiomyopathy, EF of 40 to 45%, normal diastolic function.
Chronic Diagnoses:�
Obesity
Alcoholic liver cirrhosis
Alcohol use disorder
Consultations:�
Cardiology
Neurology
Infectious disease
Bench Machine Operator
Diabetes nurse practitioner
Procedures:�
Cardiac cath 08/14: noted mid LAD stenosis s/p PCI.
Clinical course:�
This is a 59 year old female with past medical history as stated above, who presented with confusion due to tonic-clonic seizure.
She was intubated on admission for airway protection.
Problem 1:
New onset tonic-clonic seizure secondary to alcohol withdrawal.
She was intubated on admission for airway protection and extubated subsequently.
Her CT head showed no acute intracranial abnormality.
Her MRI brain also showed no focal acute intracranial abnormality.
Her UDS was negative, alcohol level not detected.
She was initially started with Keppra which was subsequently discontinued.
She also received phenobarbital taper and at one point was on Precedex while in the hospital.
She underwent LP which was negative for meningitis.
Problem 2:
Streptococcus bacteremia suspect secondary aspiration pneumonia from seizure.
This was treated with IV ceftriaxone initially which was changed to cefdinir. She had completed the antibiotic course while in the hospital.
Problem 3:
Paroxysmal Atrial fibrillation.
He was started with Coreg and was discharged at 6.25 twice daily.
He was also discharged with Eliquis 5 mg twice daily.
Problem 4:
New onset cardiomyopathy.
Her echo showed an EF of 40 to 45%, normal diastolic function. Mild concentric LVH. There was apical akinesis.
She underwent cardiac cath on 1029 which noted mild LAD stenosis and this was stented.
Since she would be on Eliquis for atrial fibrillation, she can continue with Eliquis and Plavix, without additional aspirin.
She can continue with Coreg 6.2 half twice daily and lisinopril 5 mg daily for her cardiomyopathy.
Problem 5:
Hyperglycemia with uncontrolled insulin-dependent diabetes.
She was treated with insulin drip initially, and was eventually put back on subcu insulin.
She can continue with Lantus 15 units at bedtime.
Her A1c was at 8.3%
As for the rest of her medical problems, they were stable during her hospital stay.
Discharge Plan
-
Patient Disposition: Home with Home Care
Discharge Diagnosis/Procedures: Seizures due to alcohol withdrawal seizure;
Acute hypoxic respiratory failure status post intubation and extubation;
Resolved Acute kidney injury and metabolic acidosis;
Streptococcus bacteremia suspect due to aspiration pneumonia from seizure;
Cardiomyopathy with EF of 40 to 45%;
coronary artery disease with stent to Left Anterior Descending artery;
Atrial fibrillation
Condition: Fair
Diet: Low Cholesterol, 2 Gram Sodium and Diabetic, Carb Controlled
Activity: As tolerated
Driving Restrictions: Not until seen by your Dr
Blood Work: CBC, CMP in 1 week
Others Tests: There are 2 left thyroid lobe nodules, as described. This may be further evaluation with follow-up nonemergent ultrasound with your PCP
Other Services: Cardiac Rehab
Specialty Instructions: Weigh Daily- Call MD for wt gain/loss 3 lbs overnight/5 lbs in 1 week
Stand Alone Forms: DC Instructions- Cath/EP Lab
Referrals:
[facility]. Cardiac Rehab [Outside] - 09/16/24 8:30 am
(Cardiac Rehab Orientation appointment is on Monday September 16, 2024 @ 8:30am.
The Cardiac Rehab gym is located on the first floor of the [facility].)
[facility] [Outside]
Bob Kirby DO [Family Provider] - in less than 1 week
Jeri Del Valle PA-C [Specified Professional Personl] - 08/22/24 3:40 pm (You have a cardiology follow up appointment at the [facility], [address]. Please call with questions. )
Prescriptions:
New
spironolactone 25 mg Tablet
12.5 mg PO DAILY Qty: 30 0RF
carvedilol 6.25 mg Tablet
6.25 mg PO BID Qty: 60 0RF
Eliquis 5 mg Tablet
5 mg PO BID Qty: 60 0RF
furosemide 40 mg Tablet
40 mg PO DAILY Qty: 30 0RF
clopidogrel 75 mg Tablet
75 mg PO DAILY Qty: 30 0RF
lisinopril 5 mg Tablet
5 mg PO DAILY Qty: 30 0RF
insulin glargine [Lantus U-100 Insulin] 100 unit/mL Solution
15 unit SC HS Qty: 1 0RF
Rx Instructions:
TAKE 15 UNITS AT BEDTIME
metformin 1,000 mg Tablet
1,000 mg PO BID Qty: 60 0RF
(DME) blood-glucose meter [ReliOn All-In-One Meter] Kit
Qty: 1 0RF
Rx Instructions:
TEST BLOOD SUGAR TWICE A DAY
rosuvastatin 20 mg Tablet
20 mg PO QPM Qty: 30 0RF
magnesium 200 mg tablet
400 mg PO DAILY Qty: 60 0RF
Continued
levothyroxine 50 mcg Tablet
50 mcg PO DAILY
buspirone 10 mg Tablet
10 mg PO BID
Discontinued
magnesium 500 mg Tablet
1 mg PO DAILY
Discharge Orders:
Discharge Patient (As Directed); Ordered 08/16/24
Ordered By: Graciela Moore
Care Plan Goals
Care Plan Goals:
Problem: Readiness for enhanced knowledge related to diagnosis and treatment plan
Goal: Understand your diagnosis and treatment plan needs, including medications if applicable.
Instructions: Know your diagnosis, underlying causes and treatment plan options, including medications if applicable. Consult with your health care team to learn about your diagnosis and treatment plan, including medications if applicable.
Discharge Date and Time
Print Language: FRENCH
[2024-08-16 12:38] LABS: Glucose - Point of Care 194 mg/dl (70-99)
--- NOTE | 2024-08-16 14:46 | PTCARENOTE ---
Pt up walking, denies any discomfort. PICC line removed. Telemetry discontinued. Discharge instructions reviewed with pt regarding activity guidelines, medications, CHF guidelines, wound care, lab test, reporting cares and concerns and follow up
appt's. Very good understanding verbalized. Pt states she is aware of other arrangements for new PCP. Pt escorted out via wheelchair and discharged to home via Uber transport.
== END 2024-08-16 14:45 | disposition home health service (06) | DRG 981 ==
LOC: IVU 16:10
PROVIDERS: Hospitalist; Internal Medicine Cardiovascular Disease; Internal Medicine Critical Care Medicine; Nurse Practitioner; Nurse Practitioner Family; Physician Assistant; Radiology Diagnostic Radiology; Registered Nurse; ADMITTING PHYSICIAN Hospitalist; ATTENDING PHYSICIAN Internal Medicine; CONSULT PHYSICIAN Internal Medicine Cardiovascular Disease; CONSULT PHYSICIAN Physical Medicine & Rehabilitation; EMERGENCY PHYSICIAN Emergency Medicine; FAMILY PHYSICIAN Family Medicine; OTHER PHYSICIAN Internal Medicine Critical Care Medicine; OTHER PHYSICIAN Internal Medicine Infectious Disease; OTHER PHYSICIAN Psychiatry & Neurology Neurology
PROC: 5A1955Z Respiratory Ventilation, Greater than 96 Consecutive Hours (ICD-10-PCS; 2024-08-04)
PROC: 0BH17EZ Insertion of Endotracheal Airway into Trachea, Via Natural or Artificial Opening (ICD-10-PCS; 2024-08-04)
PROC: 02HV33Z Insertion of Infusion Device into Superior Vena Cava, Percutaneous Approach (ICD-10-PCS; 2024-08-06)
PROC: 009U3ZX Drainage of Spinal Canal, Percutaneous Approach, Diagnostic (ICD-10-PCS; 2024-08-08)
PROC: 4A023N8 Measurement of Cardiac Sampling and Pressure, Bilateral, Percutaneous Approach (ICD-10-PCS; 2024-08-14)
PROC: B2111ZZ Fluoroscopy of Multiple Coronary Arteries using Low Osmolar Contrast (ICD-10-PCS; 2024-08-14)
PROC: 4A033BC Measurement of Arterial Pressure, Coronary, Percutaneous Approach (ICD-10-PCS; 2024-08-14)
PROC: 027034Z Dilation of Coronary Artery, One Artery with Drug-eluting Intraluminal Device, Percutaneous Approach (ICD-10-PCS; 2024-08-14)
DX: F10.139 Alcohol abuse with withdrawal, unspecified (principal); G92.8 Other toxic encephalopathy; J69.0 Pneumonitis due to inhalation of food and vomit; J96.01 Acute respiratory failure with hypoxia; J15.211 Pneumonia due to Methicillin susceptible Staphylococcus aureus; E87.20 Acidosis, unspecified; N17.9 Acute kidney failure, unspecified; R78.81 Bacteremia; I42.8 Other cardiomyopathies; I5A Non-ischemic myocardial injury (non-traumatic); R56.9 Unspecified convulsions; I16.0 Hypertensive urgency; K70.30 Alcoholic cirrhosis of liver without ascites; D69.59 Other secondary thrombocytopenia; E87.6 Hypokalemia; E11.65 Type 2 diabetes mellitus with hyperglycemia; E78.5 Hyperlipidemia, unspecified; F41.9 Anxiety disorder, unspecified; I48.0 Paroxysmal atrial fibrillation; I50.9 Heart failure, unspecified; E03.9 Hypothyroidism, unspecified; I27.29 Other secondary pulmonary hypertension; I25.10 Atherosclerotic heart disease of native coronary artery without angina pectoris; E66.01 Morbid (severe) obesity due to excess calories; Z60.2 Problems related to living alone; I11.0 Hypertensive heart disease with heart failure; I25.5 Ischemic cardiomyopathy; J32.3 Chronic sphenoidal sinusitis; I95.9 Hypotension, unspecified; E83.42 Hypomagnesemia; R19.7 Diarrhea, unspecified; Z68.38 Body mass index [BMI] 38.0-38.9, adult; Z79.01 Long term (current) use of anticoagulants; Z79.84 Long term (current) use of oral hypoglycemic drugs; Z79.899 Other long term (current) drug therapy; Z82.49 Family history of ischemic heart disease and other diseases of the circulatory system
CPT/HCPCS: 93308; 31500; 36600; 62328; 70450; 70491; 70553; 71045; 74018; 76700; 80048; 80053; 80061; 80306; 81003; 81015; 82010; 82077; 82140; 82607; 82805; 82945; 82947; 82962; 83036; 83605; 83735; 83880; 84100; 84157; 84478; 84484; 85025; 85027; 85347; 85610; 85730; 86592; 87015; 87040; 87070; 87077; 87116; 87147; 87186; 87205; 87327; 87476; 87483; 89051; 92526; 92610; 93005; 93306; 93460; 93799; 94002; 94003; 94640; 95714; 95813; 96374; 96375; 97116; 97163; 97167; 97530; 97535; 99291; A9575; C1725; C1769; C1874; C1894; C9600; P9047; Q9950; Q9967

== ENCOUNTER 2024-08-18 13:16 | Emergency (ER) | payer OTHER, SELFPAY ==
[2024-08-18 13:18] VITALS: BP 145/90
[2024-08-18 13:41] LABS: % Basophils 1.5 % (0-2); % Immature Granulocytes 0.4 % (0-0.5); % Lymphocytes 8.7 % (20.5-51.1); % Monocytes 6.9 % (1.7-9.3); % Neutrophils 78.5 % (42.2-75.2); Absolute Basophils 0.2 10^3/uL (0-0.2); Absolute Eosinophils 0.4 10^3/uL (0-0.7); Absolute Lymphocytes 0.9 10^3/uL (1.2-3.4); Absolute Monocytes 0.7 10^3/uL (0.1-0.6); Absolute Neutrophils 7.8 10^3/uL (1.4-6.5); Hematocrit 32.5 % (37.0-47.0); Hemoglobin 11.2 g/dL (12.0-16.0); Mean Corp Hgb Conc. 34.5 g/dL (33.0-37.0); Mean Corpuscular Hgb 31.3 pg (27.0-31.0); Mean Corpuscular Volume 90.8 fL (81.0-99.0); Mean Platelet Volume 11.2 fL (7.4-10.4); Nucleated Red Blood Cells % 0 %; Platelet Count 172 10^3/uL (130-400); Red Blood Cell Count 3.58 10^6/uL (4.20-5.40); Red Cell Dist. Width 13.2 % (11.5-14.5); White Blood Cell Count 9.9 10^3/uL (4.8-10.8)
[2024-08-18 14:12] LABS: ALT (SGPT) 64 U/L (0-35); AST (SGOT) 57 U/L (14-36); Albumin 4.6 g/dl (3.5-5.0); Alkaline Phosphatase 134 U/L (38-126); Blood Urea Nitrogen 17 mg/dl (7-17); Carbon Dioxide 21 mmol/L (22-30); Chloride 101 mmol/L (98-107); Glucose 236 mg/dl (70-99); Potassium 4.4 mmol/L (3.5-5.1); Sodium 138 mmol/L (135-145); Total Bilirubin 1.6 mg/dl (0.2-1.3); Total Protein 8.2 g/dl (6.3-8.2); eGFR > 60.00
[2024-08-18 14:13] LABS: Alcohol None Detected
--- NOTE | 2024-08-18 14:33 | ED.GENMED ---
History of Present Illness
General
Chief Complaint: Alcohol Problem
Time Seen by Provider: 08/18/24 14:18
History of Present Illness
History of Present Illness:
59-year-old female with history of paroxysmal A-fib, CHF, hypertension, hyperlipidemia, and alcohol abuse presents to the emergency department requesting placement in an inpatient detox/rehab facility. Patient was admitted to this hospital over a
nearly 2-week. Tween August 04 and 2 days ago for alcohol withdrawal with status epilepticus seizures. I was just prior to this admission that her last alcoholic beverage was consumed. She currently feels well and denies any complaints.
Past History
Past History
ED Past Medical History: Cancer and Hypothyroidism
Family History
Family History: Other (reviewed and non-contributory)
Review of Systems
Review of Systems
Allergies reviewed?: Yes
All Other Systems: ROS reviewed and negative except as documented in HPI and ROS
Phy Exam
Physical Exam
Physical Exam:
GEN: Well appearing, NAD, WDWN
HEENT: Oral mucosa moist, no scleral icterus
Cardiac: Regular rate and rhythm, no murmurs
Lung: No respiratory distress, no tachypnea
MSK: No gross deformity or injuries
Skin: Good color, no pallor or jaundice, no rashes
Neuro: AO x3, moves all extremities freely
Psych: Calm, cooperative
Scores
Withdrawal Assessment of Alcohol
Withdrawal Assessment Completed?: Yes
Nausea and Vomiting: No nausea and no vomiting
Tactile Disturbances: None
Tremor: No tremor
Auditory Disturbances: Not present
Paroxysmal Sweats: No sweat visible
Visual Disturbances: Not present
Anxiety: No anxiety, at ease
Headache, Fullness in Head: Not present
Agitation: Normal activity
Orientation and clouding of sensorium: Oriented and can do serial additions
Total CIWA Score: 0
Alcohol Withdrawal Medication Recommendation: Equal to MSAS Score 0-4. Monitor & re-assess q2hrs, NO MEDICATION NEEDED
Course
Orders/Labs/Results
Orders:
Orders
08/18/24 13:34
Alcohol Urgent
CMP [Comprehensive Metabolic Panel] Urgent
Complete Blood Count/With Diff Urgent
Abnormal Lab Results
08/18/24
13:34
RBC 3.58 L 10^6/uL
(4.20-5.40)
Hgb 11.2 L D g/dL
(12.0-16.0)
Hct 32.5 L %
(37.0-47.0)
MCH 31.3 H pg
(27.0-31.0)
MPV 11.2 H fL
(7.4-10.4)
Absolute Neuts (auto) 7.8 H 10^3/uL
(1.4-6.5)
Absolute Lymphs (auto) 0.9 L 10^3/uL
(1.2-3.4)
Absolute Monos (auto) 0.7 H 10^3/uL
(0.1-0.6)
Neutrophils % 78.5 H %
(42.2-75.2)
Lymphocytes % 8.7 L %
(20.5-51.1)
Carbon Dioxide 21 L mmol/L
(22-30)
Glucose 236 H mg/dl
(70-99)
Total Bilirubin 1.6 H mg/dl
(0.2-1.3)
AST 57 H U/L
(14-36)
ALT 64 H U/L
(0-35)
Alkaline Phosphatase 134 H U/L
(38-126)
08/18/24 13:34
08/18/24 13:34
Vital Signs
Initial and Last Documented VS:
Initial Vital Signs
Temp Pulse Resp BP Pulse Ox
98.3 F 104 18 145/90 96
08/18/24 13:18 08/18/24 13:18 08/18/24 13:18 08/18/24 13:18 08/18/24 13:18
Last Documented Vital Signs
Temp Pulse Resp BP Pulse Ox
98.3 F 104 18 145/90 96
08/18/24 13:18 08/18/24 13:18 08/18/24 13:18 08/18/24 13:18 08/18/24 13:18
MDM/Problems Addressed
MDM/Problems Addressed:
Patient remained medically stable in the emergency department here with no signs of withdrawal. B cares assisted with placement, the patient will be admitted to [facility] tomorrow
*Critical Care Note
Total Time (30-74mins, 75-104mins- exclusive of procedures): Not Applicable
ED Attending Note
-
Portions of this chart may have been created with voice recognition software.� Occasional wrong word or��sound alike� substitutions may have occurred due to the inherent limitations of voice recognition software.
Discharge Plan
Departure
Patient Disposition: Home (Routine Discharge)
Date of Disposition: 08/18/24
Time of Disposition: 16:11
Patient with high blood pressure during this ER visit?: No
Discharge Problem:
Alcohol use disorder
Instructions: Alcohol Use Disorder (DC)
Prescriptions:
No Action
spironolactone 25 mg Tablet
12.5 mg PO DAILY Qty: 30 0RF
carvedilol 6.25 mg Tablet
6.25 mg PO BID Qty: 60 0RF
Eliquis 5 mg Tablet
5 mg PO BID Qty: 60 0RF
furosemide 40 mg Tablet
40 mg PO DAILY Qty: 30 0RF
clopidogrel 75 mg Tablet
75 mg PO DAILY Qty: 30 0RF
lisinopril 5 mg Tablet
5 mg PO DAILY Qty: 30 0RF
metformin 1,000 mg Tablet
1,000 mg PO BID Qty: 60 0RF
(DME) blood-glucose meter [ReliOn All-In-One Meter] Kit
Qty: 1 0RF
Rx Instructions:
TEST BLOOD SUGAR TWICE A DAY
rosuvastatin 20 mg Tablet
20 mg PO QPM Qty: 30 0RF
magnesium 200 mg tablet
400 mg PO DAILY Qty: 60 0RF
insulin glargine [Lantus Solostar U-100 Insulin] 100 unit/mL (3 mL) Insulin Pen
15 unit SC DAILY Qty: 5 0RF
Rx Instructions:
Please take 15 units at bedtime
(DME) pen needle, diabetic [BD Ultra-Fine Colleen Pen Needle] 32 gauge x 5' Needle
Qty: 35 0RF
Rx Instructions:
TAKE 15 UNITSOF LANTUS AT BEDTIME
glipizide 5 mg Tablet
2.5 mg PO BID@0800,1700 Qty: 60 0RF
Rx Instructions:
TAKE TWICE A DAY WITH BREAKFAST AND DINNER
levothyroxine 50 mcg Tablet
50 mcg PO DAILY Qty: 30 0RF
buspirone 10 mg Tablet
10 mg PO BID Qty: 60 0RF
Referrals:
NONE,* [Family Provider] -
Activity Restrictions/Additional Instructions:
Go to [facility] as discussed
Interventions
Interventions:
*Risk Screen - Suicide Last Done: 08/18/24 13:18
*General Assessment Last Done: 08/18/24 13:18
*ED COVID-19 Vaccine History Last Done: 08/18/24 13:18
Discharge Date and Time
Print Language: LAO
== END 2024-08-18 16:15 | disposition home or self-care (01) ==
LOC: EMR 13:16
PROVIDERS: EMERGENCY PHYSICIAN Emergency Medicine
DX: F10.10 Alcohol abuse, uncomplicated (principal); E03.9 Hypothyroidism, unspecified; E78.00 Pure hypercholesterolemia, unspecified; I11.0 Hypertensive heart disease with heart failure; I50.9 Heart failure, unspecified
CPT/HCPCS: 99283; 80053; 82077; 85025